=== PATIENT | female | born 1975 | race Caucasian/White ===

== ENCOUNTER 2017-02-03 14:07 | Inpatient (IN) | payer OTHER ==
[2017-02-01] MEDS: MUPIROCIN 2% TOPICAL OINTMENT FOR DECOLONIZATION NS SCH (13:58)
--- NOTE | 2017-02-03 15:23 | PDOC ---
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 Patient was seen last night in the ED but signed out AMA. Her family and her were informed by ED later today of positive CT head showed venous thrombosis. The headache started last night around 9pm, intermittent, begins from anterior L eye, travels through L head then to posterior occipital lobe, 6-8/10, sharp quality, associated with n/v, light, position change, noise make the pain worse. Patient accounts that she had herpes breakout before the headache. She also c/o chest pain but she attributes the symptom to panic attack. Denies , OCP use, bleeding/ clotting disorders, fever, chills, sob, abd pain, urinary and bowel symptoms. 02/03/17 16:49 <Jonas Ross - Last Filed: 02/03/17 18:56> <Saturnino Chavez - Last Filed: 02/09/17 18:28> - General Chief Complaint: Headache Stated Complaint: CVT Time Seen by Provider: 02/03/17 15:23 Past History - Travel Traveled outside of the country in the last 30 days: No Close contact w/someone who was outside of country & ill: No - Past Medical History Psychiatric Problems: Yes (Depression, anxiety, mental illness) - Psycho/Social/Smoking Cessation Hx Suicidal Ideation: No Smoking Status: Yes (1.5 pack per day) Smoking History: Current every day smoker Have you smoked in the past 12 months: Yes Number of Cigarettes Smoked Daily: 35 Information on smoking cessation initiated: No Hx Alcohol Use: No Drug/Substance Use Hx: No Substance Use Type: None <Jonas Ross - Last Filed: 02/03/17 18:56> <Saturnino Chavez - Last Filed: 02/09/17 18:28> - Past Medical History Allergies/Adverse Reactions: Allergies Allergy/AdvReac Type Severity Reaction Status Date / Time No Known Allergies Allergy Verified 02/03/17 14:21 Home Medications: Ambulatory Orders Clonazepam [Klonopin] 1 mg TID 02/03/17 Quetiapine Fumarate [Seroquel] 100 tab PO HS 02/03/17 Sertraline HCl [Zoloft] 100 mg PO DAILY 02/03/17 Review of Systems - Review of Systems Able to Perform ROS?: Yes Is the patient limited Iranian proficient: No Constitutional: No: Chills, Fever, Weakness HEENTM: Yes: Other (eyes sensitive to light and noise) Cardiac (ROS): Yes: Chest Pain (due to anxiety) ABD/GI: Yes: Nausea, Vomiting : No: Dysuria Neurological: Yes: Tremors Psychiatric: Yes: Anxiety, Depression <Jonas Ross - Last Filed: 02/03/17 18:56> *Physical Exam - Vital Signs Last Vital Signs Temp Pulse Resp BP Pulse Ox 98 F 92 H 18 126/95 98 02/03/17 14:19 02/03/17 14:19 02/03/17 14:19 02/03/17 14:19 02/03/17 14:19 - Physical Exam General Appearance: Yes: Mild Distress HEENT: positive: AARON, Other (sensitive to light) Neck: positive: Trachea midline, Supple Respiratory/Chest: positive: Lungs Clear, Normal Breath Sounds Cardiovascular: positive: Regular Rhythm, S1, S2, Tachycardia. negative: Diastolic Murmur, Systolic Murmur, Gallop/S3, Gallop/S4 Gastrointestinal/Abdominal: positive: Normal Bowel Sounds, Soft. negative: Tenderness Extremity: positive: Swelling (trace edema) Neurologic: positive: Fully Oriented, Alert (4/5 on L face), Sensory Deficit <Jonas Ross - Last Filed: 02/03/17 18:56> - Vital Signs Last Vital Signs Temp Pulse Resp BP Pulse Ox 98.5 F 78 20 126/75 93 L 02/09/17 14:35 02/09/17 14:35 02/09/17 14:35 02/09/17 14:35 02/09/17 11:00 <Saturnino Chavez - Last Filed: 02/09/17 18:28> ED Treatment Course - LABORATORY CBC & Chemistry Diagram: 02/09/17 06:20 02/06/17 06:00 - Medications Given in the ED: ED Medications Discontinued Medications Generic Name Dose Route Start Last Admin Trade Name Freq PRN Reason Stop Dose Admin Acetaminophen/Butalbital/Caffeine 1 tablet 02/03/17 18:32 02/03/17 18:37 Fioricet - PO 02/04/17 18:31 1 tablet Q4H PRN Administration FEVER OR PAIN Chlorhexidine Gluconate 1 applic 02/03/17 22:00 02/03/17 23:34 Hibiclens For Decolonization - TP 1 applic HS TRANG Administration Clonazepam 1 mg 02/03/17 22:00 02/04/17 13:57 Klonopin - PO 1 mg TID TRANG Administration Docusate Sodium 100 mg 02/06/17 06:45 02/08/17 13:39 Colace - PO 100 mg BID TRANG Administration Heparin Sodium (Porcine) 5,000 unit 02/03/17 16:26 02/03/17 16:47 Heparin - IVPUSH 02/03/17 16:27 5,000 unit ONCE ONE Administration Heparin Sodium/Dextrose 500 mls @ 20 mls/hr 02/03/17 16:30 02/04/17 17:34 Heparin Infusion - IVPB 20 mls/hr TITR TRANG Administration Protocol 1,000 UNITS/HR Sodium Chloride 1,000 mls @ 75 mls/hr 02/04/17 12:30 02/05/17 06:27 Normal Saline - IV 75 mls/hr ASDIR TRANG Administration Sodium Chloride 1,000 mls @ 1,000 mls/hr 02/04/17 23:34 02/04/17 23:40 Normal Saline - IV 02/05/17 00:33 1,000 mls/hr ASDIR STA Administration Levetiracetam 500 mg 02/03/17 22:00 02/04/17 10:27 Keppra - PO 500 mg BID TRANG Administration Levetiracetam 500 mg 02/04/17 22:00 02/05/17 09:46 Keppra - PO 500 mg BID TRANG Administration Mupirocin 1 applic 02/03/17 22:00 02/03/17 23:33 Bactroban Ointment (For Decolonization) - NS 02/08/17 21:59 1 applic BID TRANG Administration Mupirocin 1 applic 02/04/17 22:00 02/08/17 10:00 Bactroban Ointment (For Decolonization) - NS 02/08/17 21:59 Not Given BID TRANG Nicotine 14 mg 02/04/17 10:00 02/04/17 11:33 Nicoderm Patch - TD 14 mg DAILY TRANG Administration Polyethylene Glycol 17 gm 02/06/17 06:52 02/06/17 07:48 Miralax (For Daily Use) - PO 02/06/17 06:53 17 grams ONCE ONE Administration Quetiapine Fumarate 100 mg 02/03/17 22:00 02/03/17 23:34 Seroquel - PO 100 mg HS TRANG Administration Sertraline HCl 100 mg 02/04/17 10:00 02/04/17 10:35 Zoloft - PO Not Given DAILY TRANG Sertraline HCl 100 mg 02/05/17 10:00 02/07/17 09:21 Zoloft - PO Not Given DAILY TRANG Warfarin Sodium 5 mg 02/04/17 18:00 02/04/17 17:36 Coumadin - PO 5 mg DAILY@1800 TRANG Administration Warfarin Sodium 5 mg 02/05/17 18:00 02/05/17 17:46 Coumadin - PO 5 mg DAILY@1800 TRANG Administration Warfarin Sodium 7.5 mg 02/06/17 18:00 02/06/17 18:28 Coumadin - PO 02/06/17 18:01 7.5 mg ONCE@1800 ONE Administration Warfarin Sodium 10 mg 02/07/17 18:00 02/07/17 17:10 Coumadin - PO 02/07/17 18:01 10 mg ONCE@1800 ONE Administration Warfarin Sodium 10 mg 02/08/17 18:00 02/08/17 18:13 Coumadin - PO 02/08/17 18:01 10 mg NOW ONE Administration Warfarin Sodium 10 mg 02/09/17 18:00 02/09/17 18:07 Coumadin - PO 02/09/17 18:01 10 mg NOW ONE Administration <Saturnino Chavez - Last Filed: 02/09/17 18:28> Medical Decision Making - Medical Decision Making 02/03/17 16:45 Labs from last night were essential normal except slightly elevated WBC. CT w/ contrast showed cavernous sinus thrombosis. Will admit the patient under hospitalist to Med-Surg and consult neurology and neurosurgery. 02/03/17 16:53 Patient's recent herpe breakout on face could be responsible for cavernous sinus thrombosis. Will start heparin gtt and admit the patient under hospitalist service to med-surg 02/03/17 18:[address] Mcclellan, he suggests ICU admission and will give pt fiorcet for headache. Awaits Dr. Shakir Lincoln to call back. 02/03/17 18:56 <Jonas Ross - Last Filed: 02/03/17 18:56> *DC/Admit/Observation/Transfer - Discharge Dispostion Admit: Yes <Jonas Ross - Last Filed: 02/03/17 18:56> <Saturnino Chavez - Last Filed: 02/09/17 18:28> Diagnosis at time of Disposition: Cavernous sinus thrombosis - Referrals
--- NOTE | 2017-02-03 15:27 | PDOC ---
Attending Attestation - Resident Resident Name: Jonas Ross - ED Attending Attestation I have performed the following: I have examined & evaluated the patient, The case was reviewed & discussed with the resident, I agree w/resident's findings & plan - HPI HPI: 41y F hx of anxiety/depression, presented the previous evening with complain gof headache, had a CT head suggestive of sinous venous thrombosis and the pt was admitted and started on a/c, however the pt decided to leave AMA in the AM. The pt returned to the ED this evening as she was called back and encouraged to return. The pt complains of persistent mild left sided facial headache. Seems to worsen with position and associated w/ n/v and light and light sensitivity. exam is neurologically intact. as the pt was admitted previously and had a full workup will admit directly to hospitalist service to the ICU - will notify neurosurgery and neurology - also restarted on heparin gtt. - Physicial Exam PE: 02/04/17 08:45 see above - Medical Decision Making 02/04/17 08:45 see above
[2017-02-03] MEDS ORDERED: HEPARIN NA (PORCINE) 5,000 UNITS/ML 1ML VIAL IVPUSH ONE (16:26)
[2017-02-03] MEDS ORDERED: HEPARIN NA (PORCINE) 5,000 UNITS/ML 1ML VIAL ONE (16:34)
[2017-02-03] MEDS ORDERED: HEPARIN INFUSION - 500 ML IVPB ONE (16:34)
[2017-02-03] MEDS: HEPARIN INFUSION - 500 ML IVPB SCH (16:47)
[2017-02-03] MEDS ORDERED: ACETAMINOPHEN/CAFFEINE/BUTALBITAL 1 TAB PO PRN (18:32)
[2017-02-03] MEDS ORDERED: ACETAMINOPHEN/CAFFEINE/BUTALBITAL 1 TAB ONE ×2 (18:41→21:21)
--- NOTE | 2017-02-03 19:37 | HP ---
CHIEF COMPLAINT: Headache PCP: Summer Younger HISTORY OF PRESENT ILLNESS: Patient is a 41 year old female with PMH of HSV, HPV, Anxiety, Depression & recurrent sinusitis who returned to ED after signing out AMA this morning. Patient was originally seen overnight for a severe headache that vstarted yesterday afternoon. The headache was 8/10, severe, sharp, located behind her left eye and radiated to the back of her head. She has associated photophobia, nausea, vomiting & noise sensitivity. CT was performed and showed venous thrombosis and patient was admitted to hospitalist service. She became anxious earlier today and signed out AMA, but returned after speaking with her mother. She denies (confirmed by HCG test), OCP use, clotting disorders in her history or her family. Denies fever, chills, SOB, chest pain or abdominal pain. ER course was notable for: (1)Head CT shows venous thrombosis left sigmoid sinus & left transverse sinus (2)Fioricet for pain management (3)Neurosurgery consulted Recent Travel: NONE REPORTED PAST MEDICAL HISTORY: ABOVE PAST SURGICAL HISTORY: NONE REPORTED Social History: Smokin/2 PPD, "long time" Alcohol:NONE REPORTED Drugs: NONE REPORTED Family History: ABOVE, noncontributory Allergies No Known Allergies Allergy (Verified 02/03/17 14:21) HOME MEDICATIONS: Home Medications Medication Instructions Recorded Clonazepam [Klonopin] 1 mg TID 02/03/17 Quetiapine Fumarate [Seroquel] 100 tab PO HS 02/03/17 Sertraline HCl [Zoloft] 100 mg PO DAILY 02/03/17 REVIEW OF SYSTEMS CONSTITUTIONAL: Absent: fever, chills, diaphoresis, generalized weakness, malaise, loss of appetite, weight change HEENT: Absent: rhinorrhea, nasal congestion, throat pain, throat swelling, difficulty swallowing, mouth swelling, ear pain CARDIOVASCULAR: Absent: chest pain, syncope, palpitations, irregular heart rate, lightheadedness , peripheral edema RESPIRATORY: Absent: cough, shortness of breath, dyspnea with exertion, orthopnea, wheezing, stridor, hemoptysis GASTROINTESTINAL: (+)nausea, vomiting, Absent: abdominal pain, abdominal distension, diarrhea, constipation, melena, hematochezia GENITOURINARY: Absent: dysuria, frequency, urgency, hesitancy, hematuria, flank pain, genital pain MUSCULOSKELETAL: Absent: myalgia, arthralgia, joint swelling, back pain, neck pain SKIN: Absent: rash, itching, pallor HEMATOLOGIC/IMMUNOLOGIC: Absent: easy bleeding, easy bruising, lymphadenopathy, frequent infections ENDOCRINE: Absent: unexplained weight gain, unexplained weight loss, heat intolerance, cold intolerance NEUROLOGIC: (+)headache, dizziness Absent: focal weakness or paresthesias, seizure, mental status changes, bladder or bowel incontinence PSYCHIATRIC: (+)anxiety, Absent: depression, suicidal or homicidal ideation, hallucinations. PHYSICAL EXAMINATION Vital Signs Temperature 97.7 F 02/03/17 21:17 Pulse Rate 70 02/03/17 21:17 Respiratory Rate 18 02/03/17 21:17 Blood Pressure 102/58 02/03/17 21:17 O2 Sat by Pulse Oximetry (%) 97 02/03/17 21:17 GENERAL: Awake, alert, and fully oriented, lethargic resting in bed. HEENT: Atraumatic, EOMI, PERRLA, No lymphadenopathy noteed, moist membranes LUNGS: Breath sounds equal, clear to auscultation bilaterally. No wheezes, and no crackles. No accessory muscle use. HEART: Regular rate and rhythm, normal S1 and S2 without murmur, rub or gallop. ABDOMEN: Soft, nontender, not distended, normoactive bowel sounds EXTREMITIES: 2+ pulses, warm, well-perfused. No calf tenderness. No peripheral edema. NEUROLOGICAL: Cranial nerves II-XII intact. Normal speech. Gait not observed. PSYCHIATRIC: Cooperative. Good eye contact. Appropriate mood and affect. Mildly anxious. SKIN: Warm, dry, normal turgor, no rashes or lesions noted, normal capillary refill. ASSESSMENT/PLAN: 41 year old female with PMH of HSV, HPV, Anxiety, Depression & recurrent sinusitis who returned to ED after signing out AMA this morning. Presented with headache, CT showed venous thrombosis. #Venous thrombosis, left sigmoid sinus & left transverse sinus -Fioricet for pain management PRN -Keppra BID, as per neurology -Heparin drip started after being loaded -zofran ordered for nausea -MRV ordered & pending, as per neurosurgery -Neurochecks -Neurology consulted -Neurosurgery consulted #Anxiety, Depression -continue home meds: Seroquel, Zoloft, Klonopin -needs outpatient Psych consult #Smoking history -nicotine patch -discussed importance of smoking cessation with patient Prophylaxis -Heparin drip -No PPI Visit type - Emergency Visit Emergency Visit: Yes ED Registration Date: 02/03/17 Care time: The patient presented to the Emergency Department on the above date and was hospitalized for further evaluation of their emergent condition. - New Patient This patient is new to me today: Yes Date on this admission: 02/04/17 - Critical Care Critical Care patient: Yes Total Critical Care Time (in minutes): 40 Critical Care Statement: The care of this patient involved high complexity decision making to prevent further life threatening deterioration of the patient 's condition and/or to evalute & treat vital organ system(s) failure or risk of failure.
--- NOTE | 2017-02-03 19:49 | PN ---
<Barby Donaldson - Last Filed: 02/03/17 19:49> Teaching Attending Note Name of Resident: Joey Sims <Summer Stanton - Last Filed: 02/03/17 21:17> Teaching Attending Note ATTENDING PHYSICIAN STATEMENT I saw and evaluated the patient. I reviewed the resident's note and discussed the case with the resident. I agree with the resident's findings and plan as documented. SUBJECTIVE: 41 yo F presents with headache since last night. She states that her headache still persists and she now has left jaw pain as well. Patient signed out AMA this morning and states that Hospitals make her anxious. Patient reports associated photophobia. Patient denies fevers, chills, SOB, nausea, vomiting, diarrhea and abdominal pain. 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 HEENT: Atraumatic. PERRLA, EOMI. Moist mucosa. No JVD. Photophobia. LUNGS: No distress, speaks full sentences, clear to auscultation bilaterally HEART: Regular rate and rhythm, normal S1 and S2, no murmurs, rubs or gallops, peripheral pulses normal and equal bilaterally. ABDOMEN: Soft, nontender, normoactive bowel sounds. No guarding, no rebound. No masses EXTREMITIES: Normal inspection, Normal range of motion, no edema. No clubbing or Cyanosis. NEUROLOGICAL: Cranial nerves II through XII grossly intact. Normal speech, normal gait, no focal sensorimotor deficits SKIN: Warm, Dry, normal turgor, no rashes or lesions noted. Laboratory Results - last 24 hr 02/02/17 02/03/17 02/03/17 22:20 00:01 00:01 WBC 11.5 H RBC 4.59 Hgb 13.0 Hct 40.3 MCV 87.8 MCHC 32.3 RDW 15.9 H Plt Count 208 MPV 8.7 Neutrophils % 63.7 Lymphocytes % 29.9 Monocytes % 4.9 Eosinophils % 1.0 Basophils % 0.5 INR Sodium 145 Potassium 4.0 Chloride 108 H Carbon Dioxide 27 Anion Gap 10 BUN 14 Creatinine 1.0 Creat Clearance w eGFR > 60 Random Glucose 83 Calcium 8.9 Total Bilirubin 0.2 AST 19 ALT 26 Alkaline Phosphatase 68 Total Protein 7.2 Albumin 3.6 Urine HCG, Qual Negative Blood Type Antibody Screen 02/03/17 02/03/17 04:10 04:10 WBC RBC Hgb Hct MCV MCHC RDW Plt Count MPV Neutrophils % Lymphocytes % Monocytes % Eosinophils % Basophils % INR 1.06 Sodium Potassium Chloride Carbon Dioxide Anion Gap BUN Creatinine Creat Clearance w eGFR Random Glucose Calcium Total Bilirubin AST ALT Alkaline Phosphatase Total Protein Albumin Urine HCG, Qual Blood Type B POSITIVE Antibody Screen Negative Documentation prepared by Summer Stanton, acting as medical radiation dosimetrist for Barby Donaldson M.D.
[2017-02-03] MEDS ORDERED: ONDANSETRON 4 MG/2 ML VIAL IVPB PRN (21:45)
[2017-02-03] MEDS ORDERED: CHLORHEXIDINE GLUCONATE 4% CLEANSER FOR DECOLONIZATION TP SCH (22:00)
[2017-02-03] MEDS ORDERED: QUEtiapine FUMARATE 100 MG TABLET (FP) PO SCH (22:00)
--- NOTE | 2017-02-03 22:38 | CONSULT ---
Consult Consult Specialty:: Pulm/CCM Reason for Consultation:: Sigmoid, sinus thrombosis - History of Present Illness Chief Complaint: Headache History of Present Illness: 41 kathya active smoker with PMHx of anxiety, depression, genital herpes and HPV virus who was admitted with c/o severe Lt sided headache x 2weeks. In Ed CT head showed venous thrombus in Left sigmoid sinus and left transverse sinus. She was seen by neuro surgeon Salazar and given Keppra for seizure prophylaxis, Fioricet for pain and started on a heparin drip. She denied any previous clotting events, or a family hx of hypercoaguable disease. test negative. She was transferred to ICU for monitoring. Plan for MRI head in am. Received in ICU AA+O x3 with c/o lt sided headache 04/03, no focal deficits, BARRERA and answering questions appropriately. VS BP 110/67, HR 68, O2 sat 100% on room air. She c/o photophobia, occasional dysphagia and drooling; denies N/V, chest pain, cough, fever, chills. - History Source History Provided By: Patient, Medical Record - Past Medical History Psych: Yes: Anxiety, Depression ENT: Yes: Sinusitis - Alcohol/Substance Use Hx Alcohol Use: No - Smoking History Smoking history: Current every day smoker Have you smoked in the past 12 months: Yes Aproximately how many cigarettes per day: 35 Home Medications - Allergies Allergies/Adverse Reactions: Allergies Allergy/AdvReac Type Severity Reaction Status Date / Time No Known Allergies Allergy Verified 02/03/17 14:21 - Home Medications Home Medications: Ambulatory Orders Quetiapine Fumarate [Seroquel] 100 tab PO HS 02/03/17 RX: Clonazepam [Klonopin] 1 mg TID 02/03/17 Sertraline HCl [Zoloft] 100 mg PO DAILY 02/03/17 Family Disease History - Family Disease History Family History: Unremarkable Review of Systems - Review of Systems Constitutional: reports: Weakness Eyes: reports: Recent Change in Vision (decreased distance vision) HENT: reports: Other (Left temporal and jaw pain) Neck: reports: No Symptoms Cardiovascular: reports: No Symptoms Respiratory: reports: No Symptoms Gastrointestinal: reports: Nausea, Vomiting (x2 in past week) Genitourinary: reports: No Symptoms Breasts: reports: No Symptoms Reported Musculoskeletal: reports: Other (occasional numbness in left hand) Integumentary: reports: No Symptoms Neurological: reports: Headache, Numbness, Weakness (numbness and weakness in left arm) Endocrine: reports: No Symptoms Hematology/Lymphatic: reports: No Symptoms Psychiatric: reports: Anxiety, Depression Pain Intensity: 6 Physical Exam Vital Signs: Vital Signs Temperature 97.7 F 02/03/17 21:17 Pulse Rate 70 02/03/17 21:17 Respiratory Rate 18 02/03/17 21:17 Blood Pressure 102/58 02/03/17 21:17 O2 Sat by Pulse Oximetry (%) 97 02/03/17 21:17 Constitutional: Yes: Well Nourished, No Distress, Anxious Eyes: Yes: Conjunctiva Clear, EOM Intact HENT: Yes: Atraumatic, Normocephalic, Other (dry MM) Neck: Yes: Supple, Trachea Midline Cardiovascular: Yes: Regular Rate and Rhythm, S1, S2 Respiratory: Yes: CTA Bilaterally Gastrointestinal: Yes: Normal Bowel Sounds, Soft, Abdomen, Obese ...Rectal Exam: Yes: Deferred Breast(s): Yes: WNL Musculoskeletal: Yes: WNL Extremities: Yes: Other (WWP) Edema: No Peripheral Pulses WNL: Yes Integumentary: Yes: WNL Neurological: Yes: Alert, Oriented ...Motor Strength: WNL Psychiatric: Yes: Alert, Oriented (anxious) Labs: Current Medications Acetaminophen/Butalbital/Caffeine (Fioricet -) 1 tablet PO Q4H PRN PRN Reason: FEVER OR PAIN Stop: 02/04/17 18:31 Last Admin: 02/03/17 18:37 Dose: 1 tablet Chlorhexidine Gluconate (Hibiclens For Decolonization -) 1 applic TP HS TRANG Clonazepam (Klonopin -) 1 mg PO TID TRANG Heparin Sodium/Dextrose (Heparin Infusion -) 500 mls @ 20 mls/hr IVPB TITR TRANG ; 1,000 UNITS/HR PRN Reason: Protocol Last Admin: 02/03/17 16:47 Dose: 20 mls/hr Levetiracetam (Keppra -) 500 mg PO BID TRANG Mupirocin (Bactroban Ointment (For Decolonization) -) 1 applic NS BID TRANG Stop: 02/08/17 21:59 Ondansetron HCl (Zofran Injection) 4 mg IVPB Q6H PRN PRN Reason: NAUSEA Quetiapine Fumarate (Seroquel -) 100 mg PO HS TRANG Sertraline HCl (Zoloft -) 100 mg PO DAILY TRANG Imaging - Results Cat Scan: Report Reviewed (CT Head Venous thrombosis in left sigmoid sinus and Left transverse sinus) Assessment/Plan 41 kathya active smoker with PMHx of anxiety, depression, genital herpes and HPV virus who was admitted with c/o severe Lt sided headache x 2weeks. Found to have venous thrombosis in left sigmoid sinus and lt transverse sinus of unclear etiology. Started on anticoagulation with heparin. Plan further imaging and possible surgical procedure. Admitted to ICU for monitoring. Neuro: Venous thrombosis in left sigmoid and Lt transverse sinus; work-up of etiology ongoing -Continue Heparin drip for therapeutic PTT 76-110 -Continue Keppra for seizure prophylaxis -Fioricet for headache -Decrease environmental stimulants -Cont anxiolytics -Cont antidepressants and anti-psychotics -Neuro checks ID: Leukocytosis no infectious prodrome or fever -Monitor WBC and temps -no indication for antibiotics at this time Proph: Heparin drip/ No PPI indicated
[2017-02-03 23:00] VITALS: BMI 34.4
[2017-02-03] MEDS: MUPIROCIN 2% TOPICAL OINTMENT FOR DECOLONIZATION NS SCH (23:33)
[2017-02-03] MEDS: levETIRAcetam 500 MG TABLET (FP) PO SCH (23:34)
[2017-02-03] MEDS: clonazePAM 0.5 MG TABLET PO SCH (23:34)
[2017-02-04] MEDS: clonazePAM 0.5 MG TABLET PO SCH ×3 (06:00→21:47)
[2017-02-04 06:11] LABS: MCH 29.3 pg (25.7-33.7); MCHC 33.2 g/dl (32.0-36.0); MEAN CELL VOLUME 88.2 fl (80-96); PLATELET COUNT 189 K/MM3 (134-434); RDW 15.3 % (11.6-15.6); WHITE BLOOD COUNT 8.6 K/mm3 (4.0-10.0)
[2017-02-04 07:24] LABS: CALCIUM 8.4 mg/dL (8.5-10.1); COCKROFT - GAULT 139.808; CREATININE 0.8 mg/dL (0.55-1.02)
--- NOTE | 2017-02-04 09:21 | PN ---
Progress Note (short form) - Note Progress Note: NEUROSURGERY Some headaches, but less Minimal nausea AF, VSS General- stable Speech slow (baseline per sister previously) Neuro exam non-focal Brain MRI/MRV baseline Cont heparin and convert to coumadin when ptt therapeutic and stable Hematology consult for hypercoagulable state Pt aware of the above
[2017-02-04] MEDS ORDERED: NICOTINE 14 MG/24 HOURS TOPICAL PATCH TD SCH (10:00)
[2017-02-04] MEDS: levETIRAcetam 500 MG TABLET (FP) PO SCH ×2 (10:27→21:50)
[2017-02-04] MEDS ORDERED: PT OWN MED DRAWER 7, Y5N ONE (10:29)
[2017-02-04] MEDS: SERTRALINE HCL 50 MG TABLET (FP) PO SCH ×2 (10:31→10:35)
--- NOTE | 2017-02-04 11:58 | CONSULT ---
Consult - text type - Consultation Consultation Note: Neurology History of Present Illness 41 yo F with h/o genital herpes and positive Pap smear seeing reports analyst, severe anxiety, depression on zoloft and seroquel seeing psy at [facility] presented to the ED for severe headache. Patient was seen night before presentation in the ED but signed out AMA. Her family and her were informed by ED later today of positive CT head showed possible venous thrombosis. The headache symptoms are intermittent, begins from anterior L eye, travels through L head then to posterior occipital lobe, 6-8/10, sharp quality, associated with n/v, light, position change, noise make the pain worse. Patient accounts that she had herpes breakout before the headache. She also c/o anxiety and panic attack. Heparin was started. NSGY consulted. MRV recommended by me yesterday but appears to be confusion regarding order and therefore I re-ordered. Past History - Travel Traveled outside of the country in the last 30 days: No Close contact w/someone who was outside of country & ill: No - Past Medical History Allergies/Adverse Reactions: Allergies Allergy/AdvReac Type Severity Reaction Status Date / Time No Known Allergies Allergy Verified 02/03/17 14:21 Home Medications: Ambulatory Orders Clonazepam [Klonopin] 1 mg TID 02/03/17 Quetiapine Fumarate [Seroquel] 100 tab PO HS 02/03/17 Sertraline HCl [Zoloft] 100 mg PO DAILY 02/03/17 Psychiatric Problems: Yes (Depression, anxiety, mental illness) - Psycho/Social/Smoking Cessation Hx Suicidal Ideation: No Smoking Status: Yes (1.5 pack per day) Smoking History: Current every day smoker Have you smoked in the past 12 months: Yes Number of Cigarettes Smoked Daily: 35 Information on smoking cessation initiated: No Hx Alcohol Use: No Drug/Substance Use Hx: No Substance Use Type: None Review of Systems - Review of Systems Able to Perform ROS?: Yes Is the patient limited Luxembourgish proficient: No Constitutional: No: Chills, Fever, Weakness HEENTM: Yes: Other (eyes sensitive to light and noise) Cardiac (ROS): Yes: Chest Pain (due to anxiety) ABD/GI: Yes: Nausea, Vomiting : No: Dysuria Neurological: Yes: Tremors Psychiatric: Yes: Anxiety, Depression *Physical Exam - Vital Signs Last Vital Signs Temp Pulse Resp BP Pulse Ox 98 F 92 H 18 126/95 98 02/03/17 14:19 02/03/17 14:19 02/03/17 14:19 02/03/17 14:19 02/03/17 14:19 - Physical Exam General Appearance: Yes: Mild Distress HEENT: positive: AARON, Other (sensitive to light) Neck: positive: Trachea midline, Supple Respiratory/Chest: positive: Lungs Clear, Normal Breath Sounds Cardiovascular: positive: Regular Rhythm, S1, S2, Tachycardia. negative: Diastolic Murmur, Systolic Murmur, Gallop/S3, Gallop/S4 Gastrointestinal/Abdominal: positive: Normal Bowel Sounds, Soft. negative: Tenderness Extremity: positive: Swelling (trace edema) Neurologic: positive: Fully Oriented, Alert (4/5 on L face), Sensory Deficit CBCD WBC 8.6 K/mm3 (4.0-10.0) 02/04/17 05:15 RBC 4.45 M/mm3 (3.60-5.2) 02/04/17 05:15 Hgb 13.1 GM/dL (10.7-15.3) 02/04/17 05:15 Hct 39.3 % (32.4-45.2) 02/04/17 05:15 MCV 88.2 fl (80-96) 02/04/17 05:15 MCHC 33.2 g/dl (32.0-36.0) 02/04/17 05:15 RDW 15.3 % (11.6-15.6) 02/04/17 05:15 Plt Count 189 K/MM3 (134-434) 02/04/17 05:15 MPV 9.0 fl (7.5-11.1) 02/04/17 05:15 CMP Sodium 142 mmol/L (136-145) 02/04/17 05:15 Potassium 4.0 mmol/L (3.5-5.1) 02/04/17 05:15 Chloride 108 mmol/L (98-107) H 02/04/17 05:15 Carbon Dioxide 25 mmol/L (21-32) 02/04/17 05:15 Anion Gap 9 (8-16) 02/04/17 05:15 BUN 10 mg/dL (7-18) D 02/04/17 05:15 Creatinine 0.8 mg/dL (0.55-1.02) 02/04/17 05:15 Calcium 8.4 mg/dL (8.5-10.1) L 02/04/17 05:15 Medical Decision Making 41 yo F with h/o genital herpes and positive Pap smear seeing reports analyst, severe anxiety, depression on zoloft and seroquel seeing psy at [facility] presented to the ED for severe headache. Patient was seen night before presentation in the ED but signed out AMA. CT head showed possible Venous sinus thrombosis and therefore Heparin was started. NSGY consulted. MRV recommended by me yesterday but appears to be confusion regarding order and therefore I re-ordered. Fioricet for headaches as needed. Hematology consult.
[2017-02-04] MEDS ORDERED: ACETAMINOPHEN/CAFFEINE/BUTALBITAL 1 TAB PO PRN (12:07)
--- NOTE | 2017-02-04 12:52 | PN ---
Teaching Attending Note Name of Resident: Kamran Jean Baptiste ATTENDING PHYSICIAN STATEMENT I saw and evaluated the patient. I reviewed the resident's note and discussed the case with the resident. I agree with the resident's findings and plan as documented. SUBJECTIVE: Patient seen and examined in the ICU. Awake and alert. Headache is better today. No CP or SOB. Intake & Output 02/01/17 02/02/17 02/03/17 02/04/17 23:59 23:59 23:59 23:59 Output Total 500 Balance -500 Weight 206 lb 12.8 oz 206 lb 12.8 oz Last Vital Signs Temp Pulse Resp BP Pulse Ox 98.5 F 69 19 100/64 100 02/04/17 10:00 02/04/17 10:00 02/04/17 10:00 02/04/17 10:00 02/03/17 22:30 Active Medications Acetaminophen/Butalbital/Caffeine (Fioricet -) 1 tablet PO Q6H PRN PRN Reason: FEVER OR PAIN Stop: 02/04/17 18:31 Chlorhexidine Gluconate (Hibiclens For Decolonization -) 1 applic TP HS [facility] Last Admin: 02/03/17 23:34 Dose: 1 applic Clonazepam (Klonopin -) 1 mg PO TID [facility] Last Admin: 02/04/17 06:00 Dose: 1 mg Heparin Sodium/Dextrose (Heparin Infusion -) 500 mls @ 20 mls/hr IVPB TITR TRANG ; 1,000 UNITS/HR PRN Reason: Protocol Last Titration: 02/04/17 11:20 Dose: 1,000 units/hr Sodium Chloride (Normal Saline -) 1,000 mls @ 75 mls/hr IV ASDIR TRANG Levetiracetam (Keppra -) 500 mg PO BID [facility] Last Admin: 02/04/17 10:27 Dose: 500 mg Mupirocin (Bactroban Ointment (For Decolonization) -) 1 applic NS BID [facility] Stop: 02/08/17 21:59 Last Admin: 02/03/17 23:33 Dose: 1 applic Nicotine (Nicoderm Patch -) 14 mg TD DAILY [facility] Last Admin: 02/04/17 11:33 Dose: 14 mg Ondansetron HCl (Zofran Injection) 4 mg IVPB Q6H PRN PRN Reason: NAUSEA Quetiapine Fumarate (Seroquel -) 100 mg PO HS [facility] Last Admin: 02/03/17 23:34 Dose: 100 mg Sertraline HCl (Zoloft -) 100 mg PO DAILY [facility] Last Admin: 02/04/17 10:35 Dose: Not Given Warfarin Sodium (Coumadin -) 5 mg PO DAILY@1800 TRANG Constitutional: Yes: Well Nourished, No Distress Eyes: Yes: Conjunctiva Clear, EOM Intact HENT: Yes: Atraumatic, Normocephalic, Other (dry MM) Neck: Yes: Supple, Trachea Midline Cardiovascular: Yes: Regular Rate and Rhythm, S1, S2 Respiratory: Yes: CTA Bilaterally Gastrointestinal: Yes: Normal Bowel Sounds, Soft, Abdomen, Obese ...Rectal Exam: Yes: Deferred Breast(s): Yes: WNL Musculoskeletal: Yes: WNL Extremities: Yes: Other (WWP) Edema: No Peripheral Pulses WNL: Yes Integumentary: Yes: WNL Neurological: Yes: Alert, Oriented ...Motor Strength: WNL Psychiatric: Yes: Alert, Oriented (anxious) Labs: Laboratory Results - last 24 hr 02/03/17 02/04/17 02/04/17 23:00 05:15 05:15 WBC 8.6 RBC 4.45 Hgb 13.1 Hct 39.3 MCV 88.2 MCHC 33.2 RDW 15.3 Plt Count 189 MPV 9.0 PTT (Actin FS) 51.8 H Sodium 142 Potassium 4.0 Chloride 108 H Carbon Dioxide 25 Anion Gap 9 BUN 10 D Creatinine 0.8 Random Glucose 88 Calcium 8.4 L 02/04/17 05:15 WBC RBC Hgb Hct MCV MCHC RDW Plt Count MPV PTT (Actin FS) 52.9 H Sodium Potassium Chloride Carbon Dioxide Anion Gap BUN Creatinine Random Glucose Calcium IMP: Venous thrombosis in left sigmoid and Lt transverse sinus Active smoker Anxiety Depression Genital herpes HPV virus PLAN: IV Heparin No smoking advised VTE prophylaxis Keppra Fioricet for headache Decrease environmental stimulants Continue anxiolytics Cont antidepressants and anti-psychotics Neuro checks Monitor off ABX Dr Batista CCTime 35"
[2017-02-04] MEDS: SODIUM CHLORIDE 1,000 ML IV SCH (13:58)
--- NOTE | 2017-02-04 14:08 | MSN ---
Progress Note (short form) - Note Progress Note: 41 yo female with PMH of herpes, positive HPV on pap smear, severe anxiety, depression, every day smoker 1.5 pks daily, presents to ED with headaches X 2 days. Pt was in ER 2 days ago but left AMA after being told that she had a Venous sinus thrombosis on CT. Mother bought pt back because she was complaining of headaches. States today that headaches are intermitent & sharp, begins from anterior L eye, travels to back of head on left side to posterior neck but have gotten better. when present pain is 6-7/10. Complains of nausea, vomiting, photophobia, pain with positional change and noise. Also complains of intermittent chest pain in last 2 days that she thinks is related to her anxiety. Pt stated that she tried percocet that she had for but it did not work for headache. Denies , use of OCPs, bleeding, clotting disorders, fevers, chills, SOB, abdominal pain, urinary and bowel problems, falling on or hitting head recently. Last Vital Signs Temp Pulse Resp BP Pulse Ox 98.5 F 83 20 98/63 100 02/04/17 10:00 02/04/17 12:00 02/04/17 12:00 02/04/17 12:00 02/03/17 22:30 Laboratory Results - last 24 hr 02/03/17 02/04/17 02/04/17 23:00 05:15 05:15 WBC 8.6 RBC 4.45 Hgb 13.1 Hct 39.3 MCV 88.2 MCHC 33.2 RDW 15.3 Plt Count 189 MPV 9.0 PTT (Actin FS) 51.8 H Sodium 142 Potassium 4.0 Chloride 108 H Carbon Dioxide 25 Anion Gap 9 BUN 10 D Creatinine 0.8 Random Glucose 88 Calcium 8.4 L 02/04/17 05:15 WBC RBC Hgb Hct MCV MCHC RDW Plt Count MPV PTT (Actin FS) 52.9 H Sodium Potassium Chloride Carbon Dioxide Anion Gap BUN Creatinine Random Glucose Calcium Laboratory Results - last 24 hr 02/03/17 02/04/17 02/04/17 23:00 05:15 05:15 WBC 8.6 RBC 4.45 Hgb 13.1 Hct 39.3 MCV 88.2 MCHC 33.2 RDW 15.3 Plt Count 189 MPV 9.0 PTT (Actin FS) 51.8 H Sodium 142 Potassium 4.0 Chloride 108 H Carbon Dioxide 25 Anion Gap 9 BUN 10 D Creatinine 0.8 Random Glucose 88 Calcium 8.4 L 02/04/17 05:15 WBC RBC Hgb Hct MCV MCHC RDW Plt Count MPV PTT (Actin FS) 52.9 H Sodium Potassium Chloride Carbon Dioxide Anion Gap BUN Creatinine Random Glucose Calcium Current Medications Generic Name Dose Route Start Last Admin Trade Name Freq PRN Reason Stop Dose Admin Acetaminophen/Butalbital/Caffeine 1 tablet 02/04/17 12:07 Fioricet - PO 02/04/17 18:31 Q6H PRN FEVER OR PAIN Chlorhexidine Gluconate 1 applic 02/03/17 22:00 02/03/17 23:34 Hibiclens For Decolonization - TP 1 applic HS TRANG Administration Clonazepam 1 mg 02/03/17 22:00 02/04/17 13:57 Klonopin - PO 1 mg TID TRANG Administration Heparin Sodium/Dextrose 500 mls @ 20 mls/hr 02/03/17 16:30 02/04/17 11:20 Heparin Infusion - IVPB 1,000 units/hr TITR TRANG Titration Protocol 1,000 UNITS/HR Sodium Chloride 1,000 mls @ 75 mls/hr 02/04/17 12:30 02/04/17 13:58 Normal Saline - IV 75 mls/hr ASDIR TRANG Administration Levetiracetam 500 mg 02/03/17 22:00 02/04/17 10:27 Keppra - PO 500 mg BID TRANG Administration Mupirocin 1 applic 02/03/17 22:00 02/03/17 23:33 Bactroban Ointment (For Decolonization) - NS 02/08/17 21:59 1 applic BID TRANG Administration Nicotine 14 mg 02/04/17 10:00 02/04/17 11:33 Nicoderm Patch - TD 14 mg DAILY TRANG Administration Ondansetron HCl 4 mg 02/03/17 21:45 Zofran Injection IVPB Q6H PRN NAUSEA Quetiapine Fumarate 100 mg 02/03/17 22:00 02/03/17 23:34 Seroquel - PO 100 mg HS TRANG Administration Sertraline HCl 100 mg 02/04/17 10:00 04/13/17 10:35 Zoloft - PO Not Given DAILY [facility] Warfarin Sodium 5 mg 02/04/17 18:00 Coumadin - PO DAILY@[address] [facility] [address] w/ contrast: Cavenous sinus thrombosis - left sigmoid and transverse sinus General: Anxious, talkative; not able to focus and answer question directly, easily distracted, appears sleepy Head: Normocephalic, no obvious or gross deformities Neck: Supple, no JVD Heart: Normal S1 and S2, regular rate and rythm Lungs: Clear breath sounds B/L; no wheezes or rhonchi Abdomen: SOft non-tender, normoactive BS Extremity: 2+ pulses, no edema Neuro: Diminished facial sensation left; smile is symmetrial; eye brows are symmetrical, PEERLA, tongue is midline; stregth 5/5 upper and lower extremity; peripheral pulses 2+ upper and lower extremity; brachial and femoral pulses Assessment: 41 yo female with PMH of HSV, HPV, anxiety, deppression who presents to ED with head X 2days; pt left ED AMA 1 day previously after diagnosis of venous thrombosis of Left Sigmoid and Transverse sinus given. Venous Thrombosis of Left sigmoid and transverse sinus Heparin drip Keppra BID Zofran ordered for nausea MRV ordered per neurology Aniety Seroquel Klonopin Follow up out-patient with Psychiatry Depression Zoloft Follow up out-patient with psychiatry Nicotine Abuse Nicotine patch Discuss nicotine cessation with patient
--- NOTE | 2017-02-04 14:55 | PN ---
Physical Exam: SUBJECTIVE: Patient seen and examined Patient feels comfartable headache is on ad off denies numbness or weakness in any part of body denies chest pain, sob, palpiatations denies ocp intake, no h/o dvt no family history of dvt or pe H/o smoking present, OBJECTIVE: Vital Signs Period Temp Pulse Resp BP Sys/Allred Pulse Ox Last 24 Hr 97.7 F-98.5 F 67-98 15-27 87-110/55-67 97-100 GENERAL: The patient is awake, alert, and fully oriented, in no acute distress. HEAD: Normal with no signs of trauma. EYES: PERRL, extraocular movements intact, . ENT: Ears normal, nares patent, oropharynx clear without exudates, NECK: Trachea midline, full range of motion, supple. LUNGS: Breath sounds equal, clear to auscultation bilaterally, no wheezes, no crackles, HEART: s1s2 normal ABDOMEN: Soft, nontender, nondistended, normoactive bowel sounds, no guarding, no rebound, EXTREMITIES: 2+ pulses, warm, well-perfused, no edema. NEUROLOGICAL: Cranial nerves II through XII grossly intact. Normal speech, PSYCH: Normal mood, normal affect. SKIN: Warm, dry, normal turgor, Laboratory Results - last 24 hr 02/03/17 02/04/17 02/04/17 23:00 05:15 05:15 WBC 8.6 RBC 4.45 Hgb 13.1 Hct 39.3 MCV 88.2 MCHC 33.2 RDW 15.3 Plt Count 189 MPV 9.0 PTT (Actin FS) 51.8 H Sodium 142 Potassium 4.0 Chloride 108 H Carbon Dioxide 25 Anion Gap 9 BUN 10 D Creatinine 0.8 Random Glucose 88 Calcium 8.4 L 02/04/17 05:15 WBC RBC Hgb Hct MCV MCHC RDW Plt Count MPV PTT (Actin FS) 52.9 H Sodium Potassium Chloride Carbon Dioxide Anion Gap BUN Creatinine Random Glucose Calcium Active Medications Generic Name Dose Route Start Last Admin Trade Name Freq PRN Reason Stop Dose Admin Acetaminophen/Butalbital/Caffeine 1 tablet 02/04/17 12:07 Fioricet - PO 02/04/17 18:31 Q6H PRN FEVER OR PAIN Chlorhexidine Gluconate 1 applic 02/03/17 22:00 02/03/17 23:34 Hibiclens For Decolonization - TP 1 applic HS TRANG Administration Clonazepam 1 mg 02/03/17 22:00 02/04/17 13:57 Klonopin - PO 1 mg TID TRANG Administration Heparin Sodium/Dextrose 500 mls @ 20 mls/hr 02/03/17 16:30 02/04/17 11:20 Heparin Infusion - IVPB 1,000 units/hr TITR TRANG Titration Protocol 1,000 UNITS/HR Sodium Chloride 1,000 mls @ 75 mls/hr 02/04/17 12:30 02/04/17 13:58 Normal Saline - IV 75 mls/hr ASDIR TRANG Administration Levetiracetam 500 mg 02/03/17 22:00 02/04/17 10:27 Keppra - PO 500 mg BID TRANG Administration Mupirocin 1 applic 02/03/17 22:00 02/03/17 23:33 Bactroban Ointment (For Decolonization) - NS 02/08/17 21:59 1 applic BID TRANG Administration Nicotine 14 mg 02/04/17 10:00 02/04/17 11:33 Nicoderm Patch - TD 14 mg DAILY [facility] Administration Ondansetron HCl 4 mg 02/03/17 21:45 Zofran Injection IVPB Q6H PRN NAUSEA Quetiapine Fumarate 100 mg 02/03/17 22:00 02/03/17 23:34 Seroquel - PO 100 mg HS TRANG Administration Sertraline HCl 100 mg 02/04/17 10:00 02/04/17 10:35 Zoloft - PO Not Given DAILY [facility] Warfarin Sodium 5 mg 02/04/17 18:00 Coumadin - PO DAILY@1800 [facility] ASSESSMENT/PLAN: 41 kathya active smoker with PMHx of anxiety, depression, genital herpes and HPV virus who was admitted with c/o severe Lt sided headache x 2weeks. Found to have venous thrombosis in left sigmoid sinus and lt transverse sinus of unclear etiology. Started on anticoagulation with heparin. Plan further imaging and possible surgical procedure. Admitted to ICU for monitoring. Venous thrombosis in left sigmoid and Lt transverse sinus; work-up of etiology ongoing -Continue Heparin drip for therapeutic PTT 76-110 -Continue Keppra for seizure prophylaxis -Fioricet for headache q6h -Cont antidepressants and anti-psychotics -start coumadin 5mg - follow inr - haematology consult for hypercoagulism - monitor aptt, inr ( therapeutic range 2-3_ - monitor for bleeding fluid: NS 75 ml/hr electrolyte : follow in am nutrition : regular diet DVt pro : heparin drip gi pro po protonix dispo: transfer to [facility] surg Visit type - Emergency Visit Emergency Visit: Yes ED Registration Date: 02/03/17 Care time: The patient presented to the Emergency Department on the above date and was hospitalized for further evaluation of their emergent condition. - New Patient This patient is new to me today: Yes Date on this admission: 02/04/17 - Critical Care Critical Care patient: Yes Total Critical Care Time (in minutes): 45 Critical Care Statement: The care of this patient involved high complexity decision making to prevent further life threatening deterioration of the patient 's condition and/or to evalute & treat vital organ system(s) failure or risk of failure.
--- NOTE | 2017-02-04 14:55 | CONSULT ---
Consultation: REQUESTING PROVIDER: CONSULT REQUEST: We have been asked to medically evaluate this patient for ( specify). HISTORY OF PRESENT ILLNESS: REVIEW OF SYSTEMS: CONSTITUTIONAL: Absent: fever, chills, diaphoresis, generalized weakness, malaise, loss of appetite, weight change HEENT: Absent: rhinorrhea, nasal congestion, throat pain, throat swelling, difficulty swallowing, mouth swelling, ear pain, eye pain, visual changes CARDIOVASCULAR: Absent: chest pain, syncope, palpitations, irregular heart rate, lightheadedness , peripheral edema RESPIRATORY: Absent: cough, shortness of breath, dyspnea with exertion, orthopnea, wheezing, stridor, hemoptysis GASTROINTESTINAL: Absent: abdominal pain, abdominal distension, nausea, vomiting, diarrhea, constipation, melena, hematochezia GENITOURINARY: Absent: dysuria, frequency, urgency, hesitancy, hematuria, flank pain, genital pain MUSCULOSKELETAL: Absent: myalgia, arthralgia, joint swelling, back pain, neck pain SKIN: Absent: rash, itching, pallor HEMATOLOGIC/IMMUNOLOGIC: Absent: easy bleeding, easy bruising, lymphadenopathy, frequent infections ENDOCRINE: Absent: unexplained weight gain, unexplained weight loss, heat intolerance, cold intolerance NEUROLOGIC: Absent: headache, focal weakness or paresthesias, dizziness, unsteady gait, seizure, mental status changes, bladder or bowel incontinence PSYCHIATRIC: Absent: anxiety, depression, suicidal or homicidal ideation, hallucinations. PHYSICAL EXAMINATION Vital Signs - 24 hr 02/03/17 02/03/17 02/03/17 21:00 21:17 22:30 Temperature 97.7 F 98.1 F Pulse Rate 98 H Pulse Rate [ 70 Left] Respiratory 18 27 H Rate Blood Pressure 110/67 Blood Pressure 102/58 [Left Arm] O2 Sat by Pulse 97 97 100 Oximetry (%) 02/04/17 02/04/17 02/04/17 00:00 02:00 04:00 Temperature 97.9 F Pulse Rate 74 74 67 Pulse Rate [ Left] Respiratory 19 20 15 Rate Blood Pressure 96/65 87/57 91/55 Blood Pressure [Left Arm] O2 Sat by Pulse Oximetry (%) 02/04/17 02/04/17 02/04/17 06:00 08:00 10:00 Temperature 97.8 F 98.5 F Pulse Rate 70 77 69 Pulse Rate [ Left] Respiratory 15 20 19 Rate Blood Pressure 101/57 94/65 100/64 Blood Pressure [Left Arm] O2 Sat by Pulse Oximetry (%) 02/04/17 12:00 Temperature Pulse Rate 83 Pulse Rate [ Left] Respiratory 20 Rate Blood Pressure 98/63 Blood Pressure [Left Arm] O2 Sat by Pulse Oximetry (%) GENERAL: Awake, alert, and fully oriented, in no acute distress. HEAD: Normal with no signs of trauma. EYES: Pupils equal, round and reactive to light, extraocular movements intact, sclera anicteric, conjunctiva clear. No lid lag. EARS, NOSE, THROAT: Ears normal, nares patent, oropharynx clear without exudates. Moist mucous membranes. NECK: Normal range of motion, supple without lymphadenopathy, JVD, or masses. LUNGS: Breath sounds equal, clear to auscultation bilaterally. No wheezes, and no crackles. No accessory muscle use. HEART: Regular rate and rhythm, normal S1 and S2 without murmur, rub or gallop. ABDOMEN: Soft, nontender, not distended, normoactive bowel sounds, no guarding, no rebound, no masses. No hepatomegaly or splenomegaly. MUSCULOSKELETAL: Normal range of motion at all joints. No bony deformities or tenderness. No CVA tenderness. UPPER EXTREMITIES: 2+ pulses, warm, well-perfused. No cyanosis. No clubbing. Cap refill <2 seconds. No peripheral edema. LOWER EXTREMITIES: 2+ pulses, warm, well-perfused. No calf tenderness. No peripheral edema. NEUROLOGICAL: Cranial nerves II-XII intact. Normal speech. Normal gait. PSYCHIATRIC: Cooperative. Good eye contact. Appropriate mood and affect. SKIN: Warm, dry, normal turgor, no rashes or lesions noted. Laboratory Results - last 24 hr 02/03/17 02/04/17 02/04/17 23:00 05:15 05:15 WBC 8.6 RBC 4.45 Hgb 13.1 Hct 39.3 MCV 88.2 MCHC 33.2 RDW 15.3 Plt Count 189 MPV 9.0 PTT (Actin FS) 51.8 H Sodium 142 Potassium 4.0 Chloride 108 H Carbon Dioxide 25 Anion Gap 9 BUN 10 D Creatinine 0.8 Random Glucose 88 Calcium 8.4 L 02/04/17 05:15 WBC RBC Hgb Hct MCV MCHC RDW Plt Count MPV PTT (Actin FS) 52.9 H Sodium Potassium Chloride Carbon Dioxide Anion Gap BUN Creatinine Random Glucose Calcium Active Medications Generic Name Dose Route Start Last Admin Trade Name Freq PRN Reason Stop Dose Admin Acetaminophen/Butalbital/Caffeine 1 tablet 02/04/17 12:07 Fioricet - PO 02/04/17 18:31 Q6H PRN FEVER OR PAIN Chlorhexidine Gluconate 1 applic 02/03/17 22:00 02/03/17 23:34 Hibiclens For Decolonization - TP 1 applic HS TRANG Administration Clonazepam 1 mg 02/03/17 22:00 02/04/17 13:57 Klonopin - PO 1 mg TID TRANG Administration Heparin Sodium/Dextrose 500 mls @ 20 mls/hr 02/03/17 16:30 02/04/17 11:20 Heparin Infusion - IVPB 1,000 units/hr TITR TRANG Titration Protocol 1,000 UNITS/HR Sodium Chloride 1,000 mls @ 75 mls/hr 02/04/17 12:30 02/04/17 13:58 Normal Saline - IV 75 mls/hr ASDIR TRANG Administration Levetiracetam 500 mg 02/03/17 22:00 02/04/17 10:27 Keppra - PO 500 mg BID TRANG Administration Mupirocin 1 applic 02/03/17 22:00 02/03/17 23:33 Bactroban Ointment (For Decolonization) - NS 02/08/17 21:59 1 applic BID TRANG Administration Nicotine 14 mg 02/04/17 10:00 02/04/17 11:33 Nicoderm Patch - TD 14 mg DAILY TRANG Administration Ondansetron HCl 4 mg 02/03/17 21:45 Zofran Injection IVPB Q6H PRN NAUSEA Quetiapine Fumarate 100 mg 02/03/17 22:00 02/03/17 23:34 Seroquel - PO 100 mg HS TRANG Administration Sertraline HCl 100 mg 02/04/17 10:00 02/04/17 10:35 Zoloft - PO Not Given DAILY TRANG Warfarin Sodium 5 mg 02/04/17 18:00 Coumadin - PO DAILY@1800 [facility] ASSESSMENT/PLAN: Dispo: We will continue to follow the patient. Thank you for this consultative opportunity.
--- NOTE | 2017-02-04 15:55 | PN ---
Physical Exam: SUBJECTIVE: Patient seen and examined Patient restign in bed NAD. No acute events. afebrile and hemodynamically stable. States her L sided h/a is improved but she feels slightly lightheaded and drowsy. photophibia improved. no dysphagia or parasthesia. Denies LOC, s/z, change in vision, n/v. OBJECTIVE: Vital Signs Period Temp Pulse Resp BP Sys/Allred Pulse Ox Last 24 Hr 97.7 F-98.6 F 67-98 15-27 87-110/55-67 97-100 GENERAL: The patient is awake, alert, and fully oriented, in no acute distress. HEAD: Normal with no signs of trauma. EYES: PERRL, extraocular movements intact, b/l mild horizontal nystagmus. ENT: oropharynx clear without exudates, moist mucous membranes NECK: supple, full rom. LUNGS: Breath sounds equal, clear to auscultation bilaterally, no wheezes, no crackles, HEART: s1s2 rrr ABDOMEN: Soft, nontender, nondistended, normoactive bowel sounds, no guarding, no rebound, EXTREMITIES: 2+ pulses, warm, well-perfused, no edema. NEUROLOGICAL: Cranial nerves II through XII intact. Normal speech, no numbness, 5/5 strength in all extremities, 1+ reflexes brachial, 2+ patellar b/l PSYCH: Normal mood, normal affect. SKIN: Warm, dry, normal turgor, Laboratory Results - last 24 hr 02/03/17 02/04/17 02/04/17 23:00 05:15 05:15 WBC 8.6 RBC 4.45 Hgb 13.1 Hct 39.3 MCV 88.2 MCHC 33.2 RDW 15.3 Plt Count 189 MPV 9.0 PTT (Actin FS) 51.8 H Sodium 142 Potassium 4.0 Chloride 108 H Carbon Dioxide 25 Anion Gap 9 BUN 10 D Creatinine 0.8 Random Glucose 88 Calcium 8.4 L 02/04/17 05:15 WBC RBC Hgb Hct MCV MCHC RDW Plt Count MPV PTT (Actin FS) 52.9 H Sodium Potassium Chloride Carbon Dioxide Anion Gap BUN Creatinine Random Glucose Calcium Active Medications Generic Name Dose Route Start Last Admin Trade Name Freq PRN Reason Stop Dose Admin Acetaminophen/Butalbital/Caffeine 1 tablet 02/04/17 12:07 Fioricet - PO 02/04/17 18:31 Q6H PRN FEVER OR PAIN Chlorhexidine Gluconate 1 applic 02/03/17 22:00 02/03/17 23:34 Hibiclens For Decolonization - TP 1 applic HS TRANG Administration Clonazepam 1 mg 02/03/17 22:00 02/04/17 13:57 Klonopin - PO 1 mg TID TRANG Administration Heparin Sodium/Dextrose 500 mls @ 20 mls/hr 02/03/17 16:30 02/04/17 11:20 Heparin Infusion - IVPB 1,000 units/hr TITR TRANG Titration Protocol 1,000 UNITS/HR Sodium Chloride 1,000 mls @ 75 mls/hr 02/04/17 12:30 02/04/17 13:58 Normal Saline - IV 75 mls/hr ASDIR TRANG Administration Levetiracetam 500 mg 02/03/17 22:00 02/04/17 10:27 Keppra - PO 500 mg BID TRANG Administration Mupirocin 1 applic 02/03/17 22:00 02/03/17 23:33 Bactroban Ointment (For Decolonization) - NS 02/08/17 21:59 1 applic BID TRANG Administration Nicotine 14 mg 02/04/17 10:00 02/04/17 11:33 Nicoderm Patch - TD 14 mg DAILY TRANG Administration Ondansetron HCl 4 mg 02/03/17 21:45 Zofran Injection IVPB Q6H PRN NAUSEA Quetiapine Fumarate 100 mg 02/03/17 22:00 02/03/17 23:34 Seroquel - PO 100 mg HS TRANG Administration Sertraline HCl 100 mg 02/04/17 10:00 02/04/17 10:35 Zoloft - PO Not Given DAILY TRANG Warfarin Sodium 5 mg 02/04/17 18:00 Coumadin - PO DAILY@1800 [facility] ASSESSMENT/PLAN: This is a 41 yo F active smoker with PMH of anxiety, depression, genital herpes and HPV virus who was admitted with severe L sided h/a x 2weeks. Found to have venous thrombosis in L sigmoid and L transverse sinus of unclear etiology. Venous thrombosis of left sigmoid and left transverse sinus -Heparin drip PTT goal 76-110 -bridge coumadin 5mg -Keppra 500 bid SZ ppx -Fioricet for h/a decrease dose to 1 tab due to side effect of dizziness -zofran nausea prn -MRV -heme, neuro, naurosur consulted -monitor INR, PTT -monitor for bleeding depression, psych d/o -seroquel, zoloft, klonopin Smoking hx -counseled on quitting -nicotine patch FEN NS 75 ml/hr lytes stable regular diet hep, ppi dispo: transfer to med surg Problem List - Problems (1) Cavernous sinus thrombosis Code(s): G08 - INTRACRANIAL AND INTRASPINAL PHLEBITIS AND THROMBOPHLEBITIS (2) Cerebral venous sinus thrombosis, acute Code(s): G08 - INTRACRANIAL AND INTRASPINAL PHLEBITIS AND THROMBOPHLEBITIS (3) Depression Code(s): F32.9 - MAJOR DEPRESSIVE DISORDER, SINGLE EPISODE, UNSPECIFIED (4) Anxiety Code(s): F41.9 - ANXIETY DISORDER, UNSPECIFIED (5) Smoker Code(s): F17.200 - NICOTINE DEPENDENCE, UNSPECIFIED, UNCOMPLICATED Visit type - Emergency Visit Emergency Visit: Yes ED Registration Date: 02/03/17 Care time: The patient presented to the Emergency Department on the above date and was hospitalized for further evaluation of their emergent condition. - New Patient This patient is new to me today: Yes Date on this admission: 02/04/17 - Critical Care Critical Care patient: Yes Total Critical Care Time (in minutes): 45 Critical Care Statement: The care of this patient involved high complexity decision making to prevent further life threatening deterioration of the patient 's condition and/or to evalute & treat vital organ system(s) failure or risk of failure. - Discharge Referral Referred to [facility] Med P.C.: No
[2017-02-04] MEDS: HEPARIN INFUSION - 500 ML IVPB SCH ×2 (17:34→21:53)
[2017-02-04] MEDS ORDERED: WARFARIN NA 5 MG TABLET (UD) PO SCH (18:00)
--- NOTE | 2017-02-04 20:09 | PN ---
Teaching Attending Note Name of Resident: Brenda Chaves ATTENDING PHYSICIAN STATEMENT I saw and evaluated the patient. I reviewed the resident's note and discussed the case with the resident. I agree with the resident's findings and plan as documented. Patient is having less headache, feeling better, with no acute distress. Vital Signs Temperature 98.6 F 02/04/17 14:00 Pulse Rate 84 02/04/17 14:00 Respiratory Rate 20 02/04/17 14:00 Blood Pressure 102/60 02/04/17 14:00 O2 Sat by Pulse Oximetry (%) 100 02/04/17 16:33 CBCD WBC 8.6 K/mm3 (4.0-10.0) 02/04/17 05:15 RBC 4.45 M/mm3 (3.60-5.2) 02/04/17 05:15 Hgb 13.1 GM/dL (10.7-15.3) 02/04/17 05:15 Hct 39.3 % (32.4-45.2) 02/04/17 05:15 MCV 88.2 fl (80-96) 02/04/17 05:15 MCHC 33.2 g/dl (32.0-36.0) 02/04/17 05:15 RDW 15.3 % (11.6-15.6) 02/04/17 05:15 Plt Count 189 K/MM3 (134-434) 02/04/17 05:15 MPV 9.0 fl (7.5-11.1) 02/04/17 05:15 CMP Sodium 142 mmol/L (136-145) 02/04/17 05:15 Potassium 4.0 mmol/L (3.5-5.1) 02/04/17 05:15 Chloride 108 mmol/L (98-107) H 02/04/17 05:15 Carbon Dioxide 25 mmol/L (21-32) 02/04/17 05:15 Anion Gap 9 (8-16) 02/04/17 05:15 BUN 10 mg/dL (7-18) D 02/04/17 05:15 Creatinine 0.8 mg/dL (0.55-1.02) 02/04/17 05:15 Random Glucose 88 mg/dL (74-106) 02/04/17 05:15 Calcium 8.4 mg/dL (8.5-10.1) L 02/04/17 05:15 Current Medications Generic Name Dose Route Start Last Admin Trade Name Freq PRN Reason Stop Dose Admin Chlorhexidine Gluconate 1 applic 02/03/17 22:00 02/03/17 23:34 Hibiclens For Decolonization - TP 1 applic HS TRANG Administration Clonazepam 1 mg 02/03/17 22:00 02/04/17 13:57 Klonopin - PO 1 mg TID TRANG Administration Heparin Sodium/Dextrose 500 mls @ 20 mls/hr 02/03/17 16:30 02/04/17 17:34 Heparin Infusion - IVPB 20 mls/hr TITR TRANG Administration Protocol 1,000 UNITS/HR Sodium Chloride 1,000 mls @ 75 mls/hr 02/04/17 12:30 02/04/17 13:58 Normal Saline - IV 75 mls/hr ASDIR TRANG Administration Levetiracetam 500 mg 02/03/17 22:00 02/04/17 10:27 Keppra - PO 500 mg BID TRANG Administration Mupirocin 1 applic 02/03/17 22:00 02/03/17 23:33 Bactroban Ointment (For Decolonization) - NS 02/08/17 21:59 1 applic BID TRANG Administration Nicotine 14 mg 02/04/17 10:00 02/04/17 11:33 Nicoderm Patch - TD 14 mg DAILY TRANG Administration Ondansetron HCl 4 mg 02/03/17 21:45 Zofran Injection IVPB Q6H PRN NAUSEA Quetiapine Fumarate 100 mg 02/03/17 22:00 02/03/17 23:34 Seroquel - PO 100 mg HS TRANG Administration Sertraline HCl 100 mg 02/04/17 10:00 02/04/17 10:35 Zoloft - PO Not Given DAILY TRANG Warfarin Sodium 5 mg 02/04/17 18:00 02/04/17 17:36 Coumadin - PO 5 mg DAILY@1800 TRANG Administration Home Medications Medication Instructions Recorded Clonazepam [Klonopin] 1 mg TID 02/03/17 Quetiapine Fumarate [Seroquel] 100 tab PO HS 02/03/17 Sertraline HCl [Zoloft] 100 mg PO DAILY 02/03/17 PE: as per resident's note ASSESSMENT AND PLAN: This is a 41 yo Female with PMHx of anxiety, depression, genital herpes and HPV virus who was admitted with severe L sided h/a x 2weeks. Found to have venous thrombosis in L sigmoid and L transverse sinus of unclear etiology. # Acute Venous thrombosis of left sigmoid and left transverse sinus on Heparin drip continue, will bridge her with coumadin 5mg tonight , PT/INR daily continue with Keppra 500 bid for seizure ppx as per neurologist . Neurosurgery appreciated Dr.Tom Lincoln. # Acute Headache improving on Fioricet will continue # Hx of depression, continue meds seroquel, zoloft, klonopin # Smoking hx counseled on quitting; nicotine patch DVT Px: heparin transfer to med surg
[2017-02-04] MEDS ORDERED: HEPARIN NA (PORCINE) 5,000 UNITS/ML 1ML VIAL IVPUSH PRN (20:27)
[2017-02-04] MEDS ORDERED: ONDANSETRON 4 MG/2 ML VIAL IVPB PRN (20:27)
[2017-02-04] MEDS ORDERED: QUEtiapine FUMARATE 50 MG TABLET ONE (21:40)
[2017-02-04] MEDS: QUEtiapine FUMARATE 100 MG TABLET (FP) PO SCH (21:49)
[2017-02-04] MEDS: ACETAMINOPHEN 325 MG TABLET (FP) PO PRN (21:50)
[2017-02-04] MEDS: MUPIROCIN 2% TOPICAL OINTMENT FOR DECOLONIZATION NS SCH (22:38)
[2017-02-04] MEDS: CHLORHEXIDINE GLUCONATE 4% CLEANSER FOR DECOLONIZATION TP SCH (22:39)
--- NOTE | 2017-02-04 22:53 | CONSULT ---
Consult - text type - Consultation Consultation Note: History of Present Illness: 41 kathya active smoker with PMHx of anxiety, depression, genital herpes and HPV virus who was admitted with c/o severe Lt sided headache x 2weeks. In Ed CT head showed venous thrombus in Left sigmoid sinus and left transverse sinus. she was started on a heparin drip. She denied any previous clotting events, or a family hx of hypercoaguable disease. - Past Medical History Psych: Yes: Anxiety, Depression ENT: Yes: Sinusitis family h/o sister had provoked DVT - Smoking History Smoking history: Current every day smoker Home Medications - Allergies Allergies/Adverse Reactions: Allergies Allergy/AdvReac Type Severity Reaction Status Date / Time No Known Allergies Allergy Verified 02/03/17 14:21 - Home Medications Home Medications: Ambulatory Orders Quetiapine Fumarate [Seroquel] 100 tab PO HS 02/03/17 RX: Clonazepam [Klonopin] 1 mg TID 02/03/17 Sertraline HCl [Zoloft] 100 mg PO DAILY 02/03/17 Physical Exam Vital Signs: Last Vital Signs Temp Pulse Resp BP Pulse Ox 98 F 71 18 100/50 90 L 02/04/17 21:00 02/04/17 21:00 02/04/17 21:00 02/05/17 02:35 02/04/17 21:00 HEENT: JAKE, EOM Intact Oropharynx: No thrush, No mucositis Neck: Supple Nodes: Without adenopathy Breasts: Without masses Cor: RSR, No murmurs, No gallops Lungs: Clear to P&A Abd: Soft, Normal bowel sounds, No organomegaly Ext:No significant edema Skin: No rashes, Integument intact Imaging - Results Cat Scan: Report Reviewed (CT Head Venous thrombosis in left sigmoid sinus and Left transverse sinus) Assessment/Plan 41 kathya active smoker with PMHx of anxiety, depression, genital herpes and HPV virus who was admitted with c/o severe Lt sided headache x 2weeks. Found to have venous thrombosis in left sigmoid sinus and lt transverse sinus of unclear etiology. Started on anticoagulation with heparin. Neuro: Venous thrombosis in left sigmoid and Lt transverse sinus; -Continue Heparin drip for therapeutic PTT 76-110 -Continue Keppra for seizure prophylaxis -agree with bridging to coumadin Ordered thrombophilia w/u---antiphospholipid panel, prothrombi gene [id number] and factor V leiden asasys. ATII/Protein C/S not ordered as patient on heparin/ coumadin Ordered JAK2/CYNDI/RF/hemoglobin electrophoresis nl CBC/BMP no h/o hormonal use, family h/o thrombophilia or trauma cosider HIV testing will follow
[2017-02-04] MEDS ORDERED: SODIUM CHLORIDE 1,000 ML IV STA (23:34)
[2017-02-05] MEDS: SODIUM CHLORIDE 1,000 ML IV SCH (06:27)
[2017-02-05] MEDS: clonazePAM 0.5 MG TABLET PO SCH ×3 (07:10→22:24)
--- NOTE | 2017-02-05 07:42 | PN ---
Progress Note (short form) - Note Progress Note: NEUROSURGERY Less headaches Ate breakfast without problem In good mood AF, BP marginally low earlier General- stable Speech slow (baseline per sister previously) Neuro exam non-focal, no drift PTT 52.9, on heparin drip Coumadin reportedly started yesterday Brain MRI/MRV (prelim)- no infarcts; clots in L transverse/sigmoid sinus; R transverse/sigmoid patent as is SSS No neurosurgical intervention indicated Hematology consult pending Avoid over-sedation given borderline BP Pt aware of the above
--- NOTE | 2017-02-05 07:50 | MSN ---
Progress Note (short form) - Note Progress Note: 41 yo female with PMH of herpes, positive HPV on pap smear, severe anxiety, depression, every day smoker 1.5 pks daily, presents to ED with headaches X 2 days. Pt diagnosed with venous thrombosis of sigmoid and transverse sinus on CT scan. Pt reports headache reduced to a small intermittent throb behind left eye. Denies nausea, vomiting, sleeping difficulties. Vital Signs Period Temp Pulse Resp BP Sys/Allred Pulse Ox Last 24 Hr 98 F-98.6 F 71-84 18-20 75-120/31-80 90-100 Laboratory Results - last 24 hr 02/04/17 02/05/17 02/05/17 23:24 08:10 08:10 WBC 7.3 RBC 4.63 Hgb 13.2 Hct 41.0 MCV 88.5 MCHC 32.3 RDW 15.5 Plt Count 196 MPV 9.2 Neutrophils % 63.7 Lymphocytes % 30.2 Monocytes % 4.2 Eosinophils % 1.2 Basophils % 0.7 INR 1.02 PTT (Actin FS) Fibrinogen Sodium Potassium Chloride Carbon Dioxide Anion Gap BUN Creatinine Creat Clearance w eGFR POC Glucometer 126 Random Glucose Calcium Total Bilirubin AST ALT Alkaline Phosphatase Total Protein Albumin 02/05/17 02/05/17 02/05/17 08:10 08:10 08:25 WBC RBC Hgb Hct MCV MCHC RDW Plt Count MPV Neutrophils % Lymphocytes % Monocytes % Eosinophils % Basophils % INR PTT (Actin FS) 44.3 H Fibrinogen 547.0 H Sodium 142 Potassium 4.4 Chloride 111 H Carbon Dioxide 25 Anion Gap 6 L BUN 10 Creatinine 0.7 Creat Clearance w eGFR > 60 POC Glucometer Random Glucose 83 Calcium 8.1 L Total Bilirubin 0.2 AST 20 ALT 30 Alkaline Phosphatase 60 Total Protein 6.8 Albumin 3.3 L 02/05/17 11:31 WBC RBC Hgb Hct MCV MCHC RDW Plt Count MPV Neutrophils % Lymphocytes % Monocytes % Eosinophils % Basophils % INR PTT (Actin FS) 64.5 H D Fibrinogen Sodium Potassium Chloride Carbon Dioxide Anion Gap BUN Creatinine Creat Clearance w eGFR POC Glucometer Random Glucose Calcium Total Bilirubin AST ALT Alkaline Phosphatase Total Protein Albumin Current Medications Generic Name Dose Route Start Last Admin Trade Name Freq PRN Reason Stop Dose Admin Acetaminophen 650 mg 02/04/17 20:20 02/04/17 21:50 Tylenol - PO 650 mg Q6H PRN Administration FEVER OR PAIN Chlorhexidine Gluconate 1 applic 02/04/17 22:00 02/04/17 22:39 Hibiclens For Decolonization - TP Not Given HS [facility] Clonazepam 1 mg 02/04/17 22:00 02/05/17 07:10 Klonopin - PO Not Given TID TRANG Heparin Sodium (Porcine) 1,000 unit 02/04/17 20:27 02/05/17 10:28 Heparin - IVPUSH 1,000 unit PRN PRN Administration Heparin Heparin Sodium (Porcine) 5,000 unit 02/04/17 20:27 Heparin - IVPUSH PRN PRN Heparin Heparin Sodium/Dextrose 500 mls @ 20 mls/hr 02/04/17 20:27 02/05/17 10:32 Heparin Infusion - IVPB 22 mls/hr TITR TRANG Administration Protocol 1,000 UNITS/HR Levetiracetam 500 mg 02/04/17 22:00 02/05/17 09:46 Keppra - PO 500 mg BID [facility] Administration Mupirocin 1 applic 02/04/17 22:00 02/05/17 10:11 Bactroban Ointment (For Decolonization) - NS 02/08/17 21:59 Not Given BID [facility] Nicotine 14 mg 02/05/17 10:00 02/05/17 10:10 Nicoderm Patch - TD 14 mg DAILY [facility] Administration Quetiapine Fumarate 100 mg 02/04/17 22:00 02/04/17 21:49 Seroquel - PO 100 mg HS [facility] Administration Sertraline HCl 100 mg 02/05/17 10:00 02/05/17 10:11 Zoloft - PO Not Given DAILY [facility] Warfarin Sodium 5 mg 02/05/17 18:00 Coumadin - PO DAILY@1800 [facility] General: Anxious, talkative; not in any acute distress. Head: Normocephalic, no obvious or gross deformities Neck: Supple, no JVD Heart: Normal S1 and S2, regular rate and rythm Lungs: Clear breath sounds B/L; no wheezes or rhonchi Abdomen: SOft non-tender, normoactive BS Extremity: 2+ pulses, no edema Neuro: mildly diminished facial sensation left; rightward nystagmus B/L; smile is symmetrial; eye brows are symmetrical, PEERLA, tongue is midline; stregth 5/ 5 upper and lower extremity; peripheral pulses 2+ lower extremity; reflexes intact Assessment: 41 yo female with PMH of HSV, HPV, anxiety, deppression who presents to ED with head X 2days; pt left ED AMA 1 day previously after diagnosis of venous thrombosis of Left Sigmoid and Transverse sinus given. Venous Thrombosis of Left sigmoid and transverse sinus Heparin drip Keppra BID Warfarin - 5 mg po daily Trend INR Trend PTT Patient seen by [place]; will get thrombophilla work-up Anxiety Seroquel Klonopin Follow up out-patient with Psychiatry Depression Zoloft Follow up out-patient with psychiatry Nicotine Abuse Nicotine patch Discuss nicotine cessation with patient
[2017-02-05 09:12] LABS: BASOPHIL 0.7 % (0-2.0); EOSINOPHIL 1.2 % (0-4.5); MCH 28.6 pg (25.7-33.7); MCHC 32.3 g/dl (32.0-36.0); MEAN CELL VOLUME 88.5 fl (80-96); MEAN PLT VOLUME 9.2 fl (7.5-11.1); NEUTROPHILS 63.7 % (42.8-82.8); PLATELET COUNT 196 K/MM3 (134-434); RDW 15.5 % (11.6-15.6); WHITE BLOOD COUNT 7.3 K/mm3 (4.0-10.0)
[2017-02-05 09:23] LABS: INR 1.02 (0.82-1.09); PROTHROMBIN TIME (PATIENT) 11.2 SEC (9.98-11.88)
[2017-02-05 09:37] LABS: ALBUMIN 3.3 g/dl (3.4-5.0); ANION GAP 6 (8-16); CALCIUM 8.1 mg/dL (8.5-10.1); CO2 25 mmol/L (21-32); GLUCOSE,RANDOM 83 mg/dL (74-106)
[2017-02-05 09:40] LABS: ALK PHOS 60 U/L (45-117); BILIRUBIN,TOTAL 0.2 mg/dL (0.2-1.0); COCKROFT - GAULT 159.7745; CREATININE 0.7 mg/dL (0.55-1.02); SGOT/AST 20 U/L (15-37); SGPT/ALT 30 U/L (12-78); TOT PROT 6.8 g/dl (6.4-8.2)
[2017-02-05] MEDS: SERTRALINE HCL 50 MG TABLET (FP) PO SCH ×2 (09:45→10:11)
[2017-02-05] MEDS: levETIRAcetam 500 MG TABLET (FP) PO SCH (09:46)
[2017-02-05] MEDS: NICOTINE 14 MG/24 HOURS TOPICAL PATCH TD SCH (10:10)
[2017-02-05] MEDS: MUPIROCIN 2% TOPICAL OINTMENT FOR DECOLONIZATION NS SCH ×2 (10:11→22:00)
[2017-02-05] MEDS: HEPARIN NA (PORCINE) 5,000 UNITS/ML 1ML VIAL IVPUSH PRN (10:28)
[2017-02-05] MEDS: HEPARIN INFUSION - 500 ML IVPB SCH ×3 (10:32→22:25)
--- NOTE | 2017-02-05 13:01 | PN ---
Progress Note (short form) - Note Progress Note: Neurology History of Present Illness 41 yo F with h/o genital herpes and positive Pap smear seeing call center consultant, severe anxiety, depression on zoloft and seroquel seeing psy at [place] presented to the ED for severe headache. Patient was seen night before presentation in the ED but signed out AMA. Her family and her were informed by ED later today of positive CT head showed possible venous thrombosis. The headache symptoms are intermittent, begins from anterior L eye, travels through L head then to posterior occipital lobe, 6-8/10, sharp quality, associated with n/v, light, position change, noise make the pain worse. Patient accounts that she had herpes breakout before the headache. She also c/o anxiety and panic attack. Heparin was started. NSGY consulted. MRV completed and shows L cavernous sinus thrombosis, L transverse sinus, L sigmoid, L IJ. Patient on heparin since admission. NSGY following. Hematology following. Active Medications Acetaminophen (Tylenol -) 650 mg PO Q6H PRN PRN Reason: FEVER OR PAIN Last Admin: 02/04/17 21:50 Dose: 650 mg Chlorhexidine Gluconate (Hibiclens For Decolonization -) 1 applic TP HS [facility] Last Admin: 02/04/17 22:39 Dose: Not Given Clonazepam (Klonopin -) 1 mg PO TID [facility] Last Admin: 02/05/17 07:10 Dose: Not Given Heparin Sodium (Porcine) (Heparin -) 1,000 unit IVPUSH PRN PRN PRN Reason: Heparin Last Admin: 02/05/17 10:28 Dose: 1,000 unit Heparin Sodium (Porcine) (Heparin -) 5,000 unit IVPUSH PRN PRN PRN Reason: Heparin Heparin Sodium/Dextrose (Heparin Infusion -) 500 mls @ 20 mls/hr IVPB TITR TRANG ; 1,000 UNITS/HR PRN Reason: Protocol Last Admin: 02/05/17 10:32 Dose: 22 mls/hr Levetiracetam (Keppra -) 500 mg PO BID [facility] Last Admin: 02/05/17 09:46 Dose: 500 mg Mupirocin (Bactroban Ointment (For Decolonization) -) 1 applic NS BID [facility] Stop: 02/08/17 21:59 Last Admin: 02/05/17 10:11 Dose: Not Given Nicotine (Nicoderm Patch -) 14 mg TD DAILY [facility] Last Admin: 02/05/17 10:10 Dose: 14 mg Quetiapine Fumarate (Seroquel -) 100 mg PO HS [facility] Last Admin: 02/04/17 21:49 Dose: 100 mg Sertraline HCl (Zoloft -) 100 mg PO DAILY [facility] Last Admin: 02/05/17 10:11 Dose: Not Given Warfarin Sodium (Coumadin -) 5 mg PO DAILY@1800 [facility] *Physical Exam Vital Signs Temperature 98 F 02/04/17 21:00 Pulse Rate 72 02/05/17 09:17 Respiratory Rate 20 02/05/17 09:17 Blood Pressure 120/80 02/05/17 09:17 O2 Sat by Pulse Oximetry (%) 90 L 02/04/17 21:00 - Physical Exam General Appearance: Yes: Mild Distress HEENT: positive: AARON, Other (sensitive to light) Neck: positive: Trachea midline, Supple Respiratory/Chest: positive: Lungs Clear, Normal Breath Sounds Cardiovascular: positive: Regular Rhythm, S1, S2, Tachycardia. negative: Diastolic Murmur, Systolic Murmur, Gallop/S3, Gallop/S4 Gastrointestinal/Abdominal: positive: Normal Bowel Sounds, Soft. negative: Tenderness Extremity: positive: Swelling (trace edema) Neurologic: positive: Fully Oriented, Alert (4/5 on L face), Sensory Deficit CBCD WBC 8.6 K/mm3 (4.0-10.0) 02/04/17 05:15 RBC 4.45 M/mm3 (3.60-5.2) 02/04/17 05:15 Hgb 13.1 GM/dL (10.7-15.3) 02/04/17 05:15 Hct 39.3 % (32.4-45.2) 02/04/17 05:15 MCV 88.2 fl (80-96) 02/04/17 05:15 MCHC 33.2 g/dl (32.0-36.0) 02/04/17 05:15 RDW 15.3 % (11.6-15.6) 02/04/17 05:15 Plt Count 189 K/MM3 (134-434) 02/04/17 05:15 MPV 9.0 fl (7.5-11.1) 02/04/17 05:15 CMP Sodium 142 mmol/L (136-145) 02/04/17 05:15 Potassium 4.0 mmol/L (3.5-5.1) 02/04/17 05:15 Chloride 108 mmol/L (98-107) H 02/04/17 05:15 Carbon Dioxide 25 mmol/L (21-32) 02/04/17 05:15 Anion Gap 9 (8-16) 02/04/17 05:15 BUN 10 mg/dL (7-18) D 02/04/17 05:15 Creatinine 0.8 mg/dL (0.55-1.02) 02/04/17 05:15 Calcium 8.4 mg/dL (8.5-10.1) L 02/04/17 05:15 Medical Decision Making 41 yo F with h/o genital herpes and positive Pap smear seeing call center consultant, severe anxiety, depression on zoloft and seroquel seeing psy at [place] presented to the ED for severe headache. Patient was seen night before presentation in the ED but signed out AMA. CT head showed possible Venous sinus thrombosis seen on MRI as well and AC was started since admission. Hematology consult. Monitor for any bleeding.Fall precautions.
--- NOTE | 2017-02-05 13:51 | PN ---
Physical Exam: SUBJECTIVE: Patient seen and examined Patient resting in bed NAD. No acute events. afebrile and hemodynamically stable. States her L sided h/a, photophobia and lightheadedness are resolved. no dysphagia or parasthesia. Speech slow but at baseline per aunt. Denies LOC, s /z, change in vision, n/v. OBJECTIVE: Vital Signs Period Temp Pulse Resp BP Sys/Allred Pulse Ox Last 24 Hr 98 F-98.6 F 71-84 18-20 75-146/31-80 90-100 GENERAL: The patient is awake, alert, and fully oriented, in no acute distress. HEAD: Normal with no signs of trauma. EYES: PERRL, extraocular movements intact, b/l mild horizontal nystagmus. ENT: oropharynx clear without exudates, moist mucous membranes NECK: supple, full rom. LUNGS: Breath sounds equal, clear to auscultation bilaterally, no wheezes, no crackles, HEART: s1s2 rrr ABDOMEN: Soft, nontender, nondistended, normoactive bowel sounds, no guarding, no rebound, EXTREMITIES: 2+ pulses, warm, well-perfused, no edema. NEUROLOGICAL: Cranial nerves II through XII intact. Normal speech, no numbness, 5/5 strength in all extremities, 1+ reflexes brachial, 2+ patellar b/l PSYCH: Normal mood, normal affect. SKIN: Warm, dry, normal turgor, Laboratory Results - last 24 hr 02/04/17 02/05/17 02/05/17 23:24 08:10 08:10 WBC 7.3 RBC 4.63 Hgb 13.2 Hct 41.0 MCV 88.5 MCHC 32.3 RDW 15.5 Plt Count 196 MPV 9.2 Neutrophils % 63.7 Lymphocytes % 30.2 Monocytes % 4.2 Eosinophils % 1.2 Basophils % 0.7 INR 1.02 PTT (Actin FS) Fibrinogen Sodium Potassium Chloride Carbon Dioxide Anion Gap BUN Creatinine Creat Clearance w eGFR POC Glucometer 126 Random Glucose Calcium Total Bilirubin AST ALT Alkaline Phosphatase Total Protein Albumin 02/05/17 02/05/17 02/05/17 08:10 08:10 08:25 WBC RBC Hgb Hct MCV MCHC RDW Plt Count MPV Neutrophils % Lymphocytes % Monocytes % Eosinophils % Basophils % INR PTT (Actin FS) 44.3 H Fibrinogen 547.0 H Sodium 142 Potassium 4.4 Chloride 111 H Carbon Dioxide 25 Anion Gap 6 L BUN 10 Creatinine 0.7 Creat Clearance w eGFR > 60 POC Glucometer Random Glucose 83 Calcium 8.1 L Total Bilirubin 0.2 AST 20 ALT 30 Alkaline Phosphatase 60 Total Protein 6.8 Albumin 3.3 L 02/05/17 11:31 WBC RBC Hgb Hct MCV MCHC RDW Plt Count MPV Neutrophils % Lymphocytes % Monocytes % Eosinophils % Basophils % INR PTT (Actin FS) 64.5 H D Fibrinogen Sodium Potassium Chloride Carbon Dioxide Anion Gap BUN Creatinine Creat Clearance w eGFR POC Glucometer Random Glucose Calcium Total Bilirubin AST ALT Alkaline Phosphatase Total Protein Albumin Active Medications Generic Name Dose Route Start Last Admin Trade Name Freq PRN Reason Stop Dose Admin Acetaminophen 650 mg 02/04/17 20:20 02/04/17 21:50 Tylenol - PO 650 mg Q6H PRN Administration FEVER OR PAIN Chlorhexidine Gluconate 1 applic 02/04/17 22:00 02/04/17 22:39 Hibiclens For Decolonization - TP Not Given HS TRANG Clonazepam 1 mg 02/04/17 22:00 02/05/17 07:10 Klonopin - PO Not Given TID TRANG Heparin Sodium (Porcine) 1,000 unit 02/04/17 20:27 02/05/17 10:28 Heparin - IVPUSH 1,000 unit PRN PRN Administration Heparin Heparin Sodium (Porcine) 5,000 unit 02/04/17 20:27 Heparin - IVPUSH PRN PRN Heparin Heparin Sodium/Dextrose 500 mls @ 20 mls/hr 02/04/17 20:27 02/05/17 10:32 Heparin Infusion - IVPB 22 mls/hr TITR TRANG Administration Protocol 1,000 UNITS/HR Mupirocin 1 applic 02/04/17 22:00 02/05/17 10:11 Bactroban Ointment (For Decolonization) - NS 02/08/17 21:59 Not Given BID TRANG Nicotine 14 mg 02/05/17 10:00 02/05/17 10:10 Nicoderm Patch - TD 14 mg DAILY TRANG Administration Quetiapine Fumarate 100 mg 02/04/17 22:00 02/04/17 21:49 Seroquel - PO 100 mg HS TRANG Administration Sertraline HCl 100 mg 02/05/17 10:00 02/05/17 10:11 Zoloft - PO Not Given DAILY [facility] Warfarin Sodium 5 mg 02/05/17 18:00 Coumadin - PO DAILY@1800 [facility] ASSESSMENT/PLAN: This is a 41 yo F active smoker with PMH of anxiety, depression, genital herpes and HPV virus who was admitted with severe L sided h/a x 2weeks. Found to have venous thrombosis in L sigmoid and L transverse sinus of unclear etiology. Venous thrombosis of left sigmoid and left transverse sinus -symptomatic resolution of h/a -MRV head/neck shows clot in L transverse and sigmoid sinuses with running IJ vein. -contunue Heparin drip (PTT60) bridging to coum 5 mg -await therapeutic INR btw 2-3 -stop Keppra, zofran -stop Fioricet -tylenol prn -heme, neuro, naurosur consult appreciated -constensus that patient should be bridged to coum. Duration of treatment will depend of thrombophilia workup bordered by heme. -monitor for bleeding depression, psych d/o -seroquel, zoloft, klonopin Smoking hx -counseled on quitting -nicotine patch FEN No IVF lytes stable regular diet hep, ppi dispo: transfer to med surg Problem List - Problems (1) Cavernous sinus thrombosis Code(s): G08 - INTRACRANIAL AND INTRASPINAL PHLEBITIS AND THROMBOPHLEBITIS (2) Cerebral venous sinus thrombosis, acute Code(s): G08 - INTRACRANIAL AND INTRASPINAL PHLEBITIS AND THROMBOPHLEBITIS (3) Depression Code(s): F32.9 - MAJOR DEPRESSIVE DISORDER, SINGLE EPISODE, UNSPECIFIED (4) Anxiety Code(s): F41.9 - ANXIETY DISORDER, UNSPECIFIED (5) Smoker Code(s): F17.200 - NICOTINE DEPENDENCE, UNSPECIFIED, UNCOMPLICATED Visit type - Emergency Visit Emergency Visit: Yes ED Registration Date: 02/03/17 Care time: The patient presented to the Emergency Department on the above date and was hospitalized for further evaluation of their emergent condition. - New Patient This patient is new to me today: No - Critical Care Critical Care patient: No - Discharge Referral Referred to [facility] Med P.C.: No
--- NOTE | 2017-02-05 15:02 | PN ---
Teaching Attending Note Name of Resident: Brenda Chaves ATTENDING PHYSICIAN STATEMENT I saw and evaluated the patient. I reviewed the resident's note and discussed the case with the resident. I agree with the resident's findings and plan as documented. Patient is comfortable with no acute distress. Vital Signs Temperature 97.8 F 02/05/17 11:15 Pulse Rate 80 02/05/17 13:24 Respiratory Rate 20 02/05/17 13:24 Blood Pressure 146/80 02/05/17 13:24 O2 Sat by Pulse Oximetry (%) 90 L 02/04/17 21:00 CBCD WBC 7.3 K/mm3 (4.0-10.0) 02/05/17 08:10 RBC 4.63 M/mm3 (3.60-5.2) 02/05/17 08:10 Hgb 13.2 GM/dL (10.7-15.3) 02/05/17 08:10 Hct 41.0 % (32.4-45.2) 02/05/17 08:10 MCV 88.5 fl (80-96) 02/05/17 08:10 MCHC 32.3 g/dl (32.0-36.0) 02/05/17 08:10 RDW 15.5 % (11.6-15.6) 02/05/17 08:10 Plt Count 196 K/MM3 (134-434) 02/05/17 08:10 MPV 9.2 fl (7.5-11.1) 02/05/17 08:10 CMP Sodium 142 mmol/L (136-145) 02/05/17 08:10 Potassium 4.4 mmol/L (3.5-5.1) 02/05/17 08:10 Chloride 111 mmol/L (98-107) H 02/05/17 08:10 Carbon Dioxide 25 mmol/L (21-32) 02/05/17 08:10 Anion Gap 6 (8-16) L 02/05/17 08:10 BUN 10 mg/dL (7-18) 02/05/17 08:10 Creatinine 0.7 mg/dL (0.55-1.02) 02/05/17 08:10 Creat Clearance w eGFR > 60 (>60) 02/05/17 08:10 Random Glucose 83 mg/dL (74-106) 02/05/17 08:10 Calcium 8.1 mg/dL (8.5-10.1) L 02/05/17 08:10 Total Bilirubin 0.2 mg/dL (0.2-1.0) 02/05/17 08:10 AST 20 U/L (15-37) 02/05/17 08:10 ALT 30 U/L (12-78) 02/05/17 08:10 Alkaline Phosphatase 60 U/L (45-117) 02/05/17 08:10 Total Protein 6.8 g/dl (6.4-8.2) 02/05/17 08:10 Albumin 3.3 g/dl (3.4-5.0) L 02/05/17 08:10 Current Medications Generic Name Dose Route Start Last Admin Trade Name Freq PRN Reason Stop Dose Admin Acetaminophen 650 mg 02/04/17 20:20 02/04/17 21:50 Tylenol - PO 650 mg Q6H PRN Administration FEVER OR PAIN Chlorhexidine Gluconate 1 applic 02/04/17 22:00 02/04/17 22:39 Hibiclens For Decolonization - TP Not Given HS TRANG Clonazepam 1 mg 02/04/17 22:00 02/05/17 14:11 Klonopin - PO 1 mg TID TRANG Administration Heparin Sodium (Porcine) 1,000 unit 02/04/17 20:27 02/05/17 10:28 Heparin - IVPUSH 1,000 unit PRN PRN Administration Heparin Heparin Sodium (Porcine) 5,000 unit 02/04/17 20:27 Heparin - IVPUSH PRN PRN Heparin Heparin Sodium/Dextrose 500 mls @ 20 mls/hr 02/04/17 20:27 02/05/17 10:32 Heparin Infusion - IVPB 22 mls/hr TITR TRANG Administration Protocol 1,000 UNITS/HR Mupirocin 1 applic 02/04/17 22:00 02/05/17 10:11 Bactroban Ointment (For Decolonization) - NS 02/08/17 21:59 Not Given BID TRANG Nicotine 14 mg 02/05/17 10:00 02/05/17 10:10 Nicoderm Patch - TD 14 mg DAILY TRANG Administration Quetiapine Fumarate 100 mg 02/04/17 22:00 02/04/17 21:49 Seroquel - PO 100 mg HS [facility] Administration Sertraline HCl 100 mg 02/05/17 10:00 02/05/17 10:11 Zoloft - PO Not Given DAILY [facility] Warfarin Sodium 5 mg 02/05/17 18:00 Coumadin - PO DAILY@1800 [facility] Home Medications Medication Instructions Recorded Clonazepam [Klonopin] 1 mg TID 02/03/17 Quetiapine Fumarate [Seroquel] 100 tab PO HS 02/03/17 Sertraline HCl [Zoloft] 100 mg PO DAILY 02/03/17 INR, PTT INR 1.02 (0.82-1.09) 02/05/17 08:10 Fibrinogen 547.0 mg/dL (238-498) H 02/05/17 08:10 PE: as per resident's note ASSESSMENT AND PLAN: This is a 41 yo Female with PMHx of anxiety, depression, genital herpes and HPV virus who was admitted with severe L sided h/a x 2weeks. Found to have venous thrombosis in L sigmoid and L transverse sinus of unclear etiology. # Acute Venous thrombosis of left sigmoid and left transverse sinus on Heparin drip continue, will bridge her with coumadin 5mg tonight , PT/INR daily continue with Keppra 500 bid for seizure ppx as per neurologist . Neurosurgery appreciated Dr.Tom Lincoln. # Acute Headache improving on Fioricet will continue # Hx of depression, continue meds seroquel, zoloft, klonopin # Smoking hx counseled on quitting; nicotine patch DVT Px: heparin
[2017-02-05] MEDS ORDERED: HEPARIN INFUSION - 500 ML IVPB ONE (17:49)
[2017-02-05] MEDS ORDERED: WARFARIN NA 5 MG TABLET (UD) PO SCH ×3 (18:00)
[2017-02-05] MEDS ORDERED: QUEtiapine FUMARATE 50 MG TABLET ONE (21:19)
[2017-02-05] MEDS: CHLORHEXIDINE GLUCONATE 4% CLEANSER FOR DECOLONIZATION TP SCH (22:00)
[2017-02-05] MEDS: QUEtiapine FUMARATE 100 MG TABLET (FP) PO SCH (22:24)
[2017-02-06] MEDS: clonazePAM 0.5 MG TABLET PO SCH ×3 (06:18→21:22)
[2017-02-06] MEDS ORDERED: POLYETHYLENE GLYCOL 3350 119 GM BTL PO ONE (06:52)
[2017-02-06 07:39] LABS: MCHC 32.9 g/dl (32.0-36.0); MEAN PLT VOLUME 9.2 fl (7.5-11.1); PLATELET COUNT 177 K/MM3 (134-434); RDW 15.3 % (11.6-15.6); WHITE BLOOD COUNT 8.2 K/mm3 (4.0-10.0)
[2017-02-06] MEDS: DOCUSATE SODIUM 100 MG CAPSULE (FP) PO SCH ×3 (07:48→21:22)
[2017-02-06 08:12] LABS: C-REACTIVE PROTEIN 0.7 MG/DL (0.00-0.3); CALCIUM 8.7 mg/dL (8.5-10.1); COCKROFT - GAULT 159.7745; CREATININE 0.7 mg/dL (0.55-1.02); INR 1.04 (0.82-1.09); PROTHROMBIN TIME (PATIENT) 11.5 SEC (9.98-11.88)
--- NOTE | 2017-02-06 09:06 | PN ---
Progress Note (short form) - Note Progress Note: NEUROSURGERY Less headaches Going to bathroom No new complaints AF, BP and HR stable General- unremarkable Speech as previously Neuro exam non-focal, no drift On heparin drip (ptt 51.6) therapeutic; and coumadin, INR (1.04) not therapeutic yet Coumadin reportedly started yesterday Brain MRI/MRV - no infarcts; clots in L transverse/sigmoid sinus/IJ; R transverse/sigmoid patent as is SSS No neurosurgical intervention indicated Hematology eval in progress Keep well hydrated
[2017-02-06] MEDS ORDERED: DOCUSATE SODIUM 100 MG CAPSULE (FP) PO SCH ×2 (10:00→22:00)
[2017-02-06] MEDS: NICOTINE 14 MG/24 HOURS TOPICAL PATCH TD SCH (10:54)
[2017-02-06] MEDS: SERTRALINE HCL 50 MG TABLET (FP) PO SCH (10:55)
[2017-02-06] MEDS: MUPIROCIN 2% TOPICAL OINTMENT FOR DECOLONIZATION NS SCH ×2 (10:56→21:23)
--- NOTE | 2017-02-06 12:14 | PN ---
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 Patient was seen night before presentation in the ED but signed out AMA. Her family and her were informed by ED later today of positive CT head showed possible venous thrombosis. The headache symptoms are intermittent, begins from anterior L eye, travels through L head then to posterior occipital lobe, 6-8/10, sharp quality, associated with n/v, light, position change, noise make the pain worse. Patient accounts that she had herpes breakout before the headache. She also c/o anxiety and panic attack. Heparin was started. MRV completed and shows L cavernous sinus thrombosis, L transverse sinus, L sigmoid, L IJ. Patient on heparin since admission. Neurologically stable. Active Medications Acetaminophen (Tylenol -) 650 mg PO Q6H PRN PRN Reason: FEVER OR PAIN Last Admin: 02/04/17 21:50 Dose: 650 mg Chlorhexidine Gluconate (Hibiclens For Decolonization -) 1 applic TP HS TRANG Last Admin: 02/05/17 22:00 Dose: Not Given Clonazepam (Klonopin -) 1 mg PO TID TRANG Last Admin: 02/06/17 06:18 Dose: 1 mg Docusate Sodium (Colace -) 100 mg PO BID TRANG Last Admin: 02/06/17 10:55 Dose: 100 mg Heparin Sodium (Porcine) (Heparin -) 1,000 unit IVPUSH PRN PRN PRN Reason: Heparin Last Admin: 02/05/17 10:28 Dose: 1,000 unit Heparin Sodium (Porcine) (Heparin -) 5,000 unit IVPUSH PRN PRN PRN Reason: Heparin Heparin Sodium/Dextrose (Heparin Infusion -) 500 mls @ 20 mls/hr IVPB TITR TRANG ; 1,000 UNITS/HR PRN Reason: Protocol Last Admin: 02/05/17 22:25 Dose: 22 mls/hr Mupirocin (Bactroban Ointment (For Decolonization) -) 1 applic NS BID TRANG Stop: 02/08/17 21:59 Last Admin: 02/06/17 10:56 Dose: Not Given Nicotine (Nicoderm Patch -) 14 mg TD DAILY [facility] Last Admin: 02/06/17 10:54 Dose: 14 mg Quetiapine Fumarate (Seroquel -) 100 mg PO HS [facility] Last Admin: 02/05/17 22:24 Dose: 100 mg Sertraline HCl (Zoloft -) 100 mg PO DAILY [facility] Last Admin: 02/06/17 10:55 Dose: Not Given Warfarin Sodium (Coumadin -) 7.5 mg PO ONCE@1800 ONE Stop: 02/06/17 18:01 *Physical Exam Vital Signs Temperature 98 F 02/04/17 21:00 Pulse Rate 72 02/05/17 09:17 Respiratory Rate 20 02/05/17 09:17 Blood Pressure 120/80 02/05/17 09:17 O2 Sat by Pulse Oximetry (%) 90 L 02/04/17 21:00 - Physical Exam General Appearance: Yes: Mild Distress HEENT: positive: AARON, Other (sensitive to light) Neck: positive: Trachea midline, Supple Respiratory/Chest: positive: Lungs Clear, Normal Breath Sounds Cardiovascular: positive: Regular Rhythm, S1, S2, Tachycardia. negative: Diastolic Murmur, Systolic Murmur, Gallop/S3, Gallop/S4 Gastrointestinal/Abdominal: positive: Normal Bowel Sounds, Soft. negative: Tenderness Extremity: positive: Swelling (trace edema) Neurologic: positive: Fully Oriented, Alert (4/5 on L face), Sensory Deficit CBCD WBC 8.6 K/mm3 (4.0-10.0) 02/04/17 05:15 RBC 4.45 M/mm3 (3.60-5.2) 02/04/17 05:15 Hgb 13.1 GM/dL (10.7-15.3) 02/04/17 05:15 Hct 39.3 % (32.4-45.2) 02/04/17 05:15 MCV 88.2 fl (80-96) 02/04/17 05:15 MCHC 33.2 g/dl (32.0-36.0) 02/04/17 05:15 RDW 15.3 % (11.6-15.6) 02/04/17 05:15 Plt Count 189 K/MM3 (134-434) 02/04/17 05:15 MPV 9.0 fl (7.5-11.1) 02/04/17 05:15 CMP Sodium 142 mmol/L (136-145) 02/04/17 05:15 Potassium 4.0 mmol/L (3.5-5.1) 02/04/17 05:15 Chloride 108 mmol/L (98-107) H 02/04/17 05:15 Carbon Dioxide 25 mmol/L (21-32) 02/04/17 05:15 Anion Gap 9 (8-16) 02/04/17 05:15 BUN 10 mg/dL (7-18) D 02/04/17 05:15 Creatinine 0.8 mg/dL (0.55-1.02) 02/04/17 05:15 Calcium 8.4 mg/dL (8.5-10.1) L 02/04/17 05:15 Medical Decision Making 41 yo F with h/o genital herpes and positive Pap smear 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 Patient was seen night before presentation in the ED but signed out AMA. CT head showed possible Venous sinus thrombosis seen on MRI as well and AC was started since admission. Monitor for any bleeding. Fall precautions. Neurologically stable, discharge planning with coagulation theraputic.
[2017-02-06] MEDS: HEPARIN INFUSION - 500 ML IVPB SCH ×2 (16:22→21:23)
--- NOTE | 2017-02-06 16:29 | PN ---
Physical Exam: SUBJECTIVE: Patient seen and examined Patient is feeling better, headache is better than before. OBJECTIVE: Vital Signs Temperature 98.6 F 02/06/17 14:20 Pulse Rate 74 02/06/17 14:20 Respiratory Rate 20 02/06/17 14:20 Blood Pressure 116/75 02/06/17 14:20 O2 Sat by Pulse Oximetry (%) 90 L 02/04/17 21:00 GENERAL: The patient is awake, alert, and fully oriented, in no acute distress. HEAD: Normal with no signs of trauma. EYES: PERRL, extraocular movements intact, sclera anicteric, conjunctiva clear. No ptosis. ENT: Ears normal, nares patent, oropharynx clear without exudates, moist mucous membranes. NECK: Trachea midline, full range of motion, supple. LUNGS: Breath sounds equal, clear to auscultation bilaterally, no wheezes, no crackles, no accessory muscle use. HEART: Regular rate and rhythm, S1, S2 without murmur, rub or gallop. ABDOMEN: Soft, nontender, nondistended, normoactive bowel sounds, no guarding, no rebound, no hepatosplenomegaly, no masses. EXTREMITIES: 2+ pulses, warm, well-perfused, no edema. NEUROLOGICAL: Cranial nerves II through XII grossly intact. Normal speech, gait not observed. PSYCH: Normal mood, normal affect. SKIN: Warm, dry, normal turgor, no rashes or lesions noted CBCD WBC 8.2 K/mm3 (4.0-10.0) 02/06/17 06:00 RBC 4.34 M/mm3 (3.60-5.2) 02/06/17 06:00 Hgb 12.6 GM/dL (10.7-15.3) 02/06/17 06:00 Hct 38.2 % (32.4-45.2) 02/06/17 06:00 MCV 88.0 fl (80-96) 02/06/17 06:00 MCHC 32.9 g/dl (32.0-36.0) 02/06/17 06:00 RDW 15.3 % (11.6-15.6) 02/06/17 06:00 Plt Count 177 K/MM3 (134-434) 02/06/17 06:00 MPV 9.2 fl (7.5-11.1) 02/06/17 06:00 CMP Sodium 142 mmol/L (136-145) 02/06/17 06:00 Potassium 4.1 mmol/L (3.5-5.1) 02/06/17 06:00 Chloride 111 mmol/L (98-107) H 02/06/17 06:00 Carbon Dioxide 25 mmol/L (21-32) 02/06/17 06:00 Anion Gap 6 (8-16) L 02/06/17 06:00 BUN 8 mg/dL (7-18) 02/06/17 06:00 Creatinine 0.7 mg/dL (0.55-1.02) 02/06/17 06:00 Creat Clearance w eGFR > 60 (>60) 02/05/17 08:10 Random Glucose 85 mg/dL (74-106) 02/06/17 06:00 Calcium 8.7 mg/dL (8.5-10.1) 02/06/17 06:00 Total Bilirubin 0.2 mg/dL (0.2-1.0) 02/05/17 08:10 AST 20 U/L (15-37) 02/05/17 08:10 ALT 30 U/L (12-78) 02/05/17 08:10 Alkaline Phosphatase 60 U/L (45-117) 02/05/17 08:10 Total Protein 6.8 g/dl (6.4-8.2) 02/05/17 08:10 Albumin 3.3 g/dl (3.4-5.0) L 02/05/17 08:10 Active Medications Generic Name Dose Route Start Last Admin Trade Name Paddyq PRN Reason Stop Dose Admin Acetaminophen 650 mg 02/04/17 20:20 02/04/17 21:50 Tylenol - PO 650 mg Q6H PRN Administration FEVER OR PAIN Chlorhexidine Gluconate 1 applic 02/04/17 22:00 02/05/17 22:00 Hibiclens For Decolonization - TP Not Given HS TRANG Clonazepam 1 mg 02/04/17 22:00 02/06/17 14:24 Klonopin - PO 1 mg TID TRANG Administration Docusate Sodium 100 mg 02/06/17 06:45 02/06/17 10:55 Colace - PO 100 mg BID TRANG Administration Heparin Sodium (Porcine) 1,000 unit 02/04/17 20:27 02/05/17 10:28 Heparin - IVPUSH 1,000 unit PRN PRN Administration Heparin Heparin Sodium (Porcine) 5,000 unit 02/04/17 20:27 Heparin - IVPUSH PRN PRN Heparin Heparin Sodium/Dextrose 500 mls @ 20 mls/hr 02/04/17 20:27 02/06/17 16:22 Heparin Infusion - IVPB 22 mls/hr TITR TRANG Administration Protocol 1,000 UNITS/HR Mupirocin 1 applic 02/04/17 22:00 02/06/17 10:56 Bactroban Ointment (For Decolonization) - NS 02/08/17 21:59 Not Given BID TRANG Nicotine 14 mg 02/05/17 10:00 02/06/17 10:54 Nicoderm Patch - TD 14 mg DAILY TRANG Administration Quetiapine Fumarate 100 mg 02/04/17 22:00 02/05/17 22:24 Seroquel - PO 100 mg HS TRANG Administration Sertraline HCl 100 mg 02/05/17 10:00 02/06/17 10:55 Zoloft - PO Not Given DAILY [facility] Warfarin Sodium 7.5 mg 02/06/17 18:00 Coumadin - PO 02/06/17 18:01 ONCE@1800 [facility] Home Medications Medication Instructions Recorded Clonazepam [Klonopin] 1 mg TID 02/03/17 Quetiapine Fumarate [Seroquel] 100 tab PO HS 02/03/17 Sertraline HCl [Zoloft] 100 mg PO DAILY 02/03/17 ASSESSMENT/PLAN: This is a 41 yo Female with PMHx of anxiety, depression, genital herpes and HPV virus who was admitted with severe L sided h/a x 2weeks. Found to have venous thrombosis in L sigmoid and L transverse sinus of unclear etiology. # Acute Venous thrombosis of left sigmoid and left transverse sinus on Heparin drip continue, will bridge her with coumadin 7.5mg tonight , PT/INR is 1.06 continue with Keppra 500 bid for seizure ppx as per neurologist . Neurosurgery appreciated Dr.Tom Lincoln. # Acute Headache improving Off Fioricet now, just patient is on Tylenol # Hx of depression, continue meds seroquel, klonopin, stated that zoloft is new and has not started yet. # Smoking hx counseled on quitting; nicotine patch DVT Px: heparin Visit type - Emergency Visit Emergency Visit: Yes ED Registration Date: 02/03/17 Care time: The patient presented to the Emergency Department on the above date and was hospitalized for further evaluation of their emergent condition. - New Patient This patient is new to me today: No - Critical Care Critical Care patient: No
--- NOTE | 2017-02-06 16:40 | PN ---
Progress Note (short form) - Note Progress Note: Patient seen and examined Complains of "thumping" left side of head Bridging heparin to coumadin Last Vital Signs Temp Pulse Resp BP Pulse Ox 98.6 F 74 20 116/75 90 L 02/06/17 14:20 02/06/17 14:20 02/06/17 14:20 02/06/17 14:20 02/04/17 21:00 HEENT: JAKE, EOM Intact Oropharynx: No thrush, No mucositis Cor: RSR, No murmurs, No gallops Lungs: Clear to P&A Abd: Soft, Normal bowel sounds, No organomegaly Ext:No significant edema Skin: No rashes, Integument intact CBC, BMP 02/06/17 06:00 02/06/17 06:00 Current Medications Generic Name Dose Route Start Last Admin Trade Name Freq PRN Reason Stop Dose Admin Acetaminophen 650 mg 02/04/17 20:20 02/04/17 21:50 Tylenol - PO 650 mg Q6H PRN Administration FEVER OR PAIN Chlorhexidine Gluconate 1 applic 02/04/17 22:00 02/05/17 22:00 Hibiclens For Decolonization - TP Not Given HS TRANG Clonazepam 1 mg 02/04/17 22:00 02/06/17 14:24 Klonopin - PO 1 mg TID TRANG Administration Docusate Sodium 100 mg 02/06/17 06:45 02/06/17 10:55 Colace - PO 100 mg BID TRANG Administration Heparin Sodium (Porcine) 1,000 unit 02/04/17 20:27 02/05/17 10:28 Heparin - IVPUSH 1,000 unit PRN PRN Administration Heparin Heparin Sodium (Porcine) 5,000 unit 02/04/17 20:27 Heparin - IVPUSH PRN PRN Heparin Heparin Sodium/Dextrose 500 mls @ 20 mls/hr 02/04/17 20:27 02/06/17 16:22 Heparin Infusion - IVPB 22 mls/hr TITR TRANG Administration Protocol 1,000 UNITS/HR Mupirocin 1 applic 02/04/17 22:00 02/06/17 10:56 Bactroban Ointment (For Decolonization) - NS 02/08/17 21:59 Not Given BID TRANG Nicotine 14 mg 02/05/17 10:00 02/06/17 10:54 Nicoderm Patch - TD 14 mg DAILY [facility] Administration Quetiapine Fumarate 100 mg 02/04/17 22:00 02/05/17 22:24 Seroquel - PO 100 mg HS TRANG Administration Sertraline HCl 100 mg 02/05/17 10:00 02/06/17 10:55 Zoloft - PO Not Given DAILY [facility] Warfarin Sodium 7.5 mg 02/06/17 18:00 Coumadin - PO 02/06/17 18:01 ONCE@1800 ONE Impression: Sigmoid sinus venous thrombosis_etiology ?? Thrombophilia work up pending Bridging heparin to coumadin.
[2017-02-06] MEDS ORDERED: WARFARIN NA 7.5 MG TABLET (FP) PO SCH (18:00)
[2017-02-06] MEDS ORDERED: WARFARIN NA 7.5 MG TABLET (FP) PO ONE (18:00)
[2017-02-06] MEDS ORDERED: QUEtiapine FUMARATE 50 MG TABLET ONE (20:46)
[2017-02-06] MEDS: CHLORHEXIDINE GLUCONATE 4% CLEANSER FOR DECOLONIZATION TP SCH (21:23)
[2017-02-06] MEDS: QUEtiapine FUMARATE 100 MG TABLET (FP) PO SCH (23:19)
[2017-02-07] MEDS: clonazePAM 0.5 MG TABLET PO SCH ×3 (06:34→22:13)
[2017-02-07 07:52] LABS: MCH 28.8 pg (25.7-33.7); MEAN CELL VOLUME 87.4 fl (80-96); PLATELET COUNT 192 K/MM3 (134-434); RDW 15.5 % (11.6-15.6)
--- NOTE | 2017-02-07 07:53 | PN ---
Progress Note (short form) - Note Progress Note: NEUROSURGERY Less headaches, but some paresthesia R face occasionally last night Walking around No new complaints otherwise AF, BP and HR stable General- unremarkable Speech as previously Neuro exam non-focal, no drift On heparin drip and coumadin, INR/ptt pending Coumadin reportedly started 2 nights ago Brain MRI/MRV - no infarcts; clots in L transverse/sigmoid sinus/IJ; R transverse/sigmoid patent as is SSS No neurosurgical intervention indicated Hematology eval in progress Keep well hydrated/encouraged po
[2017-02-07 08:05] LABS: INR 1.06 (0.82-1.09); PROTHROMBIN TIME (PATIENT) 11.7 SEC (9.98-11.88)
[2017-02-07] MEDS: SERTRALINE HCL 50 MG TABLET (FP) PO SCH (09:21)
[2017-02-07] MEDS: MUPIROCIN 2% TOPICAL OINTMENT FOR DECOLONIZATION NS SCH ×2 (09:21→21:18)
[2017-02-07] MEDS: NICOTINE 14 MG/24 HOURS TOPICAL PATCH TD SCH (09:24)
[2017-02-07] MEDS: DOCUSATE SODIUM 100 MG CAPSULE (FP) PO SCH ×2 (09:24→21:18)
[2017-02-07] MEDS: HEPARIN NA (PORCINE) 5,000 UNITS/ML 1ML VIAL IVPUSH PRN (09:32)
--- NOTE | 2017-02-07 12:22 | PN ---
Progress Note (short form) - Note Progress Note: Patient is comfortable with no acute distress. Mild headache on and off. Vital Signs Temperature 98.7 F 02/07/17 06:00 Pulse Rate 80 02/07/17 10:00 Respiratory Rate 18 02/07/17 10:00 Blood Pressure 116/62 02/07/17 10:00 O2 Sat by Pulse Oximetry (%) 96 02/07/17 09:00 GENERAL: The patient is awake, alert, and fully oriented, in no acute distress. HEAD: Normal with no signs of trauma. EYES: PERRL, extraocular movements intact, sclera anicteric, conjunctiva clear. No ptosis. ENT: Ears normal, nares patent, oropharynx clear without exudates, moist mucous membranes. NECK: Trachea midline, full range of motion, supple. LUNGS: Breath sounds equal, clear to auscultation bilaterally, no wheezes, no crackles, no accessory muscle use. HEART: Regular rate and rhythm, S1, S2 without murmur, rub or gallop. ABDOMEN: Soft, nontender, nondistended, normoactive bowel sounds, no guarding, no rebound, no hepatosplenomegaly, no masses. EXTREMITIES: 2+ pulses, warm, well-perfused, no edema. NEUROLOGICAL: Cranial nerves II through XII grossly intact. Normal speech. PSYCH: Normal mood, normal affect. SKIN: Warm, dry, normal turgor, no rashes or lesions noted CBCD WBC 8.0 K/mm3 (4.0-10.0) 02/07/17 07:10 RBC 4.40 M/mm3 (3.60-5.2) 02/07/17 07:10 Hgb 12.7 GM/dL (10.7-15.3) 02/07/17 07:10 Hct 38.5 % (32.4-45.2) 02/07/17 07:10 MCV 87.4 fl (80-96) 02/07/17 07:10 MCHC 33.0 g/dl (32.0-36.0) 02/07/17 07:10 RDW 15.5 % (11.6-15.6) 02/07/17 07:10 Plt Count 192 K/MM3 (134-434) 02/07/17 07:10 MPV 9.0 fl (7.5-11.1) 02/07/17 07:10 CMP Sodium 142 mmol/L (136-145) 02/06/17 06:00 Potassium 4.1 mmol/L (3.5-5.1) 02/06/17 06:00 Chloride 111 mmol/L (98-107) H 02/06/17 06:00 Carbon Dioxide 25 mmol/L (21-32) 02/06/17 06:00 Anion Gap 6 (8-16) L 02/06/17 06:00 BUN 8 mg/dL (7-18) 02/06/17 06:00 Creatinine 0.7 mg/dL (0.55-1.02) 02/06/17 06:00 Creat Clearance w eGFR > 60 (>60) 02/05/17 08:10 Random Glucose 85 mg/dL (74-106) 02/06/17 06:00 Calcium 8.7 mg/dL (8.5-10.1) 02/06/17 06:00 Total Bilirubin 0.2 mg/dL (0.2-1.0) 02/05/17 08:10 AST 20 U/L (15-37) 02/05/17 08:10 ALT 30 U/L (12-78) 02/05/17 08:10 Alkaline Phosphatase 60 U/L (45-117) 02/05/17 08:10 Total Protein 6.8 g/dl (6.4-8.2) 02/05/17 08:10 Albumin 3.3 g/dl (3.4-5.0) L 02/05/17 08:10 Current Medications Generic Name Dose Route Start Last Admin Trade Name Paddyq PRN Reason Stop Dose Admin Acetaminophen 650 mg 02/04/17 20:20 02/04/17 21:50 Tylenol - PO 650 mg Q6H PRN Administration FEVER OR PAIN Chlorhexidine Gluconate 1 applic 02/04/17 22:00 02/06/17 21:23 Hibiclens For Decolonization - TP Not Given HS TRANG Clonazepam 1 mg 02/04/17 22:00 02/07/17 06:34 Klonopin - PO 1 mg TID TRANG Administration Docusate Sodium 100 mg 02/06/17 06:45 02/07/17 09:24 Colace - PO 100 mg BID TRANG Administration Heparin Sodium (Porcine) 1,000 unit 02/04/17 20:27 02/07/17 09:32 Heparin - IVPUSH 1,000 unit PRN PRN Administration Heparin Heparin Sodium (Porcine) 5,000 unit 02/04/17 20:27 Heparin - IVPUSH PRN PRN Heparin Heparin Sodium/Dextrose 500 mls @ 20 mls/hr 02/04/17 20:27 02/07/17 09:30 Heparin Infusion - IVPB 1,200 units/hr TITR TRANG Titration Protocol 1,000 UNITS/HR Mupirocin 1 applic 02/04/17 22:00 02/07/17 09:21 Bactroban Ointment (For Decolonization) - NS 02/08/17 21:59 Not Given BID [facility] Nicotine 14 mg 02/05/17 10:00 02/07/17 09:24 Nicoderm Patch - TD 14 mg DAILY TRANG Administration Quetiapine Fumarate 100 mg 02/04/17 22:00 02/06/17 23:19 Seroquel - PO 100 mg HS [facility] Administration Sertraline HCl 100 mg 02/05/17 10:00 02/07/17 09:21 Zoloft - PO Not Given DAILY TRANG Warfarin Sodium 10 mg 02/07/17 18:00 Coumadin - PO 02/07/17 18:01 ONCE@1800 ONE Home Medications Medication Instructions Recorded Clonazepam [Klonopin] 1 mg TID 02/03/17 Quetiapine Fumarate [Seroquel] 100 tab PO HS 02/03/17 Sertraline HCl [Zoloft] 100 mg PO DAILY 02/03/17 Laboratory Tests 02/05/17 02/06/17 02/06/17 11:31 06:00 06:00 INR 1.04 PTT (Actin FS) 64.5 H D 51.6 H 02/07/17 02/07/17 02/07/17 07:10 07:10 16:01 INR 1.06 PTT (Actin FS) 49.2 H 55.1 H A/P: This is a 41 yo Female with PMHx of anxiety, depression, genital herpes and HPV virus who was admitted with severe L sided h/a x 2weeks. Found to have venous thrombosis in L sigmoid and L transverse sinus of unclear etiology. # Acute Venous thrombosis of left sigmoid and left transverse sinus on Heparin drip continue, will bridge her with coumadin 10mg tonight , PT/INR is 1.06 continue with Keppra 500 bid for seizure ppx as per neurologist . Neurosurgery appreciated Dr.Tom Lincoln. # Acute Headache improving Off Fioricet now, just patient is on Tylenol # Hx of depression, continue meds seroquel, klonopin, stated that zoloft is new and has not started yet and does not want it. # Smoking hx counseled on quitting; nicotine patch DVT Px: heparin Visit type - Emergency Visit Emergency Visit: Yes ED Registration Date: 02/03/17 Care time: The patient presented to the Emergency Department on the above date and was hospitalized for further evaluation of their emergent condition. - New Patient This patient is new to me today: No - Critical Care Critical Care patient: No
[2017-02-07 16:08] LABS: RHEUMATOID ARTHRITITS FACTOR < 10.0 IU/mL (0.0-13.9)
[2017-02-07] MEDS: HEPARIN INFUSION - 500 ML IVPB SCH ×2 (17:10→21:18)
[2017-02-07] MEDS ORDERED: WARFARIN NA 10 MG TABLET (FP) PO ONE (18:00)
[2017-02-07] MEDS ORDERED: QUEtiapine FUMARATE 50 MG TABLET ONE (20:50)
[2017-02-07] MEDS: CHLORHEXIDINE GLUCONATE 4% CLEANSER FOR DECOLONIZATION TP SCH (21:19)
[2017-02-07] MEDS: QUEtiapine FUMARATE 100 MG TABLET (FP) PO SCH (23:11)
[2017-02-08 00:09] LABS: BETA-2-GLYCOPROTEIN I IGA <9 (0-25)
[2017-02-08] MEDS: clonazePAM 0.5 MG TABLET PO SCH ×3 (05:23→22:03)
[2017-02-08 08:07] LABS: MCH 28.8 pg (25.7-33.7); MCHC 32.4 g/dl (32.0-36.0); MEAN CELL VOLUME 88.9 fl (80-96); MEAN PLT VOLUME 9.5 fl (7.5-11.1); PLATELET COUNT 188 K/MM3 (134-434); RDW 15.7 % (11.6-15.6); WHITE BLOOD COUNT 8.4 K/mm3 (4.0-10.0)
[2017-02-08 08:34] LABS: INR 1.23 (0.82-1.09); PROTHROMBIN TIME (PATIENT) 13.6 SEC (9.98-11.88)
[2017-02-08] MEDS: DOCUSATE SODIUM 100 MG CAPSULE (FP) PO SCH ×4 (09:50→22:03)
[2017-02-08] MEDS: NICOTINE 14 MG/24 HOURS TOPICAL PATCH TD SCH (09:50)
[2017-02-08] MEDS: ACETAMINOPHEN 325 MG TABLET (FP) PO PRN (09:54)
[2017-02-08] MEDS: MUPIROCIN 2% TOPICAL OINTMENT FOR DECOLONIZATION NS SCH (10:00)
[2017-02-08 10:08] LABS: LAC INTERPRETATION Comment: (.)
--- NOTE | 2017-02-08 10:53 | PN ---
Progress Note (short form) - Note Progress Note: NEUROSURGERY Less headaches No new complaints AF, VSS General- unremarkable Speech stable Neuro exam non-focal, no drift On heparin drip and coumadin, INR 1.23 Brain MRI/MRV - no infarcts; clots in L transverse/sigmoid sinus/IJ; R transverse/sigmoid patent as is SSS No neurosurgical intervention indicated Hematology eval in progress Keep well hydrated/encouraged po/ambulate F/u plans discussed
--- NOTE | 2017-02-08 12:49 | PN ---
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 Patient was seen night before presentation in the ED but signed out AMA. Her family and her were informed by ED later today of positive CT head showed possible venous thrombosis. The headache symptoms are intermittent, begins from anterior L eye, travels through L head then to posterior occipital lobe, 6-8/10, sharp quality, associated with n/v, light, position change, noise make the pain worse. Patient accounts that she had herpes breakout before the headache. She also c/o anxiety and panic attack. Heparin was started. MRV completed and shows L cavernous sinus thrombosis, L transverse sinus, L sigmoid, L IJ. Patient on heparin since admission. Neurologically stable. Active Medications Acetaminophen (Tylenol -) 650 mg PO Q6H PRN PRN Reason: FEVER OR PAIN Last Admin: 02/08/17 09:54 Dose: 650 mg Chlorhexidine Gluconate (Hibiclens For Decolonization -) 1 applic TP HS [facility] Last Admin: 02/07/17 21:19 Dose: Not Given Clonazepam (Klonopin -) 1 mg PO TID [facility] Last Admin: 02/08/17 05:23 Dose: 1 mg Docusate Sodium (Colace -) 100 mg PO BID [facility] Last Admin: 02/08/17 10:01 Dose: Not Given Heparin Sodium (Porcine) (Heparin -) 1,000 unit IVPUSH PRN PRN PRN Reason: Heparin Last Admin: 02/07/17 09:32 Dose: 1,000 unit Heparin Sodium (Porcine) (Heparin -) 5,000 unit IVPUSH PRN PRN PRN Reason: Heparin Heparin Sodium/Dextrose (Heparin Infusion -) 500 mls @ 20 mls/hr IVPB TITR TRANG ; 1,000 UNITS/HR PRN Reason: Protocol Last Admin: 02/07/17 21:18 Dose: Not Given Mupirocin (Bactroban Ointment (For Decolonization) -) 1 applic NS BID [facility] Stop: 02/08/17 21:59 Last Admin: 02/08/17 10:00 Dose: Not Given Nicotine (Nicoderm Patch -) 14 mg TD DAILY [facility] Last Admin: 02/08/17 09:50 Dose: 14 mg Quetiapine Fumarate (Seroquel -) 100 mg PO HS [facility] Last Admin: 02/07/17 23:11 Dose: 100 mg *Physical Exam Vital Signs Temperature 99.1 F 02/08/17 09:47 Pulse Rate 81 02/08/17 09:47 Respiratory Rate 20 02/08/17 09:47 Blood Pressure 142/83 02/08/17 09:47 O2 Sat by Pulse Oximetry (%) 98 02/07/17 22:00 - Physical Exam General Appearance: Yes: Mild Distress HEENT: positive: AARON, Other (sensitive to light) Neck: positive: Trachea midline, Supple Respiratory/Chest: positive: Lungs Clear, Normal Breath Sounds Cardiovascular: positive: Regular Rhythm, S1, S2, Tachycardia. negative: Diastolic Murmur, Systolic Murmur, Gallop/S3, Gallop/S4 Gastrointestinal/Abdominal: positive: Normal Bowel Sounds, Soft. negative: Tenderness Extremity: positive: Swelling (trace edema) Neurologic: positive: Fully Oriented, Alert (4/5 on L face), Sensory Deficit CBCD WBC 8.4 K/mm3 (4.0-10.0) 02/08/17 05:56 RBC 4.47 M/mm3 (3.60-5.2) 02/08/17 05:56 Hgb 12.9 GM/dL (10.7-15.3) 02/08/17 05:56 Hct 39.7 % (32.4-45.2) 02/08/17 05:56 MCV 88.9 fl (80-96) 02/08/17 05:56 MCHC 32.4 g/dl (32.0-36.0) 02/08/17 05:56 RDW 15.7 % (11.6-15.6) H 02/08/17 05:56 Plt Count 188 K/MM3 (134-434) 02/08/17 05:56 MPV 9.5 fl (7.5-11.1) 02/08/17 05:56 CMP Sodium 142 mmol/L (136-145) 02/06/17 06:00 Potassium 4.1 mmol/L (3.5-5.1) 02/06/17 06:00 Chloride 111 mmol/L (98-107) H 02/06/17 06:00 Carbon Dioxide 25 mmol/L (21-32) 02/06/17 06:00 Anion Gap 6 (8-16) L 02/06/17 06:00 BUN 8 mg/dL (7-18) 02/06/17 06:00 Creatinine 0.7 mg/dL (0.55-1.02) 02/06/17 06:00 Creat Clearance w eGFR > 60 (>60) 02/05/17 08:10 Calcium 8.7 mg/dL (8.5-10.1) 02/06/17 06:00 Total Bilirubin 0.2 mg/dL (0.2-1.0) 02/05/17 08:10 AST 20 U/L (15-37) 02/05/17 08:10 ALT 30 U/L (12-78) 02/05/17 08:10 Alkaline Phosphatase 60 U/L (45-117) 02/05/17 08:10 Total Protein 6.8 g/dl (6.4-8.2) 02/05/17 08:10 Albumin 3.3 g/dl (3.4-5.0) L 02/05/17 08:10 Medical Decision Making 41 yo F with h/o genital herpes and positive Pap smear 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 Patient was seen night before presentation in the ED but signed out AMA. CT head showed possible Venous sinus thrombosis seen on MRI as well and AC was started since admission. Monitor for any bleeding. Fall precautions. Neurologically stable, discharge planning with coagulation theraputic.
[2017-02-08] MEDS: HEPARIN INFUSION - 500 ML IVPB SCH (13:39)
--- NOTE | 2017-02-08 15:00 | PN ---
Physical Exam: SUBJECTIVE: Patient seen and examined Patient resting in bed NAD. No acute events. afebrile and hemodynamically stable. Has mild diffuse h/a relieved by tylenol. No photophobia or lightheadedness. no dysphagia or parasthesia. Denies LOC, s/z, change in vision , n/v. OBJECTIVE: Vital Signs Period Temp Pulse Resp BP Sys/Allred Pulse Ox Last 24 Hr 97.9 F-99.8 F 5-100 16-20 106-142/57-83 98 GENERAL: The patient is awake, alert, and fully oriented, in no acute distress. HEAD: Normal with no signs of trauma. EYES: PERRL, extraocular movements intact, b/l mild horizontal nystagmus. ENT: oropharynx clear without exudates, moist mucous membranes NECK: supple, full rom. LUNGS: Breath sounds equal, clear to auscultation bilaterally, no wheezes, no crackles, HEART: s1s2 rrr ABDOMEN: Soft, nontender, nondistended, normoactive bowel sounds, no guarding, no rebound, EXTREMITIES: 2+ pulses, warm, well-perfused, no edema. NEUROLOGICAL: Cranial nerves II through XII intact. Normal speech, no numbness, 5/5 strength in all extremities, 1+ reflexes brachial, 2+ patellar b/l PSYCH: Normal mood, normal affect. SKIN: Warm, dry, normal turgor, Laboratory Results - last 24 hr 02/05/17 02/06/17 02/07/17 08:10 06:00 16:01 WBC RBC Hgb Hct MCV MCHC RDW Plt Count MPV INR PTT (Actin FS) 55.1 H LA PTT Baseline 35.6 dRVVT Confirm Interp 34.8 Jqox-5-Mycgdxqvpxiw <9 Rheumatoid Arth Biomark < 10.0 Zpvj-3-Mzemktkcjadu Ab <9 Beta-2-GPI IgM Ab <9 02/08/17 02/08/17 02/08/17 05:56 05:56 05:56 WBC 8.4 RBC 4.47 Hgb 12.9 Hct 39.7 MCV 88.9 MCHC 32.4 RDW 15.7 H Plt Count 188 MPV 9.5 INR 1.23 H PTT (Actin FS) 61.8 H LA PTT Baseline dRVVT Confirm Interp Tfwf-4-Zitbqvfwcutb Rheumatoid Arth Biomark Jfbs-7-Wytxqsowgcje Ab Beta-2-GPI IgM Ab Active Medications Generic Name Dose Route Start Last Admin Trade Name Freq PRN Reason Stop Dose Admin Acetaminophen 650 mg 02/04/17 20:20 02/08/17 09:54 Tylenol - PO 650 mg Q6H PRN Administration FEVER OR PAIN Chlorhexidine Gluconate 1 applic 02/04/17 22:00 02/07/17 21:19 Hibiclens For Decolonization - TP Not Given HS TRANG Clonazepam 1 mg 02/04/17 22:00 02/08/17 13:39 Klonopin - PO 1 mg TID TRANG Administration Docusate Sodium 100 mg 02/06/17 06:45 02/08/17 13:39 Colace - PO 100 mg BID TRANG Administration Heparin Sodium (Porcine) 1,000 unit 02/04/17 20:27 02/07/17 09:32 Heparin - IVPUSH 1,000 unit PRN PRN Administration Heparin Heparin Sodium (Porcine) 5,000 unit 02/04/17 20:27 Heparin - IVPUSH PRN PRN Heparin Heparin Sodium/Dextrose 500 mls @ 20 mls/hr 02/04/17 20:27 02/08/17 13:39 Heparin Infusion - IVPB 24 mls/hr TITR TRANG Administration Protocol 1,000 UNITS/HR Mupirocin 1 applic 02/04/17 22:00 02/08/17 10:00 Bactroban Ointment (For Decolonization) - NS 02/08/17 21:59 Not Given BID TRANG Nicotine 14 mg 02/05/17 10:00 02/08/17 09:50 Nicoderm Patch - TD 14 mg DAILY TRANG Administration Quetiapine Fumarate 100 mg 02/04/17 22:00 02/07/17 23:11 Seroquel - PO 100 mg HS TRANG Administration Warfarin Sodium 10 mg 02/08/17 14:51 Coumadin - PO 02/08/17 14:52 NOW ONE ASSESSMENT/PLAN: This is a 41 yo F active smoker with PMH of anxiety, depression, genital herpes and HPV virus who was admitted with severe L sided h/a x 2weeks. Found to have venous thrombosis in L sigmoid and L transverse sinus of unclear etiology. Venous thrombosis of left sigmoid and left transverse sinus -symptomatic resolution of h/a -MRV head/neck shows clot in L transverse and sigmoid sinuses with running IJ vein. -contunue Heparin drip (PTT60) bridging to coum 10 mg. inr 1.23 today -await therapeutic INR btw 2-3 -tylenol prn -heme, neuro, naurosur consult appreciated, so far thrombophilia workup negative -consensus that patient should be bridged to coum. Duration per heme. -monitor for bleeding depression, psych d/o -seroquel, zoloft, klonopin Smoking hx -counseled on quitting -nicotine patch FEN No IVF lytes stable regular diet hep, ppi dispo:med surg Problem List - Problems (1) Cavernous sinus thrombosis Code(s): G08 - INTRACRANIAL AND INTRASPINAL PHLEBITIS AND THROMBOPHLEBITIS (2) Cerebral venous sinus thrombosis, acute Code(s): G08 - INTRACRANIAL AND INTRASPINAL PHLEBITIS AND THROMBOPHLEBITIS (3) Depression Code(s): F32.9 - MAJOR DEPRESSIVE DISORDER, SINGLE EPISODE, UNSPECIFIED (4) Anxiety Code(s): F41.9 - ANXIETY DISORDER, UNSPECIFIED (5) Smoker Code(s): F17.200 - NICOTINE DEPENDENCE, UNSPECIFIED, UNCOMPLICATED Visit type - Emergency Visit Emergency Visit: Yes ED Registration Date: 02/03/17 Care time: The patient presented to the Emergency Department on the above date and was hospitalized for further evaluation of their emergent condition. - New Patient This patient is new to me today: No - Critical Care Critical Care patient: No - Discharge Referral Referred to [facility] No
--- NOTE | 2017-02-08 16:14 | MSN ---
Progress Note (short form) - Note Progress Note: 41 yo female with PMH of herpes, positive HPV on pap smear, severe anxiety, depression, every day smoker 1.5 pks daily, presents to ED with headaches X 2 days. Pt diagnosed with venous thrombosis of sigmoid and transverse sinus on CT scan. Left sided headache reported as minimal 1/10, sporadic and does nt affect her activity level. Denies nausea, vomiting, sleeping difficulties. Last Vital Signs Temp Pulse Resp BP Pulse Ox 97.9 F 83 17 106/63 98 02/08/17 13:53 02/08/17 13:53 02/08/17 13:53 02/08/17 13:53 02/07/17 22:00 Laboratory Results - last 24 hr 02/05/17 02/07/17 02/08/17 08:10 16:01 05:56 WBC 8.4 RBC 4.47 Hgb 12.9 Hct 39.7 MCV 88.9 MCHC 32.4 RDW 15.7 H Plt Count 188 MPV 9.5 INR PTT (Actin FS) 55.1 H LA PTT Baseline 35.6 dRVVT Confirm Interp 34.8 Hbai-2-Nymahtxueykw <9 Szca-2-Vjgslbwmdyib Ab <9 Beta-2-GPI IgM Ab <9 02/08/17 02/08/17 05:56 05:56 WBC RBC Hgb Hct MCV MCHC RDW Plt Count MPV INR 1.23 H PTT (Actin FS) 61.8 H LA PTT Baseline dRVVT Confirm Interp Iaoy-2-Fynvvwuvsyvc Jxrs-2-Qlhbkrgbgtdj Ab Beta-2-GPI IgM Ab General: Anxious, talkative; not in any acute distress. Head: Normocephalic, no obvious or gross deformities Neck: Supple, no JVD Heart: Normal S1 and S2, regular rate and rythm Lungs: Clear breath sounds B/L; no wheezes or rhonchi Abdomen: SOft non-tender, normoactive BS Extremity: 2+ pulses, no edema Neuro: PEERLA, tongue is midline; stregth 5/5 upper and lower extremity; peripheral pulses 2+ lower extremity; reflexes intact Assessment: This is a 41 yo F active smoker with PMH of anxiety, depression, genital herpes and HPV virus who was admitted with severe L sided h/a x 2weeks. Found to have venous thrombosis in L sigmoid and L transverse sinus. Venous thrombosis of left sigmoid and left transverse sinus -symptomatic resolution of h/a -contunue Heparin drip (PTT60) bridging to coum 10 mg. inr 1.23 today -await therapeutic INR btw 2-3 -tylenol prn -monitor for bleeding depression, psych d/o -seroquel, zoloft, klonopin Smoking hx -counseled on quitting -nicotine patch
--- NOTE | 2017-02-08 17:16 | PN ---
Teaching Attending Note Name of Resident: Brenda Chaves ATTENDING PHYSICIAN STATEMENT I saw and evaluated the patient. I reviewed the resident's note and discussed the case with the resident. I agree with the resident's findings and plan as documented. Patient's headache is better, not constant, on and off. Vital Signs Temperature 97.9 F 02/08/17 13:53 Pulse Rate 83 02/08/17 13:53 Respiratory Rate 17 02/08/17 13:53 Blood Pressure 106/63 02/08/17 13:53 O2 Sat by Pulse Oximetry (%) 98 02/07/17 22:00 CBCD WBC 8.4 K/mm3 (4.0-10.0) 02/08/17 05:56 RBC 4.47 M/mm3 (3.60-5.2) 02/08/17 05:56 Hgb 12.9 GM/dL (10.7-15.3) 02/08/17 05:56 Hct 39.7 % (32.4-45.2) 02/08/17 05:56 MCV 88.9 fl (80-96) 02/08/17 05:56 MCHC 32.4 g/dl (32.0-36.0) 02/08/17 05:56 RDW 15.7 % (11.6-15.6) H 02/08/17 05:56 Plt Count 188 K/MM3 (134-434) 02/08/17 05:56 MPV 9.5 fl (7.5-11.1) 02/08/17 05:56 CMP Sodium 142 mmol/L (136-145) 02/06/17 06:00 Potassium 4.1 mmol/L (3.5-5.1) 02/06/17 06:00 Chloride 111 mmol/L (98-107) H 02/06/17 06:00 Carbon Dioxide 25 mmol/L (21-32) 02/06/17 06:00 Anion Gap 6 (8-16) L 02/06/17 06:00 BUN 8 mg/dL (7-18) 02/06/17 06:00 Creatinine 0.7 mg/dL (0.55-1.02) 02/06/17 06:00 Creat Clearance w eGFR > 60 (>60) 02/05/17 08:10 Random Glucose 85 mg/dL (74-106) 02/06/17 06:00 Calcium 8.7 mg/dL (8.5-10.1) 02/06/17 06:00 Total Bilirubin 0.2 mg/dL (0.2-1.0) 02/05/17 08:10 AST 20 U/L (15-37) 02/05/17 08:10 ALT 30 U/L (12-78) 02/05/17 08:10 Alkaline Phosphatase 60 U/L (45-117) 02/05/17 08:10 Total Protein 6.8 g/dl (6.4-8.2) 02/05/17 08:10 Albumin 3.3 g/dl (3.4-5.0) L 02/05/17 08:10 Current Medications Generic Name Dose Route Start Last Admin Trade Name Freq PRN Reason Stop Dose Admin Acetaminophen 650 mg 02/04/17 20:20 02/08/17 09:54 Tylenol - PO 650 mg Q6H PRN Administration FEVER OR PAIN Chlorhexidine Gluconate 1 applic 02/04/17 22:00 02/07/17 21:19 Hibiclens For Decolonization - TP Not Given HS [facility] Clonazepam 1 mg 02/04/17 22:00 02/08/17 13:39 Klonopin - PO 1 mg TID TRANG Administration Docusate Sodium 100 mg 02/06/17 06:45 02/08/17 13:39 Colace - PO 100 mg BID TRANG Administration Heparin Sodium (Porcine) 1,000 unit 02/04/17 20:27 02/07/17 09:32 Heparin - IVPUSH 1,000 unit PRN PRN Administration Heparin Heparin Sodium (Porcine) 5,000 unit 02/04/17 20:27 Heparin - IVPUSH PRN PRN Heparin Heparin Sodium/Dextrose 500 mls @ 20 mls/hr 02/04/17 20:27 02/08/17 13:39 Heparin Infusion - IVPB 24 mls/hr TITR TRANG Administration Protocol 1,000 UNITS/HR Mupirocin 1 applic 02/04/17 22:00 02/08/17 10:00 Bactroban Ointment (For Decolonization) - NS 02/08/17 21:59 Not Given BID TRANG Nicotine 14 mg 02/05/17 10:00 02/08/17 09:50 Nicoderm Patch - TD 14 mg DAILY TRANG Administration Quetiapine Fumarate 100 mg 02/04/17 22:00 02/07/17 23:11 Seroquel - PO 100 mg HS TRANG Administration Warfarin Sodium 10 mg 02/08/17 18:00 Coumadin - PO 02/08/17 18:01 NOW ONE Home Medications Medication Instructions Recorded Clonazepam [Klonopin] 1 mg TID 02/03/17 Quetiapine Fumarate [Seroquel] 100 tab PO HS 02/03/17 Sertraline HCl [Zoloft] 100 mg PO DAILY 02/03/17 ASSESSMENT AND PLAN: This is a 41 yo Female with PMHx of anxiety, depression, genital herpes and HPV virus who was admitted with severe L sided h/a x 2weeks. Found to have venous thrombosis in L sigmoid and L transverse sinus of unclear etiology. # Acute Venous thrombosis of left sigmoid and left transverse sinus on Heparin drip continues , will give her another dose of coumadin 10mg tonight , PT/INR in am , discontinued Keppra 500 bid for seizure ppx as per neurologist . Neurosurgery appreciated Dr.Tom Lincoln. On heparin drip and coumadin, INR 1.23 # Acute Headache improving Off Fioricet now, patient is on requesting Tylenol # Hx of depression, continue meds seroquel, klonopin, stated that zoloft is new and has not started yet and does not want it. # Smoking hx counseled on quitting; nicotine patch DVT Px: heparin once INR is therapeutic can be discharged home.
[2017-02-08] MEDS ORDERED: WARFARIN NA 10 MG TABLET (FP) PO ONE (18:00)
[2017-02-08] MEDS: POLYETHYLENE GLYCOL 3350 119 GM BTL PO SCH (22:03)
[2017-02-08] MEDS: CHLORHEXIDINE GLUCONATE 4% CLEANSER FOR DECOLONIZATION TP SCH (22:06)
[2017-02-09] MEDS ORDERED: QUEtiapine FUMARATE 50 MG TABLET ONE ×2 (00:25→20:57)
[2017-02-09] MEDS: QUEtiapine FUMARATE 100 MG TABLET (FP) PO SCH ×2 (00:27→22:54)
[2017-02-09] MEDS: clonazePAM 0.5 MG TABLET PO SCH ×3 (05:07→21:34)
[2017-02-09] MEDS: HEPARIN INFUSION - 500 ML IVPB SCH ×2 (05:12→12:15)
[2017-02-09] MEDS: DOCUSATE SODIUM 100 MG CAPSULE (FP) PO SCH ×3 (05:12→21:34)
[2017-02-09 07:37] LABS: MCH 29.5 pg (25.7-33.7); MCHC 33.4 g/dl (32.0-36.0); MEAN CELL VOLUME 88.3 fl (80-96); MEAN PLT VOLUME 9.3 fl (7.5-11.1); PLATELET COUNT 182 K/MM3 (134-434); RDW 15.5 % (11.6-15.6); WHITE BLOOD COUNT 8.3 K/mm3 (4.0-10.0)
[2017-02-09 08:24] LABS: INR 1.47 (0.82-1.09); PROTHROMBIN TIME (PATIENT) 16.3 SEC (9.98-11.88)
--- NOTE | 2017-02-09 08:25 | PN ---
Progress Note (short form) - Note Progress Note: NEUROSURGERY Less headaches No new complaints Tmax 99, AF, VSS General- unremarkable Speech stable Neuro exam non-focal, no drift On heparin drip and coumadin, INR 1.23 yesterday, today's pending Brain MRI/MRV - no infarcts; clots in L transverse/sigmoid sinus/IJ; R transverse/sigmoid patent as is SSS No neurosurgical intervention indicated Hematology eval in progress Keep well hydrated/encouraged po/ambulate F/u with neurology outpatient
[2017-02-09] MEDS: NICOTINE 14 MG/24 HOURS TOPICAL PATCH TD SCH (09:20)
[2017-02-09] MEDS: POLYETHYLENE GLYCOL 3350 119 GM BTL PO SCH ×2 (09:24→21:34)
[2017-02-09] MEDS ORDERED: WARFARIN NA 10 MG TABLET (FP) PO ONE ×2 (12:13→18:00)
--- NOTE | 2017-02-09 12:16 | PN ---
Physical Exam: SUBJECTIVE: Patient seen and examined Patient resting in bed NAD. No acute events. afebrile and hemodynamically stable. Denies headache. No photophobia or lightheadedness. no dysphagia or parasthesia. Denies LOC, s/z, change in vision, n/v. Poonam had a blood streaked BM after several days of constipation. States her sister has her full permission to know about her care and asks the attending to call her. OBJECTIVE: Vital Signs Period Temp Pulse Resp BP Sys/Allred Pulse Ox Last 24 Hr 97.9 F-99.3 F 72-85 17-20 106-138/63-77 98 GENERAL: The patient is awake, alert, and fully oriented, in no acute distress. HEAD: Normal with no signs of trauma. EYES: PERRL, extraocular movements intact, b/l mild horizontal nystagmus. ENT: oropharynx clear without exudates, moist mucous membranes NECK: supple, full rom. LUNGS: Breath sounds equal, clear to auscultation bilaterally, no wheezes, no crackles, HEART: s1s2 rrr ABDOMEN: Soft, nontender, nondistended, normoactive bowel sounds, no guarding, no rebound, EXTREMITIES: 2+ pulses, warm, well-perfused, no edema. NEUROLOGICAL: Cranial nerves II through XII intact. Normal speech, no numbness, 5/5 strength in all extremities, 1+ reflexes brachial, 2+ patellar b/l PSYCH: Normal mood, normal affect. SKIN: Warm, dry, normal turgor Laboratory Results - last 24 hr 02/05/17 02/06/17 02/08/17 08:10 06:00 19:55 WBC RBC Hgb Hct MCV MCHC RDW Plt Count MPV INR PTT (Actin FS) Lupus Anticoag PTT Mix No Result Required. LA PTT Mix Incubated No Result Required. dRVVT Confirm Interp No Result Required. dRVVT Mixing Study No Result Required. Hexagonal Phospholipid No Result Required. Stool Occult Blood Negative CYNDI Screen Negative 02/09/17 02/09/17 02/09/17 06:20 06:20 06:20 WBC 8.3 RBC 3.93 Hgb 11.6 D Hct 34.7 MCV 88.3 MCHC 33.4 RDW 15.5 Plt Count 182 MPV 9.3 INR 1.47 H PTT (Actin FS) 59.7 H Lupus Anticoag PTT Mix LA PTT Mix Incubated dRVVT Confirm Interp dRVVT Mixing Study Hexagonal Phospholipid Stool Occult Blood CYNDI Screen Active Medications Generic Name Dose Route Start Last Admin Trade Name Emma PRN Reason Stop Dose Admin Acetaminophen 650 mg 02/04/17 20:20 02/08/17 09:54 Tylenol - PO 650 mg Q6H PRN Administration FEVER OR PAIN Chlorhexidine Gluconate 1 applic 02/04/17 22:00 02/08/17 22:06 Hibiclens For Decolonization - TP Not Given HS TRANG Clonazepam 1 mg 02/04/17 22:00 02/09/17 05:07 Klonopin - PO 1 mg TID [facility]ANG Administration Docusate Sodium 100 mg 02/08/17 22:00 02/09/17 05:12 Colace - PO 100 mg TID TRANG Administration Heparin Sodium (Porcine) 1,000 unit 02/04/17 20:27 02/07/17 09:32 Heparin - IVPUSH 1,000 unit PRN PRN Administration Heparin Heparin Sodium (Porcine) 5,000 unit 02/04/17 20:27 Heparin - IVPUSH PRN PRN Heparin Heparin Sodium/Dextrose 500 mls @ 20 mls/hr 02/04/17 20:27 02/09/17 05:12 Heparin Infusion - IVPB Not Given TITR [facility] Protocol 1,000 UNITS/HR Nicotine 14 mg 02/05/17 10:00 02/09/17 09:20 Nicoderm Patch - TD 14 mg DAILY TRANG Administration Polyethylene Glycol 17 gm 02/08/17 22:00 02/09/17 09:24 Miralax (For Daily Use) - PO 17 gm BID TRANG Administration Quetiapine Fumarate 100 mg 02/04/17 22:00 02/09/17 00:27 Seroquel - PO 100 mg HS TRANG Administration Warfarin Sodium 10 mg 02/09/17 12:13 Coumadin - PO 02/09/17 12:14 NOW ONE ASSESSMENT/PLAN: This is a 41 yo F active smoker with PMH of anxiety, depression, genital herpes and HPV virus who was admitted with severe L sided h/a x 2weeks. Found to have venous thrombosis in L sigmoid and L transverse sinus of unclear etiology. Venous thrombosis of left sigmoid and left transverse sinus -symptomatic resolution of h/a -MRV head/neck shows clot in L transverse and sigmoid sinuses with running IJ vein. -contunue Heparin drip bridging to coum 10 mg. inr 1.47 today -await therapeutic INR btw 2-3 -tylenol prn -heme, neuro, naurosur consult appreciated, remaining thrombophilia workup pending -consensus that patient should be bridged to coum. Duration per heme. -monitor for bleeding Blood streaked stool -guaiac negative -due to constipation -continue laxatives depression, psych d/o -seroquel, zoloft, klonopin Smoking hx -counseled on quitting -nicotine patch FEN No IVF lytes stable regular diet hep, ppi dispo:med surg Problem List - Problems (1) Cavernous sinus thrombosis Code(s): G08 - INTRACRANIAL AND INTRASPINAL PHLEBITIS AND THROMBOPHLEBITIS (2) Cerebral venous sinus thrombosis, acute Code(s): G08 - INTRACRANIAL AND INTRASPINAL PHLEBITIS AND THROMBOPHLEBITIS (3) Depression Code(s): F32.9 - MAJOR DEPRESSIVE DISORDER, SINGLE EPISODE, UNSPECIFIED (4) Anxiety Code(s): F41.9 - ANXIETY DISORDER, UNSPECIFIED (5) Smoker Code(s): F17.200 - NICOTINE DEPENDENCE, UNSPECIFIED, UNCOMPLICATED Visit type - Emergency Visit Emergency Visit: Yes ED Registration Date: 02/03/17 Care time: The patient presented to the Emergency Department on the above date and was hospitalized for further evaluation of their emergent condition. - New Patient This patient is new to me today: No - Critical Care Critical Care patient: No - Discharge Referral Referred to [facility] Med P.C.: No
--- NOTE | 2017-02-09 12:35 | PN ---
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 Patient was seen night before presentation in the ED but signed out AMA. Her family and her were informed by ED later today of positive CT head showed possible venous thrombosis. The headache symptoms are intermittent, begins from anterior L eye, travels through L head then to posterior occipital lobe, 6-8/10, sharp quality, associated with n/v, light, position change, noise make the pain worse. Patient accounts that she had herpes breakout before the headache. She also c/o anxiety and panic attack. Heparin was started. MRV completed and shows L cavernous sinus thrombosis, L transverse sinus, L sigmoid, L IJ. Patient on heparin since admission. Neurologically stable. Awaiting adequate anticoagulation. No new neurologic events. Is a cigarette smoker and we discussed cessation. Has been using Nicoderm patch with relief. Active Medications Acetaminophen (Tylenol -) 650 mg PO Q6H PRN PRN Reason: FEVER OR PAIN Last Admin: 02/08/17 09:54 Dose: 650 mg Chlorhexidine Gluconate (Hibiclens For Decolonization -) 1 applic TP HS [facility] Last Admin: 02/08/17 22:06 Dose: Not Given Clonazepam (Klonopin -) 1 mg PO TID [facility] Last Admin: 02/09/17 05:07 Dose: 1 mg Docusate Sodium (Colace -) 100 mg PO TID [facility] Last Admin: 02/09/17 05:12 Dose: 100 mg Heparin Sodium (Porcine) (Heparin -) 1,000 unit IVPUSH PRN PRN PRN Reason: Heparin Last Admin: 02/07/17 09:32 Dose: 1,000 unit Heparin Sodium (Porcine) (Heparin -) 5,000 unit IVPUSH PRN PRN PRN Reason: Heparin Heparin Sodium/Dextrose (Heparin Infusion -) 500 mls @ 20 mls/hr IVPB TITR [facility]ANG ; 1,000 UNITS/HR PRN Reason: Protocol Last Admin: 02/09/17 05:12 Dose: Not Given Nicotine (Nicoderm Patch -) 14 mg TD DAILY [facility] Last Admin: 02/09/17 09:20 Dose: 14 mg Polyethylene Glycol (Miralax (For Daily Use) -) 17 gm PO BID [facility] Last Admin: 02/09/17 09:24 Dose: 17 gm Quetiapine Fumarate (Seroquel -) 100 mg PO HS [facility] Last Admin: 02/09/17 00:27 Dose: 100 mg Warfarin Sodium (Coumadin -) 10 mg PO NOW ONE Stop: 02/09/17 12:14 *Physical Exam Vital Signs Temperature 99.3 F 02/09/17 09:20 Pulse Rate 74 02/09/17 09:20 Respiratory Rate 20 02/09/17 09:20 Blood Pressure 138/77 02/09/17 09:20 O2 Sat by Pulse Oximetry (%) 98 02/08/17 22:00 - Physical Exam General Appearance: Yes: Mild Distress HEENT: positive: AARON, Other (sensitive to light) Neck: positive: Trachea midline, Supple Respiratory/Chest: positive: Lungs Clear, Normal Breath Sounds Cardiovascular: positive: Regular Rhythm, S1, S2, Tachycardia. negative: Diastolic Murmur, Systolic Murmur, Gallop/S3, Gallop/S4 Gastrointestinal/Abdominal: positive: Normal Bowel Sounds, Soft. negative: Tenderness Extremity: positive: Swelling (trace edema) Neurologic: positive: Fully Oriented, Alert (4/5 on L face), Sensory Deficit CBCD WBC 8.3 K/mm3 (4.0-10.0) 02/09/17 06:20 RBC 3.93 M/mm3 (3.60-5.2) 02/09/17 06:20 Hgb 11.6 GM/dL (10.7-15.3) D 02/09/17 06:20 Hct 34.7 % (32.4-45.2) 02/09/17 06:20 MCV 88.3 fl (80-96) 02/09/17 06:20 MCHC 33.4 g/dl (32.0-36.0) 02/09/17 06:20 RDW 15.5 % (11.6-15.6) 02/09/17 06:20 Plt Count 182 K/MM3 (134-434) 02/09/17 06:20 MPV 9.3 fl (7.5-11.1) 02/09/17 06:20 CMP Sodium 142 mmol/L (136-145) 02/06/17 06:00 Potassium 4.1 mmol/L (3.5-5.1) 02/06/17 06:00 Chloride 111 mmol/L (98-107) H 02/06/17 06:00 Carbon Dioxide 25 mmol/L (21-32) 02/06/17 06:00 Anion Gap 6 (8-16) L 02/06/17 06:00 BUN 8 mg/dL (7-18) 02/06/17 06:00 Creatinine 0.7 mg/dL (0.55-1.02) 02/06/17 06:00 Creat Clearance w eGFR > 60 (>60) 02/05/17 08:10 Calcium 8.7 mg/dL (8.5-10.1) 02/06/17 06:00 Total Bilirubin 0.2 mg/dL (0.2-1.0) 02/05/17 08:10 AST 20 U/L (15-37) 02/05/17 08:10 ALT 30 U/L (12-78) 02/05/17 08:10 Alkaline Phosphatase 60 U/L (45-117) 02/05/17 08:10 Total Protein 6.8 g/dl (6.4-8.2) 02/05/17 08:10 Albumin 3.3 g/dl (3.4-5.0) L 02/05/17 08:10 Medical Decision Making 41 yo F with h/o genital herpes and positive Pap smear 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 Patient was seen night before presentation in the ED but signed out AMA. CT head showed possible Venous sinus thrombosis seen on MRI as well and AC was started since admission. Monitor for any bleeding. Fall precautions. Neurologically stable, discharge planning with coagulation theraputic. Smoking cessation, Nicoderm patch.
--- NOTE | 2017-02-09 13:04 | PN ---
Teaching Attending Note Name of Resident: Brenda Chaves ATTENDING PHYSICIAN STATEMENT I saw and evaluated the patient. I reviewed the resident's note and discussed the case with the resident. I agree with the resident's findings and plan as documented. SUBJECTIVE: Patient has no complaints. She is anxious to go home. OBJECTIVE: Vital Signs Period Temp Pulse Resp BP Sys/Allred Pulse Ox Last 24 Hr 97.9 F-99.3 F 72-85 17-20 106-138/63-77 98 HEART: S1 S2, RRR LUNGS: Clear ABDOMEN: Soft, non-tender, non-distended, normal BS EXTREMITIES: No edema ASSESSMENT AND PLAN: This is a 41 yo Female with PMHx of anxiety, depression, genital herpes and HPV virus who was admitted with severe L sided h/a x 2weeks. Found to have venous thrombosis in L sigmoid and L transverse sinus of unclear etiology. # Acute Venous thrombosis of left sigmoid and left transverse sinus on Heparin drip continues , will give her another dose of coumadin 10mg tonight , PT/INR in am , discontinued Keppra 500 bid for seizure ppx as per neurologist . Neurosurgery appreciated Dr.Tom Lincoln. On heparin drip and coumadin, INR 1.23 # Acute Headache improving Off Fioricet now, patient is on requesting Tylenol # Hx of depression, continue meds seroquel, klonopin, stated that zoloft is new and has not started yet and does not want it. # Smoking hx counseled on quitting; nicotine patch DVT Px: heparin once INR is therapeutic can be discharged home.
[2017-02-09 14:13] LABS: Hgb A2 2.4 % (0.7-3.1)
[2017-02-09] MEDS: CHLORHEXIDINE GLUCONATE 4% CLEANSER FOR DECOLONIZATION TP SCH (22:56)
[2017-02-10] MEDS: DOCUSATE SODIUM 100 MG CAPSULE (FP) PO SCH ×3 (06:15→21:15)
[2017-02-10] MEDS: HEPARIN INFUSION - 500 ML IVPB SCH ×2 (06:15→22:54)
[2017-02-10] MEDS: clonazePAM 0.5 MG TABLET PO SCH ×3 (06:15→21:15)
[2017-02-10 06:56] LABS: MCH 29.2 pg (25.7-33.7); MEAN CELL VOLUME 88.5 fl (80-96); MEAN PLT VOLUME 8.8 fl (7.5-11.1); PLATELET COUNT 186 K/MM3 (134-434); RDW 15.9 % (11.6-15.6); WHITE BLOOD COUNT 7.8 K/mm3 (4.0-10.0)
[2017-02-10 07:58] LABS: INR 1.53 (0.82-1.09)
[2017-02-10] MEDS: POLYETHYLENE GLYCOL 3350 119 GM BTL PO SCH ×2 (09:45→22:54)
[2017-02-10] MEDS: NICOTINE 14 MG/24 HOURS TOPICAL PATCH TD SCH (09:45)
--- NOTE | 2017-02-10 10:23 | PN ---
Progress Note (short form) - Note Progress Note: NEUROSURGERY No new complaints Frustrated and wants to go home AF, VSS General- unremarkable Speech stable Neuro exam non-focal, no drift On heparin drip and coumadin, INR 1.53 today No neurosurgical intervention indicated Keep well hydrated/encouraged po/ambulate F/u with neurology outpatient Long-term AC regimen Repeat MRV/MRI in 3-6 months to monitor venous sinus anatomy or if neurological changes
--- NOTE | 2017-02-10 11:29 | PN ---
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 Patient was seen night before presentation in the ED but signed out AMA. Her family and her were informed by ED later today of positive CT head showed possible venous thrombosis. The headache symptoms are intermittent, begins from anterior L eye, travels through L head then to posterior occipital lobe, 6-8/10, sharp quality, associated with n/v, light, position change, noise make the pain worse. Patient accounts that she had herpes breakout before the headache. She also c/o anxiety and panic attack. Heparin was started. MRV completed and shows L cavernous sinus thrombosis, L transverse sinus, L sigmoid, L IJ. Patient on heparin since admission. Neurologically stable. Awaiting adequate anticoagulation. No new neurologic events. Is a cigarette smoker and we discussed cessation. Has been using Nicoderm patch with relief. Active Medications Acetaminophen (Tylenol -) 650 mg PO Q6H PRN PRN Reason: FEVER OR PAIN Last Admin: 02/08/17 09:54 Dose: 650 mg Chlorhexidine Gluconate (Hibiclens For Decolonization -) 1 applic TP HS [facility] Last Admin: 02/09/17 22:56 Dose: Not Given Clonazepam (Klonopin -) 1 mg PO TID [facility] Last Admin: 02/10/17 06:15 Dose: 1 mg Docusate Sodium (Colace -) 100 mg PO TID [facility] Last Admin: 02/10/17 06:15 Dose: 100 mg Heparin Sodium (Porcine) (Heparin -) 1,000 unit IVPUSH PRN PRN PRN Reason: Heparin Last Admin: 02/07/17 09:32 Dose: 1,000 unit Heparin Sodium (Porcine) (Heparin -) 5,000 unit IVPUSH PRN PRN PRN Reason: Heparin Heparin Sodium/Dextrose (Heparin Infusion -) 500 mls @ 20 mls/hr IVPB TITR [facility] ; 1,000 UNITS/HR PRN Reason: Protocol Last Titration: 02/10/17 09:46 Dose: 1,100 units/hr Nicotine (Nicoderm Patch -) 14 mg TD DAILY [facility] Last Admin: 02/10/17 09:45 Dose: 14 mg Polyethylene Glycol (Miralax (For Daily Use) -) 17 gm PO BID [facility] Last Admin: 02/10/17 09:45 Dose: Not Given Quetiapine Fumarate (Seroquel -) 100 mg PO HS [facility] Last Admin: 02/09/17 22:54 Dose: 100 mg *Physical Exam Vital Signs Temperature 98.5 F 02/10/17 09:00 Pulse Rate 85 02/10/17 09:00 Respiratory Rate 20 02/10/17 09:00 Blood Pressure 114/57 02/10/17 09:00 O2 Sat by Pulse Oximetry (%) 93 L 02/09/17 21:00 - Physical Exam General Appearance: Yes: Mild Distress HEENT: positive: AARON, Other (sensitive to light) Neck: positive: Trachea midline, Supple Respiratory/Chest: positive: Lungs Clear, Normal Breath Sounds Cardiovascular: positive: Regular Rhythm, S1, S2, Tachycardia. negative: Diastolic Murmur, Systolic Murmur, Gallop/S3, Gallop/S4 Gastrointestinal/Abdominal: positive: Normal Bowel Sounds, Soft. negative: Tenderness Extremity: positive: Swelling (trace edema) Neurologic: positive: Fully Oriented, Alert (4/5 on L face), Sensory Deficit CBCD WBC 8.3 K/mm3 (4.0-10.0) 02/09/17 06:20 RBC 3.93 M/mm3 (3.60-5.2) 02/09/17 06:20 Hgb 11.6 GM/dL (10.7-15.3) D 02/09/17 06:20 Hct 34.7 % (32.4-45.2) 02/09/17 06:20 MCV 88.3 fl (80-96) 02/09/17 06:20 MCHC 33.4 g/dl (32.0-36.0) 02/09/17 06:20 RDW 15.5 % (11.6-15.6) 02/09/17 06:20 Plt Count 182 K/MM3 (134-434) 02/09/17 06:20 MPV 9.3 fl (7.5-11.1) 02/09/17 06:20 CMP Sodium 142 mmol/L (136-145) 02/06/17 06:00 Potassium 4.1 mmol/L (3.5-5.1) 02/06/17 06:00 Chloride 111 mmol/L (98-107) H 02/06/17 06:00 Carbon Dioxide 25 mmol/L (21-32) 02/06/17 06:00 Anion Gap 6 (8-16) L 02/06/17 06:00 BUN 8 mg/dL (7-18) 02/06/17 06:00 Creatinine 0.7 mg/dL (0.55-1.02) 02/06/17 06:00 Creat Clearance w eGFR > 60 (>60) 02/05/17 08:10 Calcium 8.7 mg/dL (8.5-10.1) 02/06/17 06:00 Total Bilirubin 0.2 mg/dL (0.2-1.0) 02/05/17 08:10 AST 20 U/L (15-37) 02/05/17 08:10 ALT 30 U/L (12-78) 02/05/17 08:10 Alkaline Phosphatase 60 U/L (45-117) 02/05/17 08:10 Total Protein 6.8 g/dl (6.4-8.2) 02/05/17 08:10 Albumin 3.3 g/dl (3.4-5.0) L 02/05/17 08:10 Medical Decision Making 41 yo F with h/o genital herpes 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 Patient was seen night before presentation in the ED but signed out AMA. CT head showed possible Venous sinus thrombosis seen on MRI as well and AC was started since admission. Monitor for any bleeding. Fall precautions. Neurologically stable, discharge planning with coagulation theraputic. Smoking cessation, Nicoderm patch.
--- NOTE | 2017-02-10 15:02 | PN ---
Physical Exam: SUBJECTIVE: Patient seen and examined Patient resting in bed NAD. No acute events. Afebrile and hemodynamically stable. Denies headache, photophobia, lightheadedness, dysphagia or parasthesia. Denies LOC, s/z, change in vision, n/v. States she is intermittently anxious. OBJECTIVE: Vital Signs Period Temp Pulse Resp BP Sys/Allred Pulse Ox Last 24 Hr 97.4 F-98.5 F 78-93 18-20 99-142/57-78 93 GENERAL: The patient is awake, alert, and fully oriented, in no acute distress. HEAD: Normal with no signs of trauma. EYES: PERRL, extraocular movements intact, b/l mild horizontal nystagmus. ENT: oropharynx clear without exudates, moist mucous membranes NECK: supple, full rom. LUNGS: Breath sounds equal, clear to auscultation bilaterally, no wheezes, no crackles, HEART: s1s2 rrr ABDOMEN: Soft, nontender, nondistended, normoactive bowel sounds, no guarding, no rebound, EXTREMITIES: 2+ pulses, warm, well-perfused, no edema. NEUROLOGICAL: Cranial nerves II through XII intact. Normal speech, no numbness, 5/5 strength in all extremities, 1+ reflexes brachial, 2+ patellar b/l PSYCH: Normal mood, normal affect. SKIN: Warm, dry, normal turgor Laboratory Results - last 24 hr 02/10/17 02/10/17 02/10/17 06:10 06:10 06:10 WBC 7.8 RBC 4.33 Hgb 12.7 Hct 38.3 MCV 88.5 MCHC 33.0 RDW 15.9 H Plt Count 186 MPV 8.8 INR 1.53 H PTT (Actin FS) 87.2 H D Active Medications Generic Name Dose Route Start Last Admin Trade Name Freq PRN Reason Stop Dose Admin Acetaminophen 650 mg 02/04/17 20:20 02/08/17 09:54 Tylenol - PO 650 mg Q6H PRN Administration FEVER OR PAIN Chlorhexidine Gluconate 1 applic 02/04/17 22:00 02/09/17 22:56 Hibiclens For Decolonization - TP Not Given HS [facility] Clonazepam 1 mg 02/04/17 22:00 02/10/17 13:02 Klonopin - PO 1 mg TID [facility] Administration Docusate Sodium 100 mg 02/08/17 22:00 02/10/17 13:02 Colace - PO Not Given TID [facility] Heparin Sodium (Porcine) 1,000 unit 02/04/17 20:27 02/07/17 09:32 Heparin - IVPUSH 1,000 unit PRN PRN Administration Heparin Heparin Sodium (Porcine) 5,000 unit 02/04/17 20:27 Heparin - IVPUSH PRN PRN Heparin Heparin Sodium/Dextrose 500 mls @ 20 mls/hr 02/04/17 20:27 02/10/17 09:46 Heparin Infusion - IVPB 1,100 units/hr TITR [facility] Titration Protocol 1,000 UNITS/HR Nicotine 14 mg 02/05/17 10:00 02/10/17 09:45 Nicoderm Patch - TD 14 mg DAILY [facility] Administration Polyethylene Glycol 17 gm 02/08/17 22:00 02/10/17 09:45 Miralax (For Daily Use) - PO Not Given BID [facility]ANG Quetiapine Fumarate 100 mg 02/04/17 22:00 02/09/17 22:54 Seroquel - PO 100 mg HS [facility] Administration ASSESSMENT/PLAN: This is a 41 yo F active smoker with PMH of anxiety, depression, genital herpes and HPV virus who was admitted with severe L sided h/a x 2weeks. Found to have venous thrombosis in L sigmoid and L transverse sinus of unclear etiology. Venous thrombosis of left sigmoid and left transverse sinus -asymptomatic -MRV head/neck shows clot in L transverse and sigmoid sinuses with running IJ vein. -heme, neuro, naurosur consult appreciated, remaining thrombophilia workup pending -continue Heparin drip bridging to coum 10 mg. inr 1.53 today. Duration of a/c per per heme. -await therapeutic INR btw 2-3 -tylenol prn -monitor for bleeding Constipation -continue laxatives depression, psych d/o -seroquel, zoloft, klonopin Smoking hx -counseled on quitting -nicotine patch FEN No IVF lytes stable regular diet hep, ppi dispo:med surg Problem List - Problems (1) Cavernous sinus thrombosis Code(s): G08 - INTRACRANIAL AND INTRASPINAL PHLEBITIS AND THROMBOPHLEBITIS (2) Cerebral venous sinus thrombosis, acute Code(s): G08 - INTRACRANIAL AND INTRASPINAL PHLEBITIS AND THROMBOPHLEBITIS (3) Depression Code(s): F32.9 - MAJOR DEPRESSIVE DISORDER, SINGLE EPISODE, UNSPECIFIED (4) Anxiety Code(s): F41.9 - ANXIETY DISORDER, UNSPECIFIED (5) Smoker Code(s): F17.200 - NICOTINE DEPENDENCE, UNSPECIFIED, UNCOMPLICATED Visit type - Emergency Visit Emergency Visit: Yes ED Registration Date: 02/03/17 Care time: The patient presented to the Emergency Department on the above date and was hospitalized for further evaluation of their emergent condition. - New Patient This patient is new to me today: No - Critical Care Critical Care patient: No - Discharge Referral Referred to [facility] Med P.C.: No
[2017-02-10] MEDS ORDERED: WARFARIN NA 10 MG TABLET (FP) PO ONE (18:00)
--- NOTE | 2017-02-10 18:56 | PN ---
Teaching Attending Note Name of Resident: Brenda Chaves ATTENDING PHYSICIAN STATEMENT I saw and evaluated the patient. I reviewed the resident's note and discussed the case with the resident. I agree with the resident's findings and plan as documented. SUBJECTIVE: no fever or chills , NO BAUTISTA , but photophobia no weakness or numbness or tingling OBJECTIVE: NAD CV : RRR Lungs: CTAB ext : no edema neuro : EOMI, pERRLA , nl facial sensation , no facial droop, strength 55/ in upper and lower ext proximally and distally . sensation to light touch nl. reflexes 2+ knee jerk and biceps b/l ASSESSMENT AND PLAN: 41 y/o lady with h/o depression , anxiety, genetal herpes who presented with BAUTISTA and was found to have intracranial venous thrombosis 1- thrombosis of L transverse, sigmoid and internal jugular vein thrombosis . - cont heparin gtt - give 10 of coumadin today - continue hypercoagulable w/u as out pt - age appropriate cancer screening as out pt 2- anxiety and depression : cont meds 3- constipation , bowel regimen
[2017-02-10] MEDS ORDERED: QUEtiapine FUMARATE 50 MG TABLET ONE (21:07)
[2017-02-10] MEDS: QUEtiapine FUMARATE 100 MG TABLET (FP) PO SCH (22:54)
[2017-02-10] MEDS: CHLORHEXIDINE GLUCONATE 4% CLEANSER FOR DECOLONIZATION TP SCH (22:55)
[2017-02-11] MEDS: clonazePAM 0.5 MG TABLET PO SCH ×3 (06:26→22:30)
[2017-02-11] MEDS: DOCUSATE SODIUM 100 MG CAPSULE (FP) PO SCH ×3 (06:26→22:30)
[2017-02-11 08:55] LABS: INR 1.8 (0.82-1.09)
[2017-02-11 08:58] LABS: ACTIVATED PTT 65.5 SECONDS (26.9-34.4)
--- NOTE | 2017-02-11 09:34 | PN ---
Progress Note (short form) - Note Progress Note: NEUROSURGERY Occ Facial pain Wants to go home AF, VSS General- unremarkable Speech stable Neuro exam non-focal, no drift On coumadin, INR 1.8 today No neurosurgical intervention indicated Keep well hydrated/encouraged po/ambulate F/u with neurology outpatient Long-term AC regimen to be monitored by PMD Repeat MRV/MRI in 3-6 months to monitor venous sinus anatomy or if neurological changes
[2017-02-11] MEDS: POLYETHYLENE GLYCOL 3350 119 GM BTL PO SCH ×3 (09:55→23:27)
[2017-02-11] MEDS: NICOTINE 14 MG/24 HOURS TOPICAL PATCH TD SCH (09:55)
[2017-02-11] MEDS: HEPARIN INFUSION - 500 ML IVPB SCH (10:02)
--- NOTE | 2017-02-11 12:16 | PN ---
Physical Exam: SUBJECTIVE: Patient seen and examined Patient resting in bed NAD. No acute events. Afebrile and hemodynamically stable. Denies headache, photophobia, lightheadedness, dysphagia or parasthesia. Denies LOC, s/z, change in vision, n/v. Reports occasional anxiety OBJECTIVE: Vital Signs Period Temp Pulse Resp BP Sys/Allred Pulse Ox Last 24 Hr 98.1 F-98.5 F 68-87 20-20 103-117/55-75 96 GENERAL: The patient is awake, alert, and fully oriented, in no acute distress. HEAD: Normal with no signs of trauma. EYES: PERRL, extraocular movements intact, b/l mild horizontal nystagmus. ENT: oropharynx clear without exudates, moist mucous membranes NECK: supple, full rom. LUNGS: Breath sounds equal, clear to auscultation bilaterally, no wheezes, no crackles, HEART: s1s2 rrr ABDOMEN: Soft, nontender, nondistended, normoactive bowel sounds, no guarding, no rebound, EXTREMITIES: 2+ pulses, warm, well-perfused, no edema. NEUROLOGICAL: Cranial nerves II through XII intact. Normal speech, no numbness, 5/5 strength in all extremities, 1+ reflexes brachial, 2+ patellar b/l PSYCH: Normal mood, normal affect. SKIN: Warm, dry, normal turgor Laboratory Results - last 24 hr 02/10/17 02/11/17 15:00 07:05 INR 1.80 H PTT (Actin FS) 59.9 H D 65.5 H Active Medications Generic Name Dose Route Start Last Admin Trade Name Emma PRN Reason Stop Dose Admin Acetaminophen 650 mg 02/04/17 20:20 02/08/17 09:54 Tylenol - PO 650 mg Q6H PRN Administration FEVER OR PAIN Chlorhexidine Gluconate 1 applic 02/04/17 22:00 02/10/17 22:55 Hibiclens For Decolonization - TP Not Given HS TRANG Clonazepam 1 mg 02/04/17 22:00 02/11/17 06:26 Klonopin - PO 1 mg TID TRANG Administration Docusate Sodium 100 mg 02/08/17 22:00 02/11/17 06:26 Colace - PO 100 mg TID TRANG Administration Heparin Sodium (Porcine) 1,000 unit 02/04/17 20:27 02/07/17 09:32 Heparin - IVPUSH 1,000 unit PRN PRN Administration Heparin Heparin Sodium (Porcine) 5,000 unit 02/04/17 20:27 Heparin - IVPUSH PRN PRN Heparin Heparin Sodium/Dextrose 500 mls @ 20 mls/hr 02/04/17 20:27 02/11/17 11:07 Heparin Infusion - IVPB 1,100 units/hr TITR TRANG Titration Protocol 1,000 UNITS/HR Nicotine 14 mg 02/05/17 10:00 02/11/17 09:55 Nicoderm Patch - TD 14 mg DAILY TRANG Administration Polyethylene Glycol 17 gm 02/08/17 22:00 02/11/17 09:55 Miralax (For Daily Use) - PO Not Given BID TRANG Quetiapine Fumarate 100 mg 02/04/17 22:00 02/10/17 22:54 Seroquel - PO 100 mg HS TRANG Administration ASSESSMENT/PLAN: This is a 41 yo F active smoker with PMH of anxiety, depression, genital herpes and HPV virus who was admitted with severe L sided h/a x 2weeks. Found to have venous thrombosis in L sigmoid and L transverse sinus of unclear etiology. Venous thrombosis of left sigmoid and left transverse sinus -asymptomatic -MRV head/neck shows clot in L transverse and sigmoid sinuses with running IJ vein. -heme, neuro, naurosur consult appreciated, remaining thrombophilia workup pending -continue Heparin drip bridging to coum 10 mg. inr 1.8 today. Duration of a/c per per heme. -await therapeutic INR btw 2-3 -tylenol prn -monitor for bleeding Constipation -continue laxatives depression, psych d/o -seroquel, zoloft, klonopin Smoking hx -counseled on quitting -nicotine patch FEN No IVF lytes stable regular diet hep, ppi dispo:med surg Problem List - Problems (1) Cavernous sinus thrombosis Code(s): G08 - INTRACRANIAL AND INTRASPINAL PHLEBITIS AND THROMBOPHLEBITIS (2) Cerebral venous sinus thrombosis, acute Code(s): G08 - INTRACRANIAL AND INTRASPINAL PHLEBITIS AND THROMBOPHLEBITIS (3) Depression Code(s): F32.9 - MAJOR DEPRESSIVE DISORDER, SINGLE EPISODE, UNSPECIFIED (4) Anxiety Code(s): F41.9 - ANXIETY DISORDER, UNSPECIFIED (5) Smoker Code(s): F17.200 - NICOTINE DEPENDENCE, UNSPECIFIED, UNCOMPLICATED Visit type - Emergency Visit Emergency Visit: Yes ED Registration Date: 02/03/17 Care time: The patient presented to the Emergency Department on the above date and was hospitalized for further evaluation of their emergent condition. - New Patient This patient is new to me today: No - Critical Care Critical Care patient: No - Discharge Referral Referred to [facility] Med P.C.: No
--- NOTE | 2017-02-11 12:18 | PN ---
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 Patient was seen night before presentation in the ED but signed out AMA. Her family and her were informed by ED later today of positive CT head showed possible venous thrombosis. The headache symptoms are intermittent, begins from anterior L eye, travels through L head then to posterior occipital lobe, 6-8/10, sharp quality, associated with n/v, light, position change, noise make the pain worse. Patient accounts that she had herpes breakout before the headache. She also c/o anxiety and panic attack. Heparin was started. MRV completed and shows L cavernous sinus thrombosis, L transverse sinus, L sigmoid, L IJ. Patient on heparin since admission. Neurologically stable. Awaiting adequate anticoagulation. No new neurologic events. Is a cigarette smoker and we discussed cessation. Has been using Nicoderm patch with relief. Active Medications Acetaminophen (Tylenol -) 650 mg PO Q6H PRN PRN Reason: FEVER OR PAIN Last Admin: 02/08/17 09:54 Dose: 650 mg Chlorhexidine Gluconate (Hibiclens For Decolonization -) 1 applic TP HS [facility] Last Admin: 02/10/17 22:55 Dose: Not Given Clonazepam (Klonopin -) 1 mg PO TID [facility] Last Admin: 02/11/17 06:26 Dose: 1 mg Docusate Sodium (Colace -) 100 mg PO TID [facility] Last Admin: 02/11/17 06:26 Dose: 100 mg Heparin Sodium (Porcine) (Heparin -) 1,000 unit IVPUSH PRN PRN PRN Reason: Heparin Last Admin: 02/07/17 09:32 Dose: 1,000 unit Heparin Sodium (Porcine) (Heparin -) 5,000 unit IVPUSH PRN PRN PRN Reason: Heparin Heparin Sodium/Dextrose (Heparin Infusion -) 500 mls @ 20 mls/hr IVPB TITR TRANG ; 1,000 UNITS/HR PRN Reason: Protocol Last Titration: 02/11/17 11:07 Dose: 1,100 units/hr Nicotine (Nicoderm Patch -) 14 mg TD DAILY [facility] Last Admin: 02/11/17 09:55 Dose: 14 mg Polyethylene Glycol (Miralax (For Daily Use) -) 17 gm PO BID [facility] Last Admin: 02/11/17 09:55 Dose: Not Given Quetiapine Fumarate (Seroquel -) 100 mg PO HS [facility] Last Admin: 02/10/17 22:54 Dose: 100 mg *Physical Exam Vital Signs Period Temp Pulse Resp BP Sys/Allred Pulse Ox Last 24 Hr 98.1 F-98.5 F 68-87 20-20 103-117/55-75 96 - Physical Exam General Appearance: Yes: Mild Distress HEENT: positive: AARON, Other (sensitive to light) Neck: positive: Trachea midline, Supple Respiratory/Chest: positive: Lungs Clear, Normal Breath Sounds Cardiovascular: positive: Regular Rhythm, S1, S2, Tachycardia. negative: Diastolic Murmur, Systolic Murmur, Gallop/S3, Gallop/S4 Gastrointestinal/Abdominal: positive: Normal Bowel Sounds, Soft. negative: Tenderness Extremity: positive: Swelling (trace edema) Neurologic: positive: Fully Oriented, Alert (4/5 on L face), Sensory Deficit CBCD WBC 7.8 K/mm3 (4.0-10.0) 02/10/17 06:10 RBC 4.33 M/mm3 (3.60-5.2) 02/10/17 06:10 Hgb 12.7 GM/dL (10.7-15.3) 02/10/17 06:10 Hct 38.3 % (32.4-45.2) 02/10/17 06:10 MCV 88.5 fl (80-96) 02/10/17 06:10 MCHC 33.0 g/dl (32.0-36.0) 02/10/17 06:10 RDW 15.9 % (11.6-15.6) H 02/10/17 06:10 Plt Count 186 K/MM3 (134-434) 02/10/17 06:10 MPV 8.8 fl (7.5-11.1) 02/10/17 06:10 CMP Sodium 142 mmol/L (136-145) 02/06/17 06:00 Potassium 4.1 mmol/L (3.5-5.1) 02/06/17 06:00 Chloride 111 mmol/L (98-107) H 02/06/17 06:00 Carbon Dioxide 25 mmol/L (21-32) 02/06/17 06:00 Anion Gap 6 (8-16) L 02/06/17 06:00 BUN 8 mg/dL (7-18) 02/06/17 06:00 Creatinine 0.7 mg/dL (0.55-1.02) 02/06/17 06:00 Creat Clearance w eGFR > 60 (>60) 02/05/17 08:10 Calcium 8.7 mg/dL (8.5-10.1) 02/06/17 06:00 Total Bilirubin 0.2 mg/dL (0.2-1.0) 02/05/17 08:10 AST 20 U/L (15-37) 02/05/17 08:10 ALT 30 U/L (12-78) 02/05/17 08:10 Alkaline Phosphatase 60 U/L (45-117) 02/05/17 08:10 Total Protein 6.8 g/dl (6.4-8.2) 02/05/17 08:10 Albumin 3.3 g/dl (3.4-5.0) L 02/05/17 08:10 Medical Decision Making 41 yo F with h/o genital herpes and positive Pap smear 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 Patient was seen night before presentation in the ED but signed out AMA. CT head showed possible Venous sinus thrombosis seen on MRI as well and AC was started since admission. Monitor for any bleeding. Fall precautions. Neurologically stable, discharge planning with coagulation theraputic. Smoking cessation, Nicoderm patch.
--- NOTE | 2017-02-11 15:04 | PN ---
Teaching Attending Note Name of Resident: Brenda Chaves ATTENDING PHYSICIAN STATEMENT I saw and evaluated the patient. I reviewed the resident's note and discussed the case with the resident. I agree with the resident's findings and plan as documented. SUBJECTIVE: no cp or SOb , no BAUTISTA or change in vision OBJECTIVE: NAD CV : RRR Lungs: CTAB ext : no edema neuro: EOMI, pERRLA , nl facial sensation , no facial droop, strength 55/ in upper and lower ext proximally and distally . sensation to light touch nl. reflexes 2+ knee jerk and biceps b/l ASSESSMENT AND PLAN: 41 y/o lady with h/o depression , anxiety, genetal herpes who presented with BAUTISTA and was found to have intracranial venous thrombosis 1- Thrombosis of L transverse, sigmoid and internal jugular vein - cont heparin gtt - give 10 of coumadin today again - continue hypercoagulable w/u as out pt - age appropriate cancer screening as out pt - need repeat MRI/MRV in 3-6 months 2- anxiety and depression : cont meds 3- constipation , bowel regimen HLOC
[2017-02-11] MEDS: ACYCLOVIR 400 MG TABLET PO SCH ×2 (17:47→22:30)
[2017-02-11] MEDS ORDERED: PT OWN MED DRAWER 7, Y5N ONE (17:56)
[2017-02-11] MEDS ORDERED: WARFARIN NA 10 MG TABLET (FP) PO ONE (18:00)
[2017-02-11] MEDS ORDERED: QUEtiapine FUMARATE 50 MG TABLET ONE (20:37)
[2017-02-11] MEDS: CHLORHEXIDINE GLUCONATE 4% CLEANSER FOR DECOLONIZATION TP SCH (22:30)
[2017-02-11] MEDS: QUEtiapine FUMARATE 100 MG TABLET (FP) PO SCH (23:24)
[2017-02-12] MEDS: DOCUSATE SODIUM 100 MG CAPSULE (FP) PO SCH ×3 (05:15→21:07)
[2017-02-12] MEDS: clonazePAM 0.5 MG TABLET PO SCH ×3 (05:15→21:07)
[2017-02-12] MEDS: ACYCLOVIR 400 MG TABLET PO SCH ×3 (05:15→21:07)
[2017-02-12 07:01] LABS: ACTIVATED PTT 81.9 SECONDS (26.9-34.4)
[2017-02-12 07:08] LABS: INR 1.83 (0.82-1.09); PROTHROMBIN TIME (PATIENT) 20.4 SEC (9.98-11.88)
[2017-02-12] MEDS ORDERED: PT OWN MED DRAWER 7, Y5N ONE ×3 (09:40→21:02)
[2017-02-12] MEDS: HEPARIN INFUSION - 500 ML IVPB SCH ×2 (09:47→21:12)
[2017-02-12] MEDS: POLYETHYLENE GLYCOL 3350 119 GM BTL PO SCH ×2 (09:48→21:58)
[2017-02-12] MEDS: NICOTINE 14 MG/24 HOURS TOPICAL PATCH TD SCH (09:49)
--- NOTE | 2017-02-12 14:24 | PN ---
Physical Exam: SUBJECTIVE: Patient seen and examined Patient resting in bed NAD. yesterday complained of oncoming genital herpes outbreak and genital pain. Afebrile and hemodynamically stable. Denies headache , photophobia, lightheadedness, dysphagia or parasthesia. Denies LOC, s/z, change in vision, n/v. Reports occasional anxiety OBJECTIVE: Vital Signs Period Temp Pulse Resp BP Sys/Allred Pulse Ox Last 24 Hr 97.3 F-98.7 F 60-96 16-20 102-115/55-62 98 GENERAL: The patient is awake, alert, and fully oriented, in no acute distress. HEAD: Normal with no signs of trauma. EYES: PERRL, extraocular movements intact, b/l mild horizontal nystagmus. ENT: oropharynx clear without exudates, moist mucous membranes NECK: supple, full rom. LUNGS: Breath sounds equal, clear to auscultation bilaterally, no wheezes, no crackles, HEART: s1s2 rrr ABDOMEN: Soft, nontender, nondistended, normoactive bowel sounds, no guarding, no rebound, : a few small perianal vesicles, painful EXTREMITIES: 2+ pulses, warm, well-perfused, no edema. NEUROLOGICAL: Cranial nerves II through XII intact. Normal speech, no numbness, 5/5 strength in all extremities, 1+ reflexes brachial, 2+ patellar b/l PSYCH: Normal mood, normal affect. SKIN: Warm, dry, normal turgor Laboratory Results - last 24 hr 02/05/17 02/05/17 02/12/17 08:10 08:10 05:36 INR 1.83 H PTT (Actin FS) 81.9 H Factor V Leiden Factor V Leiden Comment Prothrombin [id number] Mut Factor II DNA Comment Active Medications Generic Name Dose Route Start Last Admin Trade Name Freq PRN Reason Stop Dose Admin Acetaminophen 650 mg 02/04/17 20:20 02/08/17 09:54 Tylenol - PO 650 mg Q6H PRN Administration FEVER OR PAIN Acyclovir 400 mg 02/11/17 16:00 02/12/17 05:15 Zovirax - PO 400 mg TID TRANG Administration Chlorhexidine Gluconate 1 applic 02/04/17 22:00 02/11/17 22:30 Hibiclens For Decolonization - TP Not Given HS TRANG Clonazepam 1 mg 02/04/17 22:00 02/12/17 05:15 Klonopin - PO 1 mg TID TRANG Administration Docusate Sodium 100 mg 02/08/17 22:00 02/12/17 05:15 Colace - PO 100 mg TID TRANG Administration Heparin Sodium (Porcine) 1,000 unit 02/04/17 20:27 02/07/17 09:32 Heparin - IVPUSH 1,000 unit PRN PRN Administration Heparin Heparin Sodium (Porcine) 5,000 unit 02/04/17 20:27 Heparin - IVPUSH PRN PRN Heparin Heparin Sodium/Dextrose 500 mls @ 20 mls/hr 02/04/17 20:27 02/12/17 09:47 Heparin Infusion - IVPB 21 mls/hr TITR TRANG Administration Protocol 1,000 UNITS/HR Nicotine 14 mg 02/05/17 10:00 02/12/17 09:49 Nicoderm Patch - TD 14 mg DAILY TRANG Administration Polyethylene Glycol 17 gm 02/08/17 22:00 02/12/17 09:48 Miralax (For Daily Use) - PO Not Given BID TRANG Quetiapine Fumarate 100 mg 02/04/17 22:00 02/11/17 23:24 Seroquel - PO 100 mg HS TRANG Administration Warfarin Sodium 10 mg/ 12.5 mg 02/12/17 18:00 Warfarin Sodium 2.5 mg PO 02/12/17 18:01 ONCE@1800 ONE ASSESSMENT/PLAN: This is a 41 yo F active smoker with PMH of anxiety, depression, genital herpes and HPV virus who was admitted with severe L sided h/a x 2weeks. Found to have venous thrombosis in L sigmoid and L transverse sinus of unclear etiology. Venous thrombosis of left sigmoid and left transverse sinus -asymptomatic -MRV head/neck shows clot in L transverse and sigmoid sinuses with running IJ vein. -remaining thrombophilia workup pending -continue Heparin drip bridging to coum 112.5 mg. inr 1.83 today. Duration of a/ c per per heme. -await therapeutic INR btw 2-3 -tylenol prn -monitor for bleeding Constipation -continue laxatives depression, psych d/o -seroquel, zoloft, klonopin Smoking hx -counseled on quitting -nicotine patch FEN No IVF lytes stable regular diet hep, ppi dispo:med surg Problem List - Problems (1) Cavernous sinus thrombosis Code(s): G08 - INTRACRANIAL AND INTRASPINAL PHLEBITIS AND THROMBOPHLEBITIS (2) Cerebral venous sinus thrombosis, acute Code(s): G08 - INTRACRANIAL AND INTRASPINAL PHLEBITIS AND THROMBOPHLEBITIS (3) Depression Code(s): F32.9 - MAJOR DEPRESSIVE DISORDER, SINGLE EPISODE, UNSPECIFIED (4) Anxiety Code(s): F41.9 - ANXIETY DISORDER, UNSPECIFIED (5) Smoker Code(s): F17.200 - NICOTINE DEPENDENCE, UNSPECIFIED, UNCOMPLICATED Visit type - Emergency Visit Emergency Visit: Yes ED Registration Date: 02/03/17 Care time: The patient presented to the Emergency Department on the above date and was hospitalized for further evaluation of their emergent condition. - New Patient This patient is new to me today: No - Critical Care Critical Care patient: No - Discharge Referral Referred to [facility] Med P.C.: No
--- NOTE | 2017-02-12 14:48 | PN ---
Teaching Attending Note Name of Resident: Brenda Chaves ATTENDING PHYSICIAN STATEMENT I saw and evaluated the patient. I reviewed the resident's note and discussed the case with the resident. I agree with the resident's findings and plan as documented. SUBJECTIVE: no fever or chills, depressed , anxious . last night complained of genital burning identical to her genital herpes , started on acyvlovir OBJECTIVE: NAD CV : RRR Lungs: CTAB ext : no edema refused genital exam . ASSESSMENT AND PLAN: 41 y/o lady with h/o depression , anxiety, genetal herpes who presented with BAUTISTA and was found to have intracranial venous thrombosis 1- Thrombosis of L transverse, sigmoid and internal jugular vein - cont heparin gtt - give 12.5 mg of coumadin today - need overlap with coumadin and heparin with therapeutic iNR - continue hypercoagulable w/u as out pt - age appropriate cancer screening as out pt - need repeat MRI/MRV in 3-6 months 2- Anxiety and depression : cont meds 3- genital herpes : cont acyclovir HLOC
[2017-02-12] MEDS ORDERED: WARFARIN NA 10 MG TABLET (FP) PO ONE ×2 (18:00)
[2017-02-12] MEDS ORDERED: WARFARIN NA 10 MG, WARFARIN NA 2.5 MG PO ONE (18:00)
[2017-02-12] MEDS ORDERED: WARFARIN NA 10 MG TABLET (FP) ONE (18:13)
[2017-02-12] MEDS ORDERED: WARFARIN NA 2.5 MG TABLET (FP) ONE (18:13)
[2017-02-12] MEDS: CHLORHEXIDINE GLUCONATE 4% CLEANSER FOR DECOLONIZATION TP SCH (21:13)
[2017-02-12] MEDS ORDERED: QUEtiapine FUMARATE 50 MG TABLET ONE (21:57)
[2017-02-12] MEDS: QUEtiapine FUMARATE 100 MG TABLET (FP) PO SCH (21:58)
--- NOTE | 2017-02-12 22:51 | PN ---
Progress Note (short form) - Note Progress Note: Patient seen and examinred feels ok Last Vital Signs Temp Pulse Resp BP Pulse Ox 98.5 F 82 20 120/72 96 02/12/17 14:41 02/12/17 14:41 02/12/17 14:41 02/12/17 14:41 02/12/17 09:00 Cor: RSR, No murmurs, No gallops Lungs: Clear to P&A Abd: Soft, Normal bowel sounds, No organomegaly Ext:No significant edema Abnormal Lab Results 02/12/17 05:36 INR 1.83 H PTT (Actin FS) 81.9 H Active Medications Generic Name Dose Route Start Last Admin Trade Name Freq PRN Reason Stop Dose Admin Acetaminophen 650 mg 02/04/17 20:20 02/08/17 09:54 Tylenol - PO 650 mg Q6H PRN Administration FEVER OR PAIN Acyclovir 400 mg 02/11/17 16:00 02/12/17 21:07 Zovirax - PO 400 mg TID TRANG Administration Chlorhexidine Gluconate 1 applic 02/04/17 22:00 02/12/17 21:13 Hibiclens For Decolonization - TP Not Given HS TRANG Clonazepam 1 mg 02/04/17 22:00 02/12/17 21:07 Klonopin - PO 1 mg TID TRANG Administration Docusate Sodium 100 mg 02/08/17 22:00 02/12/17 21:07 Colace - PO 100 mg TID TRANG Administration Heparin Sodium (Porcine) 1,000 unit 02/04/17 20:27 02/07/17 09:32 Heparin - IVPUSH 1,000 unit PRN PRN Administration Heparin Heparin Sodium (Porcine) 5,000 unit 02/04/17 20:27 Heparin - IVPUSH PRN PRN Heparin Heparin Sodium/Dextrose 500 mls @ 20 mls/hr 02/04/17 20:27 02/12/17 21:12 Heparin Infusion - IVPB 21 mls/hr TITR TRANG Administration Protocol 1,000 UNITS/HR Nicotine 14 mg 02/05/17 10:00 02/12/17 09:49 Nicoderm Patch - TD 14 mg DAILY TRANG Administration Polyethylene Glycol 17 gm 02/08/17 22:00 02/12/17 21:58 Miralax (For Daily Use) - PO 17 gm BID TRANG Administration Quetiapine Fumarate 100 mg 02/04/17 22:00 02/12/17 21:58 Seroquel - PO 100 mg HS TRANG Administration A/P 41 kathya active smoker with PMHx of anxiety, depression, genital herpes and HPV virus who was admitted with c/o severe Lt sided headache x 2weeks. Found to have venous thrombosis in left sigmoid sinus and lt transverse sinus of unclear etiology. Started on anticoagulation with heparin, bridging to coumadin Neuro: Venous thrombosis in left sigmoid and Lt transverse sinus; -Continue Heparin drip for therapeutic PTT 76-110 -Continue Keppra for seizure prophylaxis -agree with bridging to coumadin Ordered thrombophilia w/u---antiphospholipid panel, prothrombin gene [id number] and factor V leiden negative. ATII/Protein C/S not ordered as patient on heparin/ coumadin JAK2/CYNDI/RF/hemoglobin electrophoresis nl CBC/BMP no h/o hormonal use, family h/o thrombophilia or trauma cosider HIV testing bridging heparin to coumadin and overlap for 24hrs.
[2017-02-13] MEDS ORDERED: PT OWN MED DRAWER 7, Y5N ONE ×2 (05:37→13:11)
[2017-02-13] MEDS: ACYCLOVIR 400 MG TABLET PO SCH ×3 (05:40→21:50)
[2017-02-13] MEDS: clonazePAM 0.5 MG TABLET PO SCH ×3 (05:40→21:50)
[2017-02-13] MEDS: DOCUSATE SODIUM 100 MG CAPSULE (FP) PO SCH ×3 (05:40→21:50)
[2017-02-13 08:32] LABS: INR 2.13 (0.82-1.09); PROTHROMBIN TIME (PATIENT) 23.8 SEC (9.98-11.88)
--- NOTE | 2017-02-13 08:45 | PN ---
Progress Note, Physician History of Present Illness: Neurology Dr Escalera covering for Dr Mcclellan 41 yo F with h/o genital herpes, HPV severe anxiety, depression on zoloft and seroquel seeing psy at [place] presented to the ED for severe headache. MRV completed and shows L cavernous sinus thrombosis, L transverse sinus, L sigmoid, L IJ. Patient on heparin since admission. Neurologically stable. BAUTISTA stable and no new c/o. no HX OCP, denies . +smoker INR TX today. - Current Medication List Current Medications: Active Medications Acetaminophen (Tylenol -) 650 mg PO Q6H PRN PRN Reason: FEVER OR PAIN Last Admin: 02/08/17 09:54 Dose: 650 mg Acyclovir (Zovirax -) 400 mg PO TID [facility] Last Admin: 02/13/17 05:40 Dose: 400 mg Chlorhexidine Gluconate (Hibiclens For Decolonization -) 1 applic TP HS [facility] Last Admin: 02/12/17 21:13 Dose: Not Given Clonazepam (Klonopin -) 1 mg PO TID [facility] Last Admin: 02/13/17 05:40 Dose: 1 mg Docusate Sodium (Colace -) 100 mg PO TID [facility] Last Admin: 02/13/17 05:40 Dose: 100 mg Heparin Sodium (Porcine) (Heparin -) 1,000 unit IVPUSH PRN PRN PRN Reason: Heparin Last Admin: 02/07/17 09:32 Dose: 1,000 unit Heparin Sodium (Porcine) (Heparin -) 5,000 unit IVPUSH PRN PRN PRN Reason: Heparin Heparin Sodium/Dextrose (Heparin Infusion -) 500 mls @ 20 mls/hr IVPB TITR TRANG ; 1,000 UNITS/HR PRN Reason: Protocol Last Admin: 02/12/17 21:12 Dose: 21 mls/hr Nicotine (Nicoderm Patch -) 14 mg TD DAILY [facility] Last Admin: 02/12/17 09:49 Dose: 14 mg Polyethylene Glycol (Miralax (For Daily Use) -) 17 gm PO BID [facility] Last Admin: 02/12/17 21:58 Dose: 17 gm Quetiapine Fumarate (Seroquel -) 100 mg PO HS [facility] Last Admin: 02/12/17 21:58 Dose: 100 mg - Objective Vital Signs: Vital Signs Temperature 97.8 F 02/13/17 06:00 Pulse Rate 81 02/13/17 06:00 Respiratory Rate 22 02/13/17 06:00 Blood Pressure 114/64 02/13/17 06:00 O2 Sat by Pulse Oximetry (%) 98 02/12/17 22:00 Neurological: Yes: Other (nonfocal) Labs: CBC, BMP 02/10/17 06:10 02/06/17 06:00 INR, PTT INR 2.13 (0.82-1.09) H 02/13/17 07:00 Fibrinogen 547.0 mg/dL (238-498) H 02/05/17 08:10 Problem List - Problems (1) Cavernous sinus thrombosis Code(s): G08 - INTRACRANIAL AND INTRASPINAL PHLEBITIS AND THROMBOPHLEBITIS (2) Depression Code(s): F32.9 - MAJOR DEPRESSIVE DISORDER, SINGLE EPISODE, UNSPECIFIED (3) Smoker Code(s): F17.200 - NICOTINE DEPENDENCE, UNSPECIFIED, UNCOMPLICATED (4) Cerebral venous sinus thrombosis, acute Code(s): G08 - INTRACRANIAL AND INTRASPINAL PHLEBITIS AND THROMBOPHLEBITIS Assessment/Plan 41 yo F with h/o genital herpes, HPV severe anxiety, depression on zoloft and seroquel seeing psy at [place] presented to the ED for severe headache. MRV completed and shows L cavernous sinus thrombosis, L transverse sinus, L sigmoid, L IJ. Patient on heparin since admission. Neurologically stable. BAUTISTA stable and no new c/o. no HX OCP, denies . +smoker , no other clear risk factors neurolgically stable INR TX on coumadin today ( may also consider XARELTO, if INR difficulty managing in future) check test prior to Dc. outpt FU with HEM and Neurology. Dr Escalera [phone]
[2017-02-13] MEDS: HEPARIN INFUSION - 500 ML IVPB SCH ×2 (09:59→21:51)
[2017-02-13] MEDS: NICOTINE 14 MG/24 HOURS TOPICAL PATCH TD SCH (10:04)
[2017-02-13] MEDS: POLYETHYLENE GLYCOL 3350 119 GM BTL PO SCH ×2 (10:06→21:51)
--- NOTE | 2017-02-13 11:46 | PN ---
Physical Exam: SUBJECTIVE: Patient seen and examined Patient resting in bed NAD. Afebrile and hemodynamically stable. Denies headache , photophobia, lightheadedness, dysphagia or parasthesia. Denies LOC, s/z, change in vision, n/v. Reports occasional anxiety OBJECTIVE: Vital Signs Period Temp Pulse Resp BP Sys/Allred Pulse Ox Last 24 Hr 97.8 F-98.6 F 78-85 19-22 114-134/64-83 97-98 GENERAL: The patient is awake, alert, and fully oriented, in no acute distress. HEAD: Normal with no signs of trauma. EYES: PERRL, extraocular movements intact, b/l mild horizontal nystagmus. ENT: oropharynx clear without exudates, moist mucous membranes NECK: supple, full rom. LUNGS: Breath sounds equal, clear to auscultation bilaterally, no wheezes, no crackles, HEART: s1s2 rrr ABDOMEN: Soft, nontender, nondistended, normoactive bowel sounds, no guarding, no rebound, EXTREMITIES: 2+ pulses, warm, well-perfused, no edema. NEUROLOGICAL: Cranial nerves II through XII intact. Normal speech, no numbness, 5/5 strength in all extremities, 1+ reflexes brachial, 2+ patellar b/l PSYCH: Normal mood, normal affect. SKIN: Warm, dry, normal turgor Laboratory Results - last 24 hr 02/13/17 02/13/17 07:00 07:00 INR 2.13 H PTT (Actin FS) 69.8 H Active Medications Generic Name Dose Route Start Last Admin Trade Name Freq PRN Reason Stop Dose Admin Acetaminophen 650 mg 02/04/17 20:20 02/08/17 09:54 Tylenol - PO 650 mg Q6H PRN Administration FEVER OR PAIN Acyclovir 400 mg 02/11/17 16:00 02/13/17 05:40 Zovirax - PO 400 mg TID TRANG Administration Chlorhexidine Gluconate 1 applic 02/04/17 22:00 02/12/17 21:13 Hibiclens For Decolonization - TP Not Given HS TRANG Clonazepam 1 mg 02/04/17 22:00 02/13/17 05:40 Klonopin - PO 1 mg TID TRANG Administration Docusate Sodium 100 mg 02/08/17 22:00 02/13/17 05:40 Colace - PO 100 mg TID TRANG Administration Heparin Sodium (Porcine) 1,000 unit 02/04/17 20:27 02/07/17 09:32 Heparin - IVPUSH 1,000 unit PRN PRN Administration Heparin Heparin Sodium (Porcine) 5,000 unit 02/04/17 20:27 Heparin - IVPUSH PRN PRN Heparin Heparin Sodium/Dextrose 500 mls @ 20 mls/hr 02/04/17 20:27 02/13/17 09:59 Heparin Infusion - IVPB 1,050 units/hr TITR TRANG Titration Protocol 1,000 UNITS/HR Nicotine 14 mg 02/05/17 10:00 02/13/17 10:04 Nicoderm Patch - TD 14 mg DAILY TRANG Administration Polyethylene Glycol 17 gm 02/08/17 22:00 02/13/17 10:06 Miralax (For Daily Use) - PO Not Given BID TRANG Quetiapine Fumarate 100 mg 02/04/17 22:00 02/12/17 21:58 Seroquel - PO 100 mg HS TRANG Administration Warfarin Sodium 12.5 mg 02/13/17 18:00 Coumadin - PO 02/13/17 18:01 ONCE@1800 ONE ASSESSMENT/PLAN: This is a 41 yo F active smoker with PMH of anxiety, depression, genital herpes and HPV virus who was admitted with severe L sided h/a x 2weeks. Found to have venous thrombosis in L sigmoid and L transverse sinus of unclear etiology. Venous thrombosis of left sigmoid and left transverse sinus -asymptomatic -MRV head/neck shows clot in L transverse and sigmoid sinuses with running IJ vein. -remaining thrombophilia workup pending -continue Heparin drip bridging to coum 112.5 mg. inr 2.13 today. keep on hep fpr another 24 hr. Duration of a/c per per heme. - test p/d -tylenol prn -monitor for bleeding Constipation -continue laxatives depression, psych d/o -seroquel, zoloft, klonopin Smoking hx -counseled on quitting -nicotine patch FEN No IVF lytes stable regular diet hep, ppi dispo:med surg Problem List - Problems (1) Cavernous sinus thrombosis Code(s): G08 - INTRACRANIAL AND INTRASPINAL PHLEBITIS AND THROMBOPHLEBITIS (2) Cerebral venous sinus thrombosis, acute Code(s): G08 - INTRACRANIAL AND INTRASPINAL PHLEBITIS AND THROMBOPHLEBITIS (3) Depression Code(s): F32.9 - MAJOR DEPRESSIVE DISORDER, SINGLE EPISODE, UNSPECIFIED (4) Anxiety Code(s): F41.9 - ANXIETY DISORDER, UNSPECIFIED (5) Smoker Code(s): F17.200 - NICOTINE DEPENDENCE, UNSPECIFIED, UNCOMPLICATED Visit type - Emergency Visit Emergency Visit: Yes ED Registration Date: 02/03/17 Care time: The patient presented to the Emergency Department on the above date and was hospitalized for further evaluation of their emergent condition. - New Patient This patient is new to me today: No - Critical Care Critical Care patient: No - Discharge Referral Referred to [facility] Med P.C.: No
--- NOTE | 2017-02-13 13:15 | PN ---
Teaching Attending Note Name of Resident: Brenda Chaves ATTENDING PHYSICIAN STATEMENT I saw and evaluated the patient. I reviewed the resident's note and discussed the case with the resident. I agree with the resident's findings and plan as documented. SUBJECTIVE: no fever ro chills , feels the best today . gential area feels better OBJECTIVE: NAD CV : RRR Lungs: CTAB ext : no edema refused genital exam again today ASSESSMENT AND PLAN: 41 y/o lady with h/o depression , anxiety, genetal herpes who presented with BAUTISTA and was found to have intracranial venous thrombosis 1- Thrombosis of L transverse, sigmoid and internal jugular vein - cont heparin gtt - give 12.5 mg of coumadin today - need overlap with coumadin and heparin with therapeutic iNR ( INR 2.1 today ) - continue hypercoagulable w/u as out pt - age appropriate cancer screening as out pt - need repeat MRI/MRV in 3-6 months - test 2- Anxiety and depression: cont meds 3- Genital herpes : cont acyclovir HLOC dc tomorrow if INR si therapeutic
[2017-02-13] MEDS ORDERED: WARFARIN NA 10 MG TABLET (FP) PO ONE (18:00)
[2017-02-13] MEDS ORDERED: WARFARIN NA 2.5 MG TABLET (FP) PO ONE (18:00)
[2017-02-13] MEDS ORDERED: QUEtiapine FUMARATE 50 MG TABLET ONE (20:24)
[2017-02-13] MEDS: QUEtiapine FUMARATE 100 MG TABLET (FP) PO SCH (23:17)
[2017-02-14] MEDS: DOCUSATE SODIUM 100 MG CAPSULE (FP) PO SCH ×3 (06:10→21:41)
[2017-02-14] MEDS: ACYCLOVIR 400 MG TABLET PO SCH ×3 (06:10→21:41)
[2017-02-14] MEDS: clonazePAM 0.5 MG TABLET PO SCH ×3 (06:10→21:41)
[2017-02-14 08:55] LABS: INR 2.12 (0.82-1.09); PROTHROMBIN TIME (PATIENT) 23.7 SEC (9.98-11.88)
[2017-02-14 08:59] LABS: ACTIVATED PTT 80.9 SECONDS (26.9-34.4)
[2017-02-14] MEDS: POLYETHYLENE GLYCOL 3350 119 GM BTL PO SCH ×2 (09:15→21:41)
[2017-02-14] MEDS: NICOTINE 14 MG/24 HOURS TOPICAL PATCH TD SCH (10:04)
[2017-02-14] MEDS ORDERED: PT OWN MED DRAWER 7, Y5N ONE (14:40)
--- NOTE | 2017-02-14 15:02 | PN ---
Progress Note (short form) - Note Progress Note: Subjective: no fever or chills, no abd pain , no BAUTISTA , no complaints today Objective: Vital Signs: Last Vital Signs Temp Pulse Resp BP Pulse Ox 97.6 F 70 20 122/61 97 02/14/17 05:55 02/14/17 05:55 02/14/17 05:55 02/14/17 05:55 02/13/17 09:59 Laboratory Results - last 24 hr 02/13/17 02/14/17 15:30 08:00 INR 2.12 H PTT (Actin FS) 80.9 H Urine HCG, Qual Negative Physical Exam: NAD . CV : RRR. Lungs: CTAB ext : no edema ASSESSMENT AND PLAN: 41 y/o lady with h/o depression , anxiety, genetal herpes who presented with BAUTISTA and was found to have intracranial venous thrombosis 1- Thrombosis of L transverse, sigmoid and internal jugular vein - INR 2.12. will dc heparin gtt - give 12.5 mg of coumadin tonight - continue hypercoagulable w/u as out pt - age appropriate cancer screening as out pt - need repeat MRI/MRV in 3-6 months - will repeat INR in am off heparin gtt . 2- Anxiety and depression: cont meds 3- Genital herpes : cont acyclovir day 4 Dispo: if INR is therapeutic tomorrow , then she will Dc . SPoke to Dr. Durbin , covering for Dr. Spence, and gave him update on her case, plan for f/u , and MRI in 3-6 months, as well as the need to follow her INR. Visit type - Emergency Visit Emergency Visit: Yes ED Registration Date: 02/03/17 Care time: The patient presented to the Emergency Department on the above date and was hospitalized for further evaluation of their emergent condition. - New Patient This patient is new to me today: No - Critical Care Critical Care patient: No
[2017-02-14] MEDS ORDERED: WARFARIN NA 2.5 MG TABLET (FP) PO ONE (18:00)
[2017-02-14] MEDS ORDERED: WARFARIN NA 10 MG TABLET (FP) PO ONE (18:00)
[2017-02-14] MEDS ORDERED: QUEtiapine FUMARATE 50 MG TABLET ONE (20:50)
[2017-02-15] MEDS: QUEtiapine FUMARATE 100 MG TABLET (FP) PO SCH (00:08)
[2017-02-15] MEDS: clonazePAM 0.5 MG TABLET PO SCH (06:11)
[2017-02-15] MEDS: DOCUSATE SODIUM 100 MG CAPSULE (FP) PO SCH (06:11)
[2017-02-15] MEDS: ACYCLOVIR 400 MG TABLET PO SCH (06:11)
[2017-02-15 08:27] LABS: INR 2.24 (0.82-1.09)
[2017-02-15 09:23] VITALS: BP 121/74; PULSE 87; TEMP 98.7
[2017-02-15] MEDS: POLYETHYLENE GLYCOL 3350 119 GM BTL PO SCH (09:23)
[2017-02-15] MEDS: NICOTINE 14 MG/24 HOURS TOPICAL PATCH TD SCH (09:23)
--- NOTE | 2017-02-15 11:45 | PN ---
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 Patient was seen night before presentation in the ED but signed out AMA. Her family and her were informed by ED later today of positive CT head showed possible venous thrombosis. The headache symptoms are intermittent, begins from anterior L eye, travels through L head then to posterior occipital lobe, 6-8/10, sharp quality, associated with n/v, light, position change, noise make the pain worse. Patient accounts that she had herpes breakout before the headache. She also c/o anxiety and panic attack. MRV completed and shows L cavernous sinus thrombosis, L transverse sinus, L sigmoid , L IJ. Neurologically stable. Has been using Nicoderm patch with relief. AC now theraputic, patient for discharge. Active Medications Acetaminophen (Tylenol -) 650 mg PO Q6H PRN PRN Reason: FEVER OR PAIN Last Admin: 02/08/17 09:54 Dose: 650 mg Acyclovir (Zovirax -) 400 mg PO TID [facility] Last Admin: 02/15/17 06:11 Dose: 400 mg Clonazepam (Klonopin -) 1 mg PO TID [facility] Last Admin: 02/15/17 06:11 Dose: 1 mg Docusate Sodium (Colace -) 100 mg PO TID [facility] Last Admin: 02/15/17 06:11 Dose: 100 mg Nicotine (Nicoderm Patch -) 14 mg TD DAILY [facility] Last Admin: 02/15/17 09:23 Dose: 14 mg Polyethylene Glycol (Miralax (For Daily Use) -) 17 gm PO BID [facility] Last Admin: 02/15/17 09:23 Dose: Not Given Quetiapine Fumarate (Seroquel -) 100 mg PO HS [facility] Last Admin: 02/15/17 00:08 Dose: Not Given *Physical Exam Vital Signs Temperature 98.7 F 02/15/17 09:22 Pulse Rate 87 02/15/17 09:22 Respiratory Rate 20 02/15/17 09:22 Blood Pressure 121/74 02/15/17 09:22 O2 Sat by Pulse Oximetry (%) 95 02/15/17 09:25 - Physical Exam General Appearance: Yes: Mild Distress HEENT: positive: AARON, Other (sensitive to light) Neck: positive: Trachea midline, Supple Respiratory/Chest: positive: Lungs Clear, Normal Breath Sounds Cardiovascular: positive: Regular Rhythm, S1, S2, Tachycardia. negative: Diastolic Murmur, Systolic Murmur, Gallop/S3, Gallop/S4 Gastrointestinal/Abdominal: positive: Normal Bowel Sounds, Soft. negative: Tenderness Extremity: positive: Swelling (trace edema) Neurologic: positive: Fully Oriented, Alert (4/5 on L face), Sensory Deficit CBCD WBC 7.8 K/mm3 (4.0-10.0) 02/10/17 06:10 RBC 4.33 M/mm3 (3.60-5.2) 02/10/17 06:10 Hgb 12.7 GM/dL (10.7-15.3) 02/10/17 06:10 Hct 38.3 % (32.4-45.2) 02/10/17 06:10 MCV 88.5 fl (80-96) 02/10/17 06:10 MCHC 33.0 g/dl (32.0-36.0) 02/10/17 06:10 RDW 15.9 % (11.6-15.6) H 02/10/17 06:10 Plt Count 186 K/MM3 (134-434) 02/10/17 06:10 MPV 8.8 fl (7.5-11.1) 02/10/17 06:10 CMP Sodium 142 mmol/L (136-145) 02/06/17 06:00 Potassium 4.1 mmol/L (3.5-5.1) 02/06/17 06:00 Chloride 111 mmol/L (98-107) H 02/06/17 06:00 Carbon Dioxide 25 mmol/L (21-32) 02/06/17 06:00 Anion Gap 6 (8-16) L 02/06/17 06:00 BUN 8 mg/dL (7-18) 02/06/17 06:00 Creatinine 0.7 mg/dL (0.55-1.02) 02/06/17 06:00 Creat Clearance w eGFR > 60 (>60) 02/05/17 08:10 Calcium 8.7 mg/dL (8.5-10.1) 02/06/17 06:00 Total Bilirubin 0.2 mg/dL (0.2-1.0) 02/05/17 08:10 AST 20 U/L (15-37) 02/05/17 08:10 ALT 30 U/L (12-78) 02/05/17 08:10 Alkaline Phosphatase 60 U/L (45-117) 02/05/17 08:10 Total Protein 6.8 g/dl (6.4-8.2) 02/05/17 08:10 Albumin 3.3 g/dl (3.4-5.0) L 02/05/17 08:10 Medical Decision Making 41 yo F with h/o genital herpes and 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 Patient was seen night before presentation in the ED but signed out AMA. CT head showed possible Venous sinus thrombosis seen on MRI as well and AC was started since admission. Neurologically stable, for discharge today. No bleeding. Smoking cessation, Nicoderm patch. Follow up with hematology regarding caogulation panel results that are still pending. Extensive conversation about coumadin compliance.
--- NOTE | 2017-02-15 13:01 | PN ---
Teaching Attending Note Name of Resident: Brenda Chaves ATTENDING PHYSICIAN STATEMENT I saw and evaluated the patient. I reviewed the resident's note and discussed the case with the resident. I agree with the resident's findings and plan as documented. SUBJECTIVE: no fever or chills, no abd apin , no BAUTISTA , no CP . had mild BAUTISTA last night which resolved. OBJECTIVE: NAD . CV : RRR. Lungs: CTAB ext : no edema ASSESSMENT AND PLAN: 41 y/o lady with h/o depression , anxiety, genetal herpes who presented with BAUTISTA and was found to have intracranial venous thrombosis 1- Thrombosis of L transverse, sigmoid and internal jugular vein - INR 2.2. - dc on 12.5 mg of coumadin\ - continue hypercoagulable w/u as out pt - age appropriate cancer screening as out pt - need repeat MRI/MRV in 3-6 months 2- Anxiety and depression: cont meds 3- Genital herpes : cont acyclovir day 5 dc home today . discharge instruction were explained to her . she understands need fro compliance
--- NOTE | 2017-02-15 13:48 | DS ---
Physical Exam: SUBJECTIVE: Patient seen and examined Patient resting in bed NAD. Afebrile and hemodynamically stable. Denies headache , photophobia, lightheadedness, dysphagia or parasthesia. Denies LOC, s/z, change in vision, n/v. Reports occasional anxiety OBJECTIVE: Vital Signs Period Temp Pulse Resp BP Sys/Allred Pulse Ox Last 24 Hr 98.2 F-98.7 F 75-87 20-20 102-126/64-74 95 PHYSICAL EXAM GENERAL: The patient is awake, alert, and fully oriented, in no acute distress. HEAD: Normal with no signs of trauma. EYES: PERRL, extraocular movements intact, b/l mild horizontal nystagmus. ENT: oropharynx clear without exudates, moist mucous membranes NECK: supple, full rom. LUNGS: Breath sounds equal, clear to auscultation bilaterally, no wheezes, no crackles, HEART: s1s2 rrr ABDOMEN: Soft, nontender, nondistended, normoactive bowel sounds, no guarding, no rebound, EXTREMITIES: 2+ pulses, warm, well-perfused, no edema. NEUROLOGICAL: Cranial nerves II through XII intact. Normal speech, no numbness, 5/5 strength in all extremities, 1+ reflexes brachial, 2+ patellar b/l PSYCH: Normal mood, normal affect. SKIN: Warm, dry, normal turgor LABS Laboratory Results - last 24 hr 02/15/17 06:00 INR 2.24 H HOSPITAL COURSE: Date of Admission:02/03/17 Patient is a 41 year old female with PMH of HSV, HPV, Anxiety, Depression & recurrent sinusitis who returned to ED after signing out AMA this morning. Patient was originally seen overnight for a severe headache that vstarted yesterday afternoon. The headache was 8/10, severe, sharp, located behind her left eye and radiated to the back of her head. On admission she had associated photophobia, nausea, vomiting & noise sensitivity. CT head was performed and showed venous thrombosis of left sigmoid and left transverse sinus and patient was admitted to hospitalist service. MRI brain confirmed these findings. Patient was anticoagulated with IV Hep and bridges to coumadin. Her symptoms resolved. She was evaluated by neurology, Neurosurgery and hematology. Some of her thrombophilia panel came back negative but the rest shoudl be f/u outpatient. She was instructed to monitor INR closely with her PCP and to have am PRV MRI brain in 3-6 months. Date of Discharge: 02/15/17 Minutes to complete discharge: 47 (na) Discharge Summary Reason For Visit: THROMBOSIS OF CAVERNOUS VENOUS SINUS Condition: Improved - Instructions Diet, Activity, Other Instructions: - You have thrombosis in the veins of your brain. this is a serious condition and needs close follow up with your doctors. - You are on coumadin now, to thin your blood . this can increase your risk of bleeld , so you need to be careful and report any bleed to your doctor - take 12.5 mg of coumadin every evening at the same time. - Next INR ( blood work ) is on Friday 02/16 . fax results to Dr. Spence. - you will need blood work done 3 times a week initially until your level is stable - Dr. spence, will give you the prescription for the next blood work. - your coumadin dose might need to be changed and adjusted later . - INR goal 2-3 . - you need to follow with a neurologist ( Dr. Escalera ) , or any one you choose - You need to follow with Hematology ( ) or any one you choose. - Duration of anticoagulation will be determined by your firmware engineer and neurologist after obtaining further imaging and blood work - you need MRI/MRV to your brain in 3-6 months. - it is very important to follow up . - Set an alarm daily to take your coumadin in evening . - your blood work need to be done in morning hours , not in evening . - Call your MD with any questions . - You need to buy your coumadin from pharmacy today , on your way to home , and you need to take it today - if you miss your coumadin one day , call your doctor and inform her Referrals: Summer Spence [Primary Care Provider] - 1 Week Sami Escalera DO [Staff Physician] - 1 Week Saturnino Pedersen MD [Staff Physician] - 1 Week Disposition: VNS/HOME HEALTH CARE - Home Medications Comprehensive Discharge Medication List: Ambulatory Orders Clonazepam [Klonopin] 1 mg TID 02/03/17 Quetiapine Fumarate [Seroquel] 100 tab PO HS 02/03/17 Sertraline HCl [Zoloft] 100 mg PO DAILY 02/03/17 Acyclovir [Zovirax -] 400 mg PO TID #12 tablet 02/14/17 Nicotine Patch [Nicoderm Patch -] 1 patch TD DAILY #14 patch 02/14/17 Nicotine Patch [Nicoderm Patch -] 14 mg TD DAILY #35 patch 02/14/17 Warfarin Sodium [Coumadin] 2.5 mg PO HS #60 tablet 02/14/17 Warfarin Sodium [Coumadin] 10 mg PO HS #60 tablet 02/14/17 Miscellaneous Medical Supply [Outpatient Order] 1 each ASDIR #1 misc Problem List - Problems (1) Cerebral venous sinus thrombosis, acute Code(s): G08 - INTRACRANIAL AND INTRASPINAL PHLEBITIS AND THROMBOPHLEBITIS (2) Depression Code(s): F32.9 - MAJOR DEPRESSIVE DISORDER, SINGLE EPISODE, UNSPECIFIED (3) Anxiety Code(s): F41.9 - ANXIETY DISORDER, UNSPECIFIED (4) Smoker Code(s): F17.200 - NICOTINE DEPENDENCE, UNSPECIFIED, UNCOMPLICATED This patient is new to me today: No Emergency Visit: Yes ED Registration Date: 02/03/17 Care time: The patient presented to the Emergency Department on the above date and was hospitalized for further evaluation of their emergent condition. Critical Care patient: No - Discharge Referral Referred to [facility] Med P.C.: No
== END 2017-02-15 12:55 | disposition home health service (06) | DRG 299 ==
LOC: JER 14:07 → JERBED 16:58 → JICU 21:57 → J5S 02-04 20:20
PROVIDERS: ADMIT Internal Medicine; ATTEND Internal Medicine
PROC: 3E033GC Introduction of Other Therapeutic Substance into Peripheral Vein, Percutaneous Approach (ICD-10-PCS; principal; 2017-02-03)
DX: I82.C12 Acute embolism and thrombosis of left internal jugular vein (principal); G08 Intracranial and intraspinal phlebitis and thrombophlebitis; F32.9 Major depressive disorder, single episode, unspecified; F17.200 Nicotine dependence, unspecified, uncomplicated; J32.8 Other chronic sinusitis; H53.149 Visual discomfort, unspecified; D72.829 Elevated white blood cell count, unspecified; F41.0 Panic disorder [episodic paroxysmal anxiety]; R51 Headache; K59.00 Constipation, unspecified; A60.00 Herpesviral infection of urogenital system, unspecified
CPT/HCPCS: 36415; 70450-TC; 70470-TC; 70544-TC; 71010-TC; 80048; 80053; 81240; 81241; 82272; 83021; 84703; 85025; 85027; 85384; 85610; 85613; 85651; 85660; 85730; 85732; 86038; 86140; 86146; 86431; 86850; 86900; 86901; 99282-25; 99283-25; J1644

== ENCOUNTER 2018-01-04 22:56 | Emergency (ER) | payer OTHER ==
--- NOTE | 2018-01-04 23:12 | PDOC ---
History of Present Illness <Chela Schilling - Last Filed: 01/04/18 23:12> - General History Source: Patient Exam Limitations: No Limitations - History of Present Illness Initial Comments: 01/05/18 00:56 The patient is a 42 year old female with past medical history of cavernous venous thrombosis, HPV, anxiety and depression, and OCD who was BIBA for complaints of headache that began today at 3 pm. The patient describes it as a sharp, shooting pain in her temporal regions, primarily on her left side that occasionally radiates to the front. The patient relates it to how she felt upon being diagnosed with her venous thrombosis. She reports associated photophobia. The patient reports taking percocet and four klonopin today without any relief of her symptoms. She denies any associated focal neurological deficits, visual changes, nausea, vomiting, or diarrhea. Upon taking her extra Klonopin she reports becoming diffusely itchy resulting in her scratching at her chest. The patient reports she has been noncompliant with her blood thinners and follow ups for the venous thrombosis within the past few months. She denies any recent illness, fevers, or chills. Allergies: NKDA Social: 20 pack year smoker. Denies any alcohol or drug use. PCP: Summer Spence <Geno Johnson - Last Filed: 01/05/18 02:10> - General Stated Complaint: HEAD PAIN Time Seen by Provider: 01/04/18 23:08 Past History - Past Medical History Psychiatric Problems: Yes (Depression, anxiety, mental illness) - Immunization History Immunization Up to Date: No - Suicide/Smoking/Psychosocial Hx Smoking Status: Yes (1.5 pack per day) Smoking History: Current every day smoker Have you smoked in the past 12 months: Yes Number of Cigarettes Smoked Daily: 35 'Breaking Loose' booklet given: 02/03/17 Hx Alcohol Use: No Drug/Substance Use Hx: No Substance Use Type: None <Chela Schilling - Last Filed: 01/04/18 23:12> <Geno Johnson - Last Filed: 01/05/18 02:10> - Past Medical History Allergies/Adverse Reactions: Allergies Allergy/AdvReac Type Severity Reaction Status Date / Time No Known Allergies Allergy Verified 01/04/18 23:18 Home Medications: Ambulatory Orders Clonazepam [Klonopin] 1 mg TID 02/03/17 Quetiapine Fumarate [Seroquel] 100 tab PO HS 02/03/17 Sertraline HCl [Zoloft] 100 mg PO DAILY 02/03/17 Acyclovir [Zovirax -] 400 mg PO TID #12 tablet 02/14/17 Nicotine Patch [Nicoderm Patch -] 1 patch TD DAILY #14 patch 02/14/17 Nicotine Patch [Nicoderm Patch -] 14 mg TD DAILY #35 patch 02/14/17 Warfarin Sodium [Coumadin] 2.5 mg PO HS #60 tablet 02/14/17 Warfarin Sodium [Coumadin] 10 mg PO HS #60 tablet 02/14/17 Miscellaneous Medical Supply [Outpatient Order] 1 each ASDIR #1 misc Review of Systems - Review of Systems Able to Perform ROS?: Yes Comments:: 01/05/18 00:56 CONSTITUTIONAL: Absent: fever, chills, diaphoresis, generalized weakness, malaise, loss of appetite HEENT: Absent: rhinorrhea, nasal congestion, throat pain, throat swelling, difficulty swallowing, mouth swelling, ear pain, eye pain, visual Changes CARDIOVASCULAR: Absent: chest pain, syncope, palpitations, irregular heart rate, lightheadedness , peripheral edema RESPIRATORY: Absent: cough, shortness of breath, dyspnea with exertion, orthopnea, wheezing, stridor, hemoptysis GASTROINTESTINAL: Absent: abdominal pain, abdominal distension, nausea, vomiting, diarrhea, constipation, melena, hematochezia GENITOURINARY: Absent: dysuria, frequency, urgency, hesitancy, hematuria, flank pain, genital pain MUSCULOSKELETAL: Absent: myalgia, arthralgia, joint swelling SKIN: Present: diffuse itchiness Absent: pallor HEMATOLOGIC/IMMUNOLOGIC: Absent: easy bleeding, easy bruising, lymphadenopathy, frequent infections ENDOCRINE: Absent: unexplained weight gain, unexplained weight loss, heat intolerance, cold intolerance NEUROLOGIC: Present: headache Absent: focal weakness or paresthesias, dizziness, unsteady gait, seizure, mental status changes, bladder or bowel incontinence PSYCHIATRIC: Absent: anxiety, depression, suicidal or homicidal ideation, hallucinations. All Other Systems: Reviewed and Negative <Geno Johnson - Last Filed: 01/05/18 02:10> *Physical Exam - Vital Signs Last Vital Signs Temp Pulse Resp BP Pulse Ox 89 14 116/65 96 01/04/18 23:18 01/04/18 23:18 01/04/18 23:18 01/04/18 23:18 - Physical Exam Comments: 01/05/18 00:58 GENERAL: Well developed, well nourished. Awake and alert. No acute distress. HEENT: Normocephalic, atraumatic. PERRLA, EOMI. No conjunctival pallor. Sclera are non- icteric. Moist mucous membranes. Oropharynx is clear. NECK: Supple. Full ROM. No JVD. Carotid pulses 2+ and symmetric, without bruits. No thyromegaly. No lymphadenopathy. CARDIOVASCULAR: Regular rate and rhythm. No murmurs, rubs, or gallops. Distal pulses are 2+ and symmetric. PULMONARY: No evidence of respiratory distress. Lungs clear to auscultation bilaterally. No wheezing, rales or rhonchi. ABDOMINAL: Soft. Non-tender. Non-distended. No rebound or guarding. No organomegaly. Normoactive bowel sounds. MUSCULOSKELETAL Normal range of motion at all joints. No bony deformities or tenderness. No CVA tenderness. EXTREMITIES: No cyanosis. No clubbing. No edema. No calf tenderness. SKIN: Warm and dry. Normal capillary refill. No rashes. No jaundice. NEUROLOGICAL: Alert, awake, appropriate. Cranial nerves 2-12 intact. No deficits to light touch and temperature in face, upper extremities and lower extremities. No motor deficits in the in face, upper extremities and lower extremities. Normoreflexic in the upper and lower extremities. Normal speech. Toes are down-going bilaterally. Gait is normal without ataxia. PSYCHIATRIC: Cooperative. Good eye contact. Appropriate mood and affect. <Geno Johnson - Last Filed: 01/05/18 02:10> ED Treatment Course - LABORATORY CBC & Chemistry Diagram: 01/04/18 23:30 01/04/18 23:30 - ADDITIONAL ORDERS Additional order review: Laboratory Results 01/05/18 01/04/18 01/04/18 00:25 23:30 23:30 PT with INR INR Sodium Potassium Chloride Carbon Dioxide Anion Gap BUN Creatinine Creat Clearance w eGFR Random Glucose Calcium Total Bilirubin AST ALT Alkaline Phosphatase Total Protein Albumin Serum , Qual Negative Opiates Screen Negative Methadone Screen Negative Barbiturate Screen Negative Phencyclidine Screen Negative Ur Amphetamines Screen Negative MDMA (Ecstasy) Screen Negative Benzodiazepines Screen Positive Cocaine Screen Negative U Marijuana (THC) Screen Negative Blood Type B POSITIVE Antibody Screen Negative 01/04/18 01/04/18 23:30 23:30 PT with INR 11.90 H INR 1.05 D Sodium 140 Potassium 3.8 Chloride 104 Carbon Dioxide 25 Anion Gap 11 BUN 11 Creatinine 0.8 Creat Clearance w eGFR > 60 Random Glucose 74 Calcium 8.8 Total Bilirubin 0.4 D AST 19 ALT 19 Alkaline Phosphatase 70 Total Protein 7.5 Albumin 3.7 Serum , Qual Opiates Screen Methadone Screen Barbiturate Screen Phencyclidine Screen Ur Amphetamines Screen MDMA (Ecstasy) Screen Benzodiazepines Screen Cocaine Screen U Marijuana (THC) Screen Blood Type Antibody Screen 01/04/18 23:30 RBC 4.41 MCV 87.5 MCHC 33.3 RDW 15.4 MPV 7.8 D Neutrophils % 65.7 Lymphocytes % 28.3 Monocytes % 5.0 Eosinophils % 0.5 Basophils % 0.5 <Geno Johnson - Last Filed: 01/05/18 02:10> *DC/Admit/Observation/Transfer <Chela Schilling - Last Filed: 01/04/18 23:12> - Attestations Scribe Attestion: 01/05/18 01:00 Documentation prepared by Geno Johnson, acting as medical dosimetrist for Chela Schilling MD/DO. <Geno Johnson - Last Filed: 01/05/18 02:10> - Referrals Referrals: Summer Spence [Primary Care Provider] -
[2018-01-04 23:22] VITALS: BP 116/65; PULSE 89; BMI 32.3
[2018-01-04 23:39] LABS: BASO % 0.5 % (0-2.0); EOS % 0.5 % (0-4.5); HEMATOCRIT 38.6 % (32.4-45.2); HEMOGLOBIN 12.9 GM/dL (10.7-15.3); LYMPH % 28.3 % (8-40); MCH 29.2 pg (25.7-33.7); MCHC 33.3 g/dl (32.0-36.0); MEAN CELL VOLUME 87.5 fl (80-96); MEAN PLT VOLUME 7.8 fl (7.5-11.1); NEUT % 65.7 % (42.8-82.8); PLATELET COUNT 223 K/MM3 (134-434); RBC 4.41 M/mm3 (3.60-5.2); RDW 15.4 % (11.6-15.6); WHITE BLOOD COUNT 10.1 K/mm3 (4.0-10.0)
[2018-01-04 23:51] LABS: INR 1.05 (0.82-1.09); PROTHROMBIN TIME (PATIENT) 11.9 SEC (9.98-11.88)
[2018-01-05 00:10] LABS: ALBUMIN 3.7 g/dl (3.4-5.0); ALK PHOS 70 U/L (45-117); ANION GAP 11 (8-16); BILIRUBIN,TOTAL 0.4 mg/dL (0.2-1.0); BLOOD UREA NITROGEN 11 mg/dL (7-18); CALCIUM 8.8 mg/dL (8.5-10.1); CHLORIDE 104 mmol/L (98-107); CO2 25 mmol/L (21-32); CREATININE 0.8 mg/dL (0.55-1.02); GLUCOSE,RANDOM 74 mg/dL (74-106); POTASSIUM 3.8 mmol/L (3.5-5.1); SGOT/AST 19 U/L (15-37); SGPT/ALT 19 U/L (12-78); SODIUM 140 mmol/L (136-145); TOT PROT 7.5 g/dl (6.4-8.2)
[2018-01-05 00:46] LABS: COCAINE, UR NEGATIVE ng/ml (CUTOFF=300); METHADONE, UR NEGATIVE ng/ml (CUTOFF=300); OPIATES, URI NEGATIVE ng/ml (CUTOFF=300); PHENCYCLIDINE,URINE NEGATIVE ng/ml (CUTOFF=25); URINE AMPHETAMINES NEGATIVE ng/ml (CUTOFF=500); URINE BARBITURATES NEGATIVE ng/ml (CUTOFF=200)
[2018-01-05 00:48] LABS: URINE BENZODIAZEPINES POSITIVE ng/ml (CUTOFF=200)
[2018-01-05] MEDS ORDERED: METOCLOPRAMIDE HCL INJECTION 10 MG/2 ML VIAL IVPB STA (02:19)
[2018-01-05] MEDS ORDERED: ACETAMINOPHEN 325 MG TABLET (FP) PO ONE (02:20)
[2018-01-05] MEDS ORDERED: METOCLOPRAMIDE HCL INJECTION 10 MG/2 ML VIAL ONE (02:38)
[2018-01-05] MEDS ORDERED: ACETAMINOPHEN 325 MG TABLET (FP) ONE (02:38)
--- NOTE | 2018-01-05 04:27 | PDOC ---
*Physical Exam - Vital Signs Last Vital Signs Temp Pulse Resp BP Pulse Ox 89 14 116/65 96 01/04/18 23:18 01/04/18 23:18 01/04/18 23:18 01/04/18 23:18 ED Treatment Course - LABORATORY CBC & Chemistry Diagram: 01/04/18 23:30 01/04/18 23:30 - ADDITIONAL ORDERS Additional order review: Laboratory Results 01/05/18 01/04/18 01/04/18 00:25 23:30 23:30 PT with INR INR Sodium Potassium Chloride Carbon Dioxide Anion Gap BUN Creatinine Creat Clearance w eGFR Random Glucose Calcium Total Bilirubin AST ALT Alkaline Phosphatase Total Protein Albumin Serum , Qual Negative Opiates Screen Negative Methadone Screen Negative Barbiturate Screen Negative Phencyclidine Screen Negative Ur Amphetamines Screen Negative MDMA (Ecstasy) Screen Negative Benzodiazepines Screen Positive Cocaine Screen Negative U Marijuana (THC) Screen Negative Blood Type B POSITIVE Antibody Screen Negative 01/04/18 01/04/18 23:30 23:30 PT with INR 11.90 H INR 1.05 D Sodium 140 Potassium 3.8 Chloride 104 Carbon Dioxide 25 Anion Gap 11 BUN 11 Creatinine 0.8 Creat Clearance w eGFR > 60 Random Glucose 74 Calcium 8.8 Total Bilirubin 0.4 D AST 19 ALT 19 Alkaline Phosphatase 70 Total Protein 7.5 Albumin 3.7 Serum , Qual Opiates Screen Methadone Screen Barbiturate Screen Phencyclidine Screen Ur Amphetamines Screen MDMA (Ecstasy) Screen Benzodiazepines Screen Cocaine Screen U Marijuana (THC) Screen Blood Type Antibody Screen 01/04/18 23:30 RBC 4.41 MCV 87.5 MCHC 33.3 RDW 15.4 MPV 7.8 D Neutrophils % 65.7 Lymphocytes % 28.3 Monocytes % 5.0 Eosinophils % 0.5 Basophils % 0.5 - Medications Given in the ED: ED Medications Discontinued Medications Generic Name Dose Route Start Last Admin Trade Name Freq PRN Reason Stop Dose Admin Acetaminophen 650 mg 01/05/18 02:20 01/05/18 02:43 Tylenol - PO 01/05/18 02:21 650 mg ONCE ONE Administration Diphenhydramine HCl 25 mg 01/05/18 02:19 01/05/18 02:43 Benadryl Injection - IVPUSH 01/05/18 02:20 25 mg ONCE ONE Administration Metoclopramide HCl 10 mg 01/05/18 02:19 01/05/18 02:43 Reglan Injection - IVPB 01/05/18 02:20 10 mg ONCE STA Administration *DC/Admit/Observation/Transfer Diagnosis at time of Disposition: Headache Qualifiers: Headache type: unspecified Headache chronicity pattern: unspecified pattern Intractability: not intractable Qualified Code(s): R51 - Headache - Discharge Dispostion Disposition: HOME Condition at time of disposition: Stable Admit: No - Referrals Referrals: Summer Spence [Primary Care Provider] - Sami Escalera DO [Staff Physician] - - Patient Instructions Printed Discharge Instructions: DI for Headache Additional Instructions: take medication as directed. Follow up with the neurologist referred - Post Discharge Activity
== END 2018-01-05 07:16 | disposition home or self-care (01) ==
LOC: JER 22:56
PROC: 3E033GC Introduction of Other Therapeutic Substance into Peripheral Vein, Percutaneous Approach (ICD-10-PCS; principal; 2018-01-04)
PROC: 3E033GC Introduction of Other Therapeutic Substance into Peripheral Vein, Percutaneous Approach (ICD-10-PCS; 2018-01-04)
DX: R51 Headache (principal); F41.8 Other specified anxiety disorders; F42.9 Obsessive-compulsive disorder, unspecified; Z86.19 Personal history of other infectious and parasitic diseases
CPT/HCPCS: 36415; 70450-TC; 80053; 80307; 84703; 85025; 85610; 86850; 86900; 86901; 96374; 96375; 99282-25

== ENCOUNTER 2018-04-01 02:01 | Emergency (ER) | payer OTHER ==
[2018-04-01 02:27] VITALS: BP 116/77; PULSE 86; TEMP 98.1; BMI 38.2
[2018-04-01] MEDS ORDERED: ONDANSETRON 4 MG/2 ML VIAL IVPB ONE (03:01)
[2018-04-01] MEDS ORDERED: SODIUM CHLORIDE 1,000 ML IV STA (03:01)
[2018-04-01] MEDS ORDERED: ONDANSETRON 4 MG/2 ML VIAL ONE (03:18)
[2018-04-01 03:23] LABS: BASO % 0.6 % (0-2.0); EOS % 2.2 % (0-4.5); HEMATOCRIT 36.7 % (32.4-45.2); HEMOGLOBIN 11.9 GM/dL (10.7-15.3); LYMPH % 28.3 % (8-40); MCH 28.8 pg (25.7-33.7); MCHC 32.5 g/dl (32.0-36.0); MEAN CELL VOLUME 88.6 fl (80-96); MEAN PLT VOLUME 8.5 fl (7.5-11.1); MONO % 5.1 % (3.8-10.2); NEUT % 63.8 % (42.8-82.8); PLATELET COUNT 227 K/MM3 (134-434); RBC 4.14 M/mm3 (3.60-5.2); WHITE BLOOD COUNT 8.4 K/mm3 (4.0-10.0)
[2018-04-01 03:33] LABS: INR 1.05 (0.82-1.09); PROTHROMBIN TIME (PATIENT) 11.9 SEC (9.7-13.0)
[2018-04-01 03:36] LABS: ACTIVATED PTT 30.2 SECONDS (26.9-34.4)
--- NOTE | 2018-04-01 03:43 | PDOC ---
History of Present Illness - General History Source: Patient Exam Limitations: No Limitations - History of Present Illness Initial Comments: 04/01/18 03:54 The patient is a 43 year old female with a significant PMH of anxiety, depression, and cavernous venous thrombosis (on Aspirin) who presents to the emergency department with nausea beginning earlier today. The patient states she was cleaning out her storage space when she sprayed RAID in the room but stayed in its vicinity and subsequently developed nausea. The patient denies any abdominal pain. The patient also notes she has been under significant stress as she is between moving and her mother has been diagnosed with an illness recently. She states her stress is aggravating her nausea. The patient denies chest pain, shortness of breath, headache and dizziness. Denies fever, chills, vomit, diarrhea and constipation. Denies dysuria, frequency, urgency and hematuria. Allergies: NKA Past surgical history: None reported. Social history: No reported cigarette, alcohol, or drug use. PCP: Dr. Spence <Kofi Kilgore - Last Filed: 04/01/18 03:54> - General History Source: Patient Exam Limitations: No Limitations <Kofi Dumont - Last Filed: 04/01/18 04:17> - General Chief Complaint: Nausea/Vomiting Stated Complaint: VOMITING Time Seen by Provider: 04/01/18 02:25 Past History <Kofi Kilgore - Last Filed: 04/01/18 03:54> - Past Medical History Cancer: Yes (Cervical?) COPD: No Psychiatric Problems: Yes (Depression, anxiety, mental illness) Other medical history: Herpes - Immunization History Immunization Up to Date: No - Suicide/Smoking/Psychosocial Hx Smoking Status: Yes (1.5 pack per day) Smoking History: Never smoked Have you smoked in the past 12 months: No Number of Cigarettes Smoked Daily: 35 Information on smoking cessation initiated: No 'Breaking Loose' booklet given: 02/03/17 Hx Alcohol Use: No Drug/Substance Use Hx: No Substance Use Type: None <Kofi Dumont - Last Filed: 04/01/18 04:17> - Past Medical History Allergies/Adverse Reactions: Allergies Allergy/AdvReac Type Severity Reaction Status Date / Time No Known Allergies Allergy Verified 04/01/18 02:26 Home Medications: Ambulatory Orders Clonazepam [Klonopin] 1 mg PO BID 02/03/17 Quetiapine Fumarate [Seroquel] 150 tab PO HS 02/03/17 Acyclovir [Zovirax -] 400 mg PO TID #12 tablet 02/14/17 Nicotine Patch [Nicoderm Patch -] 1 patch TD DAILY #14 patch 02/14/17 Ibuprofen 800 mg PO TID #30 tablet 01/05/18 Metoclopramide HCl [Reglan -] 10 mg PO TID #30 tablet 01/05/18 Aspirin [ASA -] 81 mg PO DAILY 04/01/18 Citalopram Hydrobromide [Celexa -] 10 mg PO DAILY 04/01/18 Review of Systems - Review of Systems Able to Perform ROS?: Yes Comments:: 04/01/18 03:54 GENERAL/CONSTITUTIONAL: No fever or chills. No weakness. HEAD, EYES, EARS, NOSE AND THROAT: No change in vision. No ear pain or discharge. No sore throat. CARDIOVASCULAR: No chest pain or shortness of breath. RESPIRATORY: No cough, wheezing, or hemoptysis. GASTROINTESTINAL: (+) Nausea. No vomiting, diarrhea or constipation. GENITOURINARY: No dysuria, frequency, or change in urination. MUSCULOSKELETAL: No joint or muscle swelling or pain. No neck or back pain. SKIN: No rash NEUROLOGIC: No headache, vertigo, loss of consciousness, or change in strength/ sensation. ENDOCRINE: No increased thirst. No abnormal weight change. HEMATOLOGIC/LYMPHATIC: No anemia, easy bleeding, or history of blood clots. ALLERGIC/IMMUNOLOGIC: No hives or skin allergy. <Kofi Kilgore - Last Filed: 04/01/18 03:54> *Physical Exam - Vital Signs Last Vital Signs Temp Pulse Resp BP Pulse Ox 98.1 F 86 18 116/77 99 04/01/18 02:22 04/01/18 02:22 04/01/18 02:22 04/01/18 02:22 04/01/18 02:22 - Physical Exam Comments: 04/01/18 03:54 GENERAL: Awake, alert, and fully oriented, in no acute distress HEAD: No signs of trauma EYES: PERRLA, EOMI, sclera anicteric, conjunctiva clear ENT: Auricles normal inspection, hearing grossly normal, nares patent, oropharynx clear without exudates. Moist mucosa NECK: Normal ROM, supple, no lymphadenopathy, JVD, or masses LUNGS: Breath sounds equal, clear to auscultation bilaterally. No wheezes, and no crackles HEART: Regular rate and rhythm, normal S1 and S2, no murmurs, rubs or gallops ABDOMEN: Soft, nontender, normoactive bowel sounds. No guarding, no rebound. No masses EXTREMITIES: Normal range of motion, no edema. No clubbing or cyanosis. No cords, erythema, or tenderness NEUROLOGICAL: Cranial nerves II through XII grossly intact. Normal speech, normal gait SKIN: Warm, Dry, normal turgor, no rashes or lesions noted. <Kofi Kilgore - Last Filed: 04/01/18 03:54> - Vital Signs Last Vital Signs Temp Pulse Resp BP Pulse Ox 98.1 F 86 18 116/77 99 04/01/18 02:22 04/01/18 02:22 04/01/18 02:22 04/01/18 02:22 04/01/18 02:22 <Kofi Dumont - Last Filed: 04/01/18 04:17> Heart Score/ECG Review #1 ECG reviewed & interpreted by me at: 03:30 04/01/18 03:43 NSR 76, no std/po, normal axis, normal intervals, QTC 463 msec <Kofi Dumont - Last Filed: 04/01/18 04:17> ED Treatment Course - LABORATORY CBC & Chemistry Diagram: 04/01/18 03:15 04/01/18 03:15 - ADDITIONAL ORDERS Additional order review: Laboratory Results 04/01/18 04/01/18 04/01/18 03:15 03:15 03:15 PT with INR 11.90 INR 1.05 PTT (Actin FS) 30.2 D Sodium 141 Potassium 4.4 Chloride 109 H Carbon Dioxide 26 Anion Gap 6 L BUN 13 Creatinine 0.9 Creat Clearance w eGFR > 60 Random Glucose 77 Calcium 8.6 Magnesium 2.1 Total Bilirubin 0.2 D AST 21 ALT 24 Total Protein 7.0 Albumin 3.5 Lipase 76 Serum , Qual Negative 04/01/18 03:15 RBC 4.14 MCV 88.6 MCHC 32.5 RDW 15.0 MPV 8.5 Neutrophils % 63.8 Lymphocytes % 28.3 Monocytes % 5.1 Eosinophils % 2.2 D Basophils % 0.6 - Medications Given in the ED: ED Medications Discontinued Medications Generic Name Dose Route Start Last Admin Trade Name Freq PRN Reason Stop Dose Admin Ondansetron HCl 4 mg 04/01/18 03:01 04/01/18 03:26 Zofran Injection IVPB 04/01/18 03:02 4 mg ONCE ONE Administration <Kofi Kilgore - Last Filed: 04/01/18 03:54> - LABORATORY CBC & Chemistry Diagram: 04/01/18 03:15 04/01/18 03:15 - ADDITIONAL ORDERS Additional order review: Laboratory Results 04/01/18 04/01/18 03:15 03:15 PT with INR 11.90 INR 1.05 PTT (Actin FS) 30.2 D Serum , Qual Negative 04/01/18 03:15 RBC 4.14 MCV 88.6 MCHC 32.5 RDW 15.0 MPV 8.5 Neutrophils % 63.8 Lymphocytes % 28.3 Monocytes % 5.1 Eosinophils % 2.2 D Basophils % 0.6 - Medications Given in the ED: ED Medications Discontinued Medications Generic Name Dose Route Start Last Admin Trade Name Freq PRN Reason Stop Dose Admin Ondansetron HCl 4 mg 04/01/18 03:01 04/01/18 03:26 Zofran Injection IVPB 04/01/18 03:02 4 mg ONCE ONE Administration <Kofi Dumont - Last Filed: 04/01/18 04:17> Medical Decision Making - Medical Decision Making 04/01/18 03:40 A portion of this note was documented by scribe services under my direction. I have reviewed the details of the note, within reason, and agree with the documentation with the following case summary and management plan written by me. Patient treated in the ED. Nursing notes are reviewed and incorporated into the medical decision-making. Vital signs reviewed. Peripheral IV access obtained by the nurse, laboratory studies are drawn and sent, reviewed and interpreted by myself. Vital Signs Temp Pulse Resp BP Pulse Ox 98.1 F 86 18 116/77 99 04/01/18 02:22 04/01/18 02:22 04/01/18 02:22 04/01/18 02:22 04/01/18 02:22 43-year-old female with history of anxiety, depression, cavernous venous thrombosis on aspirin presents with nausea starting today. The patient was cleaning out a storage space with all of her proximal. She reported that she was spraying RAID in the room but did not exit the room. Since then, patient had felt slightly nauseous but denies any abdominal pain. No fevers or chills or vomiting. No diarrhea. Patient also reports that she's been under tremendous amount of stress given that her mom has been diagnosed with an illness and that she is moving homes. She believes that the stress is exacerbating her nausea. No fevers or chills. I suspect that the combination of the stress with the spraying may have caused nausea. Patient overall is nontoxic appearing. We'll treat patient's symptoms and check blood work. The patient reports feeling better and the blood work is unremarkable, the patient to be discharged home with PMD follow-up. 04/01/18 04:16 CBC, BMP 04/01/18 03:15 04/01/18 03:15 CMP Sodium 141 mmol/L (136-145) 04/01/18 03:15 Potassium 4.4 mmol/L (3.5-5.1) 04/01/18 03:15 Chloride 109 mmol/L (98-107) H 04/01/18 03:15 Carbon Dioxide 26 mmol/L (21-32) 04/01/18 03:15 Anion Gap 6 (8-16) L 04/01/18 03:15 BUN 13 mg/dL (7-18) 04/01/18 03:15 Creatinine 0.9 mg/dL (0.55-1.02) 04/01/18 03:15 Creat Clearance w eGFR > 60 (>60) 04/01/18 03:15 Random Glucose 77 mg/dL (74-106) 04/01/18 03:15 Calcium 8.6 mg/dL (8.5-10.1) 04/01/18 03:15 Magnesium 2.1 mg/dL (1.8-2.4) 04/01/18 03:15 Total Bilirubin 0.2 mg/dL (0.2-1.0) D 04/01/18 03:15 AST 21 U/L (15-37) 04/01/18 03:15 ALT 24 U/L (12-78) 04/01/18 03:15 Alkaline Phosphatase 67 U/L (45-117) 04/01/18 03:15 Creatine Kinase 322 IU/L (26-192) H 04/01/18 03:15 Creatine Kinase Index 0.6 % (0.0-5.0) 04/01/18 03:15 CK-MB (CK-2) 2.22 ng/mL (0.5-3.6) 04/01/18 03:15 Troponin I < 0.02 ng/ml (0.00-0.05) 04/01/18 03:15 Total Protein 7.0 g/dl (6.4-8.2) 04/01/18 03:15 Albumin 3.5 g/dl (3.4-5.0) 04/01/18 03:15 Lipase 76 U/L (73-393) 04/01/18 03:15 Serum , Qual Negative 04/01/18 03:15 Pt reports feeling better. Will d/c patient home. I discussed the physical exam findings, ancillary test results and final diagnoses with the patient. I answered all of the patient's questions. The patient was satisfied with the care received and felt comfortable with the discharge plan and treatment plan. The patient will call their primary care physician within 24 hours to arrange follow-up and will return to the Emergency Department with any new, persistant or worsening symptoms. <Kofi Dumont - Last Filed: 04/01/18 04:17> *DC/Admit/Observation/Transfer - Attestations Scribe Attestion: 04/01/18 03:55 Documentation prepared by Kofi Kilgore, acting as medical imaging technologist for Kofi Dumont MD. <Kofi Kilgore - Last Filed: 04/01/18 03:54> - Discharge Dispostion Decision to Admit order: No <Kofi Dumont - Last Filed: 04/01/18 04:17> Diagnosis at time of Disposition: Nausea - Discharge Dispostion Disposition: HOME Condition at time of disposition: Improved - Referrals Referrals: Summer Spence [Primary Care Provider] - - Patient Instructions Printed Discharge Instructions: DI for Nausea -- Adult Additional Instructions: Please drink plenty of fluids and rest. Follow up with your doctor. - Post Discharge Activity
[2018-04-01 03:46] LABS: ALBUMIN 3.5 g/dl (3.4-5.0); ANION GAP 6 (8-16); BILIRUBIN,TOTAL 0.2 mg/dL (0.2-1.0); BLOOD UREA NITROGEN 13 mg/dL (7-18); CALCIUM 8.6 mg/dL (8.5-10.1); CHLORIDE 109 mmol/L (98-107); CO2 26 mmol/L (21-32); CREATININE 0.9 mg/dL (0.55-1.02); GLUCOSE,RANDOM 77 mg/dL (74-106); LIPASE 76 U/L (73-393); MAGNESIUM 2.1 mg/dL (1.8-2.4); POTASSIUM 4.4 mmol/L (3.5-5.1); SGOT/AST 21 U/L (15-37); SGPT/ALT 24 U/L (12-78); SODIUM 141 mmol/L (136-145)
[2018-04-01 03:49] LABS: ALK PHOS 67 U/L (45-117)
--- NOTE | 2018-04-01 10:14 | EKG ---
Test Reason : Blood Pressure : / mmHG Vent. Rate : 076 BPM Atrial Rate : 076 BPM P-R Int : 192 ms QRS Dur : 072 ms QT Int : 412 ms P-R-T Axes : 052 051 046 degrees QTc Int : 463 ms NORMAL SINUS RHYTHM NORMAL ECG NO PREVIOUS ECGS AVAILABLE Confirmed by DEVON SANCHEZ MD ([id number]) on 04/01/2018 10:14:22 AM Referred By: Confirmed By:DEVON SANCHEZ MD
== END 2018-04-01 04:37 | disposition home or self-care (01) ==
LOC: SUPCPDRO 02:01 → JER 02:01
PROC: 3E033GC Introduction of Other Therapeutic Substance into Peripheral Vein, Percutaneous Approach (ICD-10-PCS; principal; 2018-04-01)
PROC: 3E0337Z Introduction of Electrolytic and Water Balance Substance into Peripheral Vein, Percutaneous Approach (ICD-10-PCS; 2018-04-01)
DX: R11.0 Nausea (principal); F41.8 Other specified anxiety disorders; I82.890 Acute embolism and thrombosis of other specified veins; Z79.82 Long term (current) use of aspirin
CPT/HCPCS: 36415; 80053; 82550; 82553; 83690; 83735; 84484; 84703; 85025; 85610; 85730; 93005; 93010; 96361; 96374; 99282-25; J7030

== ENCOUNTER 2018-08-03 08:48 | Inpatient (IN) | payer OTHER ==
--- NOTE | 2018-08-03 09:33 | PDOC ---
*Physical Exam - Vital Signs Last Vital Signs Temp Pulse Resp BP Pulse Ox 98.1 F 99 H 18 117/79 99 08/03/18 09:00 08/03/18 09:00 08/03/18 09:00 08/03/18 09:00 08/03/18 09:00 ED Treatment Course - LABORATORY CBC & Chemistry Diagram: 08/03/18 10:24 08/03/18 10:24 Medical Decision Making - Medical Decision Making 08/03/18 10:35 Ms Guerrero is a 43 yo F with a h/o venous sinus thrombosis who has been NONCOMPLIANT with BOTH medical therapy AND Neurology follow up She presents to the ER with a complaint of a throbbing headache He did have a minor head trauma Will : Treat this patient's pain Repeat imaging Will admit Pt seen by Midlevel Provider under my direct supervision Pt interviewed and examined Ancillary studies reviewed I agree with plan as outlined by Midlevel Provider *DC/Admit/Observation/Transfer Diagnosis at time of Disposition: Headache, Cerebral venous sinus thrombosis, chronic - Discharge Dispostion Condition at time of disposition: Fair - Referrals - Patient Instructions - Post Discharge Activity
--- NOTE | 2018-08-03 10:43 | PDOC ---
History of Present Illness - General Chief Complaint: Headache Stated Complaint: WEAKNESS Time Seen by Provider: 08/03/18 09:29 History Source: Patient - History of Present Illness Timing/Duration: reports: other Past History - Past Medical History Allergies/Adverse Reactions: Allergies Allergy/AdvReac Type Severity Reaction Status Date / Time nut - unspecified Allergy Unknown Verified 08/03/18 09:15 Home Medications: Ambulatory Orders Acetaminophen W/ Codeine #3 [Tylenol # 3 -] 2 tab PO DAILY 08/03/18 Albuterol Sulfate [Proair Hfa] 8.5 gm IH PRN PRN 08/03/18 Citalopram Hydrobromide [Celexa -] 10 mg PO DAILY 08/03/18 Clonazepam 1 mg PO DAILY 08/03/18 Hydrocortisone 2.5% Topical Cr [Anusol 2.5% Hc Cream -] 1 applic TP DAILY Quetiapine Fumarate [Quetiapine Fumarate ER] 150 mg PO HS 08/03/18 Scopolamine [Transderm-Scop] 1 each TD DAILY 08/03/18 Warfarin Na [Coumadin] 10 mg PO DAILY 08/03/18 Cancer: Yes (Cervical, herpes, hpv) CVA: No (left jugular vein thrombosis, Cerebal shilpa throm) COPD: No Psychiatric Problems: Yes (Depression, anxiety, mental illness) Other medical history: Sigmoid bld. clots, - Immunization History Immunization Up to Date: No - Suicide/Smoking/Psychosocial Hx Smoking Status: Yes (1.5 pack per day) Smoking History: Current every day smoker Have you smoked in the past 12 months: Yes Number of Cigarettes Smoked Daily: 5 Information on smoking cessation initiated: Yes 'Breaking Loose' booklet given: 05/06/18 Hx Alcohol Use: No Drug/Substance Use Hx: No Substance Use Type: None Review of Systems - Review of Systems HEENTM: No: Blurred Vision ABD/GI: No: Nausea, Vomiting Neurological: Yes: Headache. No: Weakness, Dizziness *Physical Exam - Vital Signs Last Vital Signs Temp Pulse Resp BP Pulse Ox 98.1 F 99 H 18 117/79 99 08/03/18 09:00 08/03/18 09:00 08/03/18 09:00 08/03/18 09:00 08/03/18 09:00 - Physical Exam General Appearance: Yes: Appropriately Dressed. 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 negative: Facial Droop, Disoriented ED Treatment Course - LABORATORY CBC & Chemistry Diagram: 08/03/18 10:24 08/03/18 10:24 - RADIOLOGY Radiology Studies Ordered: Category Date Time Status BRAIN MRA W/O CONTRAST [MRI] Stat MRI 08/03/18 10:35 Ordered BRAIN MRI W/O CONTRAST [MRI] Stat MRI 08/03/18 10:34 Ordered Medical Decision Making - Medical Decision Making 08/03/18 10:41 43-year-old female, history of HSV, HPV, anxiety, depression, venous sinus thrombosis, non-compliant with Coumadin, follows up with neurologist and neurosurgeon in [place], p/w her usual headache. Patient complaining of pulsating pain to frontal aspect of head and L occiput/neck. No change in baseline. Patient was last admitted April of this year for headache in the setting of med noncompliance and had MRI done which revealed "faint flow in left transverse sinus, jugular foramen (minimal recannulization of the thrombosed transverse sinus thrombosis). Plan was to dc patient with Lovenox injection to bridge to Coumadin, but patient refused to give herself injections , so was admitted for same but ultimately left AMA prior to therapeutic INR. Was given rx for coumadin. Patient states since then she has taken Coumadin intermittently because she does not like the side effects. Saw her PMD in June and states INR was 0. Was told to follow-up with neuro to arrange for MRI, but patient states she had no money to take transportation to see M.D in [place]. Also reporting that for the past several nights she's had difficulty sleeping despite taking her Seroquel and that 3 nights ago, she woke up and walked to the kitchen to get something to eat and accidentally struck right frontal head against fridge door. No worsening headache, LOC, dizziness, nausea, vomiting, visual changes or focal weakness See exam H/o venous sinus thrombosis, non-complaint w/ AC, here w/ usual BAUTISTA Stable w/ intact neuro exam -labs including INR -MRI/A brain -admit 08/03/18 10:52 08/03/18 14:14 INR 1. Case discussed with Dr. Gilliland and patient admitted. Danna, requesting Dr. Levine of neurology to be consulted. MRI still pending at this time 08/03/18 14:14 *DC/Admit/Observation/Transfer Diagnosis at time of Disposition: Cerebral venous sinus thrombosis, chronic Headache Qualifiers: Headache type: unspecified Headache chronicity pattern: chronic headache Intractability: not intractable Qualified Code(s): R51 - Headache - Discharge Dispostion Condition at time of disposition: Fair Decision to Admit order: Yes - Referrals - Patient Instructions - Post Discharge Activity
[2018-08-03 12:20] LABS: BASO % 0.6 % (0-2.0); EOS % 0.3 % (0-4.5); HEMATOCRIT 35.9 % (32.4-45.2); HEMOGLOBIN 11.9 GM/dL (10.7-15.3); LYMPH % 21.8 % (8-40); MCH 28.8 pg (25.7-33.7); MCHC 33.1 g/dl (32.0-36.0); MEAN CELL VOLUME 87.2 fl (80-96); MEAN PLT VOLUME 8.7 fl (7.5-11.1); MONO % 3.9 % (3.8-10.2); NEUT % 73.4 % (42.8-82.8); PLATELET COUNT 236 K/MM3 (134-434); RBC 4.12 M/mm3 (3.60-5.2); RDW 15.5 % (11.6-15.6); WHITE BLOOD COUNT 9.3 K/mm3 (4.0-10.0)
[2018-08-03 12:32] LABS: INR 1.08 (0.83-1.09); PROTHROMBIN TIME (PATIENT) 12.8 SEC (9.7-13.0)
[2018-08-03 12:34] LABS: ALBUMIN 3.5 g/dl (3.4-5.0); ALK PHOS 72 U/L (45-117); ANION GAP 7 MMOL/L (8-16); BILIRUBIN,TOTAL 0.4 mg/dL (0.2-1); BLOOD UREA NITROGEN 8 mg/dL (7-18); CALCIUM 9.2 mg/dL (8.5-10.1); CHLORIDE 109 mmol/L (98-107); CO2 24 mmol/L (21-32); CREATININE 0.8 mg/dL (0.55-1.3); GLUCOSE,RANDOM 82 mg/dL (74-106); SGOT/AST 23 U/L (15-37); SGPT/ALT 28 U/L (13-61); SODIUM 140 mmol/L (136-145); TOT PROT 7.1 g/dl (6.4-8.2)
--- NOTE | 2018-08-03 18:03 | HP ---
Admitting History and Physical - Primary Care Physician PCP: Guero Gilliland - Admission History of Present Illness: 43-year-old female, history of HSV, HPV, anxiety, depression, venous sinus thrombosis, non-compliant with Coumadin, follows up with neurologist and neurosurgeon in [place], p/w her usual headache. Patient complaining of pulsating pain to frontal aspect of head and L occiput/neck. No change in baseline. Patient was last admitted April of this year for headache in the setting of med noncompliance and had MRI done which revealed "faint flow in left transverse sinus, jugular foramen (minimal recannulization of the thrombosed transverse sinus thrombosis). Plan was to dc patient with Lovenox injection to bridge to Coumadin, but patient refused to give herself injections , so was admitted for same but ultimately left AMA prior to therapeutic INR. Was given rx for coumadin. Patient states since then she has taken Coumadin intermittently because she does not like the side effects. Saw her PMD in June and states INR was 0. Was told to follow-up with neuro to arrange for MRI, but patient states she had no money to take transportation to see M.D in [place]. Also reporting that for the past several nights she's had difficulty sleeping despite taking her Seroquel and that 3 nights ago, she woke up and walked to the kitchen to get something to eat and accidentally struck right frontal head against fridge door. No worsening headache, LOC, dizziness, nausea, vomiting, visual changes or focal weakness - Past Medical History ...LMP: 01/11/17 Psych: Yes: Anxiety, Depression ENT: Yes: Sinusitis - Smoking History Smoking history: Current every day smoker Have you smoked in the past 12 months: Yes Aproximately how many cigarettes per day: 5 - Alcohol/Substance Use Hx Alcohol Use: No - Social History History of Recent Travel: No Home Medications - Allergies Allergies/Adverse Reactions: Allergies Allergy/AdvReac Type Severity Reaction Status Date / Time nut - unspecified Allergy Unknown Verified 08/03/18 09:15 - Home Medications Home Medications: Ambulatory Orders Acetaminophen W/ Codeine #3 [Tylenol # 3 -] 2 tab PO DAILY 08/03/18 Albuterol Sulfate [Proair Hfa] 8.5 gm IH PRN PRN 08/03/18 Citalopram Hydrobromide [Celexa -] 10 mg PO DAILY 08/03/18 Clonazepam 1 mg PO DAILY 08/03/18 Hydrocortisone 2.5% Topical Cr [Anusol 2.5% Hc Cream -] 1 applic TP DAILY Quetiapine Fumarate [Quetiapine Fumarate ER] 150 mg PO HS 08/03/18 Scopolamine [Transderm-Scop] 1 each TD DAILY 08/03/18 Warfarin Na [Coumadin] 10 mg PO DAILY 08/03/18 Physical Examination Vital Signs: Vital Signs Temperature 98.2 F 08/03/18 16:52 Pulse Rate 76 08/03/18 17:27 Respiratory Rate 18 08/03/18 17:27 Blood Pressure 110/63 08/03/18 17:27 O2 Sat by Pulse Oximetry (%) 98 08/03/18 17:27 Constitutional: Yes: No Distress HENT: Yes: Atraumatic Neck: Yes: Supple Cardiovascular: Yes: Regular Rate and Rhythm Respiratory: Yes: CTA Bilaterally Gastrointestinal: Yes: Normal Bowel Sounds Extremities: Yes: WNL Edema: No Peripheral Pulses WNL: Yes Neurological: Yes: Alert, Oriented Labs: CBC, BMP 08/03/18 10:24 08/03/18 10:24 Problem List - Problems (1) Cerebral venous sinus thrombosis, chronic Assessment/Plan: will start her back on coumadin neuro consult Code(s): G08 - INTRACRANIAL AND INTRASPINAL PHLEBITIS AND THROMBOPHLEBITIS (2) Headache Assessment/Plan: prn pain meds Code(s): R51 - HEADACHE Qualifiers: Headache type: unspecified Headache chronicity pattern: chronic headache Intractability: not intractable Qualified Code(s): R51 - Headache Assessment/Plan Laboratory Results - last 24 hr 08/03/18 08/03/18 08/03/18 10:24 10:24 10:24 WBC 9.3 RBC 4.12 Hgb 11.9 Hct 35.9 MCV 87.2 MCH 28.8 MCHC 33.1 RDW 15.5 Plt Count 236 MPV 8.7 Absolute Neuts (auto) 6.9 Neutrophils % 73.4 Lymphocytes % 21.8 Monocytes % 3.9 Eosinophils % 0.3 Basophils % 0.6 Nucleated RBC % 0 PT with INR 12.80 INR 1.08 Sodium Potassium Chloride Carbon Dioxide Anion Gap BUN Creatinine Creat Clearance w eGFR Random Glucose Calcium Total Bilirubin AST ALT Alkaline Phosphatase Total Protein Albumin Serum , Qual Negative 08/03/18 10:24 WBC RBC Hgb Hct MCV MCH MCHC RDW Plt Count MPV Absolute Neuts (auto) Neutrophils % Lymphocytes % Monocytes % Eosinophils % Basophils % Nucleated RBC % PT with INR INR Sodium 140 Potassium 4.0 Chloride 109 H Carbon Dioxide 24 Anion Gap 7 L BUN 8 Creatinine 0.8 Creat Clearance w eGFR > 60 Random Glucose 82 Calcium 9.2 Total Bilirubin 0.4 AST 23 ALT 28 Alkaline Phosphatase 72 Total Protein 7.1 Albumin 3.5 Serum , Qual Active Medications Generic Name Dose Route Start Last Admin Trade Name Freq PRN Reason Stop Dose Admin Acetaminophen 650 mg 08/03/18 21:27 Tylenol - PO Q6H PRN FEVER Citalopram Hydrobromide 10 mg 08/04/18 10:00 08/04/18 09:57 Celexa - PO 10 mg DAILY TRANG Administration Clonazepam 1 mg 08/04/18 10:00 08/04/18 09:56 Klonopin - PO 1 mg DAILY TRANG Administration Ibuprofen 600 mg 08/03/18 21:42 08/04/18 16:49 Motrin - PO 600 mg Q6H PRN Administration FEVER Quetiapine Fumarate 150 mg 08/03/18 22:00 08/03/18 23:16 Seroquel Xr - PO Not Given HS TRANG Scopolamine HBr 1 patch 08/04/18 10:00 08/04/18 09:57 Transderm-Scop - TD 1 patch DAILY TRANG Administration Warfarin Sodium 10 mg 08/03/18 21:27 08/04/18 17:53 Coumadin - PO 10 mg DAILY@1800 TRANG Administration
[2018-08-03] MEDS ORDERED: ACETAMINOPHEN 325 MG TABLET (FP) PO PRN (21:27)
[2018-08-03] MEDS: WARFARIN NA 10 MG TABLET (FP) PO SCH (23:16)
[2018-08-04 01:28] VITALS: BMI 38.7
--- NOTE | 2018-08-04 07:10 | CON.NEURO ---
Consult Consult Specialty:: Neurology Referred by:: Dr. Gilliland Reason for Consultation:: Headache/Sinus Thrombosis - History of Present Illness Chief Complaint: Headache History of Present Illness: Patient is a 43 year old woman who was diagnosed with venous sinus thrombosus 2016 here at [facility] but followed at [facility] on warfarin. She has a history of intermittent compliance and comes in last night with headache. She reports onset of headache of about 1 1/2 weeks duration. She hit her head last week, and this is actually what worried her. She had been found to have low INR on two occasions and her warfarin dose was recently increased. She acknowledges that she didn't take her dose on two days last week though, it seems, because she doesn't like the bruising that it causes. While in the ER last night she had MRI scan and MRV which have not been read as yet, but to my eyes, show persistent low flow in the left transverse/sigmoid sinus. - History Source History Provided By: Patient, Medical Record Limitations to Obtaining History: Poor Historian - Past Medical History CAR DUMPER: Yes: Other (Left Trasverse/Sigmoid Adelaida Sinus Thrombosis) ...LMP: 01/11/17 ...: No Psych: Yes: Anxiety, Depression ENT: Yes: Sinusitis - Alcohol/Substance Use Hx Alcohol Use: No - Smoking History Smoking history: Current every day smoker Have you smoked in the past 12 months: Yes Aproximately how many cigarettes per day: 5 - Social History History of Recent Travel: No Home Medications - Allergies Allergies/Adverse Reactions: Allergies Allergy/AdvReac Type Severity Reaction Status Date / Time nut - unspecified Allergy Unknown Verified 08/03/18 09:15 - Home Medications Home Medications: Ambulatory Orders Acetaminophen W/ Codeine #3 [Tylenol # 3 -] 2 tab PO DAILY 08/03/18 Albuterol Sulfate [Proair Hfa] 8.5 gm IH PRN PRN 08/03/18 Citalopram Hydrobromide [Celexa -] 10 mg PO DAILY 08/03/18 Clonazepam 1 mg PO DAILY 08/03/18 Hydrocortisone 2.5% Topical Cr [Anusol 2.5% Hc Cream -] 1 applic TP DAILY Quetiapine Fumarate [Quetiapine Fumarate ER] 150 mg PO HS 08/03/18 Scopolamine [Transderm-Scop] 1 each TD DAILY 08/03/18 Warfarin Na [Coumadin] 10 mg PO DAILY 08/03/18 Review of Systems - Review of Systems Neurological: reports: Headache (She has a history of headaches that precede her Sinus thrombosis, but these are distinct) Physical Exam-Neuro Vital Signs: Vital Signs Temperature 97.5 F L 08/04/18 05:54 Pulse Rate 68 08/04/18 05:54 Respiratory Rate 18 08/04/18 05:54 Blood Pressure 112/48 L 08/04/18 05:54 O2 Sat by Pulse Oximetry (%) 98 08/03/18 18:49 Constitutional: Yes: Obese Neck: Yes: Supple Labs: CBC, BMP 08/03/18 10:24 08/03/18 10:24 INR, PTT INR 1.08 (0.83-1.09) 08/03/18 10:24 - Neuro Exam Level Of Consciousness: Yes: Alert, Oriented to Person, Oriented to Place, Oriented to Time Eyes: Yes: AARON, Other (EOMI) Speech: WNL Cranial Nerves II-XII Intact: Yes DTR's: 2+ Left Bicep, 2+ Right Bicep, 2+ Left Tricep, 2+ Right Tricep, 2+ Left Brachioradialis, 2+ Right Brachioradialis, 2+ Left Achilles, 2+ Right Achilles Babinski: Absent Response to light touch: Normal Coordination: Normal: Finger to Nose, Heel to Fong Motor Strength: 5/5: Right Arm, Left Arm, Left Leg, Right Leg Gait: Normal Imaging - Results MRI: Image Reviewed (Report not yet available. To my eyes, low flow in left transverse/sigmoid adelaida sinus, suggesting persistent thrombosis) Problem List - Problems (1) Noncompliance Code(s): Z91.19 - PATIENT'S NONCOMPLIANCE W OTH MEDICAL TREATMENT AND REGIMEN (2) Cerebral venous sinus thrombosis, chronic Code(s): G08 - INTRACRANIAL AND INTRASPINAL PHLEBITIS AND THROMBOPHLEBITIS (3) Headache Code(s): R51 - HEADACHE Qualifiers: Headache type: unspecified Headache chronicity pattern: chronic headache Intractability: not intractable Qualified Code(s): R51 - Headache (4) Cerebral venous sinus thrombosis, acute Code(s): G08 - INTRACRANIAL AND INTRASPINAL PHLEBITIS AND THROMBOPHLEBITIS (5) Anxiety Code(s): F41.9 - ANXIETY DISORDER, UNSPECIFIED (6) Smoker Code(s): F17.200 - NICOTINE DEPENDENCE, UNSPECIFIED, UNCOMPLICATED Assessment/Plan 43 year old woman with dural sinus thrombosis followed at [facility] on warfarin who hit her head and has headache. To my eyes, no evidence of cerebral hemorrhage, but persistent sinus thrombosis. Her cases is complicated by chronic noncompliance with her warfarin regimen. If radiology, confirms that indeed there is no bleeding from the head trauma, I think that she would best be managed as outpatient in her clinic at [facility] and that ongoing hospitalization would serve no role. Alternatively, she could follow up at a more convenient clinic if that works better for her, though ultimately, I am unconvinced that she is really not following up for the reasons she says that she is. These are choices that she makes, for example, giving up the 5 cigarettes that she smokes every day would pay for her transportation to and from her doctor if she made that choice. When she gets scared by a headache she comes in but when she is not scared, it seems she loses perspective on just how serious her problem is. I suspect that this is more at issue than the location of her neurologist.
[2018-08-04] MEDS: IBUPROFEN 600 MG TABLET (FP) PO PRN ×2 (09:55→16:49)
[2018-08-04] MEDS: CITALOPRAM HYDROBROMIDE 10 MG TABLET (FP) PO SCH (09:57)
[2018-08-04] MEDS: SCOPOLAMINE HYDROBROMIDE 1 PATCH PATCH.TD72 TD SCH (09:57)
[2018-08-04] MEDS ORDERED: clonazePAM 0.5 MG TABLET PO SCH ×2 (10:00→23:15)
[2018-08-04] MEDS: WARFARIN NA 10 MG TABLET (FP) PO SCH (17:53)
--- NOTE | 2018-08-04 18:47 | PN ---
Progress Note, Physician - Current Medication List Current Medications: Active Medications Acetaminophen (Tylenol -) 650 mg PO Q6H PRN PRN Reason: FEVER Citalopram Hydrobromide (Celexa -) 10 mg PO DAILY [facility] Last Admin: 08/04/18 09:57 Dose: 10 mg Clonazepam (Klonopin -) 1 mg PO DAILY [facility] Last Admin: 08/04/18 09:56 Dose: 1 mg Ibuprofen (Motrin -) 600 mg PO Q6H PRN PRN Reason: FEVER Last Admin: 08/04/18 16:49 Dose: 600 mg Quetiapine Fumarate (Seroquel Xr -) 150 mg PO HS [facility] Last Admin: 08/03/18 23:16 Dose: Not Given Scopolamine HBr (Transderm-Scop -) 1 patch TD DAILY [facility] Last Admin: 08/04/18 09:57 Dose: 1 patch Warfarin Sodium (Coumadin -) 10 mg PO DAILY@1800 [facility] Last Admin: 08/04/18 17:53 Dose: 10 mg - Objective Vital Signs: Vital Signs Temperature 97.6 F 08/04/18 18:00 Pulse Rate 76 08/04/18 18:00 Respiratory Rate 20 08/04/18 18:00 Blood Pressure 108/59 L 08/04/18 18:00 O2 Sat by Pulse Oximetry (%) 98 08/04/18 09:00 Constitutional: Yes: No Distress HENT: Yes: Atraumatic Neck: Yes: Supple Cardiovascular: Yes: Regular Rate and Rhythm Respiratory: Yes: Rhonchi Gastrointestinal: Yes: Normal Bowel Sounds Extremities: Yes: WNL Edema: No Neurological: Yes: Alert, Oriented Labs: CBC, BMP 08/03/18 10:24 08/03/18 10:24 INR, PTT INR 1.08 (0.83-1.09) 08/03/18 10:24 Problem List - Problems (1) Cerebral venous sinus thrombosis, chronic Assessment/Plan: on coumadin neuro consult Code(s): G08 - INTRACRANIAL AND INTRASPINAL PHLEBITIS AND THROMBOPHLEBITIS (2) Headache Assessment/Plan: prn pain meds Code(s): R51 - HEADACHE Qualifiers: Headache type: unspecified Headache chronicity pattern: chronic headache Intractability: not intractable Qualified Code(s): R51 - Headache
[2018-08-04 21:47] LABS: INR 0.97 (0.83-1.09); PROTHROMBIN TIME (PATIENT) 11.4 SEC (9.7-13.0)
[2018-08-04] MEDS: clonazePAM 0.5 MG TABLET PO SCH (23:45)
[2018-08-05 07:58] LABS: INR 1.03 (0.83-1.09); PROTHROMBIN TIME (PATIENT) 12.2 SEC (9.7-13.0)
[2018-08-05] MEDS: clonazePAM 0.5 MG TABLET PO SCH ×2 (09:47→22:37)
[2018-08-05] MEDS: CITALOPRAM HYDROBROMIDE 10 MG TABLET (FP) PO SCH (09:48)
[2018-08-05] MEDS: SCOPOLAMINE HYDROBROMIDE 1 PATCH PATCH.TD72 TD SCH (09:48)
--- NOTE | 2018-08-05 16:13 | PN ---
Progress Note, Physician History of Present Illness: feeling much better headache resolved - Current Medication List Current Medications: Active Medications Acetaminophen (Tylenol -) 650 mg PO Q6H PRN PRN Reason: FEVER Citalopram Hydrobromide (Celexa -) 10 mg PO DAILY [facility] Last Admin: 08/05/18 09:48 Dose: 10 mg Clonazepam (Klonopin -) 1 mg PO BID [facility] Last Admin: 08/05/18 09:47 Dose: 1 mg Ibuprofen (Motrin -) 600 mg PO Q6H PRN PRN Reason: FEVER Last Admin: 08/04/18 16:49 Dose: 600 mg Quetiapine Fumarate (Seroquel Xr -) 150 mg PO HS [facility] Last Admin: 08/04/18 21:42 Dose: 150 mg Scopolamine HBr (Transderm-Scop -) 1 patch TD DAILY [facility] Last Admin: 08/05/18 09:48 Dose: 1 patch Warfarin Sodium (Coumadin -) 10 mg PO DAILY@1800 [facility] Last Admin: 08/04/18 17:53 Dose: 10 mg - Objective Vital Signs: Vital Signs Temperature 98.3 F 08/05/18 14:52 Pulse Rate 81 08/05/18 14:52 Respiratory Rate 20 08/05/18 14:52 Blood Pressure 116/88 08/05/18 14:52 O2 Sat by Pulse Oximetry (%) 98 08/05/18 09:00 Constitutional: Yes: No Distress HENT: Yes: Atraumatic Neck: Yes: Supple Cardiovascular: Yes: Regular Rate and Rhythm Respiratory: Yes: CTA Bilaterally Extremities: Yes: WNL Edema: No Peripheral Pulses WNL: Yes Neurological: Yes: Alert, Oriented Labs: CBC, BMP 08/03/18 10:24 08/03/18 10:24 INR, PTT INR 1.03 (0.83-1.09) 08/05/18 06:00 Problem List - Problems (1) Cerebral venous sinus thrombosis, chronic Assessment/Plan: on coumadin will fu inr, not therapeutic yet d/w patient in detail about care plan Code(s): G08 - INTRACRANIAL AND INTRASPINAL PHLEBITIS AND THROMBOPHLEBITIS (2) Headache Assessment/Plan: prn pain meds Code(s): R51 - HEADACHE Qualifiers: Headache type: unspecified Headache chronicity pattern: chronic headache Intractability: not intractable Qualified Code(s): R51 - Headache
[2018-08-05] MEDS: WARFARIN NA 10 MG TABLET (FP) PO SCH (18:22)
[2018-08-05] MEDS ORDERED: WARFARIN NA 5 MG TABLET (UD) PO ONE (19:45)
[2018-08-06] MEDS ORDERED: MELATONIN 5 MG TABLETS PO ONE (00:48)
[2018-08-06 06:11] VITALS: BP 111/67; PULSE 72; TEMP 97.7
[2018-08-06 09:22] LABS: INR 1.15 (0.83-1.09); PROTHROMBIN TIME (PATIENT) 13.6 SEC (9.7-13.0)
[2018-08-06] MEDS: CITALOPRAM HYDROBROMIDE 10 MG TABLET (FP) PO SCH (10:06)
[2018-08-06] MEDS: SCOPOLAMINE HYDROBROMIDE 1 PATCH PATCH.TD72 TD SCH (10:07)
[2018-08-06] MEDS: clonazePAM 0.5 MG TABLET PO SCH (10:07)
--- NOTE | 2018-08-06 16:26 | DS ---
Physical Examination Vital Signs: Vital Signs Temperature 97.7 F 08/06/18 06:10 Pulse Rate 72 08/06/18 06:10 Respiratory Rate 18 08/06/18 06:10 Blood Pressure 111/67 08/06/18 06:10 O2 Sat by Pulse Oximetry (%) 95 08/05/18 21:00 Labs: CBC, BMP 08/03/18 10:24 08/03/18 10:24 Discharge Summary Reason For Visit: HEADACHE, CHRONIC CEREBRAL VENOUS SINUS THROMBOSIS Condition: Fair - Instructions Disposition: AGAINST MEDICAL ADVICE - Home Medications Comprehensive Discharge Medication List: Ambulatory Orders Acetaminophen W/ Codeine #3 [Tylenol # 3 -] 2 tab PO DAILY 08/03/18 Albuterol Sulfate [Proair Hfa] 8.5 gm IH PRN PRN 08/03/18 Citalopram Hydrobromide [Celexa -] 10 mg PO DAILY 08/03/18 Clonazepam 1 mg PO DAILY 08/03/18 Hydrocortisone 2.5% Topical Cr [Anusol 2.5% Hc Cream -] 1 applic TP DAILY Quetiapine Fumarate [Quetiapine Fumarate ER] 150 mg PO HS 08/03/18 Scopolamine [Transderm-Scop] 1 each TD DAILY 08/03/18 Warfarin Na [Coumadin] 10 mg PO DAILY 08/03/18 AMA
== END 2018-08-06 12:06 | disposition left against medical advice (07) | DRG 93 ==
LOC: JER 08:48 → JERBED 14:07 → J7W 20:43
PROVIDERS: ADMIT Internal Medicine; ATTEND Internal Medicine
DX: G08 Intracranial and intraspinal phlebitis and thrombophlebitis (principal); R51 Headache; F41.9 Anxiety disorder, unspecified; F17.210 Nicotine dependence, cigarettes, uncomplicated; Z91.19 Patient's noncompliance with other medical treatment and regimen; F32.9 Major depressive disorder, single episode, unspecified
CPT/HCPCS: 36415; 70544-TC; 70551-TC; 80053; 84703; 85025; 85610; 99283-25

== ENCOUNTER 2018-10-17 21:58 | Observation (INO) | payer OTHER ==
[2018-10-17 22:09] VITALS: BMI 38.2
[2018-10-17] MEDS ORDERED: LORazepam 1 MG TABLET PO ONE (22:11)
[2018-10-17] MEDS ORDERED: morphine CARPU-JECT 4 MG/1 ML DISP.SYRIN IVPUSH ONE (22:18)
[2018-10-17] MEDS ORDERED: LIDOCAINE 2.5%/PRILOCAINE 2.5% (5 Gram/TUBE) TP ONE ×2 (22:20→22:24)
[2018-10-17] MEDS ORDERED: morphine SULFATE 4 MG/ML VIAL ONE (22:23)
[2018-10-17] MEDS ORDERED: LORazepam 2 MG/ML SDV VIAL ONE ×2 (22:24→23:15)
--- NOTE | 2018-10-17 22:29 | PDOC ---
Attending Attestation - [facility] HPI: 10/17/18 22:54 The patient is a 43 year old female with a past medical history of 43-year-old female, history of HSV, HPV, anxiety, depression, and venous sinus thrombosis not compliant with Coumadin, who presents to the emergency department for evaluation of a 1 week history of worsening abscess on right side of buttocks with moderate pain. Patient reports she is not sure how she developed the abscess. Denies fevers or chills. - Physicial Exam PE: GENERAL: Awake, alert, and fully oriented, in no acute distress HEAD: No signs of trauma EYES: PERRLA, EOMI, sclera anicteric, conjunctiva clear ENT: Auricles normal inspection. NECK: Normal ROM. LUNGS: Breath sounds equal, clear to auscultation bilaterally. No wheezes, and no crackles HEART: Regular rate and rhythm, normal S1 and S2, no murmurs, rubs or gallops ABDOMEN: Soft, nontender, normoactive bowel sounds. No guarding, no rebound. No masses EXTREMITIES: Normal range of motion, no edema. No clubbing or cyanosis. No cords, erythema, or tenderness NEUROLOGICAL: Cranial nerves II through XII grossly intact. Normal speech, normal gait SKIN: (+)Right mid buttocks 4x4cm indurant with fluctuance. Surrounding erythema 8x8cm, tender to palpation, warm to touch. - Medical Decision Making Documentation prepared by Justo Whitman, acting as medical record coder for Kofi Dumont MD. <Justo Whitman - Last Filed: 10/17/18 22:54> - Resident Resident Name: Moris Valdez - ED Attending Attestation I have performed the following: I have examined & evaluated the patient, The case was reviewed & discussed with the resident, I agree w/resident's findings & plan, Exceptions are as noted - Medical Decision Making 10/17/18 22:25 A portion of this note was documented by scribe services under my direction. I have reviewed the details of the note, within reason, and agree with the documentation with the following case summary and management plan written by me. Patient treated in the ED. Nursing notes are reviewed and incorporated into the medical decision-making. Vital signs reviewed. Peripheral IV access obtained by the nurse, laboratory studies are drawn and sent, reviewed and interpreted by myself. Vital Signs Temp Pulse Resp BP Pulse Ox 98.2 F 108 H 20 132/72 99 10/17/18 21:58 10/17/18 21:58 10/17/18 21:58 10/17/18 21:58 10/17/18 21:58 43-year-old female patient with past medical history obesity, venous sinus thrombosis not hearing to her Coumadin, anxiety, depression presents with right superior mid buttocks abscess with cellulitis for last week. Patient is unsure how she got a. She did have a history of a cyst many years ago. No fevers or chills. Because the pain, she came to the ER. The patient is severely anxious here in the ER. She requests to be completely sedated or possibly the operating room for incision and drainage. I have spoken to the patient and we had initially agreed to do IV Ativan and attempt here in the ER. If unable to do it, we'll consult Gen. surgery for potential or incision and drainage. 10/18/18 00:22 Incision and drainage performed by Dr. Valdez. Wound was cleansed and drained. Wound culture was obtained. Bactrim and Keflex as ordered. However, patient reports that she's been noncompliant with her Coumadin. Patient desires to be back on given that she supposed be taking the medication. Patient is unsure and unable to take Lovenox at home. Given the circumstances, will need to bridge the patient from Lovenox to Coumadin and will admit the patient to be anticoagulated. <Kofi Dumont - Last Filed: 10/18/18 00:25>
[2018-10-17 22:42] LABS: BASO % 0.4 % (0-2.0); EOS % 0.1 % (0-4.5); HEMATOCRIT 34.8 % (32.4-45.2); HEMOGLOBIN 11.9 GM/dL (10.7-15.3); LYMPH % 11.5 % (8-40); MCH 29.7 pg (25.7-33.7); MCHC 34.2 g/dl (32.0-36.0); MEAN PLT VOLUME 8.5 fl (7.5-11.1); MONO % 4.7 % (3.8-10.2); NEUT % 83.3 % (42.8-82.8); PLATELET COUNT 190 K/MM3 (134-434); RDW 15.5 % (11.6-15.6); WHITE BLOOD COUNT 16.7 K/mm3 (4.0-10.0)
--- NOTE | 2018-10-17 22:42 | PDOC ---
History of Present Illness - General Chief Complaint: Pain, Acute Stated Complaint: ABSCESS Time Seen by Provider: 10/17/18 22:03 History Source: Patient Exam Limitations: No Limitations - History of Present Illness Initial Comments: 43 yo F w a sig pmh of HSV, HPV, Anxiety, Depression, venous sinus thrombosis presents to the ED with the chief complain of Right buttock pain. She states the pain began 1 week ago and has been getting worse and worse every day. Now the pain is so bad that she cannot make a bowel movement. The pain does not radiate. She denies having any recent fevers but does endorse having episodes of chills. She typically takes Coumadin but has not taken it today because she thought it would be bad for her to take it if they need to do anything at the hospital. Patient denies having chest pain, SOB, difficulty breathing, weakness, numbness , tingling, or chills, back pain, abdominal pain, dysuria, frequency, urgency, nausea, vomiting, diarrhea. PCP: Summer Mckeon Allergies: Nuts Social Hx: Patient smokes cigarettes, JUUL (E cigs), drinks recreationally. Denies using marijuana or other drugs. Past History - Past Medical History Allergies/Adverse Reactions: Allergies Allergy/AdvReac Type Severity Reaction Status Date / Time nut - unspecified Allergy Unknown Verified 10/17/18 22:09 Home Medications: Ambulatory Orders Acetaminophen W/ Codeine #3 [Tylenol # 3 -] 2 tab PO DAILY 08/03/18 Albuterol Sulfate [Proair Hfa] 8.5 gm IH PRN PRN 08/03/18 Citalopram Hydrobromide [Celexa -] 10 mg PO DAILY 08/03/18 Clonazepam 1 mg PO DAILY 08/03/18 Hydrocortisone 2.5% Topical Cr [Anusol 2.5% Hc Cream -] 1 applic TP DAILY Quetiapine Fumarate [Quetiapine Fumarate ER] 150 mg PO HS 08/03/18 Scopolamine [Transderm-Scop] 1 each TD DAILY 08/03/18 Warfarin Na [Coumadin] 10 mg PO DAILY 08/03/18 Cancer: Yes (Cervical, herpes, hpv) CVA: No (left jugular vein thrombosis, Cerebal shilpa throm) COPD: No Psychiatric Problems: Yes (Depression, anxiety, mental illness) - Immunization History Immunization Up to Date: No - Suicide/Smoking/Psychosocial Hx Smoking Status: Yes (1.5 pack per day) Smoking History: Never smoked Have you smoked in the past 12 months: No Number of Cigarettes Smoked Daily: 5 Information on smoking cessation initiated: No 'Breaking Loose' booklet given: 05/06/18 Hx Alcohol Use: No Drug/Substance Use Hx: No Substance Use Type: None Hx Substance Use Treatment: No Review of Systems - Review of Systems Able to Perform ROS?: Yes Comments:: CONSTITUTIONAL: Present: Chills Absent: fever, no fatigue EYES: Absent: visual changes ENT: Absent: ear pain, no sore throat CARDIOVASCULAR: Absent: chest pain, no palpitations RESPIRATORY: Absent: cough, no SOB GI: Present: Constipation Absent: abdominal pain, no nausea, no vomiting, no diarrhea GENITOURINARY: Absent: dysuria, no frequency, no hematuria MUSKULOSKELETAL: Absent: back pain, no arthralgia, no myalgia SKIN: Present: rash NEURO: Absent: headache *Physical Exam - Vital Signs Last Vital Signs Temp Pulse Resp BP Pulse Ox 98.2 F 108 H 20 132/72 99 10/17/18 21:58 10/17/18 21:58 10/17/18 21:58 10/17/18 21:58 10/17/18 21:58 - Physical Exam Comments: GENERAL: Well-appearing, well-nourished. Mild distress. HEENT: Normocephalic, atraumatic. PERRL, EOM intact. CARDIOVASCULAR: Normal S1, S2. Tachycardic rate and regular rhythm. PULMONARY: Clear to auscultation bilaterally. ABDOMEN: Soft, non-distended, non-tender. BUTTOCKS: The Right Buttock has a 6x6 cm erythematous, fluctuant, indurated abscess, warm to touch with surrounding erythema EXTREMITIES: Normal ROM in all four extremities. No gross deformities. SKIN: Warm, dry. No rash NEUROLOGICAL: No focal neurological deficits. Moderate Sedation - Procedure Monitoring Vital Signs: Procedure Monitoring Vital Signs Temperature 98.2 F 10/17/18 21:58 Pulse Rate 108 H 10/17/18 21:58 Respiratory Rate 20 10/17/18 21:58 Blood Pressure 132/72 10/17/18 21:58 O2 Sat by Pulse Oximetry (%) 99 10/17/18 21:58 Procedures - Incision and Drainage I&D Site: Right: Buttock (mid) Betadine cleansed: Yes Anesthesia: 2% Lidocaine Volume(ml): 20 Blade Size: 10 Attempts: 1 Plain Packing: No Complications: none Dressing: Yes - Additional Procedures Additional Procedures: other (20 gauge IV placed in Right AC) ED Treatment Course - LABORATORY CBC & Chemistry Diagram: 10/17/18 22:30 10/17/18 22:30 - Medications Given in the ED: ED Medications Discontinued Medications Generic Name Dose Route Start Last Admin Trade Name Emma PRN Reason Stop Dose Admin Lidocaine/Prilocaine 10 applic 10/17/18 22:20 10/17/18 22:40 Emla - TP 10/17/18 22:21 10 applic ONCE ONE Administration Lorazepam 1 mg 10/17/18 22:11 10/17/18 22:35 Ativan - PO 10/17/18 22:12 1 mg ONCE ONE Administration Morphine Sulfate 4 mg 10/17/18 22:18 10/17/18 22:35 Morphine Injection - IVPUSH 10/17/18 22:19 4 mg ONCE ONE Administration Medical Decision Making - Medical Decision Making 43 yo F w a sig pmh of HSV, HPV, Anxiety, Depression, venous sinus thrombosis presents to the ED with the chief complain of Right buttock pain. This appears to be an abscess with surrounding erythema and cellulitis. DDx IBNLT: Abscess Perianal vs perirectal, cellulitis, sepsis. Plan: Cbc, Cmp, Pt/ptt, type and screen, blood cultures, ativan, morphine, EMLA cream, US view of abscess, +/- I&D, +/-surgical consult, re-assess. I placed a 20 gauge IV placed in Right AC. US showed a significant pocket of loculated pus. I/D performed with drainage of 20 cc Patient has not been taking her coumadin and her INR is now subtherapeutic. She states she is not able to give herself the lovenox shot on her own and needs to be admitted to the hospital to achieve a therapeutic INR. Will admit to hospitalist. *DC/Admit/Observation/Transfer Diagnosis at time of Disposition: Subtherapeutic international normalized ratio (INR), Abscess, Cellulitis and abscess of buttock - Discharge Dispostion Condition at time of disposition: Fair Decision to Admit order: Yes - Referrals - Patient Instructions - Post Discharge Activity
[2018-10-17] MEDS ORDERED: SODIUM CHLORIDE 0.9% 500 ML INFUS.BAG IV ONE (22:58)
[2018-10-17 23:03] LABS: INR 1.3 (0.83-1.09); PROTHROMBIN TIME (PATIENT) 15.4 SEC (9.7-13.0)
[2018-10-17 23:05] LABS: ACTIVATED PTT 26.6 SECONDS (25.2-36.5)
[2018-10-17] MEDS ORDERED: LIDOCAINE HCL 2% (50ML VIAL) SQ ONE (23:11)
[2018-10-17] MEDS ORDERED: LIDOCAINE HCL 2% (20ML MULTI-DOSE VIAL) NR ONE (23:14)
[2018-10-17 23:21] LABS: ALBUMIN 3.2 g/dl (3.4-5.0); ALK PHOS 73 U/L (45-117); ANION GAP 9 MMOL/L (8-16); BILIRUBIN,TOTAL 0.4 mg/dL (0.2-1); BLOOD UREA NITROGEN 10 mg/dL (7-18); CALCIUM 8.2 mg/dL (8.5-10.1); CHLORIDE 101 mmol/L (98-107); CO2 27 mmol/L (21-32); CREATININE 1.1 mg/dL (0.55-1.3); GLUCOSE,RANDOM 91 mg/dL (74-106); POTASSIUM 3.7 mmol/L (3.5-5.1); SGOT/AST 18 U/L (15-37); SGPT/ALT 21 U/L (13-61); SODIUM 136 mmol/L (136-145); TOT PROT 6.9 g/dl (6.4-8.2)
[2018-10-18] MEDS ORDERED: CEPHALEXIN MONOHYDRATE 500 MG CAPSULE (UD) PO ONE (00:17)
[2018-10-18] MEDS ORDERED: SULFAMETHOXAZOLE/TRIMETHOPRIM 800MG/160MG D.S. TABLET PO ONE (00:18)
[2018-10-18 00:19] LABS: PLATELET ESTIMATE NORMAL
--- NOTE | 2018-10-18 01:00 | PN ---
Teaching Attending Note Name of Resident: Adin Choi ATTENDING PHYSICIAN STATEMENT I saw and evaluated the patient. I reviewed the resident's note and discussed the case with the resident. I agree with the resident's findings and plan as documented. SUBJECTIVE: Seen and examined; please refer to resident note for additional historical information. In brief, this is a 43 y/o with a PMH of chronic transverse sinus thrombosis most recently re-confirmed on 07/2018 MRI/MRV, HSV, HPV who presents to the ER with a rectal abscess. This was drained appropriately in the ER. Denies any trauma to the area; did have a cyst there in the past. She is noted to be subtherapeutic with her INR. Review of her chart shows that Dr. Amaya in neurology has seen her in the past for this issue. Her treatment for the venous thrombosis has been marred with noncompliance that has been reflected in her several visits here. She follows at [facility] for this. No new neurological sx. Admitting to the medicine service. 10 sys ROS done and negative aside from HPI PMH and PSH reviewed FH asked and noncontributory Socially positive for AMA DC in the past, Tobacco use Medication List reviewed OBJECTIVE: VS, labs, imaging reviewed NAD, AAO, resting in bed Rectal abscess s/p drainge; bandaged, some surrounding cellulitis RRR s1/2 no mgr NC AT EOMI PERRLA Labs show leukocytosis with left shift, unremarkable chemistry ASSESSMENT AND PLAN: Mrs. Guerrero is a 43 y/o female with a perirectal abscess and subtherapeutic INR for her chronic venous sinus thrombosis. Placing on observation. 1) Perirectal abscess -S/P drainage -IV zosyn until cultures back; high risk for anaerobes, etc. Consult ID; await blood and wound cultures. Given concern there was an area unable to be drained we will consult Gen Surg to look at the wound. -Wound care -Pain control with PO Tylenol 3 2) Chronic Transverse Sinus Thrombosis -Old neurologic consults noted; noncompliance has been a chronic issue -Bridge with lovenox, restart coumadin, follow INR. -She will need close followup with her [facility] clinic 3) Anxiety/Depression -Continue home meds wihtout any changes; followup QTc 4) H/O HSV -Continue home meds DVT px: On lovenox GI px: Not indicated Full Code
[2018-10-18] MEDS ORDERED: SULFAMETHOXAZOLE/TRIMETHOPRIM 800MG/160MG D.S. TABLET ONE (01:03)
[2018-10-18] MEDS ORDERED: CEPHALEXIN MONOHYDRATE 500 MG CAPSULE (UD) ONE (01:03)
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
[2018-10-18] MEDS ORDERED: SODIUM CHLORIDE 1,000 ML IV SCH (02:00)
[2018-10-18] MEDS ORDERED: ACETAMINOPHEN 325 MG TABLET (FP) PO PRN (02:00)
[2018-10-18] MEDS ORDERED: MORPHINE SULFATE 2 MG/ML VIAL IVPUSH ONE (02:02)
[2018-10-18] MEDS ORDERED: ACETAMINOPHEN WITH CODEINE 300MG/30MG TABLET PO PRN (02:04)
[2018-10-18] MEDS ORDERED: WARFARIN NA 7.5 MG TABLET (FP) PO ONE (02:12)
[2018-10-18] MEDS ORDERED: PIPERACILLIN/TAZOB 4.5 GM 4.5 GM in DEXTROSE 5%-WATER 100 ML IVPB SCH ×2 (02:15→18:00)
[2018-10-18] MEDS ORDERED: ALBUTEROL SO4 8 GM HFA INHALER IH PRN ×3 (02:16→09:04)
[2018-10-18] MEDS ORDERED: PIPERACILLIN/TAZOB 4.5 GM 4.5 GM/100 ML BAG IVPB ONE (02:38)
[2018-10-18] MEDS ORDERED: MORPHINE SULFATE 2 MG/ML VIAL ONE (02:38)
[2018-10-18] MEDS ORDERED: WARFARIN NA 5 MG TABLET (UD) ONE (02:38)
[2018-10-18 05:37] LABS: URINE APPEARANCE CLEAR; URINE BILIRUBIN NEGATIVE (<2.0 mg/dL); URINE COLOR YELLOW; URINE GLUCOSE (UA) NEGATIVE (NEGATIVE); URINE KETONE 1+ (NEGATIVE); URINE LEUK ESTERASE NEGATIVE (NEGATIVE); URINE NITRITE NEGATIVE (NEGATIVE); URINE PROTEIN NEGATIVE (NEGATIVE); URINE UROBILINOGEN NEGATIVE mg/dL (0.2-1.0)
[2018-10-18 06:20] LABS: EPI CELLS MODERATE /HPF (FEW); URINE MUCUS RARE
[2018-10-18 06:42] LABS: BASO % 0.4 % (0-2.0); EOS % 0.4 % (0-4.5); HEMATOCRIT 35.7 % (32.4-45.2); HEMOGLOBIN 11.3 GM/dL (10.7-15.3); LYMPH % 17.2 % (8-40); MCH 27.8 pg (25.7-33.7); MCHC 31.6 g/dl (32.0-36.0); MEAN PLT VOLUME 8.4 fl (7.5-11.1); MONO % 4.2 % (3.8-10.2); NEUT % 77.8 % (42.8-82.8); PLATELET COUNT 187 K/MM3 (134-434); RBC 4.06 M/mm3 (3.60-5.2); RDW 15.4 % (11.6-15.6); WHITE BLOOD COUNT 14.2 K/mm3 (4.0-10.0)
[2018-10-18 06:57] LABS: INR 1.29 (0.83-1.09); PROTHROMBIN TIME (PATIENT) 15.3 SEC (9.7-13.0)
[2018-10-18 07:16] LABS: ALBUMIN 3.2 g/dl (3.4-5.0); ALK PHOS 69 U/L (45-117); ANION GAP 8 MMOL/L (8-16); BILIRUBIN,TOTAL 0.5 mg/dL (0.2-1); BLOOD UREA NITROGEN 9 mg/dL (7-18); CHLORIDE 105 mmol/L (98-107); CO2 24 mmol/L (21-32); GLUCOSE,RANDOM 142 mg/dL (74-106); MAGNESIUM 2.1 mg/dL (1.8-2.4); PHOSPHOROUS 2.1 mg/dL (2.5-4.9); POTASSIUM 3.4 mmol/L (3.5-5.1); SGOT/AST 16 U/L (15-37); SGPT/ALT 19 U/L (13-61); SODIUM 137 mmol/L (136-145); TOT PROT 6.8 g/dl (6.4-8.2)
[2018-10-18 07:19] VITALS: BP 89/50; PULSE 104; TEMP 99
[2018-10-18] MEDS ORDERED: POTASSIUM CHLORIDE TABS 20 MEQ TABLET.ER (FP) PO ONE (08:10)
--- NOTE | 2018-10-18 08:57 | PN ---
Progress Note (short form) - Note Progress Note: patient wanted to leave,she refused to sign the AMA form, I have explained to her the dangers of her decision, she still wants to leave.
[2018-10-18] MEDS ORDERED: CITALOPRAM HYDROBROMIDE 10 MG TABLET (FP) PO SCH (10:00)
[2018-10-18] MEDS ORDERED: ENOXAPARIN NA (PORCINE) 40 MG/0.4 ML DISP.SYRIN SQ SCH ×2 (10:00)
[2018-10-18] MEDS ORDERED: CLINDAMYCIN HCL 150 MG CAPSULE (FP) PO SCH ×2 (12:00)
--- NOTE | 2018-10-18 16:55 | EKG ---
Test Reason : Blood Pressure : / mmHG Vent. Rate : 092 BPM Atrial Rate : 092 BPM P-R Int : 156 ms QRS Dur : 080 ms QT Int : 378 ms P-R-T Axes : 056 058 036 degrees QTc Int : 467 ms NORMAL SINUS RHYTHM NORMAL ECG WHEN COMPARED WITH ECG OF 06-MAY-2018 07:14, NO SIGNIFICANT CHANGE WAS FOUND Confirmed by MD Mcwilliams Daniel ([id number]) on 10/18/2018 4:55:37 PM Referred By: Confirmed By:Farhan Mcwilliams MD
[2018-10-18] MEDS ORDERED: WARFARIN NA 7.5 MG TABLET (FP) PO SCH (18:00)
== END 2018-10-18 08:48 | disposition left against medical advice (07) ==
LOC: JER 21:58 → JERBED 10-18 00:12 → INTOOBSV 10-18 00:12 → UNDODISOB 10-18 08:48
PROVIDERS: ADMIT Internal Medicine; ATTEND Internal Medicine
PROC: 0H98XZZ Drainage of Buttock Skin, External Approach (ICD-10-PCS; principal; 2018-10-18)
PROC: 3E03329 Introduction of Other Anti-infective into Peripheral Vein, Percutaneous Approach (ICD-10-PCS; 2018-10-18)
PROC: 3E0337Z Introduction of Electrolytic and Water Balance Substance into Peripheral Vein, Percutaneous Approach (ICD-10-PCS; 2018-10-18)
PROC: 3E033NZ Introduction of Analgesics, Hypnotics, Sedatives into Peripheral Vein, Percutaneous Approach (ICD-10-PCS; 2018-10-18)
PROC: 3E033GC Introduction of Other Therapeutic Substance into Peripheral Vein, Percutaneous Approach (ICD-10-PCS; 2018-10-18)
DX: L02.31 Cutaneous abscess of buttock (principal); L03.317 Cellulitis of buttock; I87.2 Venous insufficiency (chronic) (peripheral); I67.6 Nonpyogenic thrombosis of intracranial venous system; F41.9 Anxiety disorder, unspecified; F32.9 Major depressive disorder, single episode, unspecified; F17.210 Nicotine dependence, cigarettes, uncomplicated; Z87.42 Personal history of other diseases of the female genital tract; Z79.01 Long term (current) use of anticoagulants; Z91.14 Patient's other noncompliance with medication regimen; E66.9 Obesity, unspecified; Z68.38 Body mass index [BMI] 38.0-38.9, adult; F42.9 Obsessive-compulsive disorder, unspecified; F41.0 Panic disorder [episodic paroxysmal anxiety]
CPT/HCPCS: 10060; 36415; 80053; 81003; 81015; 83036; 83735; 84100; 85025; 85610; 85730; 86850; 86900; 86901; 87040; 87070; 87077; 87086; 87205; 93005; 93010; 96365; 96375; 96376; 99283-25; G0378; J7030

== ENCOUNTER 2018-12-16 08:29 | Observation (INO) | payer OTHER ==
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
[2018-12-16 09:19] LABS: BASO % 0.7 % (0-2.0); EOS % 0.6 % (0-4.5); HEMATOCRIT 38.4 % (32.4-45.2); HEMOGLOBIN 13.1 GM/dL (10.7-15.3); LYMPH % 13.9 % (8-40); MCH 30.5 pg (25.7-33.7); MCHC 34.1 g/dl (32.0-36.0); MEAN CELL VOLUME 89.5 fl (80-96); MEAN PLT VOLUME 8.3 fl (7.5-11.1); MONO % 5.1 % (3.8-10.2); NEUT % 79.7 % (42.8-82.8); PLATELET COUNT 231 K/MM3 (134-434); RBC 4.29 M/mm3 (3.60-5.2); RDW 16.2 % (11.6-15.6)
--- NOTE | 2018-12-16 09:46 | PDOC ---
History of Present Illness - General Chief Complaint: Chest Pain Stated Complaint: SICK Time Seen by Provider: 12/16/18 08:32 History Source: Patient Exam Limitations: No Limitations - History of Present Illness Initial Comments: 12/16/18 09:42 The patient is a 43F with a PMH of HSV, HPV, Anxiety, Depression, OCD, panic attacks, asthma, hemorrhoids, chronic transverse sinus thrombosis who presents to the ER with multiple complaints. The patient states that she's had 1 week of squeezing L sided chest pain, intermittent, not associated with exertion or laying flat, without nausea, vomiting, SOB, fever, chills, diaphoresis, cough, or radiation. She also admits to 3 days of intermittent neetu-os tingling and 2 days of intermittent tingling along the top of her head. She denies any exacerbating or alleviating factors or any other symptoms. The patient states that she is supposed to be on coumadin but has not taken it for 1 year because she does not like how it makes her feel. Past History - Past Medical History Allergies/Adverse Reactions: Allergies Allergy/AdvReac Type Severity Reaction Status Date / Time nut - unspecified AdvReac Unknown Verified 12/16/18 08:31 Home Medications: Ambulatory Orders Acetaminophen with Codeine [Tylenol with Codeine #3 Tablet] 1 each PO ASDIR Acyclovir 5 gm TP ASDIR 12/16/18 Albuterol Sulfate Inhaler - [Ventolin Hfa Inhaler -] 1 - 2 inh PO QID 12/16/18 Citalopram Hydrobromide [Celexa -] 10 mg PO DAILY 12/16/18 Clonazepam [Klonopin] 1 mg PO DAILY 12/16/18 Hydrocortisone 0.5% Ointment [Hytone 0.5% Ointment -] 1 applic TP BID 12/16/18 Nicotine [Nicotine Patch 21 mg/24 hr] 1 each TD DAILY 12/16/18 Quetiapine Fumarate [Quetiapine Fumarate ER] 200 mg PO HS 12/16/18 Warfarin Sodium [Coumadin] 10 mg PO DAILY 12/16/18 Cancer: Yes (Cervical, herpes, hpv) CVA: No (left jugular vein thrombosis, Cerebal shilpa throm) COPD: No Psychiatric Problems: Yes (Depression, anxiety, mental illness) - Immunization History Immunization Up to Date: No - Suicide/Smoking/Psychosocial Hx Smoking Status: Yes (1.5 pack per day) Smoking History: Current every day smoker Have you smoked in the past 12 months: No Number of Cigarettes Smoked Daily: 20 Information on smoking cessation initiated: No 'Breaking Loose' booklet given: 05/06/18 Hx Alcohol Use: No Drug/Substance Use Hx: No Substance Use Type: None Hx Substance Use Treatment: No Review of Systems - Review of Systems Able to Perform ROS?: Yes Is the patient limited Spanish proficient: No Constitutional: No: Chills, Fever HEENTM: No: Eye Pain, Blurred Vision Respiratory: No: Cough, Shortness of Breath Cardiac (ROS): Yes: Chest Pain. No: Chest Tightness ABD/GI: No: Nausea, Vomiting, Other (Abdominal pain) : No: Dysuria, Discharge Musculoskeletal: No: Back Pain, Neck Pain Neurological: Yes: Tingling. No: Headache, Numbness, Weakness *Physical Exam - Vital Signs Last Vital Signs Temp Pulse Resp BP Pulse Ox 97.8 F 89 16 108/71 100 12/16/18 08:30 12/16/18 08:30 12/16/18 08:30 12/16/18 08:30 12/16/18 08:30 - Physical Exam General Appearance: Yes: Nourished, Appropriately Dressed. No: Disheveled HEENT: positive: Normal Voice, Hearing Grossly Normal Neck: positive: Trachea midline Respiratory/Chest: positive: Lungs Clear, Normal Breath Sounds Cardiovascular: positive: Regular Rhythm, Regular Rate, S1, S2. negative: JVD, Diastolic Murmur, Systolic Murmur Gastrointestinal/Abdominal: positive: Flat, Soft. 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 negative: Abnormal Cranial NS, EOM Palsy Moderate Sedation - Procedure Monitoring Vital Signs: Procedure Monitoring Vital Signs Temperature 97.8 F 12/16/18 08:30 Pulse Rate 89 12/16/18 08:30 Respiratory Rate 16 12/16/18 08:30 Blood Pressure 108/71 12/16/18 08:30 O2 Sat by Pulse Oximetry (%) 100 12/16/18 08:30 ED Treatment Course - LABORATORY CBC & Chemistry Diagram: 12/16/18 09:08 12/16/18 09:08 - ADDITIONAL ORDERS Additional order review: Laboratory Results 12/16/18 09:08 PTT (Actin FS) 24.6 L 12/16/18 09:08 RBC 4.29 MCV 89.5 MCHC 34.1 RDW 16.2 H MPV 8.3 Neutrophils % 79.7 Lymphocytes % 13.9 Monocytes % 5.1 Eosinophils % 0.6 Basophils % 0.7 - RADIOLOGY Radiology Studies Ordered: Category Date Time Status HEAD CT WITHOUT CONTRAST [CT] Stat CT Scan 12/16/18 08:50 Ordered CHEST PA & LAT [RAD] Stat Radiology 12/16/18 08:52 Ordered Medical Decision Making - Medical Decision Making 12/16/18 09:49 The patient is a 43F with MMP including chronic central venous thrombosis (not on coumadin) who presents to the ER with complaints of atypical chest pain and neetu-os tingling. Concern for worsening thrombosis. Pending labs, CTH, CXR. Pt stable and noted to be ambulating in ED. 12/16/18 10:34 CBC, CMP, troponin WNL. Pending imaging. 12/16/18 12:[address] negative. Case d/w attending for possibility of PE. Pt has negative PERC criteria, clinically not having a PE (normoxic, not tachypneic or tachycardic) but has a possible hypercoagulable state (per pt, nothing documented) for which she is supposed to be on coumadin. CP is reproducible, making it very unlikely to be a PE. A duplex LE u/s ordered to r/o DVT. 12/16/18 14:16 DVT negative. Pt noted to be eating comfortably but states that she still has pain and it is migrating. Pt has old paperwork from an MRI done on 02/2017 which states that she may have a dural venous sinus thrombosis. 12/16/18 14:52 Case d/w Dr. Jacobo who states that she was negative for procoagulable studies in the past. Case d/w Dr. Mcclellan who agrees to keep the patient for an MRI/MRV. Pt endorsed to Dr. Kenny for admission. Calling radiology for recs on specific imaging. *DC/Admit/Observation/Transfer Diagnosis at time of Disposition: Cerebral venous sinus thrombosis, acute, Subtherapeutic international normalized ratio (INR) - Discharge Dispostion Condition at time of disposition: Guarded Decision to Admit order: Yes - Referrals Referrals: Summer Spence [Primary Care Provider] - - Patient Instructions - Post Discharge Activity
[2018-12-16 10:02] LABS: ALBUMIN 3.6 g/dl (3.4-5.0); ALK PHOS 73 U/L (45-117); ANION GAP 5 MMOL/L (8-16); BILIRUBIN,TOTAL 0.2 mg/dL (0.2-1); BLOOD UREA NITROGEN 8 mg/dL (7-18); CALCIUM 8.6 mg/dL (8.5-10.1); CHLORIDE 105 mmol/L (98-107); CO2 28 mmol/L (21-32); CREATININE 0.9 mg/dL (0.55-1.3); GLUCOSE,RANDOM 67 mg/dL (74-106); MAGNESIUM 2.2 mg/dL (1.8-2.4); POTASSIUM 4.1 mmol/L (3.5-5.1); SGOT/AST 23 U/L (15-37); SGPT/ALT 29 U/L (13-61); SODIUM 137 mmol/L (136-145); TOT PROT 7.3 g/dl (6.4-8.2)
[2018-12-16 10:37] LABS: INR 1.08 (0.83-1.09); PROTHROMBIN TIME (PATIENT) 12.8 SEC (9.7-13.0)
[2018-12-16 12:23] LABS: URINE APPEARANCE SLCLOUDY; URINE BILIRUBIN NEGATIVE (<2.0 mg/dL); URINE COLOR DKYELLOW; URINE GLUCOSE (UA) NEGATIVE (NEGATIVE); URINE KETONE NEGATIVE (NEGATIVE); URINE LEUK ESTERASE NEGATIVE (NEGATIVE); URINE NITRITE NEGATIVE (NEGATIVE); URINE PROTEIN 1+ (NEGATIVE); URINE UROBILINOGEN NEGATIVE mg/dL (0.2-1.0)
[2018-12-16 12:55] LABS: EPI CELLS RARE /HPF (FEW); URINE MUCUS RARE; YEAST FEW
--- NOTE | 2018-12-16 15:05 | EKG ---
Test Reason : Blood Pressure : / mmHG Vent. Rate : 081 BPM Atrial Rate : 081 BPM P-R Int : 172 ms QRS Dur : 082 ms QT Int : 396 ms P-R-T Axes : 045 032 022 degrees QTc Int : 460 ms NORMAL SINUS RHYTHM WHEN COMPARED WITH ECG OF 18-OCT-2018 04:00, NO SIGNIFICANT CHANGE WAS FOUND Confirmed by DEVON SNACHEZ MD ([id number]) on 12/16/2018 3:04:34 PM Referred By: Confirmed By:DEVON SANCHEZ MD
--- NOTE | 2018-12-16 16:08 | HP ---
CHIEF COMPLAINT: Tingling on L side of head and perioral region PCP: Dr. Summer Spence HISTORY OF PRESENT ILLNESS: 43 y/o F w/PMH of HSV, HPV, anxiety, depression, OCD, panic attacks, asthma, hemorrhoids, chronic transverse sinus thrombosis presents to the ER w/2 week progressively worsening sensation of pulsations behind her head which were similar to those she felt when she was first diagnosed with chronic transverse sinus thrombosis. Over the last 2-3 days she has also developed tingling in her perioral region and L side of her head which led to her coming to the hospital. She also c/o CP that is intermittent, feels pressure like, is reproducible. Not associated with N/V, diaphoresis, radiation of pain, SOB. She also denies any abd pain, change in bowel or urinary habits, LE edema, trauma to chest or head. She is prescribed warfarin but has not been taking it because it gives her a "prickly" feeling on her skin when she takes it. ER course was notable for: (1) CXR, Head CT, LE duplex (2) (3) PAST MEDICAL HISTORY: HSV, HPV, anxiety, depression, OCD, panic attacks, asthma , hemorrhoids, chronic transverse sinus thrombosis PAST SURGICAL HISTORY: Bartholin cyst drainage (2005), Pilonidal cyst drainage ( 2018) Social History: Smoking: Smokes a mix of cigarettes and e-cigarettes daily Alcohol: Yes, infrequent Drugs: Denies Family History: Mother - stroke Allergies nut - unspecified Adverse Reaction (Unknown, Verified 12/16/18 08:31) Patient stated causes HPV flare up HOME MEDICATIONS: Home Medications Medication Instructions Recorded Acetaminophen with Codeine 1 each PO ASDIR 12/16/18 [Tylenol with Codeine #3 Tablet] Acyclovir 5 gm TP ASDIR 12/16/18 Albuterol Sulfate Inhaler - 1 - 2 inh PO QID 12/16/18 [Ventolin Hfa Inhaler -] Citalopram Hydrobromide [Celexa -] 10 mg PO DAILY 12/16/18 Clonazepam [Klonopin] 1 mg PO DAILY 12/16/18 Hydrocortisone 0.5% Ointment 1 applic TP BID 12/16/18 [Hytone 0.5% Ointment -] Nicotine [Nicotine Patch 21 mg/24 1 each TD DAILY 02/22/19 hr] Quetiapine Fumarate [Quetiapine 200 mg PO HS 12/16/18 Fumarate ER] Warfarin Sodium [Coumadin] 10 mg PO DAILY 12/16/18 REVIEW OF SYSTEMS CONSTITUTIONAL: Absent: fever, chills HEENT: Absent: visual changes CARDIOVASCULAR: +chest pain Absent: peripheral edema RESPIRATORY: Absent: cough, shortness of breath GASTROINTESTINAL: Absent: abdominal pain, nausea, vomiting GENITOURINARY: Absent: dysuria, frequency, hematuria NEUROLOGIC: +headache, paresthesias in perioral region and L side of head PSYCHIATRIC: +anxiety PHYSICAL EXAMINATION Vital Signs - 24 hr 12/16/18 08:30 Temperature 97.8 F Pulse Rate 89 Respiratory 16 Rate Blood Pressure 108/71 O2 Sat by Pulse 100 Oximetry (%) GENERAL: Awake, alert, and fully oriented, in no acute distress. HEAD: Normal with no signs of trauma. EYES: extraocular movements intact, sclera anicteric, conjunctiva clear. EARS, NOSE, THROAT: Ears normal, nares patent, Moist mucous membranes. NECK: Normal range of motion, supple LUNGS: Breath sounds equal, clear to auscultation bilaterally. No wheezes, and no crackles. No accessory muscle use. HEART: Regular rate and rhythm, normal S1 and S2 without murmur ABDOMEN: Soft, nontender, not distended, normoactive bowel sounds MUSCULOSKELETAL: 5/5 UE and LE strength LOWER EXTREMITIES: warm, well-perfused. No calf tenderness. No peripheral edema. NEUROLOGICAL: Cranial nerves II-XII intact. Normal speech. Gait not observed. Sensation to light touch equal in B/L UE and LE. Mild decrease in sensation to light touch on L of face compared to R of face. PSYCHIATRIC: Cooperative. Good eye contact. Appropriate mood and affect. SKIN: Warm, dry Laboratory Results - last 24 hr 12/16/18 12/16/18 12/16/18 09:00 09:01 09:01 WBC RBC Hgb Hct MCV MCH MCHC RDW Plt Count MPV Absolute Neuts (auto) Neutrophils % Lymphocytes % Monocytes % Eosinophils % Basophils % Nucleated RBC % PT with INR 12.80 INR 1.08 PTT (Actin FS) Sodium Potassium Chloride Carbon Dioxide Anion Gap BUN Creatinine Creat Clearance w eGFR Random Glucose Calcium Magnesium Total Bilirubin AST ALT Alkaline Phosphatase Creatine Kinase Troponin I Total Protein Albumin Urine Color Dkyellow Urine Appearance Slcloudy Urine pH 8.0 D Ur Specific [place] 1.020 Urine Protein 1+ H Urine Glucose (UA) Negative Urine Ketones Negative Urine Blood Negative Urine Nitrite Negative Urine Bilirubin Negative Urine Urobilinogen Negative Ur Leukocyte Esterase Negative Urine WBC (Auto) 1 Urine RBC (Auto) 2 Ur Epithelial Cells Rare Urine Mucus Rare Urine Yeast Few Urine HCG, Qual Negative 12/16/18 12/16/18 12/16/18 09:08 09:08 09:08 WBC 10.0 RBC 4.29 Hgb 13.1 Hct 38.4 MCV 89.5 MCH 30.5 MCHC 34.1 RDW 16.2 H Plt Count 231 D MPV 8.3 Absolute Neuts (auto) 8.0 Neutrophils % 79.7 Lymphocytes % 13.9 Monocytes % 5.1 Eosinophils % 0.6 Basophils % 0.7 Nucleated RBC % 0 PT with INR INR PTT (Actin FS) 24.6 L Sodium 137 Potassium 4.1 Chloride 105 Carbon Dioxide 28 Anion Gap 5 L BUN 8 Creatinine 0.9 Creat Clearance w eGFR > 60 Random Glucose 67 L Calcium 8.6 Magnesium 2.2 Total Bilirubin 0.2 AST 23 ALT 29 Alkaline Phosphatase 73 Creatine Kinase 108 Troponin I 0.02 Total Protein 7.3 Albumin 3.6 Urine Color Urine Appearance Urine pH Ur Specific [place] Urine Protein Urine Glucose (UA) Urine Ketones Urine Blood Urine Nitrite Urine Bilirubin Urine Urobilinogen Ur Leukocyte Esterase Urine WBC (Auto) Urine RBC (Auto) Ur Epithelial Cells Urine Mucus Urine Yeast Urine HCG, Qual CXR: No acute pathology Head CT: No intracranial lesion or hemorrhage seen LE duplex: No DVT in b/l LE EKG: NSR @ 81 bpm[address] QTc [address] segment elevations or depressions noted. No TWI noted. Active Medications Acetaminophen/Codeine Phosphate (Tylenol # 3 -) 1 tab PO ONCE ONE Stop: 12/16/18 16:32 Last Admin: 12/16/18 16:36 Dose: 1 tab Albuterol Sulfate (Ventolin 0.083% Nebulizer Soln -) 1 amp NEB Q4H PRN PRN Reason: SHORT OF BREATH/WHEEZING Citalopram Hydrobromide (Celexa -) 10 mg PO DAILY [facility] Enoxaparin Sodium (Lovenox -) 100 mg SQ Q12H TRANG Last Admin: 12/16/18 16:36 Dose: 100 mg Nicotine (Nicoderm Patch -) mg TD DAILY [facility] Non-Formulary Medication (Clonazepam [Klonopin]) 1 mg PO TID TRANG Quetiapine Fumarate (Seroquel Xr -) 200 mg PO HS [facility] ASSESSMENT/PLAN: 43 y/o F w/PMH of HSV, HPV, anxiety, depression, OCD, panic attacks, asthma, hemorrhoids, chronic transverse sinus thrombosis presents to the ER w/2 week progressively worsening sensation of pulsations behind her head which were similar to those she felt when she was first diagnosed with chronic transverse sinus thrombosis. Need to r/o progression of transverse sinus thrombosis. Not compliant with AC therapy. -Paresthesias of perioral region and L head -Need to r/o progression of L chronic transverse thrombosis -Pt would like to restart lovenox therapy at this time. Will start on lovenox 100 mg sq BID (1mg/kg dosing) -Consider NoAC. pt reports not having xarelto covered in the past. -Spoke with [facility] that she uses and she will be covered to get eliquis with her insurance. -Heme consult -Neuro consult -MRI/MRA brain as per neuro recs -Chest pain -initial trop. Trend. EKG with no signs of RI. -Anxiety/Depression/OCD -C/w clonazepam 1mg po tid, citalopram 10mg qd, seroquel 200 mg po qhs -Hx of asthma -No in acute exacerbation -Alb nebs PRN -Headache -Will give dose of home medicine - tylenol w/codeine -DVT ppx -on full dose lovenox -FEN -No fluids -Monitor electrolytes -Regular diet -Dispo: Obs M/S Visit type - Emergency Visit Emergency Visit: Yes Care time: The patient presented to the Emergency Department on the above date and was hospitalized for further evaluation of their emergent condition. - New Patient This patient is new to me today: Yes Date on this admission: 12/16/18 - Critical Care Critical Care patient: No
[2018-12-16] MEDS ORDERED: ENOXAPARIN NA (PORCINE) 30 MG/0.3 ML DISP.SYRIN SQ SCH (16:30)
[2018-12-16] MEDS ORDERED: ACETAMINOPHEN WITH CODEINE 300MG/30MG TABLET PO ONE (16:31)
[2018-12-16] MEDS ORDERED: ALBUTEROL SO4 0.083% IH SOL 2.5 MG/3 ML VIAL.NEB. NEB PRN (16:32)
[2018-12-16] MEDS ORDERED: ENOXAPARIN NA (PORCINE) 100 MG/1 ML DISP.SYRIN SQ ONE (16:35)
--- NOTE | 2018-12-16 16:46 | PN ---
Teaching Attending Note Name of Resident: James Hampton ATTENDING PHYSICIAN STATEMENT I saw and evaluated the patient. I reviewed the resident's note and discussed the case with the resident. I agree with the resident's findings and plan as documented. SUBJECTIVE: 43 year old female with a significant past medical history of anxiety and depression and left tranverse/sigmoid sinus thrombosis in 01/2017 not compliant on therapy presented to the ER with worsening BAUTISTA. describes as a posterior pulsatile sensation and neetu-oral numbness. always has a BAUTISTA but this is different and similar to her presentation on initial diagnosis. also assoc with CP. states its more of a "pricking" sensation, does not move and been coming and going since 2017. never had a cardiac workup in the past. states she is not compliant on coumadin because of the "pricking" sensation she feels all over her body whenever she takes it and is unable to follow up for frequent INR checks. denies CP at this time, fever, chills, N/V/C/D also noted pt has hx of non-complaince with medication and follow up. has signed out AMA on each hospital stay in the past. OBJECTIVE: Last Vital Signs Temp Pulse Resp BP Pulse Ox 97.8 F 89 16 108/71 100 12/16/18 08:30 12/16/18 08:30 12/16/18 08:30 12/16/18 08:30 12/16/18 08:30 General NAD HEENT EOMI, PERRL, no tenderness along the scalp CV S1 S2 RRR no murmur/rub/gallop Lungs CTA B/L no wheezing/rales/rhonchi ASSESSMENT AND PLAN: 43 year old female with a significant past medical history of anxiety and depression and left tranverse/sigmoid sinus thrombosis in 01/2017 not compliant on therapy presented to the ER with worsening BAUTISTA. 1. BAUTISTA- concern for progression of L tranverse sinus thrombosis as she is not compliant. Initial head CT is negative. Check MRI/MRV of the brain. d/w pt importance of medication compliance. is interested in NOAC therapy. (was offered Xarelto in the past but insurance did not cover). Neuro and hematology consulted. will place on full dose lovenox at this time and d/w hematology about switching to NOAC 2. CP- likely not cardiac. trend cardiac enzymes. ekg not revealing. 3. depression- cont home meds 4. [id number] home medications 5. Continuous nicotine dependence- counselled on cessation. nicotine patch 6. DVT px- lovenox
[2018-12-16] MEDS ORDERED: ENOXAPARIN NA (PORCINE) 100 MG/1 ML DISP.SYRIN SQ SCH (16:51)
[2018-12-16] MEDS ORDERED: CITALOPRAM HYDROBROMIDE 10 MG TABLET (FP) ONE (17:17)
[2018-12-16] MEDS: CITALOPRAM HYDROBROMIDE 10 MG TABLET (FP) PO SCH (17:17)
[2018-12-16] MEDS ORDERED: clonazePAM 0.5 MG TABLET ONE (21:59)
[2018-12-16] MEDS ORDERED: QUEtiapine FUMARATE 100 MG TABLET (FP) ONE (21:59)
[2018-12-16] MEDS: clonazePAM 0.5 MG TABLET PO SCH (22:44)
[2018-12-17 03:40] VITALS: BMI 38.6
[2018-12-17] MEDS: clonazePAM 0.5 MG TABLET PO SCH ×3 (06:00→22:59)
[2018-12-17] MEDS: ENOXAPARIN NA (PORCINE) 100 MG/1 ML DISP.SYRIN SQ SCH ×2 (06:00→18:46)
[2018-12-17 08:33] LABS: BASO % 0.3 % (0-2.0); EOS % 1.9 % (0-4.5); HEMATOCRIT 38.2 % (32.4-45.2); LYMPH % 39.1 % (8-40); MCH 30.7 pg (25.7-33.7); MEAN CELL VOLUME 90.2 fl (80-96); MEAN PLT VOLUME 8.8 fl (7.5-11.1); NEUT % 53.7 % (42.8-82.8); PLATELET COUNT 209 K/MM3 (134-434); RBC 4.23 M/mm3 (3.60-5.2); RDW 15.7 % (11.6-15.6); WHITE BLOOD COUNT 6.4 K/mm3 (4.0-10.0)
[2018-12-17 09:10] LABS: ALBUMIN 3.5 g/dl (3.4-5.0); ALK PHOS 70 U/L (45-117); ANION GAP 5 MMOL/L (8-16); BILIRUBIN,TOTAL 0.2 mg/dL (0.2-1); BLOOD UREA NITROGEN 12 mg/dL (7-18); CALCIUM 8.3 mg/dL (8.5-10.1); CHLORIDE 108 mmol/L (98-107); CO2 27 mmol/L (21-32); CREATININE 0.9 mg/dL (0.55-1.3); GLUCOSE,RANDOM 100 mg/dL (74-106); POTASSIUM 3.9 mmol/L (3.5-5.1); SGOT/AST 16 U/L (15-37); SGPT/ALT 25 U/L (13-61); SODIUM 140 mmol/L (136-145); TOT PROT 7.2 g/dl (6.4-8.2)
[2018-12-17] MEDS: CITALOPRAM HYDROBROMIDE 10 MG TABLET (FP) PO SCH (10:16)
--- NOTE | 2018-12-17 10:25 | PN ---
Progress Note (short form) - Note Progress Note: continues to have BAUTISTA but neetu-oral numbness has resolved. denies CP, SOB, fever , chills, N/V/C/D Current Medications Generic Name Dose Route Start Last Admin Trade Name Freq PRN Reason Stop Dose Admin Albuterol Sulfate 1 amp 12/16/18 16:32 Ventolin 0.083% Nebulizer Soln - NEB Q4H PRN SHORT OF BREATH/WHEEZING Citalopram Hydrobromide 10 mg 12/16/18 16:45 12/16/18 17:17 Celexa - PO 10 mg DAILY TRANG Administration Clonazepam 1 mg 12/16/18 22:00 12/17/18 06:00 Klonopin - PO 12/23/18 21:59 1 mg TID TRANG Administration Enoxaparin Sodium 100 mg 12/17/18 06:00 12/17/18 06:00 Lovenox - SQ 100 mg Q12H TRANG Administration Nicotine 21 mg 12/17/18 10:00 Nicoderm Patch - TD DAILY TRANG Quetiapine Fumarate 200 mg 12/16/18 22:00 12/16/18 22:44 Seroquel Xr - PO 200 mg HS TRANG Administration Last Vital Signs Temp Pulse Resp BP Pulse Ox 97.5 F L 72 20 99/51 L 95 12/17/18 07:08 12/17/18 07:08 12/17/18 07:08 12/17/18 07:08 12/17/18 05:27 General NAD HEENT EOMI, PERRL, no tenderness along the scalp CV S1 S2 RRR no murmur/rub/gallop Lungs CTA B/L no wheezing/rales/rhonchi CBCD WBC 6.4 K/mm3 (4.0-10.0) 12/17/18 07:00 RBC 4.23 M/mm3 (3.60-5.2) 12/17/18 07:00 Hgb 13.0 GM/dL (10.7-15.3) 12/17/18 07:00 Hct 38.2 % (32.4-45.2) 12/17/18 07:00 MCV 90.2 fl (80-96) 12/17/18 07:00 MCHC 34.0 g/dl (32.0-36.0) 12/17/18 07:00 RDW 15.7 % (11.6-15.6) H 12/17/18 07:00 Plt Count 209 K/MM3 (134-434) 12/17/18 07:00 MPV 8.8 fl (7.5-11.1) 12/17/18 07:00 CMP Sodium 140 mmol/L (136-145) 12/17/18 07:00 Potassium 3.9 mmol/L (3.5-5.1) 12/17/18 07:00 Chloride 108 mmol/L (98-107) H 12/17/18 07:00 Carbon Dioxide 27 mmol/L (21-32) 12/17/18 07:00 Anion Gap 5 MMOL/L (8-16) L 12/17/18 07:00 BUN 12 mg/dL (7-18) 12/17/18 07:00 Creatinine 0.9 mg/dL (0.55-1.3) 12/17/18 07:00 Creat Clearance w eGFR > 60 (>60) 12/17/18 07:00 Calcium 8.3 mg/dL (8.5-10.1) L 12/17/18 07:00 Total Bilirubin 0.2 mg/dL (0.2-1) 12/17/18 07:00 AST 16 U/L (15-37) 12/17/18 07:00 ALT 25 U/L (13-61) 12/17/18 07:00 Alkaline Phosphatase 70 U/L (45-117) 12/17/18 07:00 Total Protein 7.2 g/dl (6.4-8.2) 12/17/18 07:00 Albumin 3.5 g/dl (3.4-5.0) 12/17/18 07:00 ASSESSMENT AND PLAN: 43 year old female with a significant past medical history of anxiety and depression and left tranverse/sigmoid sinus thrombosis in 01/2017 not compliant on therapy presented to the ER with worsening BAUTISTA. 1. BAUTISTA- slight improvement. awaiting MRI/MRV. on full dose lovenox. does not want to leave on coumadin as she is unable to comply, willing to take noac. eliquis is covered on insurance. will f/u with Neuro/heme 2. CP- likely not cardiac. now resolved. trop neg x2. should f/u with PMD for further workup 3. depression- cont home meds 4. [id number] home medications 5. Continuous nicotine dependence- counselled on cessation. nicotine patch 6. DVT px- lovenox Visit type - Emergency Visit Emergency Visit: Yes ED Registration Date: 12/16/18 Care time: The patient presented to the Emergency Department on the above date and was hospitalized for further evaluation of their emergent condition. - New Patient This patient is new to me today: No - Critical Care Critical Care patient: No - Discharge Referral Referred to [facility] No
[2018-12-17] MEDS: NICOTINE 21 MG/24 HOURS TOPICAL PATCH TD SCH (10:26)
--- NOTE | 2018-12-17 16:58 | CONSULT ---
Consult - text type - Consultation Consultation Note: NEUROLOGY CONSULTATION is greatly appreciated: This 43 yo RH single woman with h/o "depression, anxiety and panic attacks" is maintained on citalopram (10 mg), Clonazepam (2 mg in the AM and 1 mg QHS) and Quetiapine (200 mg) for chronic insomnia. Summer has had "Migraines, normal headaches and tension headaches" since age 17. In addition to 5 days of headaches associated with menses, Summer averages 4 BAUTISTA/ week. Some can awaken her and others are present upon awakening. The "Migraines" are throbbing frontal BAUTISTA's with pain behind the eyes and with photophobia, phonophobia, kinesiophobia. "normal headaches" are frontal pressure and "tension BAUTISTA's" are throbbing occipetal pains. Prior evaluation of the headaches including MRI and MRAngio have revealed left transverse sinus thrombosis sine 2017. Pt now admitted after 5 days of increased anxiety with lightheadedness, chest pressure, SOB, and waxing and waning numbness and tingling around the mouth and lower face with throbbing left occipital headache. ROS: Chronic nocturnal pain, numbness and tingling in both legs causing insomnia. Can occur during the day with sitting. CT of head (reviewed): Normal MRI/ MR Angio(s)(reviewed): Show stable left transverse sinus thrombosis and scattered subcortical microvascular changes. EXAM: Neck supple. No bruits. Cor reg. Obese NEURO: Awake, alert, cooperative, in NAD MS/Speech: Normal CN II-XII: Normal Motor: No drift or tremor. Normal strength, bulk, tone and reflexes. Toes downgoing Coord: No FTN dystaxia Sensory: Normal. Romberg neg. Gait: Normal IMP: Normal Neurological Exam Migraine headaches Restless Legs Syndrome Admission event is most suggestive of Panic/anxiety attack combined with migraine Chronic left Transverse Sinus thrombosis (asymptomatic). Suggest: Continue NOAC vs sinus thrombosis. Review prior w/u of coagulopathy ( Proteins S C, AntiCardiolipin, factors, etc). Begin Topiramate (25 mg PO q 12 hrs x 1 week then 50 mg PO BID) Begin Pramipexole (0.125 mg HS x 2 days then 0.25 mg HS) Neuro f/u as out patient. Thank you very much, Abdirahman Sheridan MD
[2018-12-17] MEDS ORDERED: PT OWN MED DRAWER 7, Y5N ONE ×2 (18:53→21:08)
--- NOTE | 2018-12-17 19:48 | CONSULT ---
Consult Consult Specialty:: Heme Referred by:: Dr. Kenny Reason for Consultation:: hx Venous sinus thrombosis - History of Present Illness Chief Complaint: Headache History of Present Illness: 43F with anxiety/depression and hx unprovoked venous thrombosis in left sigmoid sinus, left transverse sinus and internal jugular vein in 01/2017 (non-compliant with warfarin) admitted with 2 weeks of headache and perioral parasthesias. MRI today without new findings (chronic left transverse sinus venous thrombosis). Symptoms are improving. Pt denies any other history of thrombosis and miscarriages. Sister had a stroke in her 60s. Pt was previously seen by hematology. Thrombophlia w/u was negative for FVL, prothrombin gene mutation, B2GPI and aCL. She mostly follows at [facility] where she saw a grooming assistant but there are no records. - Past Medical History NUT THREADER: Yes: Other (Left Trasverse/Sigmoid [place] Sinus Thrombosis) ...LMP: 12/05/18 ...: No Psych: Yes: Anxiety, Depression ENT: Yes: Sinusitis - Alcohol/Substance Use Hx Alcohol Use: No - Smoking History Smoking history: Current every day smoker Have you smoked in the past 12 months: Yes Aproximately how many cigarettes per day: 20 - Social History History of Recent Travel: No Home Medications - Allergies Allergies/Adverse Reactions: Allergies Allergy/AdvReac Type Severity Reaction Status Date / Time nut - unspecified AdvReac Unknown Verified 12/16/18 08:31 - Home Medications Home Medications: Ambulatory Orders Acetaminophen with Codeine [Tylenol with Codeine #3 Tablet] 1 each PO ASDIR Acyclovir 5 gm TP ASDIR 12/16/18 Albuterol Sulfate Inhaler - [Ventolin Hfa Inhaler -] 1 - 2 inh PO QID 12/16/18 Citalopram Hydrobromide [Celexa -] 10 mg PO DAILY 12/16/18 Clonazepam [Klonopin] 1 mg PO DAILY 12/16/18 Hydrocortisone 0.5% Ointment [Hytone 0.5% Ointment -] 1 applic TP BID 12/16/18 Nicotine [Nicotine Patch 21 mg/24 hr] 1 each TD DAILY 12/16/18 Quetiapine Fumarate [Quetiapine Fumarate ER] 200 mg PO HS 12/16/18 Warfarin Sodium [Coumadin] 10 mg PO DAILY 12/16/18 Review of Systems - Review of Systems Constitutional: reports: No Symptoms Eyes: reports: No Symptoms Neck: reports: No Symptoms Cardiovascular: reports: Chest Pain (resolved) Respiratory: reports: No Symptoms Gastrointestinal: reports: No Symptoms Neurological: reports: Headache, Parasthesia Physical Exam Vital Signs: Vital Signs Temperature 97.6 F 12/17/18 18:35 Pulse Rate 78 12/17/18 18:35 Respiratory Rate 20 12/17/18 18:35 Blood Pressure 121/63 12/17/18 18:35 O2 Sat by Pulse Oximetry (%) 95 12/17/18 05:27 Constitutional: Yes: No Distress, Calm Eyes: Yes: Conjunctiva Clear Cardiovascular: Yes: Regular Rate and Rhythm Respiratory: Yes: Regular, CTA Bilaterally Gastrointestinal: Yes: WNL, Soft Extremities: Yes: WNL Edema: No Labs: CBC, BMP 12/17/18 07:00 12/17/18 07:00 Imaging - Results MRI: Report Reviewed Assessment/Plan 43F with hx unprovoked venous thrombosis in left sigmoid sinus, left transverse sinus and internal jugular vein in 01/2017 (non-compliant with warfarin) admitted with 2 weeks of headache and perioral parasthesias. MRI today without new findings (chronic left transverse sinus venous thrombosis). Given unexplained event, would favor resuming anticoagulation. Pt agrees. Start Apixaban 2.5 mg BID. Would complete thrombophilia w/u check lupus anticoagulant, protein C/S, antithrombin III, PNH, Jak2 43F with hx unprovoked venous thrombosis in left sigmoid sinus, left transverse sinus and internal jugular vein in 01/2017 (non-compliant with warfarin) admitted with 2 weeks of headache and perioral parasthesias. MRI today without new findings (chronic left transverse sinus venous thrombosis). Given unexplained event, would favor resuming anticoagulation. Pt agrees. Start Apixaban 2.5 mg BID. Complete thrombophilia w/u check lupus anticoagulant, protein C/S, antithrombin III, PNH, Jak2
[2018-12-17] MEDS: TOPIRAMATE 25 MG TABLET (FP) PO SCH (22:59)
[2018-12-18] MEDS: ENOXAPARIN NA (PORCINE) 100 MG/1 ML DISP.SYRIN SQ SCH (05:26)
[2018-12-18] MEDS: clonazePAM 0.5 MG TABLET PO SCH (05:31)
[2018-12-18] MEDS: CITALOPRAM HYDROBROMIDE 10 MG TABLET (FP) PO SCH (09:37)
[2018-12-18] MEDS: NICOTINE 21 MG/24 HOURS TOPICAL PATCH TD SCH (09:37)
[2018-12-18] MEDS: TOPIRAMATE 25 MG TABLET (FP) PO SCH (09:38)
[2018-12-18 10:03] VITALS: BP 124/66; PULSE 85; TEMP 98.1
--- NOTE | 2018-12-18 11:37 | PN ---
Teaching Attending Note Name of Resident: Farhan Newton ATTENDING PHYSICIAN STATEMENT I saw and evaluated the patient. I reviewed the resident's note and discussed the case with the resident. I agree with the resident's findings and plan as documented. SUBJECTIVE:BAUTISTA persists but less in intensity. denies CP, SOB< fever, chills, N/V /C/D OBJECTIVE: Last Vital Signs Temp Pulse Resp BP Pulse Ox 98.1 F 85 20 124/66 96 12/18/18 10:00 12/18/18 10:00 12/18/18 10:00 12/18/18 10:12/18/18 10:00 General NAD ASSESSMENT AND PLAN: 43 year old female with a significant past medical history of anxiety and depression and left tranverse/sigmoid sinus thrombosis in 01/2017 not compliant on therapy presented to the ER with worsening BAUTISTA. 1. BAUTISTA- slight improvement. MRI showing no change. will d/c on low dose eliquis. also started on topamax for BAUTISTA ppx. will f/u with neuro as outpatient. 2. CP- likely not cardiac. now resolved. trop neg x2. should f/u with PMD for further workup 3. depression- cont home meds 4. [id number] home medications 5. Continuous nicotine dependence- counselled on cessation. nicotine patch 6. DVT px- lovenox 7. counselled on importance of medication compliance and follow up. d/c home
--- NOTE | 2018-12-18 12:29 | DS ---
Physical Exam: SUBJECTIVE: Patient seen and examined at bedside. Reports resolution of symptoms , mild residual photophobia and postero-inferior tenderness of scalp all significantly improved. No acute complaints. OBJECTIVE: Vital Signs Period Temp Pulse Resp BP Sys/Allred Pulse Ox Last 24 Hr 97.3 F-98.1 F 71-85 20-20 94-134/61-78 94-97 PHYSICAL EXAM GENERAL: A&Ox3, NAD HEENT: NC/AT, PERRLA, EOMI, MMM, anicteric sclera, mild reproducible tenderness along postero-inferior aspect of scalp NECK: Trachea midline, full range of motion, supple. LUNGS: CTA b/l HEART: RRR no m/r/g ABDOMEN: +bs, soft, NT, ND EXTREMITIES: 2+ pulses, warm, well-perfused, no edema. 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 SKIN: Warm, dry, normal turgor, no rashes or lesions noted. LABS HOSPITAL COURSE: Date of Admission:12/16/18 Patient is a 43 y/o F w/PMH of HSV, HPV, anxiety, depression, OCD, panic attacks , asthma, hemorrhoids, chronic transverse sinus thrombosis who presented w/ 2 weeks progressively pulsations and pain in the back of her head similar to initial presentation of CVT. Had been prescribed warfarin but had been non- compliant due to side effect of pruritus. 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 Neurology and heme-onc were consulted. Patient was restarted on psych meds, placed on therapeutic Lovenox, and started on Topamax for seizure PPx. Symptoms resolved and she was discharged on Eliquis, Topamax, and Pramipexole for control of reported RLS. She requested and was referred for a new primary medical provider and different neurologist than her inpatient fitness sales consultant, with follow up scheduled for within a week of discharge. Date of Discharge: 12/18/18 Minutes to complete discharge: 40 Discharge Summary Reason For Visit: SUBTHERAPEUTIC (INR) HEADACHE Current Active Problems Cerebral venous sinus thrombosis, acute (Acute) Subtherapeutic international normalized ratio (INR) (Acute) Condition: Stable - Instructions Diet, Activity, Other Instructions: You were hospitalized for discomfort in your head secondary to your previously established clot in one of the veins of your brain. You were seen and evaluated by neurology. You were treated with blood thinning medication and anti-seizure medication. You will be discharged with oral blood thinning medication. We have provided referrals to you for follow up with primary medical care and neurology. You indicated that you wish to have a new primary medical provider, so we have referred you to our clinic. Dr. Sheridan saw you as the inpatient neurology fitness sales consultant but you indicated that you wish to see a different neurologist as an outpatient. We have included Dr. Sheridan's information as well as Dr. Escalera, another neurologist. Please follow up with primary care and neurology within 1 week of your discharge. If you experience any new or worsening headache, focal weakness, change in sensation, chest pain, shortness of breath, or any other new or concerning symptoms, please return to the Emergency Department immediately. Medical recommendations: Begin taking Eliquis (blood thinner) 2.5 mg twice per day. Begin taking Topamax (anti-seizure) 25 mg twice per day. Begin taking Pramipexole (for restless legs ) at 0.125 mg nightly for the next two nights, then 0.25 mg nightly after that; both of these dosages have been prescribed to your pharmacy. After 7 days your doses of these medications may be adjusted, but this decision will be made by your outpatient doctors. Taking Eliquis will put you at increased risk of bleeding and of having bleeding that is difficult to stop once it starts. If you experience any new or unexplained bleeding or bruising, or have bleeding that does not stop, please return to the Emergency Department. Follow up with your doctors as soon as you are able to and do not make any changes to your medication regimen before you have followed up with your doctors. Otherwise resume your home medications. Referrals: [facility] [place] [Provider Group] - 1 Week Abdirahman Sheridan MD [Staff Physician] - Sami Escalera DO [Staff Physician] - 1 Week Disposition: HOME - Home Medications Comprehensive Discharge Medication List: Ambulatory Orders Acetaminophen with Codeine [Tylenol with Codeine #3 Tablet] 1 each PO ASDIR Acyclovir 5 gm TP ASDIR 12/16/18 Albuterol Sulfate Inhaler - [Ventolin HFA Inhaler -] 1 - 2 inh PO QID 12/16/18 Citalopram Hydrobromide [Celexa -] 10 mg PO DAILY 12/16/18 Clonazepam [Klonopin] 1 mg PO DAILY 12/16/18 Hydrocortisone 0.5% Ointment [Hytone 0.5% Ointment -] 1 applic TP BID 12/16/18 Nicotine [Nicotine Patch 21 mg/24 hr] 1 each TD DAILY 12/16/18 Quetiapine Fumarate [Quetiapine Fumarate ER] 200 mg PO HS 12/16/18 Apixaban [Eliquis] 2.5 mg PO BID #14 tablet 12/18/18 Pramipexole Dihydrochloride [Mirapex -] 0.125 mg PO HS #2 tablet 12/18/18 Pramipexole Dihydrochloride [Mirapex -] 0.25 mg PO HS #5 tablet 12/18/18 Topiramate [Topamax -] 25 mg PO BID #14 tablet 12/18/18 This patient is new to me today: Yes Date on this admission: 12/18/18 Emergency Visit: No Critical Care patient: No - Discharge Referral Referred to [facility] No
== END 2018-12-18 13:13 | disposition home or self-care (01) ==
LOC: JER 08:29 → JERBED 14:30 → J7W 12-17 02:50
PROVIDERS: ADMIT Internal Medicine; ATTEND Internal Medicine
PROC: 3E013GC Introduction of Other Therapeutic Substance into Subcutaneous Tissue, Percutaneous Approach (ICD-10-PCS; principal; 2018-12-16)
DX: I67.6 Nonpyogenic thrombosis of intracranial venous system (principal); R79.1 Abnormal coagulation profile; G43.909 Migraine, unspecified, not intractable, without status migrainosus; G25.81 Restless legs syndrome; R07.9 Chest pain, unspecified; F41.9 Anxiety disorder, unspecified; F32.9 Major depressive disorder, single episode, unspecified; F17.210 Nicotine dependence, cigarettes, uncomplicated; F42.9 Obsessive-compulsive disorder, unspecified; F41.0 Panic disorder [episodic paroxysmal anxiety]; J45.909 Unspecified asthma, uncomplicated; K64.9 Unspecified hemorrhoids; Z85.41 Personal history of malignant neoplasm of cervix uteri; Z91.14 Patient's other noncompliance with medication regimen
CPT/HCPCS: 36415; 70450-TC; 70544-TC; 71046-TC-FY; 80053; 81003; 81015; 82550; 83735; 84484; 84703; 85025; 85610; 85730; 87086; 93005; 93010; 93970-TC; 96372; 99285-25; G0378

== ENCOUNTER 2019-01-17 10:22 | Emergency (ER) | payer OTHER ==
[2019-01-17 10:36] VITALS: TEMP 97.4; BMI 38.2
--- NOTE | 2019-01-17 13:55 | PDOC ---
History of Present Illness - General Chief Complaint: Lethargy Stated Complaint: WEAKNESS Time Seen by Provider: 01/17/19 12:04 History Source: Patient - History of Present Illness Initial Comments: 01/17/19 13:49 Patient is a 43 y/o female with a history of HSV, HPV, anxiety, depression, OCD , panic attacks, asthma, hemorrhoids, and transverse sinus thrombosis who presents with multiple chief complaints including tremors, off balance, pinching in head, back pain, bites, and tightness. Patient is devine positive on review of symptoms. Patient was started on elliquis for her transverse sinus thrombosis. She does not like the Elliquis, feels like it caused her to have some bleeding from her hemorrhoids. She has not take her Elliquis in over a week. She has done research on the internet and would prefer a different modality for her anticoagulation. Patient would also like different referrals for specialists. Patient has not slept in three days due to her insomnia, reports it makes her speech slurred. Past History - Past Medical History Allergies/Adverse Reactions: Allergies Allergy/AdvReac Type Severity Reaction Status Date / Time nut - unspecified AdvReac Unknown Hives Verified 01/17/19 10:27 Home Medications: Ambulatory Orders Acetaminophen with Codeine [Tylenol with Codeine #3 Tablet] 1 each PO ASDIR Acyclovir 5 gm TP ASDIR 12/16/18 Albuterol Sulfate Inhaler - [Ventolin HFA Inhaler -] 1 - 2 inh PO QID 12/16/18 Citalopram Hydrobromide [Celexa -] 10 mg PO DAILY 12/16/18 Clonazepam [Klonopin] 1 mg PO TID 12/16/18 Hydrocortisone 0.5% Ointment [Hytone 0.5% Ointment -] 1 applic TP BID 12/16/18 Quetiapine Fumarate [Quetiapine Fumarate ER] 200 mg PO HS 12/16/18 Apixaban [Eliquis] 2.5 mg PO BID #14 tablet 12/18/18 Dabigatran Etexilate Mesylate [Pradaxa -] 150 mg PO BID #60 capsule 01/17/19 Topiramate [Topamax -] 2.5 mg PO BID 01/17/19 Anemia: No Asthma: No Cancer: Yes (Cervical, herpes, hpv) CVA: No (left jugular vein thrombosis, Cerebal shilpa throm) COPD: No CHF: No Dementia: No Diabetes: No GI Disorders: No Disorders: No HTN: No Hypercholesterolemia: No Liver Disease: No Psychiatric Problems: Yes (DEPRESSION,OCD,ANXIETY,PANIC ATTACHS) Seizures: Yes Thyroid Disease: No Other medical history: CERBRAL VENOUS THROMBOSIS IN INTERNAL LEFT JUGULAR - Surgical History Abdominal Surgery: No Appendectomy: No Cardiac Surgery: No Cholecystectomy: No Lung Surgery: No Neurologic Surgery: No Orthopedic Surgery: No - Immunization History Immunization Up to Date: No - Suicide/Smoking/Psychosocial Hx Smoking Status: Yes (1.5 pack per day) Smoking History: Current every day smoker Have you smoked in the past 12 months: Yes Number of Cigarettes Smoked Daily: 20 Information on smoking cessation initiated: Yes 'Breaking Loose' booklet given: 05/06/18 Hx Alcohol Use: No Drug/Substance Use Hx: No Substance Use Type: None Hx Substance Use Treatment: No Review of Systems - Review of Systems Constitutional: Yes: Chills, Fever Respiratory: Yes: Cough, Shortness of Breath Cardiac (ROS): Yes: Chest Pain ABD/GI: Yes: Abdominal Distended, Nausea, Vomiting Musculoskeletal: Yes: Joint Pain, Muscle Weakness Neurological: Yes: Headache *Physical Exam - Vital Signs Last Vital Signs Temp Pulse Resp BP Pulse Ox 97.4 F L 93 H 20 110/67 97 01/17/19 10:27 01/17/19 10:27 01/17/19 10:27 01/17/19 10:27 01/17/19 10:27 - Physical Exam Comments: 01/17/19 13:53 GENERAL: A&O x3, anxious EYES: EOMI HEART: RRR, no murmurs, rubs or gallops LUNGS: CTAL B/L ABD: soft, nontender, non distended EXTREMITIES: no pitting edema SKIN: R leg 5 x 3 cm skin change with three scabbed bites on outside of leg, inside of leg with two red raised circles ED Treatment Course - LABORATORY CBC & Chemistry Diagram: 01/17/19 14:16 01/17/19 14:16 - RADIOLOGY Radiology Studies Ordered: Category Date Time Status CXRPORT [CHEST X-RAY PORTABLE*] [RAD] Stat Radiology 01/17/19 13:48 Ordered Medical Decision Making - Medical Decision Making 01/17/19 13:55 F/u CBC, coags, CMP, CXR, and EKG 01/17/19 15:01 INR 1, refuses to take lovenox shots as an outpatient 01/17/19 18:[address] no acute abnormalites, sinus thrombosis still present Spoke with Dr Escalera, can send patient home on one month of Pradaxa and she needs to follow up as an outpatient *DC/Admit/Observation/Transfer Diagnosis at time of Disposition: Cavernous sinus thrombosis - Discharge Dispostion Disposition: HOME Condition at time of disposition: Improved - Prescriptions Prescriptions: Dabigatran Etexilate Mesylate [Pradaxa -] 150 mg PO BID #60 capsule - Referrals Referrals: Summer Spence [Primary Care Provider] - Shakir Lincoln MD [Staff Physician] - Heriberto Mcclellan MD [Staff Physician] - - Patient Instructions Printed Discharge Instructions: Dabigatrn Additional Instructions: You came ot the hospital after stopping your Elliquis. We spoke with our neurologist, Dr. Escalera, who thinks you need to continue anticoagulation to treat your sinus thrombosis. Please take: Pradaxa 150 mg by mouth twice a day We gave you a one month, prescription. It is very important you follow up with a primary care physician. We have given you an appointment with our outpatient clinic, the information will be provided for you in the discharge instructions. You also need to make an appointment to follow up with a neurologist. Please return to the Emergency Department if you have nausea, vomiting, chest pain, change in vision, headache, or shortness of breath. - Post Discharge Activity
[2019-01-17 14:36] LABS: HEMATOCRIT 38.1 % (32.4-45.2); HEMOGLOBIN 12.7 GM/dL (10.7-15.3); MCH 29.8 pg (25.7-33.7); MCHC 33.4 g/dl (32.0-36.0); MEAN CELL VOLUME 89.4 fl (80-96); MEAN PLT VOLUME 8.2 fl (7.5-11.1); PLATELET COUNT 199 K/MM3 (134-434); RBC 4.27 M/mm3 (3.60-5.2); RDW 15.4 % (11.6-15.6); WHITE BLOOD COUNT 7.8 K/mm3 (4.0-10.0)
[2019-01-17 14:50] LABS: INR 1.04 (0.83-1.09); PROTHROMBIN TIME (PATIENT) 12.3 SEC (9.7-13.0)
[2019-01-17] MEDS ORDERED: ENOXAPARIN NA (PORCINE) 40 MG/0.4 ML DISP.SYRIN SQ SCH (15:00)
[2019-01-17 15:04] LABS: ALBUMIN 3.7 g/dl (3.4-5.0); ALK PHOS 71 U/L (45-117); ANION GAP 6 MMOL/L (8-16); BILIRUBIN,TOTAL 0.3 mg/dL (0.2-1); BLOOD UREA NITROGEN 8 mg/dL (7-18); CALCIUM 8.9 mg/dL (8.5-10.1); CHLORIDE 105 mmol/L (98-107); CO2 28 mmol/L (21-32); CREATININE 0.9 mg/dL (0.55-1.3); GLUCOSE,RANDOM 129 mg/dL (74-106); POTASSIUM 3.4 mmol/L (3.5-5.1); SGOT/AST 14 U/L (15-37); SGPT/ALT 21 U/L (13-61); SODIUM 139 mmol/L (136-145); TOT PROT 7.3 g/dl (6.4-8.2)
[2019-01-17] MEDS ORDERED: ENOXAPARIN NA (PORCINE) 40 MG/0.4 ML DISP.SYRIN SQ ONE (15:26)
--- NOTE | 2019-01-17 15:43 | PDOC ---
Attending Attestation - Resident Resident Name: Summer Ferrara - ED Attending Attestation I have performed the following: I have examined & evaluated the patient, The case was reviewed & discussed with the resident, I agree w/resident's findings & plan - HPI HPI: 01/17/19 15:36 43y/o F h/o anxiety/depression, fibromyalgia, venous sinus thrombosis most recently on eliquis but self-d/c'd 2/2 hemorrhoid bleed, now with increasing lethargy and generalized weakness, no n/v/focal deficit. more slurring of words over the last few days, no vision change or focal deficit. - Physicial Exam PE: 01/17/19 15:37 vss, afebrile asleep but arousable to voice neck supple, perrl, eomi s1s2 rrr, ctab, abd soft/nt/nd 4/5 strength x4 extremities likely limited by effort, no pronator drift. HERNAN intact - Medical Decision Making 01/17/19 15:38 43-year-old female with history of anxiety/depression, venous sinus thrombosis off into regular she for about 2 weeks now with worsening generalized weakness/ somnolence and worsening slurring of words. Concern for progression of venous sinus thrombosis in the setting of noncompliance with anticoagulants, question toxin mediated (additional anxiolytics at home?). labs, ekg ct head given alteration in mental status likely admission for AMS, will need to be restarted on a/c - too unreliable to perform lovenox --> coumadin at home Heart Score/ECG Review #1 ECG reviewed & interpreted by me at: 14:12 General ECG Interpretation: Sinus Rhythm, Normal Rate (80), Normal Intervals ( qtc 468), No acute ischemic changes
[2019-01-17] MEDS ORDERED: HEPARIN NA (PORCINE) 5,000 UNITS/ML 1ML VIAL IVPUSH PRN ×2 (17:49)
[2019-01-17] MEDS ORDERED: HEPARIN - 25,000 UNIT in SODIUM CHLORIDE 495 ML IV SCH (18:00)
[2019-01-17 18:46] VITALS: BP 117/74; PULSE 83
--- NOTE | 2019-01-17 21:56 | EKG ---
Test Reason : Blood Pressure : / mmHG Vent. Rate : 080 BPM Atrial Rate : 080 BPM P-R Int : 174 ms QRS Dur : 084 ms QT Int : 406 ms P-R-T Axes : 053 028 026 degrees QTc Int : 468 ms NORMAL SINUS RHYTHM NORMAL ECG WHEN COMPARED WITH ECG OF 16-DEC-2018 08:34, NO SIGNIFICANT CHANGE WAS FOUND Confirmed by MD NESSA, NAJMA ([id number]) on 01/17/2019 9:56:25 PM Referred By: Confirmed By:NAJMA SZYMANSKI MD
--- NOTE | 2019-01-17 22:53 | PDOC ---
ED Treatment Course - LABORATORY CBC & Chemistry Diagram: 01/17/19 14:16 01/17/19 14:16 - ADDITIONAL ORDERS Additional order review: Laboratory Results 01/17/19 01/17/19 01/17/19 14:16 14:16 14:16 PT with INR 12.30 INR 1.04 PTT (Actin FS) 30.0 Sodium 139 Potassium 3.4 L Chloride 105 Carbon Dioxide 28 Anion Gap 6 L BUN 8 Creatinine 0.9 Creat Clearance w eGFR 69.00 Random Glucose 129 H Calcium 8.9 Total Bilirubin 0.3 AST 14 L ALT 21 Alkaline Phosphatase 71 Creatine Kinase 124 Troponin I < 0.02 Total Protein 7.3 Albumin 3.7 01/17/19 14:16 RBC 4.27 MCV 89.4 MCHC 33.4 RDW 15.4 MPV 8.2 - Medications Given in the ED: ED Medications Discontinued Medications Generic Name Dose Route Start Last Admin Trade Name Freq PRN Reason Stop Dose Admin Enoxaparin Sodium 40 mg 01/17/19 15:00 01/17/19 15:36 Lovenox - SQ 40 mg DAILY TRANG Administration Heparin Sodium (Porcine) 25, 500 mls @ 20 mls/hr 01/17/19 18:00 01/17/19 19: 35 000 unit/ Sodium Chloride IV Not Given TITR TRANG Protocol 1,000 UNIT/HR *DC/Admit/Observation/Transfer Diagnosis at time of Disposition: Cavernous sinus thrombosis - Discharge Dispostion Disposition: HOME Condition at time of disposition: Improved Decision to Admit order: No - Prescriptions Prescriptions: Dabigatran Etexilate Mesylate [Pradaxa -] 150 mg PO BID #60 capsule - Referrals Referrals: Summer Spence [Primary Care Provider] - Shakir Lincoln MD [Staff Physician] - Heriberto Mcclellan MD [Staff Physician] - - Patient Instructions Printed Discharge Instructions: Dabigatrn Additional Instructions: You came ot the hospital after stopping your Elliquis. We spoke with our neurologist, Dr. Escalera, who thinks you need to continue anticoagulation to treat your sinus thrombosis. Please take: Pradaxa 150 mg by mouth twice a day We gave you a one month, prescription. It is very important you follow up with a primary care physician. We have given you an appointment with our outpatient clinic, the information will be provided for you in the discharge instructions. You also need to make an appointment to follow up with a neurologist. Please return to the Emergency Department if you have nausea, vomiting, chest pain, change in vision, headache, or shortness of breath. - Post Discharge Activity
[2019-01-18] MEDS ORDERED: WARFARIN NA 1 MG TABLET (FP) PO PRN (02:00)
== END 2019-01-17 20:23 | disposition home or self-care (01) ==
LOC: JER 10:22
PROC: 3E013GC Introduction of Other Therapeutic Substance into Subcutaneous Tissue, Percutaneous Approach (ICD-10-PCS; principal; 2019-01-17)
DX: G08 Intracranial and intraspinal phlebitis and thrombophlebitis (principal); Z79.01 Long term (current) use of anticoagulants; F41.8 Other specified anxiety disorders; F42.9 Obsessive-compulsive disorder, unspecified; F32.9 Major depressive disorder, single episode, unspecified; J45.909 Unspecified asthma, uncomplicated; K64.9 Unspecified hemorrhoids; Z91.14 Patient's other noncompliance with medication regimen
CPT/HCPCS: 36415; 70450-TC; 71045-TC-FY; 80053; 82550; 84484; 85027; 85610; 85730; 93005; 93010; 96372; 99283-25

== ENCOUNTER 2019-02-20 02:23 | Emergency (ER) | payer OTHER ==
--- NOTE | 2019-02-20 03:22 | PDOC ---
History of Present Illness - General Chief Complaint: Injury Stated Complaint: FALL History Source: Patient Exam Limitations: No Limitations - History of Present Illness Initial Comments: 02/20/19 03:15 44 yo F with a hx HSV, depression, left sinus venous thrombosis (on pradaxa), and depression presents to the emergency department s/p fall today at approximately 1:30 am. Per the patient, she was celebrating her birthday below her apartment and had one small Michael Melon hard liquor and walked up the stairs. Per the patient, she states she was feeling lightheaded, chest pain, palpitations, and fell forward on the stairs, hitting her left flank side. Denies LOC and head trauma. The patient states she has had left flank pain and lower back pain and 1x episode of vomiting NBNB. Denies the following: visual changes, headache, dysuria, hematuria, diarrhea, and leg pain/swelling. No recent travels. Shx: None Allergies: NKDA Social: Electronic cigarettes. Denies substance abuse. Endorses social drinking less than 1x/week. Past History - Past Medical History Allergies/Adverse Reactions: Allergies Allergy/AdvReac Type Severity Reaction Status Date / Time nut - unspecified AdvReac Unknown Hives Verified 02/20/19 02:52 Home Medications: Ambulatory Orders Acetaminophen with Codeine [Tylenol with Codeine #3 Tablet] 1 each PO ASDIR Acyclovir 5 gm TP ASDIR 12/16/18 Albuterol Sulfate Inhaler - [Ventolin HFA Inhaler -] 1 - 2 inh PO QID 12/16/18 Citalopram Hydrobromide [Celexa -] 10 mg PO DAILY 12/16/18 Clonazepam [Klonopin] 1 mg PO TID 12/16/18 Hydrocortisone 0.5% Ointment [Hytone 0.5% Ointment -] 1 applic TP BID 12/16/18 Quetiapine Fumarate [Quetiapine Fumarate ER] 200 mg PO HS 12/16/18 Dabigatran Etexilate Mesylate [Pradaxa -] 150 mg PO BID #60 capsule 01/17/19 Melatonin/Pyridoxine HCl (B6) [Melatonin 3 mg Tablet] 1 each PO DAILY 02/20/19 Methocarbamol [Robaxin -] 500 mg PO TID PRN #21 tablet 02/20/19 Anemia: No Asthma: No Cancer: Yes (Cervical, herpes, hpv) CVA: No (left jugular vein thrombosis, Cerebal shilpa throm) COPD: No CHF: No Dementia: No Diabetes: No GI Disorders: No Disorders: No HTN: No Hypercholesterolemia: No Liver Disease: No Psychiatric Problems: Yes (DEPRESSION,OCD,ANXIETY,PANIC ATTACHS) Seizures: Yes Thyroid Disease: No - Surgical History Abdominal Surgery: No Appendectomy: No Cardiac Surgery: No Cholecystectomy: No Lung Surgery: No Neurologic Surgery: No Orthopedic Surgery: No - Immunization History Immunization Up to Date: No - Suicide/Smoking/Psychosocial Hx Smoking Status: Yes (1.5 pack per day) Smoking History: Never smoked Have you smoked in the past 12 months: No Number of Cigarettes Smoked Daily: 20 Information on smoking cessation initiated: No 'Breaking Loose' booklet given: 05/06/18 Hx Alcohol Use: Yes Drug/Substance Use Hx: No Substance Use Type: None Hx Substance Use Treatment: No Review of Systems - Review of Systems Able to Perform ROS?: Yes Is the patient limited Upper Sorbian proficient: No Constitutional: No: Chills, Diaphoresis, Fever HEENTM: No: Eye Pain, Recent change in vision, Ear Pain, Nose Pain, Throat Pain , Mouth Pain Respiratory: No: Cough, Shortness of Breath, SOB with Exertion, Hemoptysis Cardiac (ROS): No: Chest Pain, Lightheadedness, Palpitations, Syncope ABD/GI: Yes: Nausea. No: Constipated, Diarrhea, Rectal Bleeding, Vomiting, Tarry Stools : Yes: Flank Pain (left side). No: Burning, Dysuria, Hematuria, Incontinence Musculoskeletal: Yes: Back Pain (lumbar), Joint Pain (left hip). No: Neck Pain Integumentary: No: Bruising, Erythema, Rash Neurological: No: Headache, Numbness, Tingling, Tremors, Ataxia Psychiatric: No: Change in Appetite Endocrine: No: Unexplained Weight Gain *Physical Exam - Vital Signs Last Vital Signs Temp Pulse Resp BP Pulse Ox 97.8 F 90 18 114/77 97 02/20/19 02:23 02/20/19 02:23 02/20/19 02:23 02/20/19 02:23 02/20/19 02:23 - Physical Exam General Appearance: Yes: Nourished, Appropriately Dressed, Obese. No: Apparent Distress, Intoxicated HEENT: positive: EOMI, AARON, Normal Voice, Symmetrical, Pharynx Normal, Hearing Grossly Normal. negative: Pale Conjunctivae, Scleral Icterus (R), Scleral Icterus (L), Muffled/Hoarse voice, Pharyngeal Erythema, Tonsillar Exudate, Tonsillar Erythema, Excessive drooling Neck: positive: Trachea midline, Supple. negative: Tender, Lymphadenopathy (R) , Lymphadenopathy (L), Tender lateral, Tender midline Respiratory/Chest: positive: Lungs Clear, Normal Breath Sounds. negative: Chest Tender, Respiratory Distress, Accessory Muscle Use Cardiovascular: positive: Regular Rhythm, Regular Rate, S1, S2. negative: Systolic Murmur Gastrointestinal/Abdominal: positive: Normal Bowel Sounds, Flat, Soft. negative : Tender, Distended Musculoskeletal: positive: Normal Inspection, Other (left paravertebral tenderness. tenderness to palpation mid clavicular line 9-10th rib space). negative: CVA Tenderness Extremity: positive: Normal Capillary Refill, Normal Inspection, Normal Range of Motion, Tender (left hip. ). negative: Swelling, Calf Tenderness Integumentary: positive: Normal Color, Dry, Warm Neurologic: positive: regulated program manager II-XII NML intact, Fully Oriented, Alert, Normal Mood/ Affect, Normal Response, Motor Strength 5/5. negative: EOM Palsy, Facial Droop , Sensory Deficit ED Treatment Course - LABORATORY CBC & Chemistry Diagram: 02/20/19 03:53 02/20/19 03:53 Medical Decision Making - Medical Decision Making 02/20/19 05:18 44 yo F with a hx HSV, depression, left sinus venous thrombosis (on pradaxa), and depression presents to the emergency department s/p fall today at approximately 1:30 am. Initial vitals: Initial Vital Signs Temp Pulse Resp BP Pulse Ox 97.8 F 90 18 114/77 97 02/20/19 02:23 02/20/19 02:23 02/20/19 02:23 02/20/19 02:23 02/20/19 02:23 Work up: ddx: s/p fall likely mechanical given no prodromal symptoms prior and did not hit head. will get cbc, cmp, pt/inr, and ethanol level Laboratory Tests 02/20/19 02/20/19 02/20/19 03:53 03:53 03:53 WBC 8.4 RBC 4.08 Hgb 12.0 Hct 36.0 MCV 88.3 MCH 29.5 MCHC 33.4 RDW 15.1 Plt Count 200 MPV 8.3 Absolute Neuts (auto) 6.1 Neutrophils % 72.3 D Lymphocytes % 19.2 D Monocytes % 7.6 Eosinophils % 0.6 Basophils % 0.3 Nucleated RBC % 0 PT with INR INR Sodium 141 Potassium 3.7 Chloride 105 Carbon Dioxide 27 Anion Gap 8 BUN 10 Creatinine 0.9 Creat Clearance w eGFR 68.66 Random Glucose 92 Calcium 9.0 Total Bilirubin 0.4 AST 19 ALT 24 Alkaline Phosphatase 69 Total Protein 7.1 Albumin 3.8 Serum , Qual Negative Alcohol, Quantitative 02/20/19 02/20/19 03:53 03:53 WBC RBC Hgb Hct MCV MCH MCHC RDW Plt Count MPV Absolute Neuts (auto) Neutrophils % Lymphocytes % Monocytes % Eosinophils % Basophils % Nucleated RBC % PT with INR 12.80 INR 1.08 Sodium Potassium Chloride Carbon Dioxide Anion Gap BUN Creatinine Creat Clearance w eGFR Random Glucose Calcium Total Bilirubin AST ALT Alkaline Phosphatase Total Protein Albumin Serum , Qual Alcohol, Quantitative < 3.0 02/20/19 05:19 Patient's ethanol level is <3. Patient is reliable for recalling history of not hitting head. patient will get ribs left, hip pelvis left, and lumbar spine to rule out fracture and dislocation. 02/20/19 06:34 xrays within normal limits by my read. will discharge with PMD follow up. patient was pain free at the time of discharge and given return precautions. Dispo: Discharge *DC/Admit/Observation/Transfer Diagnosis at time of Disposition: Musculoskeletal pain - Discharge Dispostion Disposition: HOME Decision to Admit order: No - Prescriptions Prescriptions: Methocarbamol [Robaxin -] 500 mg PO TID PRN #21 tablet PRN Reason: Pain - Referrals Referrals: [facility] [Provider Group] - Patient Instructions Printed Discharge Instructions: How to Prevent Falls, DI for Musculoskeletal Pain Additional Instructions: please return to the emergency department if you have worsening pain or new concerning symptoms such as inability to walk, loss of sensation or strength, and inability to urinate or control bowel movement. please follow up with your primary medical doctor in 1 week after discharge for follow up care and management. thank you. - Post Discharge Activity
[2019-02-20 03:23] VITALS: TEMP 97.8; BMI 39.1
--- NOTE | 2019-02-20 04:02 | PDOC ---
Attending Attestation - Resident Resident Name: DaoWyatt - ED Attending Attestation I have performed the following: I have examined & evaluated the patient, The case was reviewed & discussed with the resident, I agree w/resident's findings & plan - HPI HPI: 02/20/19 04:40 Pt tripped and fell while walking up steps. No drug or alcohol intox. Now with left chest pain; left hip pain and low back pain. No other complaints. - Physicial Exam PE: 02/20/19 04:41 Agree with resident exam - Medical Decision Making 02/20/19 04:41 XRAYS, mm relaxants, NSAIDS and home if all labs are normal.
[2019-02-20 04:28] LABS: INR 1.08 (0.83-1.09); PROTHROMBIN TIME (PATIENT) 12.8 SEC (9.7-13.0)
[2019-02-20 04:31] LABS: BASO % 0.3 % (0-2.0); EOS % 0.6 % (0-4.5); LYMPH % 19.2 % (8-40); MCH 29.5 pg (25.7-33.7); MCHC 33.4 g/dl (32.0-36.0); MEAN CELL VOLUME 88.3 fl (80-96); MEAN PLT VOLUME 8.3 fl (7.5-11.1); MONO % 7.6 % (3.8-10.2); NEUT % 72.3 % (42.8-82.8); PLATELET COUNT 200 K/MM3 (134-434); RBC 4.08 M/mm3 (3.60-5.2); RDW 15.1 % (11.6-15.6); WHITE BLOOD COUNT 8.4 K/mm3 (4.0-10.0)
[2019-02-20 04:40] LABS: ALBUMIN 3.8 g/dl (3.4-5.0); ALK PHOS 69 U/L (45-117); ANION GAP 8 MMOL/L (8-16); BILIRUBIN,TOTAL 0.4 mg/dL (0.2-1); BLOOD UREA NITROGEN 10 mg/dL (7-18); CHLORIDE 105 mmol/L (98-107); CO2 27 mmol/L (21-32); CREATININE 0.9 mg/dL (0.55-1.3); GLUCOSE,RANDOM 92 mg/dL (74-106); POTASSIUM 3.7 mmol/L (3.5-5.1); SGOT/AST 19 U/L (15-37); SGPT/ALT 24 U/L (13-61); SODIUM 141 mmol/L (136-145); TOT PROT 7.1 g/dl (6.4-8.2)
[2019-02-20] MEDS ORDERED: METHOCARBAMOL 500 MG TABLET PO ONE (04:40)
[2019-02-20] MEDS ORDERED: IBUPROFEN 600 MG TABLET (FP) PO ONE ×2 (04:40→04:52)
[2019-02-20] MEDS ORDERED: METHOCARBAMOL 500 MG TABLET ONE (04:51)
[2019-02-20 07:28] VITALS: BP 110/78; PULSE 84
--- NOTE | 2019-02-20 10:51 | EKG ---
Test Reason : Blood Pressure : / mmHG Vent. Rate : 078 BPM Atrial Rate : 078 BPM P-R Int : 178 ms QRS Dur : 086 ms QT Int : 438 ms P-R-T Axes : 061 052 046 degrees QTc Int : 499 ms NORMAL SINUS RHYTHM PROLONGED QT ABNORMAL ECG WHEN COMPARED WITH ECG OF 17-JAN-2019 14:12, NO SIGNIFICANT CHANGE WAS FOUND Confirmed by SHANTA ZAMARRIPA MD ([id number]) on 02/20/2019 10:51:31 AM Referred By: Confirmed By:SHANTA ZAMARRIPA MD
== END 2019-02-20 07:05 | disposition home or self-care (01) ==
LOC: JER 02:23
DX: M54.5 Low back pain (principal); R07.81 Pleurodynia; M25.552 Pain in left hip; W10.8XXA Fall (on) (from) other stairs and steps, initial encounter; Y93.89 Activity, other specified; Y92.038 Other place in apartment as the place of occurrence of the external cause; Y99.8 Other external cause status; G08 Intracranial and intraspinal phlebitis and thrombophlebitis; I82.C19 Acute embolism and thrombosis of unspecified internal jugular vein; Z79.01 Long term (current) use of anticoagulants; F41.8 Other specified anxiety disorders; F32.9 Major depressive disorder, single episode, unspecified; F42.9 Obsessive-compulsive disorder, unspecified; F41.0 Panic disorder [episodic paroxysmal anxiety]; Z85.41 Personal history of malignant neoplasm of cervix uteri
CPT/HCPCS: 36415; 71101-TC-LT-FY; 72100-TC-FY; 73523-TC-FY; 80053; 80307; 84703; 85025; 85610; 93005; 93010; 99282-25

== ENCOUNTER 2019-04-06 14:31 | Emergency (ER) | payer OTHER | END 2019-04-06 17:04 | disposition home or self-care (01) | LOC: JER 14:31 ==

== ENCOUNTER 2019-04-21 02:38 | Emergency (ER) | payer OTHER ==
[2019-04-21] MEDS ORDERED: SODIUM CHLORIDE 1,000 ML IV STA (03:24)
--- NOTE | 2019-04-21 04:28 | PDOC ---
History of Present Illness - General Chief Complaint: Lightheaded Stated Complaint: NAUSEA Time Seen by Provider: 04/21/19 02:45 - History of Present Illness Initial Comments: 04/21/19 04:19 44 F with h/o anxiety/depression, fibromyalgia, venous sinus thrombosis, presenting to ED with nausea and abdominal pain. Pt states that 3 nights ago, she "accidentally" drank part of a bottle of dish detergent. Pt states that she takes seroquel and klonopin to sleep, and she sometimes sleepwalks and has sometimes awoken to find herself eating. She denies intentionally trying to hurt herself. Denies SI/HI/AVH. Pt states that she went to [facility] immediately afterwards and was evaluated and discharged. She states that over the past 2 days, she has had persistent nausea. Denies any vomiting. Denies diarrhea/constipation. Denies any abdominal pain. Denies CP/SOB. Past History - Past Medical History Allergies/Adverse Reactions: Allergies Allergy/AdvReac Type Severity Reaction Status Date / Time nut - unspecified AdvReac Unknown Hives Verified 04/06/19 14:48 Home Medications: Ambulatory Orders Acetaminophen with Codeine [Tylenol with Codeine #3 Tablet] 1 each PO ASDIR Acyclovir 5 gm TP ASDIR 12/16/18 Albuterol Sulfate Inhaler - [Ventolin HFA Inhaler -] 1 - 2 inh PO QID 12/16/18 Citalopram Hydrobromide [Celexa -] 10 mg PO DAILY 12/16/18 Clonazepam [Klonopin] 1 mg PO TID 12/16/18 Hydrocortisone 0.5% Ointment [Hytone 0.5% Ointment -] 1 applic TP BID 12/16/18 Quetiapine Fumarate [Quetiapine Fumarate ER] 200 mg PO HS 12/16/18 Dabigatran Etexilate Mesylate [Pradaxa -] 150 mg PO BID #60 capsule 01/17/19 Melatonin/Pyridoxine HCl (B6) [Melatonin 3 mg Tablet] 1 each PO DAILY 02/20/19 Methocarbamol [Robaxin -] 500 mg PO TID PRN #21 tablet 02/20/19 Cephalexin [Keflex] 500 mg PO BID #14 capsule 04/06/19 Anemia: No Asthma: No Cancer: Yes (Cervical, herpes, hpv) CVA: No (left jugular vein thrombosis, Cerebal shilpa throm) COPD: No CHF: No Dementia: No Diabetes: No GI Disorders: No Disorders: No HTN: No Hypercholesterolemia: No Liver Disease: No Psychiatric Problems: Yes (DEPRESSION,OCD,ANXIETY,PANIC ATTACHS) Seizures: Yes Thyroid Disease: No - Surgical History Abdominal Surgery: No Appendectomy: No Cardiac Surgery: No Cholecystectomy: No Lung Surgery: No Neurologic Surgery: No Orthopedic Surgery: No - Immunization History Immunization Up to Date: No - Suicide/Smoking/Psychosocial Hx Smoking Status: Yes (1.5 pack per day) Smoking History: Current every day smoker Have you smoked in the past 12 months: Yes Number of Cigarettes Smoked Daily: 20 Cigars Per Day: 20 Information on smoking cessation initiated: Yes 'Breaking Loose' booklet given: 05/06/18 Hx Alcohol Use: No Drug/Substance Use Hx: No Substance Use Type: None Hx Substance Use Treatment: No Review of Systems - Review of Systems Comments:: 04/21/19 04:28 "GENERAL/CONSTITUTIONAL: No fever or chills. No weakness. HEAD, EYES, EARS, NOSE AND THROAT: No change in vision. No ear pain or discharge. No sore throat. CARDIOVASCULAR: No chest pain, no shortness of breath, no loss of consciousness RESPIRATORY: No cough, wheezing, or hemoptysis. GASTROINTESTINAL: + nausea, no vomiting, diarrhea or constipation. GENITOURINARY: No dysuria, frequency, or change in urination. MUSCULOSKELETAL: No joint or muscle swelling or pain. No neck or back pain. SKIN: No rash NEUROLOGIC: No vertigo, no change in strength/sensation. ENDOCRINE: No increased thirst. No abnormal weight change. HEMATOLOGIC/LYMPHATIC: No anemia, easy bleeding, or history of blood clots. ALLERGIC/IMMUNOLOGIC: No hives or skin allergy. *Physical Exam - Vital Signs Last Vital Signs Temp Pulse Resp BP Pulse Ox 97.4 F L 89 18 116/70 97 04/21/19 03:00 04/21/19 03:00 04/21/19 03:00 04/21/19 03:00 04/21/19 03:00 - Physical Exam Comments: 04/21/19 04:28 "GENERAL: Awake, alert, and fully oriented, in no acute distress. HEAD: No signs of trauma EYES: PERRLA, EOMI, sclera anicteric, conjunctiva clear ENT: Auricles normal inspection, hearing grossly normal, nares patent, oropharynx clear without exudates. Moist mucosa NECK: Nontender, no stepoffs, Normal ROM, supple, no lymphadenopathy, JVD, or masses LUNGS: Breath sounds equal, clear to auscultation bilaterally. No wheezes, and no crackles HEART: Regular rate and rhythm, normal S1 and S2, no murmurs, rubs or gallops ABDOMEN: + LLQ TTP, normoactive bowel sounds. No guarding, no rebound. No masses EXTREMITIES: Normal range of motion, no edema. No clubbing or cyanosis. No cords, erythema, or tenderness NEUROLOGICAL: Cranial nerves II through XII intact. 5/5 strength and sensation in all extremities, Normal speech, normal gait, normal cerebellar function SKIN: Warm, Dry, normal turgor, no rashes or lesions noted. ED Treatment Course - LABORATORY CBC & Chemistry Diagram: 04/21/19 04:25 04/21/19 04:25 - RADIOLOGY Radiology Studies Ordered: Category Date Time Status ABDOMEN & PELVIS CT WITH CONTR [CT] Stat CT Scan 04/21/19 03:25 Ordered Medical Decision Making - Medical Decision Making 04/21/19 04:28 44 F with nausea after accidentally drinking dish detergent 3 days ago. Pt with LLQ tenderness on exam. Will eval for diverticulitis/colitis. I spoke with poison control regarding pt's ingestion of "dermassage" dish soap. They report that it is non-toxic, and pt does not need GI eval at this time. Pt has no evidence of oral mucosal injury on exam. - Labs, UA, UPT - CTAP - IVF 04/21/19 05:57 Labs wnl Dispo pending CT
[2019-04-21 04:34] VITALS: BMI 41.1
[2019-04-21] MEDS ORDERED: MAG HYDROX/AL HYDROX/SIMETH 30 ML UNIT-DOSE CUP PO ONE (04:38)
[2019-04-21] MEDS ORDERED: MAG HYDROX/AL HYDROX/SIMETH 30 ML UNIT-DOSE CUP ONE (04:45)
[2019-04-21 05:03] LABS: HCG,QUALITATIVE URINE Negative
[2019-04-21 05:04] LABS: URINE APPEARANCE CLEAR; URINE BILIRUBIN NEGATIVE (NEGATIVE); URINE COLOR YELLOW; URINE GLUCOSE (UA) NEGATIVE (NEGATIVE); URINE KETONE NEGATIVE (NEGATIVE); URINE LEUK ESTERASE NEGATIVE (NEGATIVE); URINE NITRITE NEGATIVE (NEGATIVE); URINE PROTEIN NEGATIVE (NEGATIVE); URINE UROBILINOGEN 0.2 mg/dL (0.2-1.0)
[2019-04-21 05:10] LABS: BASO % 0.7 % (0-2.0); EOS % 1.8 % (0-4.5); HEMOGLOBIN 12.1 GM/dL (10.7-15.3); LYMPH % 32.8 % (8-40); MCHC 32.8 g/dl (32.0-36.0); MEAN CELL VOLUME 88.5 fl (80-96); MEAN PLT VOLUME 8.5 fl (7.5-11.1); MONO % 4.4 % (3.8-10.2); NEUT % 60.3 % (42.8-82.8); PLATELET COUNT 230 K/MM3 (134-434); RBC 4.18 M/mm3 (3.60-5.2); RDW 15.7 % (11.6-15.6); WHITE BLOOD COUNT 8.4 K/mm3 (4.0-10.0)
[2019-04-21 05:30] LABS: COCAINE, UR NEGATIVE ng/ml (CUTOFF=300); METHADONE, UR NEGATIVE ng/ml (CUTOFF=300); OPIATES, URI NEGATIVE ng/ml (CUTOFF=300); PHENCYCLIDINE,URINE NEGATIVE ng/ml (CUTOFF=25); URINE AMPHETAMINES NEGATIVE ng/ml (CUTOFF=500); URINE BARBITURATES NEGATIVE ng/ml (CUTOFF=200)
[2019-04-21 05:32] LABS: URINE BENZODIAZEPINES POSITIVE ng/ml (CUTOFF=200)
[2019-04-21 05:36] LABS: ALBUMIN 3.7 g/dl (3.4-5.0); BILIRUBIN,TOTAL 0.2 mg/dL (0.2-1); BLOOD UREA NITROGEN 7.5 mg/dL (7-18); CALCIUM 8.6 mg/dL (8.5-10.1); POTASSIUM 3.7 mmol/L (3.5-5.1); TOT PROT 7.4 g/dl (6.4-8.2)
--- NOTE | 2019-04-21 07:45 | PDOC ---
*Physical Exam - Vital Signs Last Vital Signs Temp Pulse Resp BP Pulse Ox 97.4 F L 89 18 116/70 97 04/21/19 03:00 04/21/19 03:00 04/21/19 03:00 04/21/19 03:00 04/21/19 03:00 ED Treatment Course - LABORATORY CBC & Chemistry Diagram: 04/21/19 04:25 04/21/19 04:25 - ADDITIONAL ORDERS Additional order review: Laboratory Results 04/21/19 04/21/19 04/21/19 04:25 04:25 04:25 Sodium 140 Potassium 3.7 Chloride 105 Carbon Dioxide 28 Anion Gap 6 L BUN 7.5 Creatinine 1.0 Est GFR (CKD-EPI)AfAm 80.47 Est GFR (CKD-EPI)NonAf 69.43 Random Glucose 85 Calcium 8.6 Total Bilirubin 0.2 AST 66 H ALT 34 Alkaline Phosphatase 70 Total Protein 7.4 Albumin 3.7 Lipase 61 L Urine Color Yellow Urine Appearance Clear Urine pH 5.0 D Ur Specific [place] 1.008 L Urine Protein Negative Urine Glucose (UA) Negative Urine Ketones Negative Urine Blood 1+ H Urine Nitrite Negative Urine Bilirubin Negative Urine Urobilinogen 0.2 Ur Leukocyte Esterase Negative Urine HCG, Qual Negative Opiates Screen Negative Methadone Screen Negative Barbiturate Screen Negative Phencyclidine Screen Negative Ur Amphetamines Screen Negative MDMA (Ecstasy) Screen Negative Benzodiazepines Screen Positive A* Cocaine Screen Negative U Marijuana (THC) Screen Negative 04/21/19 04:25 RBC 4.18 MCV 88.5 MCHC 32.8 RDW 15.7 H MPV 8.5 Neutrophils % 60.3 Lymphocytes % 32.8 D Monocytes % 4.4 Eosinophils % 1.8 D Basophils % 0.7 - Medications Given in the ED: ED Medications Discontinued Medications Generic Name Dose Route Start Last Admin Trade Name Freq PRN Reason Stop Dose Admin Al Hydroxide/Mg Hydroxide 30 ml 04/21/19 04:38 04/21/19 04:47 Mylanta Oral Suspension - PO 04/21/19 04:39 30 ml ONCE ONE Administration Sodium Chloride 1,000 mls @ 1,000 mls/hr 04/21/19 03:24 04/21/19 04:38 Normal Saline - IV 04/21/19 04:23 1,000 mls/hr ASDIR STA Administration Medical Decision Making - Medical Decision Making 04/21/19 07:44 Pt signed out to me by Dr. Isbell at 7am shift change, awaiting CT results. CT read , no acute findings. Stable for DC home. *DC/Admit/Observation/Transfer Diagnosis at time of Disposition: Ingestion of detergent or soap Abdominal pain Qualifiers: Abdominal location: left lower quadrant Qualified Code(s): R10.32 - Left lower quadrant pain - Discharge Dispostion Disposition: HOME Condition at time of disposition: Stable Decision to Admit order: No - Referrals - Patient Instructions Printed Discharge Instructions: DI for Abdominal Pain-Adult - Post Discharge Activity
[2019-04-21 08:06] VITALS: BP 109/57; PULSE 87; TEMP 97.8
--- NOTE | 2019-04-21 11:30 | EKG ---
Test Reason : Blood Pressure : / mmHG Vent. Rate : 086 BPM Atrial Rate : 086 BPM P-R Int : 180 ms QRS Dur : 080 ms QT Int : 416 ms P-R-T Axes : 058 041 041 degrees QTc Int : 497 ms NORMAL SINUS RHYTHM PROLONGED QT ABNORMAL ECG WHEN COMPARED WITH ECG OF 20-FEB-2019 03:27, NO SIGNIFICANT CHANGE WAS FOUND Confirmed by DEVON SANCHEZ MD ([id number]) on 04/21/2019 11:30:10 AM Referred By: Confirmed By:DEVON SANCHEZ MD
== END 2019-04-21 08:06 | disposition home or self-care (01) ==
LOC: JER 02:38
PROC: 3E0337Z Introduction of Electrolytic and Water Balance Substance into Peripheral Vein, Percutaneous Approach (ICD-10-PCS; principal; 2019-04-21)
DX: T55 Toxic effect of soaps and detergents (principal); Y92.018 Other place in single-family (private) house as the place of occurrence of the external cause; F41.9 Anxiety disorder, unspecified; F32.9 Major depressive disorder, single episode, unspecified; F41.0 Panic disorder [episodic paroxysmal anxiety]; G40.909 Epilepsy, unspecified, not intractable, without status epilepticus
CPT/HCPCS: 36415; 74177-TC; 80053; 80307; 81003; 83690; 84703; 85025; 87077; 87086; 93005; 93010; 96360; 99283-25; J7030

== ENCOUNTER 2019-04-23 16:48 | Emergency (ER) | payer OTHER ==
[2019-04-23 16:59] VITALS: BP 131/90; TEMP 98.3; BMI 40.7
--- NOTE | 2019-04-23 17:29 | PDOC ---
History of Present Illness - General Chief Complaint: Overdose Stated Complaint: TOOK WRONG MEDS Time Seen by Provider: 04/23/19 17:27 History Source: Patient Exam Limitations: No Limitations - History of Present Illness Initial Comments: Summer is a 43 yo F w a hx of HSV, HPV, anxiety, depression, OCD, panic attacks, asthma, hemorrhoids, and chronic transverse sinus thrombosis who presents to the ER stating she is worried that her blood is thin bc she by accidentally took 5 extra 2.5 mg pills of warfarin 2 nights ago thinking they were her anti- anxiety medications. The patient states she was recently switched to pradaxa for blood thinning and told to stop taking warfarin. She meant to take her anti- anxiety medications on Wednesday night but bc she says they are the same color she by accidentally ingested her warfarin pills instead of anti-anxiety meds. The patient states she has been anxious and worried since taking these meds and reports seeing dark material in her feces yesterday. Today her stool was normal in color but yesterday it was dark. Patient denies having abdominal pain, nausea, vomiting, diarrhea, headache, blurry vision, chest pain, SOB, difficulty breathing, numbness, weakness, tingling, or chills. Patient adamantly denies having any suicidal or homicidal ideation. PCP: Summer Greenberg PSH: Bartholin cyst drainage (2005), Pilonidal cyst drainage (2018) Allergies: Nuts, NKDA Social Hx: Smokes a mix of cigarettes and e-cigarettes daily. Drinks recreationally. Denies illicit drug usage. Past History - Past Medical History Allergies/Adverse Reactions: Allergies Allergy/AdvReac Type Severity Reaction Status Date / Time nut - unspecified AdvReac Unknown Hives Verified 04/23/19 16:59 Home Medications: Ambulatory Orders Citalopram Hydrobromide [Celexa -] 10 mg PO DAILY 12/16/18 Clonazepam [Klonopin] 1 mg PO TID 12/16/18 Hydrocortisone 0.5% Ointment [Hytone 0.5% Ointment -] 1 applic TP PRN 12/16/18 Scopolamine Hydrobromide [Transderm-Scop -] 1 patch TD DAILY 04/21/19 Acyclovir/Hydrocortisone [Xerese 5%-1% Cream] 5 gm TP ASDIR 04/23/19 Dabigatran Etexilate Mesylate [Pradaxa -] 150 mg PO BID 04/23/19 Anemia: No Asthma: No Cancer: Yes (Cervical, herpes, hpv) CVA: No (left jugular vein thrombosis, Cerebal shilpa throm) COPD: No CHF: No Dementia: No Diabetes: No GI Disorders: No Disorders: No HTN: No Hypercholesterolemia: No Liver Disease: No Psychiatric Problems: Yes (DEPRESSION,OCD,ANXIETY,PANIC ATTACKS) Seizures: Yes Thyroid Disease: No - Surgical History Abdominal Surgery: No Appendectomy: No Cardiac Surgery: No Cholecystectomy: No Lung Surgery: No Neurologic Surgery: No Orthopedic Surgery: No - Immunization History Immunization Up to Date: No - Suicide/Smoking/Psychosocial Hx Smoking Status: Yes (1.5 pack per day) Smoking History: Never smoked Have you smoked in the past 12 months: Yes Number of Cigarettes Smoked Daily: 20 Cigars Per Day: 20 'Breaking Loose' booklet given: 05/06/18 Hx Alcohol Use: No Drug/Substance Use Hx: No Substance Use Type: None Hx Substance Use Treatment: No Review of Systems - Review of Systems Able to Perform ROS?: Yes Comments:: CONSTITUTIONAL: Absent: fever, no chills, no fatigue EYES: Absent: visual changes ENT: Absent: ear pain, no sore throat CARDIOVASCULAR: Absent: chest pain, no palpitations RESPIRATORY: Absent: cough, no SOB GI: Absent: abdominal pain, no nausea, no vomiting, no constipation, no diarrhea GENITOURINARY: Absent: dysuria, no frequency, no hematuria MUSKULOSKELETAL: Absent: back pain, no arthralgia, no myalgia SKIN: Absent: rash NEURO: Absent: headache *Physical Exam - Vital Signs Last Vital Signs Temp Pulse Resp BP Pulse Ox 98.3 F 119 H 20 131/90 99 04/23/19 16:56 04/23/19 16:56 04/23/19 16:56 04/23/19 16:56 04/23/19 16:56 - Physical Exam Comments: GENERAL: Anxious appearing. Well-nourished. No apparent distress. HEENT: Normocephalic, atraumatic. PERRL, EOM intact. CARDIOVASCULAR: Normal S1, S2. Regular rate and rhythm. PULMONARY: No evidence of respiratory distress. Lungs clear to auscultation bilaterally. No wheezing, rales or rhonchi. ABDOMEN: Soft, non-distended, non-tender. EXTREMITIES: Normal ROM in all four extremities. No gross deformities. SKIN: Warm, dry. No rash NEUROLOGICAL: No focal neurological deficits. Rectal Exam: positive: heme negative stool, normal rectal tone, hemorrhoids ( external). negative: melena, decreased tone, heme positive stool ED Treatment Course - LABORATORY CBC & Chemistry Diagram: 04/23/19 18:00 04/23/19 18:00 Medical Decision Making - Medical Decision Making Summer is a 43 yo F w a hx of HSV, HPV, anxiety, depression, OCD, panic attacks, asthma, hemorrhoids, and chronic transverse sinus thrombosis who presents to the ER stating she is worried that her blood is thin bc she by accidentally took 5 extra 2.5 mg pills of warfarin 2 nights ago thinking they were her anti- anxiety medications. The patient states she was recently switched to pradaxa for blood thinning and told to stop taking warfarin. She meant to take her anti- anxiety medications on Wednesday night but bc she says they are the same color she by accidentally ingested her warfarin pills instead of anti-anxiety meds. The patient states she has been anxious and worried since taking these meds and reports seeing dark material in her feces yesterday. Today her stool was normal in color but yesterday it was dark. Patient denies having abdominal pain, nausea, vomiting, diarrhea, headache, blurry vision, chest pain, SOB, difficulty breathing, numbness, weakness, tingling, or chills. Patient adamantly denies having any suicidal or homicidal ideation. VS: HR is 94 at bedside. Otherwise WNL MDM: Patient came in concerned that she took too many warfarin pills 2 nights prior to ER admission. - Denies other ingestion or any SI/HI Plan: Labs, EKG, FOBT, re-assess. PT: 89.6 INR: 7.44 The 2012 [employer] and the 2018 [place] [employer] (XAVIER) guidelines both suggest not using vitamin K to correct the INR when the INR is between 4.5 and 10 without clinically significant bleeding. - This patient falls in this category so we will not treat - Will make sure she does not take any more Warfarin and DC with PCP follow up *DC/Admit/Observation/Transfer Diagnosis at time of Disposition: Elevated international normalized ratio (INR) - Discharge Dispostion Disposition: HOME Condition at time of disposition: Stable Decision to Admit order: No - Referrals Referrals: Summer Spence [Primary Care Provider] - - Patient Instructions Printed Discharge Instructions: Prothrombin time, DI for Drug Overdose in Adults Additional Instructions: You came into the ER after you mistakingly took too much warfarin. Your INR is now 7.44. The 2012 [employer] and the 2018 [place] [employer] ([employer]AV[employer]) guidelines both suggest not using vitamin K to correct the INR when the INR is between 4.5 and 10 without clinically significant bleeding. You fall into this category. MAKE SURE YOU NO LONGER TAKE ANY WARFARIN. Please make sure to follow up with your primary doctor in 3 to 5 days to make sure you are getting better and being taken care of. Come back to the ER immediately if you get a headache, start bleeding from your mouth, nose, ears, eyes, rectum, or anywhere else. Come back with any other new or worsening concerns. Thank you for coming to the [facility] ER. We hope you feel better soon! Print Language: DOMINICAN - Post Discharge Activity
[2019-04-23 18:18] LABS: BASO % 0.5 % (0-2.0); EOS % 0.5 % (0-4.5); HEMATOCRIT 35.2 % (32.4-45.2); HEMOGLOBIN 11.5 GM/dL (10.7-15.3); LYMPH % 23.7 % (8-40); MCH 28.9 pg (25.7-33.7); MCHC 32.7 g/dl (32.0-36.0); MEAN CELL VOLUME 88.3 fl (80-96); MONO % 5.5 % (3.8-10.2); NEUT % 69.8 % (42.8-82.8); RBC 3.99 M/mm3 (3.60-5.2); RDW 15.4 % (11.6-15.6); WHITE BLOOD COUNT 7.3 K/mm3 (4.0-10.0)
[2019-04-23 18:42] LABS: ALBUMIN 3.3 g/dl (3.4-5.0); BILIRUBIN,TOTAL 0.1 mg/dL (0.2-1); BLOOD UREA NITROGEN 7.8 mg/dL (7-18); CALCIUM 8.4 mg/dL (8.5-10.1); CREATININE 0.8 mg/dL (0.55-1.3); POTASSIUM 3.3 mmol/L (3.5-5.1)
--- NOTE | 2019-04-23 18:46 | PDOC ---
Documentation entered by Rosalinda Acosta SCRIBE, acting as scribe for Kofi Dumont MD. Kofi Dumont MD: This documentation has been prepared by the Dave pruitt Aiswarya, SCRIBE, under my direction and personally reviewed by me in its entirety. I confirm that the documentation accurately reflects all work, treatment, procedures, and medical decision making performed by me. Attending Attestation - Resident Resident Name: Moris Valdez - ED Attending Attestation I have performed the following: I have examined & evaluated the patient, The case was reviewed & discussed with the resident, I agree w/resident's findings & plan, Exceptions are as noted - HPI HPI: 04/23/19 18:40 44-year-old female with history of anxiety, depression, OCD, fibromyalgia, venous sinus thrombosis on pradaxa presents with accidentally taking 5 pills of 2.5 mg of warfarin 2 days ago. Patient reports that she was recently switched from warfarin to pradaxa for her venous sinus thrombosis. The patient stated that she had actually taken the wrong medication. Patient initially thought that she was reaching for her Klonopin. Patient does admit that she's been taking extra Klonopin to help with her anxiety and other symptoms. However, she absolutely denies suicide or homicidal ideation. The patient acknowledges that she was here 2 days ago for approximately drinking this discharge and. Patient reports that her medications of Seroquel and Klonopin has made her actually take the wrong medication. Patient noted yesterday that there may have been possible dark stooling but denies it now. She denies any symptoms but was concerned and wanted to get checked out. Denies recent illnesses, fevers, chills , cough, vomiting, diarrhea. - Physicial Exam PE: 04/23/19 18:40 GENERAL: Awake, alert, and fully oriented, in no acute distress HEAD: No signs of trauma EYES: EOMI, sclera anicteric, conjunctiva clear ENT: Auricles normal inspection, hearing grossly normal, nares patent, Moist mucosa NECK: Normal ROM, supple, LUNGS: Breath sounds equal, clear to auscultation bilaterally. No wheezes, and no crackles HEART: Regular rate and rhythm, normal S1 and S2, no murmurs, rubs or gallops ABDOMEN: Soft, nontender, No guarding, no rebound. No masses EXTREMITIES: Normal range of motion, no edema. No clubbing or cyanosis. No cords, erythema, or tenderness NEUROLOGICAL: Cranial nerves II through XII grossly intact. Normal speech SKIN: Warm, Dry, normal turgor, no rashes or lesions noted. - Medical Decision Making 04/23/19 18:41 Vital Signs Temp Pulse Resp BP Pulse Ox 98.3 F 119 H 20 131/90 99 04/23/19 16:56 04/23/19 16:56 04/23/19 16:56 04/23/19 16:56 04/23/19 16:56 I believe that the patient had accidentally taken her extra doses of Coumadin. However, she has no acute evidence of GI bleeding at this time. Review of her vital signs demonstrated a slightly elevated heart rate of 119 but repeat vitals performed by me to should heart rate of 90. Patient denies any chest pain or shortness of breath or lightheadedness. I do not believe that she had taken this intentionally to hurt herself. We encouraged the patient to speak to her doctor about dosing her benzodiazepines and stated that it would be better if she worked in conjunction with her doctors in regards to doses. Patient verbalizes understanding agrees. If the patient's blood work temperature is no acute findings such as anemia or other irregularities such as metabolic disarray. The patient can be discharged home with strict return precautions. Stool occult is negative here. Rectal exam as per resident. (Pt has external hemorrhoids) 04/23/19 19:31 CBC, BMP 04/23/19 18:00 04/23/19 18:00 CMP Sodium 138 mmol/L (136-145) 04/23/19 18:00 Potassium 3.3 mmol/L (3.5-5.1) L 04/23/19 18:00 Chloride 108 mmol/L (98-107) H 04/23/19 18:00 Carbon Dioxide 26 mmol/L (21-32) 04/23/19 18:00 Anion Gap 4 MMOL/L (8-16) L 04/23/19 18:00 BUN 7.8 mg/dL (7-18) 04/23/19 18:00 Creatinine 0.8 mg/dL (0.55-1.3) 04/23/19 18:00 Est GFR (CKD-EPI)AfAm 105.39 04/23/19 18:00 Est GFR (CKD-EPI)NonAf 90.93 04/23/19 18:00 Random Glucose 92 mg/dL (74-106) 04/23/19 18:00 Calcium 8.4 mg/dL (8.5-10.1) L 04/23/19 18:00 Total Bilirubin 0.1 mg/dL (0.2-1) L 04/23/19 18:00 AST 24 U/L (15-37) 04/23/19 18:00 ALT 24 U/L (13-61) 04/23/19 18:00 Alkaline Phosphatase 59 U/L (45-117) 04/23/19 18:00 Total Protein 7.0 g/dl (6.4-8.2) 04/23/19 18:00 Albumin 3.3 g/dl (3.4-5.0) L 04/23/19 18:00 INR, PTT INR 7.44 (0.83-1.09) H* 04/23/19 18:00 INR is 7.44 Given guiac negative and no other symptoms of bleeding, the [employer] recommends no reversal agent. Will hold off from giving vitamin K. Pt counselled in regards to being more careful with the warfarin and to not take the medication if she is already taking pradaxa. Pt verbalizes understanding and agrees with plan.
[2019-04-23 18:47] LABS: PLATELET COUNT 208 K/MM3 (134-434)
[2019-04-23 18:49] LABS: PROTHROMBIN TIME (PATIENT) 89.6 SEC (9.7-13.0)
[2019-04-23 18:59] VITALS: PULSE 99
[2019-04-23 19:10] LABS: ACTIVATED PTT 151.2 SECONDS (25.2-36.5); INR 7.44 (0.83-1.09)
[2019-04-23] MEDS ORDERED: POTASSIUM CHLORIDE ORAL LIQUID 20 MEQ/15 ML PO SCH (22:00)
--- NOTE | 2019-04-24 09:35 | EKG ---
Test Reason : Blood Pressure : / mmHG Vent. Rate : 098 BPM Atrial Rate : 098 BPM P-R Int : 176 ms QRS Dur : 082 ms QT Int : 368 ms P-R-T Axes : 062 048 044 degrees QTc Int : 469 ms NORMAL SINUS RHYTHM NORMAL ECG WHEN COMPARED WITH ECG OF 21-APR-2019 03:46, NO SIGNIFICANT CHANGE WAS FOUND Confirmed by SHANTA ZAMARRIPA MD ([id number]) on 04/24/2019 9:35:18 AM Referred By: Confirmed By:SHANTA ZAMARRIPA MD
== END 2019-04-23 19:29 | disposition home or self-care (01) ==
LOC: JER 16:48
DX: T45.511A Poisoning by anticoagulants, accidental (unintentional), initial encounter (principal); R79.1 Abnormal coagulation profile; Y92.098 Other place in other non-institutional residence as the place of occurrence of the external cause; F41.9 Anxiety disorder, unspecified; F32.9 Major depressive disorder, single episode, unspecified; Z86.19 Personal history of other infectious and parasitic diseases; Z86.79 Personal history of other diseases of the circulatory system
CPT/HCPCS: 36415; 80053; 80307; 82272; 85025; 85610; 85730; 93005; 93010; 99284-25

== ENCOUNTER 2019-05-29 01:25 | Emergency (ER) | payer OTHER ==
[2019-05-29 01:36] VITALS: BP 115/75; PULSE 78; TEMP 97.9; BMI 43.2
--- NOTE | 2019-05-29 01:52 | PDOC ---
History of Present Illness <Lelo Ball - Last Filed: 05/29/19 04:29> - History of Present Illness Initial Comments: 05/29/19 02:26 HPI: 44 y/o F with hx of HSV, HPV, panic disorder, depression, asthma, chronic transverse sinus thrombosis presenting because she feels the same symptoms as when she was diagnosed with her transverse sinus thrombus. She reports she stopped her pradaxa anticoagulation 2 months ago because she "didnt like the side effects" and has not followed up with a physician since doing so. she reports 7 days ago she started feeling BL LE heaviness and gait unsteadiness. 2 days ago she started feeling left post auricular pain associated with left tinnitus. she also reports visual disturbances seeing "black butterfly" and "flashing floaters." She also reports slurred speech and difficulty word finding. She tried advil and tylenol for pain but it did not improve symptoms. denies any falls or head trauma but has been lightheaded. Denies seizures, chest pain, SOB, abd pain, emesis, dysuria. PMHx: as noted above ROS: as noted SHx: Reports E-cig use, occaisonal alcohol, no rec drugs Allergies: NKDA <Cameron Torres - Last Filed: 05/29/19 04:35> - General Chief Complaint: Pain Stated Complaint: VERTIGO,LOWER LEG PAIN Time Seen by Provider: 05/29/19 01:41 Past History <Lelo Ball - Last Filed: 05/29/19 04:29> - Past Medical History Anemia: No Asthma: No Cancer: Yes (Cervical, herpes, hpv) CVA: No (left jugular vein thrombosis, Cerebal shilpa throm) COPD: No CHF: No Dementia: No Diabetes: No GI Disorders: No Disorders: No HTN: No Hypercholesterolemia: No Liver Disease: No Psychiatric Problems: Yes (DEPRESSION,OCD,ANXIETY,PANIC ATTACKS) Seizures: Yes Thyroid Disease: No Other medical history: possible DVT - Surgical History Abdominal Surgery: No Appendectomy: No Cardiac Surgery: No Cholecystectomy: No Lung Surgery: No Neurologic Surgery: No Orthopedic Surgery: No - Immunization History Immunization Up to Date: No - Suicide/Smoking/Psychosocial Hx Smoking Status: Yes (1.5 pack per day) Smoking History: Never smoked Have you smoked in the past 12 months: Yes Number of Cigarettes Smoked Daily: 20 Cigars Per Day: 20 'Breaking Loose' booklet given: 05/06/18 Hx Alcohol Use: No Drug/Substance Use Hx: No Substance Use Type: None Hx Substance Use Treatment: No <Cameron Torres - Last Filed: 05/29/19 04:35> - Past Medical History Allergies/Adverse Reactions: Allergies Allergy/AdvReac Type Severity Reaction Status Date / Time nut - unspecified AdvReac Unknown Hives Verified 05/29/19 01:31 Home Medications: Ambulatory Orders Citalopram Hydrobromide [Celexa -] 10 mg PO DAILY 12/16/18 Clonazepam [Klonopin] 1 mg PO TID 12/16/18 Hydrocortisone 0.5% Ointment [Hytone 0.5% Ointment -] 1 applic TP PRN 12/16/18 Scopolamine Hydrobromide [Transderm-Scop -] 1 patch TD DAILY 04/21/19 Acyclovir/Hydrocortisone [Xerese 5%-1% Cream] 5 gm TP ASDIR 04/23/19 Dabigatran Etexilate Mesylate [Pradaxa -] 150 mg PO BID 04/23/19 Review of Systems - Review of Systems Comments:: 05/29/19 02:48 GENERAL/CONSTITUTIONAL: No fever or chills. HEAD, EYES, EARS, NOSE AND THROAT: +change in vision. No ear pain or discharge. No sore throat. CARDIOVASCULAR: No chest pain or shortness of breath RESPIRATORY: No cough, wheezing, or hemoptysis. GASTROINTESTINAL: No vomiting, diarrhea or constipation. GENITOURINARY: No dysuria, frequency, or change in urination. MUSCULOSKELETAL: BL LE pain and heaviness. SKIN: No rash NEUROLOGIC: No headache, vertigo, loss of consciousness, or change in strength/ sensation. ENDOCRINE: No increased thirst. No abnormal weight change HEMATOLOGIC/LYMPHATIC: No anemia, easy bleeding, or history of blood clots. ALLERGIC/IMMUNOLOGIC: No hives or skin allergy. <Cameron Torres - Last Filed: 05/29/19 04:35> *Physical Exam - Vital Signs Last Vital Signs Temp Pulse Resp BP Pulse Ox 97.9 F 78 16 115/75 99 05/29/19 01:31 05/29/19 01:31 05/29/19 01:31 05/29/19 01:31 05/29/19 01:31 <Lelo Ball - Last Filed: 05/29/19 04:29> - Vital Signs Last Vital Signs Temp Pulse Resp BP Pulse Ox 97.9 F 78 16 115/75 99 05/29/19 01:31 05/29/19 01:31 05/29/19 01:31 05/29/19 01:31 05/29/19 01:31 - Physical Exam Comments: 05/29/19 02:49 GENERAL: Awake, alert, and fully oriented, in mild acute distress HEAD: No signs of trauma, normocephalic, atraumatic EYES: PERRLA, EOMI, sclera anicteric, conjunctiva clear ENT: Auricles normal inspection, hearing grossly normal, nares patent, oropharynx clear without exudates. Moist mucosa NECK: Normal ROM, supple, no lymphadenopathy, JVD, or masses LUNGS: No distress, speaks full sentences, clear to auscultation bilaterally HEART: Regular rate and rhythm, normal S1 and S2, no murmurs, rubs or gallops, peripheral pulses normal and equal bilaterally. ABDOMEN: Soft, nontender, normoactive bowel sounds. No guarding, no rebound. No masses EXTREMITIES : Normal inspection, Normal range of motion, no edema. No clubbing or cyanosis. NEUROLOGICAL: Cranial nerves II through XII grossly intact. Normal speech, normal gait, no focal sensorimotor deficits SKIN: Warm, Dry, normal turgor, no rashes or lesions noted <Cameron Torres - Last Filed: 05/29/19 04:35> ED Treatment Course - LABORATORY CBC & Chemistry Diagram: 05/29/19 03:25 05/29/19 03:25 - ADDITIONAL ORDERS Additional order review: 05/29/19 03:25 RBC 4.01 MCV 89.1 MCHC 32.7 RDW 16.0 H MPV 8.5 Neutrophils % 63.9 Lymphocytes % 28.7 D Monocytes % 6.0 Eosinophils % 1.2 D Basophils % 0.2 <Lelo Ball - Last Filed: 05/29/19 04:29> - LABORATORY CBC & Chemistry Diagram: 05/29/19 03:25 05/29/19 03:25 <Cameron Torres - Last Filed: 05/29/19 04:35> Medical Decision Making - Medical Decision Making 05/29/19 02:50 44 y/o F with hx of HSV, HPV, panic disorder, depression, asthma, chronic transverse sinus thrombosis presenting because she feels the same symptoms as when she was diagnosed with her transverse sinus thrombus including BL LE heaviness, tinnitus, visual disturbance, left post auricular pain. Vitals wnl. Physical exam unremarkable; CN 2-12 intact, sensation intact, motor 5/5 str throughout, negative FTN -CTA head -CBC, CMP -ofirmev 05/29/19 04:34 Cr pending for CTA but patient eloped and refused to sign AMA forms Patient ambulated without assistance and steady gait out of hospital <Cameron Torres - Last Filed: 05/29/19 04:35> *DC/Admit/Observation/Transfer <Lleo Ball - Last Filed: 05/29/19 04:29> <Cameron Torres - Last Filed: 05/29/19 04:35> Diagnosis at time of Disposition: Paresthesia of bilateral legs, Paresthesia of arm, Paresthesias - Discharge Dispostion Disposition: ELOPED Condition at time of disposition: Stable - Referrals Referrals: Summer Spence [Non Staff, Medical] -
[2019-05-29 04:05] LABS: BASO % 0.2 % (0-2.0); EOS % 1.2 % (0-4.5); HEMATOCRIT 35.8 % (32.4-45.2); HEMOGLOBIN 11.7 GM/dL (10.7-15.3); LYMPH % 28.7 % (8-40); MCH 29.1 pg (25.7-33.7); MCHC 32.7 g/dl (32.0-36.0); MEAN CELL VOLUME 89.1 fl (80-96); MEAN PLT VOLUME 8.5 fl (7.5-11.1); NEUT % 63.9 % (42.8-82.8); PLATELET COUNT 201 K/MM3 (134-434); RBC 4.01 M/mm3 (3.60-5.2); WHITE BLOOD COUNT 7.9 K/mm3 (4.0-10.0)
--- NOTE | 2019-05-29 04:29 | PDOC ---
Documentation entered by Viola Wheeler SCRIBE, acting as scribe for Lelo Ball MD. Lelo Ball MD: This documentation has been prepared by the scribe, Viola Wheeler SCRIBE, under my direction and personally reviewed by me in its entirety. I confirm that the documentation accurately reflects all work, treatment, procedures, and medical decision making performed by me. Attending Attestation - Resident Resident Name: Cameron Torres - ED Attending Attestation I have performed the following: I have examined & evaluated the patient, The case was reviewed & discussed with the resident, I agree w/resident's findings & plan - HPI HPI: 05/29/19 03:13 Pt comes with headache and random neuro complaints. 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 - Physicial Exam PE: 05/29/19 03:53 Agree with resident exam. Pt has a normal neuro exam and physical exam. She has leg heaviness and she is worried that a blood clot from her brain went to her legs. I explained to her that DVTs go from leg to the brain/lungs - Medical Decision Making 05/29/19 04:27 Pt has normal CBC. Chem pending. Pt is due to get a CTA brain, but she doesn' t want to wait and she refuses to sign out against medical advice, so she will elope. 05/29/19 04:28 I advised her to follow with hematology and rheumatology to r/o chronic disorders that may predispose her to blood clotting and cavernous sinus thrombosis. Pt states that she wants to go home because she is feeling better.
[2019-05-29 04:44] LABS: ALBUMIN 3.4 g/dl (3.4-5.0); BILIRUBIN,TOTAL 0.2 mg/dL (0.2-1); BLOOD UREA NITROGEN 8.6 mg/dL (7-18); CALCIUM 8.4 mg/dL (8.5-10.1); CREATININE 1.1 mg/dL (0.55-1.3); POTASSIUM 3.7 mmol/L (3.5-5.1); TOT PROT 6.6 g/dl (6.4-8.2)
== END 2019-05-29 04:30 | disposition left against medical advice (07) ==
LOC: JER 01:25
DX: R20.2 Paresthesia of skin (principal); G08 Intracranial and intraspinal phlebitis and thrombophlebitis; J45.909 Unspecified asthma, uncomplicated; Z86.59 Personal history of other mental and behavioral disorders; F32.9 Major depressive disorder, single episode, unspecified; F41.9 Anxiety disorder, unspecified
CPT/HCPCS: 36415; 80053; 85025; 99281-25